=== PATIENT | female | born 1950 | race Caucasian/White ===

== ENCOUNTER 2016-10-11 05:31 | Inpatient (IN) | payer MEDICARE ==
[2016-10-11] VITALS (18 sets, daily range): BP systolic 89–160; BP diastolic 55–79; PULSE 98–124; RESP 17–34; TEMP 96.9–98.3; O2SAT 90–100
[~2016-10-11] VITALS: Ht 165.1 cm; Wt 84.5 kg
[2016-10-11] MEDS ORDERED: SODIUM CHLORIDE 0.9% FLUSH 10 ML FLUSH IVF PRN (05:45)
[2016-10-11] MEDS ORDERED: SYNT88TA PO (06:01)
[2016-10-11] MEDS ORDERED: MONT10TA4 PO (06:01)
[2016-10-11] MEDS ORDERED: ALBU0.08 NEB (06:01)
[2016-10-11] MEDS: RESP: ALBUTEROL 2.5 MG/IPRATROPIUM 0.5 MG NEB (SCH) INH (06:07)
[2016-10-11] MEDS ORDERED: SODIUM CHLORID 0.9% 500 ML INJ 500 ML IV ONE (06:15)
[2016-10-11] MEDS ORDERED: LORazepam 2 MG/ML VIAL IV PUSH ONE (06:15)
[2016-10-11 06:35] LABS: AUTOMATED NEUTROPHIL # 4.8 TH/MM3 (1.8-7.7); BASOPHIL # 0.1 TH/MM3 (0-0.2); BASOPHIL % 0.7 % (0.0-2.0); EOSINOPHIL # 0.7 TH/MM3 (0-0.4); EOSINOPHIL % 8.5 % (0.0-4.0); HEMATOCRIT 40.2 % (35.0-46.0); HEMO FLAGS DIFF FINAL; LYMPHOCYTE # 1.7 TH/MM3 (1.0-4.8); MEAN CELL VOLUME 92.3 FL (80.0-100.0); MEAN CORPUSCULAR HEMOGLOBIN 31.3 PG (27.0-34.0); MONO % 10.4 % (0.0-8.0); NEUT % 59.4 % (16.0-70.0); PLATELET COUNT 154 TH/MM3 (150-450); RED BLOOD COUNT 4.36 MIL/MM3 (4.00-5.30); RED CELL DISTRIBUTION WIDTH 13.2 % (11.6-17.2); WHITE BLOOD COUNT 8.1 TH/MM3 (4.0-11.0)
[2016-10-11 06:46] LABS: INTERNATIONAL NORMALIZED RATIO 0.9 RATIO; PROTHROMBIN TIME - PATIENT 10.4 SEC (9.8-11.6)
--- NOTE | 2016-10-11 06:48 | PD ---
HPI Chief Complaint: Respiratory Distress Time Seen by Provider: 05:40 Travel History International Travel<30 days: No Contact w/Intl Traveler<30days: No Traveled to known affect area: No History of Present Illness HPI The patient is a 65 year old female who presents to the [facility] emergency department with a history of increased shortness of breath after discontinuing her Symbicort due to cost approximately 2 weeks ago. A week ago her symptoms were worsened by developing an upper respiratory infection. She's had a cough that is been productive of green sputum. The patient's family also reports that she has chronic lower extremity edema that is been present for the last few months. Her primary care physician is Dr. Luis Fung. She has not been to see him recently. The patient's family reports that she has refused to go to the physician. She reports that she's had a subjective fever. She reports having chest tightness associated with her shortness of breath and wheezing. The patient awoke this evening with increased shortness of breath this prompting the visit to the emergency department. The patient arrives by ambulance services. The patient was provided 2 albuterol nebulizer treatments en route and Solu-Medrol 125 mg IV. The patient on arrival during a nebulizer treatment was noted to have 95% saturations, however on 2 L nasal cannula O2 her O2 saturation dropped down to 86-87%. The patient denies any neck pain, abdominal pain, vomiting, urinary symptoms, or neurologic symptoms. The patient does report having some diarrhea over the last few days. She took a leftover prescription of amoxicillin which she attributes the diarrhea 2. She denies having any blood in her stool or black or tarry stools. She denies having any mucus in her stool. [facility] Past Medical History Narrative Medical The patient's past medical history is significant for COPD, hypothyroid disorder , panic attacks. Anxiety: Yes COPD: Yes Diminished Hearing: No ?: Not Past Surgical History Narrative Surgical The patient's past surgical history is significant for cholecystectomy, partial thyroidectomy. Cholecystectomy: Yes Endocrine Surgery: Yes (thyroidectomy) Social History Alcohol Use: No Tobacco Use: No Substance Use: No Allergies-Medications (Allergen,Severity, Reaction): Coded Allergies: No Known Allergies (Unverified , 10/11/16) Reported Meds & Prescriptions Reported Meds & Active Scripts Active Reported Albuterol Neb (Albuterol Sulfate) 2.5 Mg/3 Ml Neb 2.5 Mg NEB Q4HR NEB While awake Montelukast (Montelukast Sodium) 10 Mg Tab 10 Mg PO HS Synthroid (Levothyroxine Sodium) 88 Mcg Tab 88 Mcg PO DAILY Review of Systems Except as stated in HPI: all other systems reviewed are Neg General / Constitutional: Positive: Fever Eyes: No: Visual changes HENT: Positive: Rhinorrhea, No: Headaches Cardiovascular: Positive: Chest Pain or Discomfort (chest tightness associated with shortness of breath), Dyspnea on exertion Respiratory: Positive: Cough, Shortness of Breath, Wheezing Gastrointestinal: Positive: Diarrhea, Changes in Bowel Habits, No: Nausea, Vomiting, Abdominal Pain, Hematochezia, Indigestion, Loss of Appetite Genitourinary: No: Dysuria Musculoskeletal: No: Pain Skin: No Rash Neurologic: No: Weakness Psychiatric: No: Depression Endocrine: No: Polydipsia Hematologic/Lymphatic: No: Easy Bruising Physical Exam Narrative General: The patient is a well-developed well-nourished female, short of breath on arrival with accessory muscle use and tripoding. Head and Neck exam: Head is normocephalic atraumatic. Eyes: EOMI, pupils are equal round and reactive to light. Nose: Midline septum with pink mucous membranes Mouth: Dentition unremarkable. Moist mucus membranes. Posterior oropharynx is not erythematous. No tonsillar hypertrophy. Uvula midline. Airway patent. Neck: No palpable lymphadenopathy. No nuchal rigidity. No thyromegaly. Cardiovascular: Sinus tachycardia in the 1 teens to 120 without murmurs, gallops, or rubs. No pulse deficit to the extremities on simultaneous auscultation and palpation of her radial artery. Lungs: Expiratory wheezes audible throughout bilateral lung faye, decreased breath sounds in bilateral bases. No rhonchi, no crackles audible. The patient has accessory muscle use noted. The patient has conversational dyspnea. Abdomen: Soft, without tenderness to palpation in all 4 quadrants of the abdomen. No guarding, rebound, or rigidity. Normal bowel sounds are audible. No tenderness on palpation of McBurney's point. Extremities: No clubbing or cyanosis. The patient has trace to 1+ pitting edema bilateral lower extremities. 2+ pulses in all 4 extremities. The patient has dry, flaky feet bilateral lower extremities. She reports that this is chronic. Back: No costovertebral angle tenderness to palpation. Neurologic Exam: Grossly nonfocal. Data Data Last Documented VS Vital Signs Date Time Temp Pulse Resp B/P Pulse Ox O2 Delivery O2 Flow Rate FiO2 10/11/16 07:14 17 97 BiPAP 40 10/11/16 05:49 2 10/11/16 05:42 124 160/79 Orders Complete Blood Count With Diff (10/11/16 05:41) Comprehensive Metabolic Panel (10/11/16 05:41) B-Type Natriuretic Peptide (10/11/16 05:41) Prothrombin Time / Inr (Pt) (10/11/16 05:41) Magnesium (Mg) (10/11/16 05:41) Ckmb (Isoenzyme) Profile (10/11/16 05:41) Troponin I (10/11/16 05:41) Arterial Blood Gas (Abg) (10/11/16 05:41) Urinalysis - C+S If Indicated (10/11/16 05:41) Blood Culture (10/11/16 05:41) Iv Access Insert/Monitor (10/11/16 05:41) Electrocardiogram (10/11/16 05:41) Ecg Monitoring (10/11/16 05:41) Oximetry (10/11/16 05:41) Oxygen Administration (10/11/16 05:41) Chest, Single Ap (10/11/16 05:41) Sodium Chloride 0.9% Flush (Ns Flush) (10/11/16 05:45) Albuterol-Ipratropium Neb (Duoneb Neb) (10/11/16 05:45) Resp Bipap / Cpap Non Invas Vt (10/11/16 05:41) Lactic Acid Sepsis Protocol (10/11/16 05:41) Lorazepam Inj (Ativan Inj) (10/11/16 06:15) Sodium Chlorid 0.9% 500 Ml Inj (Ns 500 M (10/11/16 06:15) Labs Laboratory Tests Test 10/11/16 10/11/16 10/11/16 06:00 06:25 06:45 White Blood Count 8.1 TH/MM3 Red Blood Count 4.36 MIL/MM3 Hemoglobin 13.7 GM/DL Hematocrit 40.2 % Mean Corpuscular Volume 92.3 FL Mean Corpuscular Hemoglobin 31.3 PG Mean Corpuscular Hemoglobin 34.0 % Concent Red Cell Distribution Width 13.2 % Platelet Count 154 TH/MM3 Mean Platelet Volume 9.7 FL Neutrophils (%) (Auto) 59.4 % Lymphocytes (%) (Auto) 21.0 % Monocytes (%) (Auto) 10.4 % Eosinophils (%) (Auto) 8.5 % Basophils (%) (Auto) 0.7 % Neutrophils # (Auto) 4.8 TH/MM3 Lymphocytes # (Auto) 1.7 TH/MM3 Monocytes # (Auto) 0.8 TH/MM3 Eosinophils # (Auto) 0.7 TH/MM3 Basophils # (Auto) 0.1 TH/MM3 CBC Comment DIFF FINAL Differential Comment Prothrombin Time 10.4 SEC Prothromb Time International 0.9 RATIO Ratio Sodium Level 141 MEQ/L Potassium Level 3.7 MEQ/L Chloride Level 96 MEQ/L Carbon Dioxide Level 42.0 MEQ/L Anion Gap 3 MEQ/L Blood Urea Nitrogen 10 MG/DL Creatinine 0.67 MG/DL Estimat Glomerular Filtration 88 ML/MIN Rate Random Glucose 125 MG/DL Calcium Level 8.7 MG/DL Magnesium Level 2.1 MG/DL Total Bilirubin 0.3 MG/DL Aspartate Amino Transf 19 U/L (AST/SGOT) Alanine Aminotransferase 21 U/L (ALT/SGPT) Alkaline Phosphatase 86 U/L Total Creatine Kinase 83 U/L Troponin I LESS THAN 0.02 NG/ML B-Type Natriuretic Peptide 19 PG/ML Total Protein 7.8 GM/DL Albumin 3.9 GM/DL Lactic Acid Level 1.0 mmol/L Blood Gas Puncture Site LT RADIAL Blood Gas Patient Temperature 98.6 Blood Gas HCO3 36 mmol/L Blood Gas Base Excess 9.2 mmol/L Blood Gas Oxygen Saturation 86 % Arterial Blood pH 7.29 Arterial Blood Partial 77 mmHg Pressure CO2 Arterial Blood Partial 56 mmHG Pressure O2 Arterial Blood Oxygen Content 16.1 Vol % Arterial Blood 1.3 % Carboxyhemoglobin Arterial Blood Methemoglobin 0.6 % Blood Gas Hemoglobin 13.3 G/DL Oxygen Delivery Device BIPAP Blood Gas Ventilator Setting IPAP=12 EPAP=6 Blood Gas Inspired Oxygen 30 % MDM Medical Decision Making Medical Screen Exam Complete: Yes Emergency Medical Condition: Yes Medical Record Reviewed: Yes Differential Diagnosis COPD exacerbation, versus pneumonia, versus new-onset congestive heart failure, versus acute coronary syndrome Narrative Course During the course of the patients emergency department visit, the patients history, examination, and differential diagnosis were reviewed with the patient. The patient had IV access obtained and blood work sent for analysis. The patient was placed on a pvc monitor with oximetry and blood pressure monitoring. An EKG was done on arrival. The patient's EKG reveals a sinus tachycardia with a heart rate of 121, QRS duration is 71 ms, QTC 348 ms without any acute ST segment elevation or depression. The patient was initially provided BiPAP due to increased work of breathing, DuoNeb nebs 3, normal saline a 500 mL bolus. The patients laboratory studies were pending at the conclusion of my shift. The patient's case was checked out to the oncoming ER physician. I anticipate that the patient will be admitted to the hospital for continued evaluation and treatment of his COPD exacerbation and hypoxemia on room air. Diagnosis Primary Impression: COPD exacerbation Additional Impression: Hypoxemia Admitting Information Admitting Physician Requests: Admit Raeann Stevenson MD October 11, 2016 06:48
[2016-10-11 06:54] LABS: BLOOD GAS BASE EXCESS 9.2 mmol/L (-2-2); BLOOD GAS CARBOXYHEMOGLOBIN 1.3 % (0-4); BLOOD GAS HCO3 36 mmol/L (22-26); BLOOD GAS METHEMOGLOBIN 0.6 % (0-2); BLOOD GAS O2 HGB SATURATION 86 % (90-100); BLOOD GAS OXYGEN CONTENT 16.1 Vol % (12.0-20.0); BLOOD GAS PCO2 77 mmHg (38-42); BLOOD GAS PO2 56 mmHG (61-120); BLOOD GAS TOTAL HGB 13.3 G/DL (12.0-16.0); TEMP CORR TO 98.6
[2016-10-11 06:55] LABS: CRITICAL VALUE YES; DRAW SITE LT RADIAL; FIO2 30 %; NUMBER OF ARTERIAL PUNCTURES 1; OXYGEN DEVICE BIPAP; STAT YES; ULNAR PULSE PRESENT; VENT SETTINGS IPAP=12 EPAP=6
[2016-10-11 06:59] LABS: ALT (GPT) 21 U/L (10-53); ANION GAP 3 MEQ/L (5-15); AST (GOT) 19 U/L (15-37); BLOOD UREA NITROGEN 10 MG/DL (7-18); CHLORIDE 96 MEQ/L (98-107); GLOMERULAR FILTRATION RATE 88 ML/MIN (>89); MAGNESIUM 2.1 MG/DL (1.5-2.5); POTASSIUM 3.7 MEQ/L (3.5-5.1); SODIUM (NA) 141 MEQ/L (136-145)
[2016-10-11 07:03] LABS: ALKALINE PHOSPHATASE 86 U/L (45-117); TOTAL BILIRUBIN ADULT 0.3 MG/DL (0.2-1.0)
[2016-10-11 07:16] LABS: CREATINE KINASE 83 U/L (26-192)
--- NOTE | 2016-10-11 07:17 | RADRPT ---
EXAM DATE/TIME: 10/11/2016 07:09 [place] COMPARISON: No previous studies available for comparison. INDICATIONS : Short of breath. MEDICAL HISTORY : None. SURGICAL HISTORY : None. ENCOUNTER: Initial ACUITY: 1 day PAIN SCORE: Non-responsive. LOCATION: Bilateral chest FINDINGS: Portable AP view of the chest demonstrates a normal-sized cardiac silhouette calcification of the aor ta. Lungs are hyperinflated with interstitial prominence bilaterally. No definite effusion, consolida tion, or pneumothorax is identified. Bones and soft tissues demonstrate no acute finding. CONCLUSION: Background lung changes suspicious for obstructive airways disease/emphysema. Otherwise, no acute fin ding is appreciated. Fredy Rodrigez MD on October 11, 2016 at 7:14 Board Certified Radiologist. This report was verified electronically.
--- NOTE | 2016-10-11 08:11 | EKG ---
Date Performed: 10/11/2016 Time Performed: 05:39:10 PTAGE: 65 years EKG: Marked baseline artifact Sinus tachycardia Would repeat EKG due to poor quality NO PREVIOUS TRACING DOCTOR: Shmuel Mcintyre Interpretating Date/Time 10/11/2016 08:10:55
[2016-10-11] MEDS ORDERED: BISACODYL 10 MG SUPP RECTAL PRN (08:15)
[2016-10-11] MEDS ORDERED: MAGNESIUM HYDROXIDE SUSP 30 ML CUP PO PRN (08:15)
[2016-10-11] MEDS ORDERED: SODIUM CHLORIDE 0.9% FLUSH 10 ML FLUSH IV FLUSH PRN (08:15)
[2016-10-11] MEDS ORDERED: NALOXONE HCL 0.4 MG/ML AMP IV PRN (08:15)
[2016-10-11] MEDS ORDERED: AZITHROMYCIN INJ 500 MG in SODIUM CHLOR 0.9% 250 ML INJ 250 ML IV ONE (08:15)
[2016-10-11] MEDS ORDERED: cefTRIAXone INJ 1,000 MG in SODIUM CHLORIDE 0.9% INJ 100 ML IV ONE (08:15)
[2016-10-11] MEDS ORDERED: SENNOSIDES 8.6 MG TAB PO PRN (08:15)
[2016-10-11] MEDS ORDERED: RESP: ALBUTEROL 2.5 MG/IPRATROPIUM 0.5 MG NEB (PRN) NEB ×2 (08:15→14:00)
[2016-10-11] MEDS ORDERED: LACTULOSE SYRUP 20 GM/30 ML CUP PO PRN (08:15)
[2016-10-11] MEDS ORDERED: ONDANSETRON HCL 4 MG/2 ML VIAL IVP PRN (08:15)
[2016-10-11 08:18] LABS: BLOOD GAS BASE EXCESS 8.5 mmol/L (-2-2); BLOOD GAS CARBOXYHEMOGLOBIN 1.2 % (0-4); BLOOD GAS HCO3 36 mmol/L (22-26); BLOOD GAS METHEMOGLOBIN 0.6 % (0-2); BLOOD GAS O2 HGB SATURATION 90 % (90-100); BLOOD GAS OXYGEN CONTENT 16.2 Vol % (12.0-20.0); BLOOD GAS PCO2 83 mmHg (38-42); BLOOD GAS PO2 67 mmHG (61-120); BLOOD GAS TOTAL HGB 12.7 G/DL (12.0-16.0); CRITICAL VALUE YES; OXYGEN DEVICE BIPAP; TEMP CORR TO 98.6
[2016-10-11 08:19] LABS: DRAW SITE RT RADIAL; FIO2 40 %; NUMBER OF ARTERIAL PUNCTURES 2; STAT YES; ULNAR PULSE Y; VENT SETTINGS 14 IPAP/ 7 EPAP
[2016-10-11] MEDS: SODIUM CHLORIDE 0.9% FLUSH 10 ML FLUSH IV FLUSH SCH ×2 (08:45→21:23)
[2016-10-11] MEDS: LEVOTHYROXINE SODIUM 88 MCG TAB PO SCH (08:59)
[2016-10-11] MEDS: DOCUSATE SODIUM 50 MG/SENNA 8.6 MG TAB PO SCH ×2 (08:59→21:23)
[2016-10-11 09:21] LABS: BLOOD GAS BASE EXCESS 8.6 mmol/L (-2-2); BLOOD GAS CARBOXYHEMOGLOBIN 1.2 % (0-4); BLOOD GAS HCO3 35 mmol/L (22-26); BLOOD GAS METHEMOGLOBIN 0.7 % (0-2); BLOOD GAS O2 HGB SATURATION 93 % (90-100); BLOOD GAS OXYGEN CONTENT 16.3 Vol % (12.0-20.0); BLOOD GAS PCO2 77 mmHg (38-42); BLOOD GAS PO2 73 mmHG (61-120); BLOOD GAS TOTAL HGB 12.5 G/DL (12.0-16.0); CRITICAL VALUE YES; OXYGEN DEVICE BIPAP; TEMP CORR TO 98.6; VENT SETTINGS 18 IPAP/7 EPAP
[2016-10-11 09:22] LABS: DRAW SITE LT RADIAL; FIO2 40 %; NUMBER OF ARTERIAL PUNCTURES 2; STAT YES; ULNAR PULSE Y
--- NOTE | 2016-10-11 09:45 | PD ---
Data Data Last Documented VS Vital Signs Date Time Temp Pulse Resp B/P Pulse Ox O2 Delivery O2 Flow Rate FiO2 10/11/16 07:55 98.3 110 25 112/55 97 BiPAP 40 10/11/16 05:49 2 Orders Complete Blood Count With Diff (10/11/16 05:41) Comprehensive Metabolic Panel (10/11/16 05:41) B-Type Natriuretic Peptide (10/11/16 05:41) Prothrombin Time / Inr (Pt) (10/11/16 05:41) Magnesium (Mg) (10/11/16 05:41) Ckmb (Isoenzyme) Profile (10/11/16 05:41) Troponin I (10/11/16 05:41) Arterial Blood Gas (Abg) (10/11/16 05:41) Urinalysis - C+S If Indicated (10/11/16 05:41) Blood Culture (10/11/16 05:41) Iv Access Insert/Monitor (10/11/16 05:41) Electrocardiogram (10/11/16 05:41) Ecg Monitoring (10/11/16 05:41) Oximetry (10/11/16 05:41) Oxygen Administration (10/11/16 05:41) Chest, Single Ap (10/11/16 05:41) Sodium Chloride 0.9% Flush (Ns Flush) (10/11/16 05:45) Albuterol-Ipratropium Neb (Duoneb Neb) (10/11/16 05:45) Resp Bipap / Cpap Non Invas Vt (10/11/16 05:41) Lactic Acid Sepsis Protocol (10/11/16 05:41) Lorazepam Inj (Ativan Inj) (10/11/16 06:15) Sodium Chlorid 0.9% 500 Ml Inj (Ns 500 M (10/11/16 06:15) Arterial Blood Gas (Abg) (10/11/16 ) Admit Order (Ed Use Only) (10/11/16 08:04) Ceftriaxone Inj (Rocephin Inj) (10/11/16 08:15) Azithromycin Inj (Zithromax Inj) (10/11/16 08:15) Labs Laboratory Tests Test 10/11/16 10/11/16 10/11/16 06:00 06:25 06:45 White Blood Count 8.1 TH/MM3 Red Blood Count 4.36 MIL/MM3 Hemoglobin 13.7 GM/DL Hematocrit 40.2 % Mean Corpuscular Volume 92.3 FL Mean Corpuscular Hemoglobin 31.3 PG Mean Corpuscular Hemoglobin 34.0 % Concent Red Cell Distribution Width 13.2 % Platelet Count 154 TH/MM3 Mean Platelet Volume 9.7 FL Neutrophils (%) (Auto) 59.4 % Lymphocytes (%) (Auto) 21.0 % Monocytes (%) (Auto) 10.4 % Eosinophils (%) (Auto) 8.5 % Basophils (%) (Auto) 0.7 % Neutrophils # (Auto) 4.8 TH/MM3 Lymphocytes # (Auto) 1.7 TH/MM3 Monocytes # (Auto) 0.8 TH/MM3 Eosinophils # (Auto) 0.7 TH/MM3 Basophils # (Auto) 0.1 TH/MM3 CBC Comment DIFF FINAL Differential Comment Prothrombin Time 10.4 SEC Prothromb Time International 0.9 RATIO Ratio Sodium Level 141 MEQ/L Potassium Level 3.7 MEQ/L Chloride Level 96 MEQ/L Carbon Dioxide Level 42.0 MEQ/L Anion Gap 3 MEQ/L Blood Urea Nitrogen 10 MG/DL Creatinine 0.67 MG/DL Estimat Glomerular Filtration 88 ML/MIN Rate Random Glucose 125 MG/DL Calcium Level 8.7 MG/DL Magnesium Level 2.1 MG/DL Total Bilirubin 0.3 MG/DL Aspartate Amino Transf 19 U/L (AST/SGOT) Alanine Aminotransferase 21 U/L (ALT/SGPT) Alkaline Phosphatase 86 U/L Total Creatine Kinase 83 U/L Troponin I LESS THAN 0.02 NG/ML B-Type Natriuretic Peptide 19 PG/ML Total Protein 7.8 GM/DL Albumin 3.9 GM/DL Lactic Acid Level 1.0 mmol/L Blood Gas Puncture Site LT RADIAL Blood Gas Patient Temperature 98.6 Blood Gas HCO3 36 mmol/L Blood Gas Base Excess 9.2 mmol/L Blood Gas Oxygen Saturation 86 % Arterial Blood pH 7.29 Arterial Blood Partial 77 mmHg Pressure CO2 Arterial Blood Partial 56 mmHG Pressure O2 Arterial Blood Oxygen Content 16.1 Vol % Arterial Blood 1.3 % Carboxyhemoglobin Arterial Blood Methemoglobin 0.6 % Blood Gas Hemoglobin 13.3 G/DL Oxygen Delivery Device BIPAP Blood Gas Ventilator Setting IPAP=12 EPAP=6 Blood Gas Inspired Oxygen 30 % MDM Supervised Visit with KELVIN: Yes Interpretation(s) No leukocytosis Bicarbonate is 42 Troponin is 0.02 BNP is 19 Lactic acid is 1 ABG: Acute on chronic respiratory acidosis Differential Diagnosis COPD exacerbation, pneumonia, pulmonary embolism, hypercarbic respiratory failure Narrative Course This is a 65-year-old female who has a history of COPD who presents to the emergency department with increasing wheezing and shortness of breath. She was hypoxic on arrival. She is placed on BiPAP by Dr. Stevenson. Repeat ABG after patient being on BiPAP for one hour demonstrated worsening hypercarbia. We increased her settings on her BiPAP, she was given additional bronchodilators and repeat gas after an hour looked somewhat improved. I don't think she requires intubation at this time. She is awake and talking and protecting her airway. I spoke to Dr. No and we agreed to increase her inspiratory pressure to 20 and continue bronchodilator therapy. We'll repeat ABG later in the day. Critical Care Narrative Aggregate critical care time was 35 minutes. Time to perform other separately billable procedures was not included in the critical care time. My time did not include minutes spent treating any other patients simultaneously or on activities that did not directly contribute to the patient's treatment. The services I provided to this patient were to treat and/or prevent clinically significant deterioration that could result in: Disability, I provided critical care services requiring my management, as noted below: Chart data review, documentation time, medication orders and management, vital sign assessments/reviewing monitor data, ordering and reviewing lab tests, ordering and interpreting/reviewing x-rays and diagnostic studies, care of the patient and discussion of the patient with the admitting physicians. Physician Communication Physician Communication Discussed with Dr. No Diagnosis Primary Impression: COPD exacerbation Additional Impression: Hypoxemia Admitting Information Admitting Physician Requests: Admit Nisreen Jacob MD October 11, 2016 09:45
[2016-10-11 09:57] LABS: BLOOD, URINE SMALL (NEG); GLUCOSE,URINE NEG (NEG); HYALINE CAST, URINE 1 /lpf (RARE); KETONE, URINE NEG (NEG); MUCUS URINE FEW /lpf (OCC); NITRITE,URINE NEG (NEG); SQUAMOUS EPITHELIAL CELL URINE <1 /hpf (0-5); TRANSITIONAL EPI CELLS, URINE <1 /hpf; URINE COLOR YELLOW (YELLW/STRAW)
[2016-10-11 09:58] LABS: COMMENT (UR) CULT NOT INDICATED; CULTURE IF INDICATED CULT NOT INDICATED
[2016-10-11] MEDS ORDERED: RESP: ALBUTEROL 2.5 MG/IPRATROPIUM 0.5 MG NEB (SCH) NEB (12:00)
[2016-10-11] MEDS: methylPREDNISolone SOD SUCC 125 MG/2 ML VIAL IV PUSH SCH ×2 (12:40→18:18)
[2016-10-11] MEDS ORDERED: DEXTROSE 50% IN WATER 50 ML VIAL(D50) IV PRN (14:00)
[2016-10-11] MEDS: INSULIN NovoLIN REGULAR SUPPLEMENTAL SCALE SQ SCH ×2 (14:00→21:22)
[2016-10-11] MEDS ORDERED: GLUCAGON 1 MG/ML VIAL OTHER PRN (14:00)
[2016-10-11 14:08] LABS: BLOOD GAS BASE EXCESS 8.4 mmol/L (-2-2); BLOOD GAS CARBOXYHEMOGLOBIN 1.6 % (0-4); BLOOD GAS HCO3 35 mmol/L (22-26); BLOOD GAS METHEMOGLOBIN 1.1 % (0-2); BLOOD GAS O2 HGB SATURATION 93 % (90-100); BLOOD GAS OXYGEN CONTENT 16.3 Vol % (12.0-20.0); BLOOD GAS PCO2 69 mmHg (38-42); BLOOD GAS PO2 82 mmHg (61-120); BLOOD GAS TOTAL HGB 12.4 G/DL (12.0-16.0); TEMP CORR TO 98.6
[2016-10-11 14:09] LABS: CRITICAL VALUE YES; DRAW SITE RT RADIAL; FIO2 40 %; NUMBER OF ARTERIAL PUNCTURES 1; OXYGEN DEVICE BIPAP; STAT YES; ULNAR PULSE PRESENT
[2016-10-11] MEDS: PANTOPRAZOLE SODIUM 40 MG VIAL IV PUSH SCH (14:39)
[2016-10-11] MEDS: RESP: ALBUTEROL 2.5 MG/IPRATROPIUM 0.5 MG NEB (SCH) NEB ×3 (14:50→23:49)
[2016-10-11] MEDS: RESP: BUDESONIDE 0.5 MG/2 ML NEB NEB SCH ×2 (14:50→20:57)
--- NOTE | 2016-10-11 17:08 | MB ---
cc: JOSELO DIEZ M.D. DATE OF CONSULTATION: 10/11/2016. HISTORY OF PRESENT ILLNESS: The patient is a 65-year-old female with past medical history of COPD on 5 liters home oxygen, hypothyroidism and anxiety disorder. She presented to the [facility] Emergency Department with progressive worsening shortness of breath after discontinuing her Symbicort medication due to cough approximately two weeks ago. A week ago, her symptoms worsened by developing an upper respiratory infection. She has had a productive cough with green phlegm. As per emergency department records, the patient refused to go to her primary care physician. She reports having chest tightness associated with shortness of breath and wheezing. She received albuterol nebulizer treatment via EMS and Solu-Medrol 125 milligrams IV push. She denies any orthopnea, PND or constitutional symptoms. In addition, no history of nausea, vomiting or abdominal pain. The patient was placed on BiPAP 12/6 with 30% FIO2 and her ABG showed acute hypercapnic respiratory acidosis with a pH of 7.29, CO2 77, pAO2 56, bicarb 36 and sats of 86%. Subsequently she had two additional blood gases, and her last ABG at 09:18 showed a pH of 7.28, CO2 77, pAO2 73, bicarb 35, sats 93% on 18/7 with 40% FIO2. Chest x-ray showed COPD changes; otherwise, no acute findings identified. In the emergency room, the patient received Rocephin and azithromycin. Due to her agitation, she received Ativan 0.5 milligrams at 06:54 this morning. On arrival to the intensive care unit, the patient remains on BiPAP awake. PAST MEDICAL HISTORY: The past medical history significant for: 1. COPD. 2. Hypothyroidism. 3. Anxiety disorder. PAST SURGICAL HISTORY: Significant for: 1. Cholecystectomy. 2. Previous partial thyroidectomy. ALLERGIES: NO KNOWN DRUG ALLERGIES reported MEDICATIONS: 1. Albuterol. 2. Singulair. 3. Synthroid. FAMILY HISTORY: Noncontributory. SOCIAL HISTORY: Nonsmoker, nondrinker. REVIEW OF SYSTEMS: As per the history of present illness and the rest of the review of systems is unremarkable. PHYSICAL EXAMINATION: GENERAL: A 65-year-old female lying in bed in mild respiratory distress on BiPAP. VITAL SIGNS: Afebrile, pulse 105, blood pressure 123/59 with a MAP of 83, saturation 92% to 97% on BiPAP. HEAD, EYES, EARS, NOSE, THROAT: Normocephalic and atraumatic. Pupils equal, round and reactive to light and accommodation. Extraocular muscles intact. Conjunctivae are pink. Nonicteric sclerae. Oral mucosa within normal limits. NECK: The neck is supple. No jugular venous distention, adenopathy or thyromegaly. Trachea in the midline. CARDIOVASCULAR: Tachycardic Normal S1 and S2. No murmurs, rubs or gallops noted. PULMONARY: Bilateral equal air entry, diminished. ABDOMEN: The abdomen is soft, nontender and no distention. Positive bowel sounds. EXTREMITIES: No cyanosis, clubbing. Nonpitting edema. NEUROLOGIC: No focal sensory deficit. LABORATORY DATA: Sodium 141, potassium 3.7, chloride 96, carbon dioxide 42, BUN 10, creatinine 0.67, glucose 125, lactic acid 1.0. Troponin less than 0.02. BNP 19. WBCs 8.1, hemoglobin 15.7, hematocrit 40, platelet count of 154,000. RADIOGRAPHIC STUDIES: Chest x-ray showed no acute cardiopulmonary abnormalities. COPD changes. IMPRESSION: 1. Acute hypercapnic respiratory failure. 2. COPD exacerbation. 3. Hypothyroidism. 4. Anxiety disorder. RECOMMENDATIONS: 1. Monitor neuro status closely and avoid any sedatives. 2. Continue with oxygen and maintain sats above 92%. 3. Bronchodilators in the form of DuoNeb q. 4+ q. 2 p.r.n. for shortness of breath. In addition, we will add Symbicort, Spiriva and Pulmicort. 4. Continue with noninvasive positive pressure ventilation. 5. Will repeat ABG now. If there is any worsening in respiratory acidosis or clinical condition, we will proceed with intubation and mechanical ventilation. 6. Will need pulmonary function tests as an outpatient to assess the severity of her obstructive lung disease. 7. Monitor heart rate and blood pressure closely. 8. Maintain MAP greater than 65 mmHg. 9. Lactic acid level measured at 1.0. 10. Monitor renal function intakes and outputs and electrolyte replacement per protocol. 11. Keep n.p.o. for now and place on Protonix 40 mg and daily. 12. Continue with her antibiotics. She is currently on Rocephin and azithromycin. 13. Monitor for signs infections, which include fever and WBC. 14. A chest x-ray in the emergency room showed COPD changes otherwise no acute findings appreciated. 15. Sliding scale insulin with Accu-Chek q. 6 h as the patient will be on IV steroids. 16. Continue with Synthroid per the primary team. 17. Check a baseline TSH level. 18. GI prophylaxis with Protonix 40 milligrams daily and DVT prophylaxis with SCDs and heparin subcutaneous. MD COCO Llamas/FLORES /1:46 PM /4:55 PM
--- NOTE | 2016-10-11 17:26 | MB ---
cc: DEL MELVIN DATE OF CONSULTATION: 10/11/2016. REASON FOR CONSULTATION: Respiratory failure. REQUESTING PHYSICIAN: HISTORY OF PRESENT ILLNESS: Ms. Lew is a 65-year-old female with longstanding history of COPD. She uses oxygen up to 5 liters nasal cannula at home. per her daughter, she has not been using nebulizer machine because the machine was broken. She has also stopped using her Symbicort because of the cost and she has not seen her physician, Dr. Hogan for a long period of time. She can barely walk from one end of the room to the other one and they live in a very small apartment and she cannot even walk inside the room. She came to the hospital with worsening of her shortness of breath going on for about seven days or so. She has wheezing, shortness of breath, has cough and congestion, no fever or chills. No night sweats. The patient was worked up in the hospital. She had a blood gas done, which shows pH of 7.29, pC02 of 77, p02 of 56 on 30% BiPAP. Repeat blood gas on 40% BiPAP showed pH 7.32, pC02 69, p02 82. The patient opens her eyes but does not follow any commands. Her daughter is at the beside who provides most of the information. PAST MEDICAL HISTORY: 1. History of COPD. 2. Hypertension. 3. History of thyroid surgery. 4. History of hypothyroidism MEDICATIONS: She is currently taking : 1. Zithromax 500 milligrams a day. 2. Rocephin 1 gram a day. 3. Singulair 10 milligrams a day. 4. Heparin 5000 q. 12 hours. 5. Albuterol and Atrovent nebulizer treatment. 6. Symbicort 160/4.5 two puffs twice a day. 7. Spiriva once a day. 8. Budesonide nebulizer treatment. 9. Protonix 40 milligrams a day. 10. Solu-Medrol 60 milligrams q. 6 hours. 11. Levothyroxine 88 micrograms a day. ALLERGIES: NO KNOWN DRUG ALLERGIES. SOCIAL HISTORY: She is a . She used to work for [employer]. She retired eight years ago. She has history of smoking which she quit two years ago. No alcohol abuse. FAMILY HISTORY: She has two daughter s. The patient lives with her daughter. REVIEW OF SYSTEMS: She barely walks inside the house. Her weight is stable. No malignancy. No DVT or pulmonary embolism. No seizure, stroke or epilepsy. PHYSICAL EXAMINATION: GENERAL: An elderly lethargic on BiPAP. VITAL SIGNS: Blood pressure 112/55, heart rate 110, respirations 20, temperature 98.3. HEAD, EYES, EARS, NOSE, THROAT: Pupils are equal and reactive to light. She is using BiPAP. NECK: The neck is supple. JVP not raised. CHEST: She has faint expiratory rhonchi. CARDIOVASCULAR: S1 and S2 normal. ABDOMEN: Abdomen benign. EXTREMITIES: No edema. IMPRESSION: 1. Hypercapnic respiratory failure. 2. COPD exacerbation. 3. Chronic respiratory insufficiency. She is on home oxygen. 4. Noncompliance. 5. Hypertension. PLAN: I discussed with the patient's daughter at the bedside that the patient will need admission the intensive care unit. She will be maintained on BiPAP. If she gets worse or is not improving, then she will need intubation, which the daughter understands and wants to proceed with it. Will give her IV Solu-Medrol. Continue antibiotics and aerosol treatments, supplement her oxygen. She is on Heparin for DVT prophylaxis. Further treatment will depend on the course in the hospital. Thank you for this consult. MD RADHA Beltran/FLORES /2:25 PM /5:14 PM
[2016-10-11] MEDS: DEXT 5%-NACL 0.9% 1000 ML INJ 1,000 ML IV SCH (18:17)
[2016-10-11 19:32] LABS: BLOOD GAS BASE EXCESS 9.2 mmol/L (-2-2); BLOOD GAS CARBOXYHEMOGLOBIN 1.7 % (0-4); BLOOD GAS HCO3 35 mmol/L (22-26); BLOOD GAS METHEMOGLOBIN 1.2 % (0-2); BLOOD GAS O2 HGB SATURATION 86 % (90-100); BLOOD GAS OXYGEN CONTENT 13.8 Vol % (12.0-20.0); BLOOD GAS PCO2 62 mmHg (38-42); BLOOD GAS PO2 55 mmHg (61-120); BLOOD GAS TOTAL HGB 11.4 G/DL (12.0-16.0); TEMP CORR TO 98.6
[2016-10-11 19:33] LABS: CRITICAL VALUE YES; DRAW SITE RT RADIAL; FIO2 35 %; NUMBER OF ARTERIAL PUNCTURES 1; OXYGEN DEVICE BiPAP; STAT NO; ULNAR PULSE PRESENT; VENT SETTINGS IPAP20/EPAP10
[2016-10-11] MEDS: BUDESONIDE-FORMOTEROL 160/4.5 MCG INHALER INH SCH (21:00)
[2016-10-11] MEDS: MONTELUKAST SODIUM 10 MG TAB PO SCH (21:23)
[2016-10-11] MEDS: HEPARIN SODIUM - SQ 10,000 UNITS/ML VIAL SQ SCH (21:24)
[2016-10-12] VITALS (24 sets, daily range): BP systolic 126–154; BP diastolic 58–77; PULSE 89–116; RESP 13–29; TEMP 97.4–98.4; O2SAT 90–100
[2016-10-12] MEDS ORDERED: CHLORHEXIDINE GLUCONATE 2 % 1 PACK (2 CLOTHS)(extra cloths) TOPICAL PRN (00:30)
[2016-10-12] MEDS: methylPREDNISolone SOD SUCC 125 MG/2 ML VIAL IV PUSH SCH ×5 (00:41→23:23)
[2016-10-12] MEDS: INSULIN NovoLIN REGULAR SUPPLEMENTAL SCALE SQ SCH ×4 (02:00→21:45)
[2016-10-12] MEDS: CHLORHEXIDINE GLUCONATE 2 % 1 PACK (2 CLOTHS)(taper/protocol) TOPICAL SCH (02:29)
[2016-10-12] MEDS: DEXT 5%-NACL 0.9% 1000 ML INJ 1,000 ML IV SCH ×2 (02:29→21:31)
[2016-10-12] MEDS: RESP: ALBUTEROL 2.5 MG/IPRATROPIUM 0.5 MG NEB (SCH) NEB ×5 (03:12→21:02)
[2016-10-12] MEDS: LEVOTHYROXINE SODIUM 88 MCG TAB PO SCH (05:40)
--- NOTE | 2016-10-12 07:42 | HHI.CCPN ---
Subjective Remarks/Hospital Course The patient is a 65-year-old female with past medical history of COPD on 5 liters home oxygen, hypothyroidism and anxiety disorder. She presented to the [facility] Emergency Department with progressive worsening shortness of breath after discontinuing her Symbicort medication due to cough approximately two weeks ago. A week ago, her symptoms worsened by developing an upper respiratory infection. She has had a productive cough with green phlegm. As per emergency department records, the patient refused to go to her primary care physician. She reports having chest tightness associated with shortness of breath and wheezing. She received albuterol nebulizer treatment via EMS and Solu-Medrol 125 milligrams IV push. She denies any orthopnea, PND or constitutional symptoms. In addition, no history of nausea, vomiting or abdominal pain. The patient was placed on BiPAP 04/20 with 30% FIO2 and her ABG showed acute hypercapnic respiratory acidosis with a pH of 7.29, CO2 77, pAO2 56 , bicarb 36 and sats of 86%. Subsequently she had two additional blood gases, and her last ABG at 09:18 showed a pH of 7.28, CO2 77, pAO2 73, bicarb 35, sats 93% on 187 with 40% FIO2. Chest x-ray showed COPD changes; otherwise, no acute findings identified. In the emergency room, the patient received Rocephin and azithromycin. Due to her agitation, she received Ativan 0.5 milligrams at 06:54 this morning. On arrival to the intensive care unit, the patient remains on BiPAP awake. 10/12 No events overnight. Remains on BIPAP with FIO2 45%. Afebrile. Objective Vital Signs Date Time Temp Pulse Resp B/P Pulse Ox O2 Delivery O2 Flow Rate FiO2 10/12/16 06:00 89 10/12/16 04:00 97.4 22 134/66 97 10/12/16 03:15 45 10/11/16 07:55 BiPAP 10/11/16 05:49 2 Intake and Output 10/11/16 10/11/16 10/12/16 08:00 16:00 00:00 Intake Total 0 ml 717 ml Output Total 230 ml Balance -230 ml 717 ml Result Diagram: 10/11/16 0600 10/11/16 0600 Other Results Laboratory Tests Test 510/11/16 10/11/16 10/11/16 08:15 09:18 09:35 14:00 Blood Gas Puncture Site RT RADIAL LT RADIAL RT RADIAL Blood Gas Patient Temperature 98.6 98.6 98.6 Blood Gas HCO3 36 mmol/L 35 mmol/L 35 mmol/L Blood Gas Base Excess 8.5 mmol/L 8.6 mmol/L 8.4 mmol/L Blood Gas Oxygen Saturation 90 % 93 % 93 % Arterial Blood pH 7.25 7.28 7.32 Arterial Blood Partial 83 mmHg 77 mmHg 69 mmHg Pressure CO2 Arterial Blood Partial 67 mmHG 73 mmHG 82 mmHg Pressure O2 Arterial Blood Oxygen Content 16.2 Vol % 16.3 Vol % 16.3 Vol % Arterial Blood 1.2 % 1.2 % 1.6 % Carboxyhemoglobin Arterial Blood Methemoglobin 0.6 % 0.7 % 1.1 % Blood Gas Hemoglobin 12.7 G/DL 12.5 G/DL 12.4 G/DL Oxygen Delivery Device BIPAP BIPAP BIPAP Blood Gas Ventilator Setting 14 IPAP/ 7 18 IPAP/7 EPAP EPAP Blood Gas Inspired Oxygen 40 % 40 % 40 % Urine Color YELLOW Urine Turbidity CLEAR Urine pH 5.0 Urine Specific [place] 1.016 Urine Protein NEG mg/dL Urine Glucose (UA) NEG mg/dL Urine Ketones NEG mg/dL Urine Occult Blood SMALL Urine Nitrite NEG Urine Bilirubin NEG Urine Urobilinogen LESS THAN 2.0 MG/DL Urine Leukocyte Esterase NEG Urine RBC 4 /hpf Urine WBC 1 /hpf Urine Squamous Epithelial <1 /hpf Cells Urine Transitional Epithelial <1 /hpf Cells Urine Hyaline Casts 1 /lpf Urine Mucus FEW /lpf Microscopic Urinalysis Comment CULT NOT INDICATED Test 10/11/16 19:18 Blood Gas Puncture Site RT RADIAL Blood Gas Patient Temperature 98.6 Blood Gas HCO3 35 mmol/L Blood Gas Base Excess 9.2 mmol/L Blood Gas Oxygen Saturation 86 % Arterial Blood pH 7.37 Arterial Blood Partial 62 mmHg Pressure CO2 Arterial Blood Partial 55 mmHg Pressure O2 Arterial Blood Oxygen Content 13.8 Vol % Arterial Blood 1.7 % Carboxyhemoglobin Arterial Blood Methemoglobin 1.2 % Blood Gas Hemoglobin 11.4 G/DL Oxygen Delivery Device BiPAP Blood Gas Ventilator Setting IPAP20/EPAP10 Blood Gas Inspired Oxygen 35 % Imaging Last Impressions Chest X-Ray 10/11/16 0541 Signed Impressions: Service Date/Time: Tuesday, October 11, 2016 07:09 - CONCLUSION: Background lung changes suspicious for obstructive airways disease/emphysema. Otherwise, no acute finding is appreciated. Fredy Rodrigez MD Objective Remarks GENERAL: Patient is lying in bed in NAD SKIN: Warm and dry. HEAD: Normocephalic. EYES: No scleral icterus. No injection or drainage. NECK: Supple, trachea midline. No JVD or lymphadenopathy. CARDIOVASCULAR: Tachycardic without murmurs, gallops, or rubs. RESPIRATORY: Breath sounds equal bilaterally. No accessory muscle use. GASTROINTESTINAL: Abdomen soft, non-tender, nondistended. Neuro: Awake and alert A/P Assessment and Plan 1. Acute hypercapnic respiratory failure. 2. COPD exacerbation. 3. Hypothyroidism. 4. Anxiety disorder. Plan Neuro: Monitor neuro status closely and avoid any sedatives. Pulm: Continue with oxygen and maintain sats above 92%. Bronchodilators(DuoNeb, Symbicort, Spiriva)Singular 10mg qhs NIPPV PRN for resp distress. Check ABG. Pulm is following- Dr. Lopez CV: Monitor HR and BP and maintain MAP > 65 mmHg. Lactic acid level measured at 1.0. : Monitor renal function intakes and outputs and electrolyte replacement per protocol. On D5NS@75ml/hr GI: on Protonix 40 mg and daily. ID: Continue with abx( Rocephin and azithromycin). Monitor for signs infections( fever and WBC). CXR showed COPD changes otherwise no acute findings appreciated. Endo: SSI with Accu-Chek q. 6 h for glycemic control Continue with Synthroid TSH:0.97 GI prophylaxis with Protonix 40 milligrams daily and DVT prophylaxis with SCDs and heparin subcutaneous. Check labs today Level 3 Harpal No MD October 12, 2016 07:42
[2016-10-12 08:23] LABS: BLOOD GAS BASE EXCESS 9.1 mmol/L (-2-2); BLOOD GAS CARBOXYHEMOGLOBIN 1.4 % (0-4); BLOOD GAS HCO3 35 mmol/L (22-26); BLOOD GAS METHEMOGLOBIN 0.8 % (0-2); BLOOD GAS O2 HGB SATURATION 97 % (90-100); BLOOD GAS OXYGEN CONTENT 15.7 Vol % (12.0-20.0); BLOOD GAS PCO2 61 mmHg (38-42); BLOOD GAS PO2 135 mmHg (61-120); BLOOD GAS TOTAL HGB 11.3 G/DL (12.0-16.0); CRITICAL VALUE YES; TEMP CORR TO 98.6
[2016-10-12 08:24] LABS: DRAW SITE RT RADIAL; FIO2 45 %; NUMBER OF ARTERIAL PUNCTURES 1; OXYGEN DEVICE BiPAP; ULNAR PULSE PRESENT; VENT SETTINGS IPAP20/EPAP10
[2016-10-12 08:25] LABS: STAT NO
[2016-10-12 08:54] LABS: AUTOMATED NEUTROPHIL # 4.3 TH/MM3 (1.8-7.7); BASOPHIL % 0.2 % (0.0-2.0); HEMATOCRIT 35.6 % (35.0-46.0); HEMO FLAGS DIFF FINAL; LYMPHOCYTE # 0.3 TH/MM3 (1.0-4.8); MEAN CELL VOLUME 92.6 FL (80.0-100.0); MEAN CORPUSCULAR HEMOGLOBIN 30.9 PG (27.0-34.0); MEAN CORPUSCULAR HGB CONC 33.4 % (32.0-36.0); NEUT % 88.8 % (16.0-70.0); PLATELET COUNT 141 TH/MM3 (150-450); RED BLOOD COUNT 3.85 MIL/MM3 (4.00-5.30); RED CELL DISTRIBUTION WIDTH 13.4 % (11.6-17.2); WHITE BLOOD COUNT 4.8 TH/MM3 (4.0-11.0)
[2016-10-12] MEDS: SODIUM CHLORIDE 0.9% FLUSH 10 ML FLUSH IV FLUSH SCH ×2 (09:00→21:33)
[2016-10-12] MEDS: DOCUSATE SODIUM 50 MG/SENNA 8.6 MG TAB PO SCH ×4 (09:00→21:00)
[2016-10-12] MEDS: TIOTROPIUM BROMIDE 18 MCG INH INH SCH (09:10)
[2016-10-12] MEDS: BUDESONIDE-FORMOTEROL 160/4.5 MCG INHALER INH SCH ×2 (09:10→21:32)
[2016-10-12] MEDS: HEPARIN SODIUM - SQ 10,000 UNITS/ML VIAL SQ SCH ×2 (09:11→21:33)
[2016-10-12] MEDS: cefTRIAXone INJ 1,000 MG in SODIUM CHLORIDE 0.9% INJ 100 ML IV SCH (09:12)
[2016-10-12 09:17] LABS: BICARBONATE 36.8 MEQ/L (21.0-32.0); POTASSIUM 4.2 MEQ/L (3.5-5.1)
[2016-10-12] MEDS: AZITHROMYCIN INJ 500 MG in SODIUM CHLOR 0.9% 250 ML INJ 250 ML IV SCH (10:33)
[2016-10-12] MEDS: PANTOPRAZOLE SODIUM 40 MG VIAL IV PUSH SCH (14:39)
[2016-10-12] MEDS: ACETAMINOPHEN 325 MG TAB PO PRN (18:07)
[2016-10-12] MEDS ORDERED: ACETAMINOPHEN 325 MG TAB PO PRN (19:00)
--- NOTE | 2016-10-12 19:00 | HHI.PR ---
Subjective Remarks 65 YOWF with Hypercapnoic RF,COPD,non compliance On BIPAP Awake, follows commands Anxious Daughter at BS Objective Vital Signs Vital Signs Date Time Temp Pulse Resp B/P Pulse Ox O2 Delivery O2 Flow Rate FiO2 10/12/16 18:00 112 10/12/16 17:00 106 19 154/70 94 10/12/16 16:00 97.8 102 15 153/72 97 10/12/16 16:00 102 10/12/16 15:55 96 35 10/12/16 15:00 110 25 148/77 91 10/12/16 14:00 98.4 110 26 134/59 93 10/12/16 14:00 110 10/12/16 13:00 116 10/12/16 13:00 116 29 136/60 92 10/12/16 12:08 100 16 134/65 98 10/12/16 12:01 100 35 10/12/16 12:00 100 10/12/16 11:00 104 10/12/16 11:00 104 15 126/58 98 10/12/16 10:00 107 13 132/64 96 10/12/16 10:00 107 10/12/16 09:00 109 10/12/16 09:00 109 23 145/64 98 10/12/16 08:53 90 Nasal Cannula 3.00 10/12/16 08:00 98.4 90 18 144/75 100 10/12/16 08:00 90 10/12/16 07:00 91 18 151/76 100 10/12/16 07:00 91 10/12/16 06:00 89 10/12/16 04:00 97.4 101 22 134/66 97 10/12/16 04:00 101 10/12/16 03:15 99 45 10/12/16 02:00 95 10/12/16 00:00 96 10/12/16 00:00 97.6 96 22 147/66 98 10/11/16 23:52 95 45 10/11/16 22:00 104 10/11/16 21:02 93 40 10/11/16 20:00 98 10/11/16 20:00 97.1 98 20 129/61 97 10/11/16 19:35 92 45 I/O 10/11/16 10/11/16 10/11/16 10/12/16 10/12/16 5/30/17 07:00 15:00 23:00 07:00 15:00 23:00 Intake Total 0 ml 717 ml 728 ml 1466 ml Output Total 230 ml Balance -230 ml 717 ml 728 ml 1466 ml Intake Oral 0 ml 300 ml 300 ml IV Total 417 ml 428 ml 1166 ml Other 300 ml Output Urine Total 230 ml # Voids 1 1 3 # Bowel Movements 1 Result Diagram: 10/12/1683610/12/16836 Objective Remarks GENERAL: MBMN WF, on BIPAP SKIN: Warm and dry. HEAD: Normocephalic. EYES: No scleral icterus. No injection or drainage. NECK: Supple, trachea midline. No JVD or lymphadenopathy. CARDIOVASCULAR: Regular rate and rhythm without murmurs, gallops, or rubs. RESPIRATORY: Breath sounds equal bilaterally. No accessory muscle use. GASTROINTESTINAL: Abdomen soft, non-tender, nondistended. MUSCULOSKELETAL: No cyanosis, or edema. BACK: Nontender without obvious deformity. No CVA tenderness. A/P Assessment and Plan Hypercapnoic RF COPD Exac Bronchitis Non Compliant PLAN: Cont BIPAP IV Solumedrol Cont Abx Rocephin and Zithro Aerosol nebs Symbicort bid DW pt and daughter at BS. Randell Lopez MD October 12, 2016 19:00
[2016-10-12] MEDS: MONTELUKAST SODIUM 10 MG TAB PO SCH (21:33)
[2016-10-12] MEDS: ALPRAZolam 0.5 MG TAB PO PRN (23:23)
[2016-10-13] VITALS (17 sets, daily range): BP systolic 129–172; BP diastolic 63–96; PULSE 89–124; RESP 20–27; TEMP 97.3–98.4; O2SAT 92–99
[2016-10-13] MEDS: RESP: ALBUTEROL 2.5 MG/IPRATROPIUM 0.5 MG NEB (SCH) NEB ×7 (00:39→23:34)
[2016-10-13] MEDS: INSULIN NovoLIN REGULAR SUPPLEMENTAL SCALE SQ SCH ×4 (02:00→20:00)
[2016-10-13] MEDS: CHLORHEXIDINE GLUCONATE 2 % 1 PACK (2 CLOTHS)(taper/protocol) TOPICAL SCH (04:00)
[2016-10-13] MEDS: methylPREDNISolone SOD SUCC 125 MG/2 ML VIAL IV PUSH SCH ×3 (05:27→17:56)
[2016-10-13] MEDS: LEVOTHYROXINE SODIUM 88 MCG TAB PO SCH (05:27)
[2016-10-13 06:52] LABS: AUTOMATED NEUTROPHIL # 6.6 TH/MM3 (1.8-7.7); BASOPHIL % 0.1 % (0.0-2.0); HEMATOCRIT 36.4 % (35.0-46.0); HEMO FLAGS DIFF FINAL; LYMPH % 4.8 % (9.0-44.0); LYMPHOCYTE # 0.3 TH/MM3 (1.0-4.8); MEAN CELL VOLUME 93.5 FL (80.0-100.0); MEAN CORPUSCULAR HEMOGLOBIN 29.9 PG (27.0-34.0); MONO % 4.2 % (0.0-8.0); NEUT % 90.9 % (16.0-70.0); PLATELET COUNT 122 TH/MM3 (150-450); RED CELL DISTRIBUTION WIDTH 13.7 % (11.6-17.2); WHITE BLOOD COUNT 7.3 TH/MM3 (4.0-11.0)
[2016-10-13 07:05] LABS: BICARBONATE 34.6 MEQ/L (21.0-32.0); POTASSIUM 3.8 MEQ/L (3.5-5.1)
[2016-10-13] MEDS: TIOTROPIUM BROMIDE 18 MCG INH INH SCH (08:13)
[2016-10-13] MEDS: BUDESONIDE-FORMOTEROL 160/4.5 MCG INHALER INH SCH ×2 (08:13→20:55)
[2016-10-13] MEDS: DOCUSATE SODIUM 50 MG/SENNA 8.6 MG TAB PO SCH ×2 (08:14→20:55)
[2016-10-13] MEDS: SODIUM CHLORIDE 0.9% FLUSH 10 ML FLUSH IV FLUSH SCH ×2 (08:14→20:55)
[2016-10-13] MEDS: cefTRIAXone INJ 1,000 MG in SODIUM CHLORIDE 0.9% INJ 100 ML IV SCH (08:14)
[2016-10-13] MEDS: HEPARIN SODIUM - SQ 10,000 UNITS/ML VIAL SQ SCH ×2 (08:18→20:55)
[2016-10-13] MEDS: DEXT 5%-NACL 0.9% 1000 ML INJ 1,000 ML IV SCH (08:25)
[2016-10-13] MEDS: ALPRAZolam 0.5 MG TAB PO PRN ×2 (08:44→21:59)
[2016-10-13] MEDS: AZITHROMYCIN INJ 500 MG in SODIUM CHLOR 0.9% 250 ML INJ 250 ML IV SCH (08:45)
--- NOTE | 2016-10-13 11:31 | HHI.CCPN ---
Subjective Remarks/Hospital Course The patient is a 65-year-old female with past medical history of COPD on 5 liters home oxygen, hypothyroidism and anxiety disorder. She presented to the [facility] Emergency Department with progressive worsening shortness of breath after discontinuing her Symbicort medication due to cough approximately two weeks ago. A week ago, her symptoms worsened by developing an upper respiratory infection. She has had a productive cough with green phlegm. As per emergency department records, the patient refused to go to her primary care physician. She reports having chest tightness associated with shortness of breath and wheezing. She received albuterol nebulizer treatment via EMS and Solu-Medrol 125 milligrams IV push. She denies any orthopnea, PND or constitutional symptoms. In addition, no history of nausea, vomiting or abdominal pain. The patient was placed on BiPAP 04/20 with 30% FIO2 and her ABG showed acute hypercapnic respiratory acidosis with a pH of 7.29, CO2 77, pAO2 56 , bicarb 36 and sats of 86%. Subsequently she had two additional blood gases, and her last ABG at 09:18 showed a pH of 7.28, CO2 77, pAO2 73, bicarb 35, sats 93% on 187 with 40% FIO2. Chest x-ray showed COPD changes; otherwise, no acute findings identified. In the emergency room, the patient received Rocephin and azithromycin. Due to her agitation, she received Ativan 0.5 milligrams at 06: 54 this morning. On arrival to the intensive care unit, the patient remains on BiPAP awake. 10/12 No events overnight. Remains on BIPAP with FIO2 45%. Afebrile. Subjective 10/13: Off BiPAP for 20 minutes only today. Saturations are much improved and a 90% with minimal FiO2. With any movement she gets short of breath. Complaining of hunger the present time. Objective Vital Signs Date Time Temp Pulse Resp B/P Pulse Ox O2 Delivery O2 Flow Rate FiO2 10/13/16 10:00 94 10/13/16 08:07 96 BiPAP 35 10/13/16 08:00 97.3 20 143/96 10/12/16 08:53 3.00 Intake and Output 10/12/16 10/12/16 10/13/16 08:00 16:00 00:00 Intake Total 728 ml 2051 ml Balance 728 ml 2051 ml Result Diagram: 10/13/16 0515 10/13/16 0515 Other Results Microbiology Date/Time Procedure Status Source Growth 10/11/16 06:25 Aerobic Blood Culture - Preliminary Resulted Blood Peripheral NO GROWTH IN 2 DAYS 10/11/16 06:25 Anaerobic Blood Culture - Preliminary Resulted Blood Peripheral NO GROWTH IN 2 DAYS Imaging Last Impressions Chest X-Ray 10/11/16 0541 Signed Impressions: Service Date/Time: Tuesday, October 11, 2016 07:09 - CONCLUSION: Background lung changes suspicious for obstructive airways disease/emphysema. Otherwise, no acute finding is appreciated. Fredy Rodrigez MD Objective Remarks GENERAL: 65-year-old female, resting in bed in no acute distress SKIN: Warm and dry. HEAD: Normocephalic. EYES: No scleral icterus. No injection or drainage. NECK: Supple, trachea midline. No JVD or lymphadenopathy. CARDIOVASCULAR: RRR. S1, S2. No S4. Without murmur RESPIRATORY: Diminished breath sounds throughout. No end expiratory wheeze. GASTROINTESTINAL: Abdomen soft, non-tender, nondistended. Neuro: Awake and alert A/P Assessment and Plan 1. Acute hypercapnic respiratory failure. 2. COPD exacerbation. 3. Hypothyroidism. 4. Anxiety disorder. Plan Neuro: Monitor neuro status closely and avoid any sedatives. Pulm: Continue with oxygen and maintain sats above 92%. Bronchodilators(DuoNeb every 4 hours, Symbicort twice a day, Spiriva) Singular 10mg qhs NIPPV PRN for resp distress. Check ABG. Solu-Medrol 60 mg IV every 6 hours Pulm is following- Dr. Lopez CV: Monitor HR and BP and maintain MAP > 65 mmHg. Lactic acid level measured at 1.0. : Monitor renal function intakes and outputs and electrolyte replacement per protocol. On D5NS@75ml/hr GI: on Protonix 40 mg and daily. ID: Continue with abx(Rocephin and azithromycin). Monitor for signs infections( fever and WBC). CXR 10/11 showed COPD changes otherwise no acute findings appreciated.. Repeat today Endo: SSI with Accu-Chek q. 6 h for glycemic control Continue with Synthroid 88 g daily TSH:0.97 GI prophylaxis with Protonix 40 milligrams daily and DVT prophylaxis with SCDs and heparin subcutaneous. Check labs today Level 2 Maximino Clark MD October 13, 2016 11:31
--- NOTE | 2016-10-13 12:27 | RADRPT ---
EXAM DATE/TIME: 10/13/2016 11:33 [facility] COMPARISON: CHEST SINGLE AP, October 11, 2016, 7:09. INDICATIONS : Short of breath, chest pressure. MEDICAL HISTORY : Chronic obstructive pulmonary disease. SURGICAL HISTORY : None. ENCOUNTER: Initial ACUITY: 2 days PAIN SCORE: 5/10 LOCATION: Bilateral chest FINDINGS: Single AP view of the chest. No significant interval change. Findings again suggest chronic lung dise ase with likely upper lobe emphysema. Possible superimposed mild pulmonary edema. Cardiomediastinal s ilhouette unchanged. No evidence of pleural effusion or pneumothorax. CONCLUSION: Chronic lung disease with likely upper lung predominant emphysema and possible superi mposed mild pulmonary edema. Dago Grissom MD on October 13, 2016 at 12:19 Board Certified Radiologist. This report was verified electronically.
[2016-10-13] MEDS: PANTOPRAZOLE SODIUM 40 MG VIAL IV PUSH SCH (14:28)
--- NOTE | 2016-10-13 20:16 | HHI.PR ---
Subjective Remarks 65 YOWF with Hypercapnoic RF,COPD,non compliance Awake, follows commands Anxious Weaned to NC Objective Vital Signs Vital Signs Date Time Temp Pulse Resp B/P Pulse Ox O2 Delivery O2 Flow Rate FiO2 10/13/16 18:00 101 10/13/16 16:00 100 10/13/16 16:00 98.4 99 20 93 10/13/16 15:01 168/80 10/13/16 14:00 99 10/13/16 12:00 98.1 99 27 129/66 93 10/13/16 12:00 99 10/13/16 10:00 94 10/13/16 08:07 96 BiPAP 35 10/13/16 08:07 96 35 10/13/16 08:00 97.3 93 20 143/96 94 10/13/16 08:00 93 10/13/16 06:00 99 10/13/16 04:45 99 35 10/13/16 04:00 97.9 89 22 155/77 94 10/13/16 04:00 89 10/13/16 02:00 91 10/13/16 00:40 95 35 10/13/16 00:00 97.4 96 21 138/63 92 10/13/16 00:00 96 10/12/16 22:00 104 10/12/16 21:03 95 BiPAP 35 10/12/16 21:03 95 35 I/O 10/12/16 10/12/16 10/12/16 10/13/16 10/13/16 10/13/16 07:00 15:00 23:00 07:00 15:00 23:00 Intake Total 728 ml 2051 ml 727 ml 1071 ml 120 ml Balance 728 ml 2051 ml 727 ml 1071 ml 120 ml Intake Oral 540 ml 100 ml 360 ml 120 ml IV Total 428 ml 1511 ml 627 ml 711 ml Other 300 ml # Voids 4 2 1 3 # Bowel Movements 1 1 Result Diagram: 10/13/1651410/13/16514 Objective Remarks GENERAL: MBMN WF, on BIPAP SKIN: Warm and dry. HEAD: Normocephalic. EYES: No scleral icterus. No injection or drainage. NECK: Supple, trachea midline. No JVD or lymphadenopathy. CARDIOVASCULAR: Regular rate and rhythm without murmurs, gallops, or rubs. RESPIRATORY: Breath sounds equal bilaterally. No accessory muscle use. GASTROINTESTINAL: Abdomen soft, non-tender, nondistended. MUSCULOSKELETAL: No cyanosis, or edema. BACK: Nontender without obvious deformity. No CVA tenderness. A/P Assessment and Plan Hypercapnoic RF COPD Exac Bronchitis Non Compliant PLAN: Supplement 02 with NC CPAP at night and prn IV Solumedrol Cont Abx Rocephin and Zithro Aerosol nebs Symbicort bid Randell Lopez MD October 13, 2016 20:15
[2016-10-13] MEDS: RESP: BUDESONIDE 0.5 MG/2 ML NEB NEB SCH (20:36)
[2016-10-13] MEDS: MONTELUKAST SODIUM 10 MG TAB PO SCH (20:54)
[2016-10-14] VITALS (19 sets, daily range): BP systolic 131–181; BP diastolic 60–84; PULSE 90–116; RESP 17–25; TEMP 97.6–98.4; O2SAT 92–99
[2016-10-14] MEDS: methylPREDNISolone SOD SUCC 125 MG/2 ML VIAL IV PUSH SCH ×5 (00:19→21:59)
[2016-10-14] MEDS: DEXT 5%-NACL 0.9% 1000 ML INJ 1,000 ML IV SCH ×2 (00:20→11:20)
[2016-10-14] MEDS: INSULIN NovoLIN REGULAR SUPPLEMENTAL SCALE SQ SCH ×4 (02:02→20:18)
[2016-10-14] MEDS: RESP: ALBUTEROL 2.5 MG/IPRATROPIUM 0.5 MG NEB (SCH) NEB ×6 (03:22→23:15)
[2016-10-14] MEDS: CHLORHEXIDINE GLUCONATE 2 % 1 PACK (2 CLOTHS)(taper/protocol) TOPICAL SCH (04:00)
[2016-10-14 04:57] LABS: HEMATOCRIT 35.6 % (35.0-46.0); MEAN CELL VOLUME 92.1 FL (80.0-100.0); MEAN CORPUSCULAR HGB CONC 33.6 % (32.0-36.0); PLATELET COUNT 127 TH/MM3 (150-450); RED BLOOD COUNT 3.86 MIL/MM3 (4.00-5.30); RED CELL DISTRIBUTION WIDTH 13.4 % (11.6-17.2); REVIEW FLAG FINAL; WHITE BLOOD COUNT 7.2 TH/MM3 (4.0-11.0)
[2016-10-14 05:29] LABS: BICARBONATE 37.6 MEQ/L (21.0-32.0); MAGNESIUM 2.2 MG/DL (1.5-2.5); POTASSIUM 3.5 MEQ/L (3.5-5.1)
[2016-10-14] MEDS: LEVOTHYROXINE SODIUM 88 MCG TAB PO SCH (05:58)
[2016-10-14] MEDS: RESP: BUDESONIDE 0.5 MG/2 ML NEB NEB SCH (08:11)
[2016-10-14] MEDS: cefTRIAXone INJ 1,000 MG in SODIUM CHLORIDE 0.9% INJ 100 ML IV SCH (08:58)
[2016-10-14] MEDS: SODIUM CHLORIDE 0.9% FLUSH 10 ML FLUSH IV FLUSH SCH ×2 (08:58→20:17)
[2016-10-14] MEDS: DOCUSATE SODIUM 50 MG/SENNA 8.6 MG TAB PO SCH ×2 (08:58→20:17)
[2016-10-14] MEDS: BUDESONIDE-FORMOTEROL 160/4.5 MCG INHALER INH SCH ×2 (08:59→20:17)
[2016-10-14] MEDS: HEPARIN SODIUM - SQ 10,000 UNITS/ML VIAL SQ SCH ×2 (08:59→20:17)
[2016-10-14] MEDS: TIOTROPIUM BROMIDE 18 MCG INH INH SCH (08:59)
[2016-10-14] MEDS: AZITHROMYCIN INJ 500 MG in SODIUM CHLOR 0.9% 250 ML INJ 250 ML IV SCH (09:03)
[2016-10-14] MEDS ORDERED: POTASSIUM CHLORIDE 10 MEQ CONTROLLED RELEASE TAB PO ONE (10:30)
--- NOTE | 2016-10-14 11:58 | HHI.CCPN ---
Subjective Remarks/Hospital Course The patient is a 65-year-old female with past medical history of COPD on 5 liters home oxygen, hypothyroidism and anxiety disorder. She presented to the [facility] Emergency Department with progressive worsening shortness of breath after discontinuing her Symbicort medication due to cough approximately two weeks ago. A week ago, her symptoms worsened by developing an upper respiratory infection. She has had a productive cough with green phlegm. As per emergency department records, the patient refused to go to her primary care physician. She reports having chest tightness associated with shortness of breath and wheezing. She received albuterol nebulizer treatment via EMS and Solu-Medrol 125 milligrams IV push. She denies any orthopnea, PND or constitutional symptoms. In addition, no history of nausea, vomiting or abdominal pain. The patient was placed on BiPAP 04/20 with 30% FIO2 and her ABG showed acute hypercapnic respiratory acidosis with a pH of 7.29, CO2 77, pAO2 56 , bicarb 36 and sats of 86%. Subsequently she had two additional blood gases, and her last ABG at 09:18 showed a pH of 7.28, CO2 77, pAO2 73, bicarb 35, sats 93% on 30/11 with 40% FIO2. Chest x-ray showed COPD changes; otherwise, no acute findings identified. In the emergency room, the patient received Rocephin and azithromycin. Due to her agitation, she received Ativan 0.5 milligrams at 06: 54 this morning. On arrival to the intensive care unit, the patient remains on BiPAP awake. 10/12 No events overnight. Remains on BIPAP with FIO2 45%. Afebrile. 10/13: Off BiPAP for 20 minutes only today. Saturations are much improved and a 90% with minimal FiO2. With any movement she gets short of breath. Complaining of hunger the present time. Subjective 10/14: On BiPAP overnight 04/19 at 30%. Currently on 5 L nasal cannula/her baseline. We'll get out of bed to chair today. Feels subjectively improved. Less short of breath. No chest pain. Objective Vital Signs Date Time Temp Pulse Resp B/P Pulse Ox O2 Delivery O2 Flow Rate FiO2 10/14/16 10:00 106 10/14/16 08:11 94 Nasal Cannula 5.00 10/14/16 08:00 98.1 20 139/77 10/14/16 04:00 35 Intake and Output 10/13/16 10/13/16 10/13/16 07:59 15:59 23:59 Intake Total 727 ml 1071 ml 1123 ml Balance 727 ml 1071 ml 1123 ml Result Diagram: 10/14/16 0347 10/14/16 0347 Other Results Microbiology Date/Time Procedure Status Source Growth 10/13/16 20:30 Cancelled Sputum Expectorated Sputum 10/13/16 12:15 Influenza Types A,B Antigen ([facility]) - Final Complete Nasal Aspirate NEGATIVE FOR FLU A AND B ANTIGEN.... 10/11/16 06:25 Aerobic Blood Culture - Preliminary Resulted Blood Peripheral NO GROWTH IN 3 DAYS 10/11/16 06:25 Anaerobic Blood Culture - Preliminary Resulted Blood Peripheral NO GROWTH IN 3 DAYS Imaging Last Impressions Chest X-Ray 10/13/16 0000 Signed Impressions: Service Date/Time: Thursday, October 13, 2016 11:33 - CONCLUSION: Chronic lung disease with likely upper lung predominant emphysema and possible superimposed mild pulmonary edema. Dago Grissom MD Objective Remarks GENERAL: 65-year-old female, resting in bed in no acute distress SKIN: Warm and dry. HEAD: Normocephalic. EYES: No scleral icterus. No injection or drainage. NECK: Supple, trachea midline. No JVD or lymphadenopathy. CARDIOVASCULAR: RRR. S1, S2. No S4. Without murmur RESPIRATORY: Diminished breath sounds throughout. No end expiratory wheeze. GASTROINTESTINAL: Abdomen soft, non-tender, nondistended. Neuro: Awake and alert A/P Assessment and Plan 1. Acute hypercapnic respiratory failure. 2. COPD exacerbation. 3. Hypothyroidism. 4. Anxiety disorder. Plan Neuro: Monitor neuro status closely and avoid any sedatives. Pulm: Continue with oxygen and maintain sats above 92%.. Her baseline oxygen requirement is 4 L daily Bronchodilators(DuoNeb every 4 hours, Symbicort 160/4.5 2 puffs twice a day, Spiriva)Singular 10mg qhs NIPPV PRN for resp distress. Check ABG when necessary. Solu-Medrol 60 mg IV every 8 hours Pulm is following- Dr. Lopez CV: Monitor HR and BP and maintain MAP > 65 mmHg. Lactic acid level measured at 1.0. : Monitor renal function intakes and outputs and electrolyte replacement per protocol. We will discontinue IV fluids GI: on Protonix 40 mg by mouth daily. ID: Continue with abx(Rocephin and azithromycin). Monitor for signs infections( fever and WBC). CXR 10/12 showed COPD changes otherwise no acute findings appreciated.. Repeat 10/15 Endo: SSI with Accu-Chek q. 6 h for glycemic control Continue with Synthroid 88 g daily TSH:0.97 GI prophylaxis with Protonix 40 milligrams daily and DVT prophylaxis with SCDs and heparin subcutaneous. Level 2 Maximino Clark MD Oct 14, 2016 11:58
[2016-10-14] MEDS: ALPRAZolam 0.5 MG TAB PO PRN ×2 (18:40→22:06)
--- NOTE | 2016-10-14 19:40 | HHI.PR ---
Subjective Remarks 65 YOWF with Hypercapnoic RF,COPD,non compliance Awake, follows commands Anxious Weaned to NC Desaturates with any activity Objective Vital Signs Vital Signs Date Time Temp Pulse Resp B/P Pulse Ox O2 Delivery O2 Flow Rate FiO2 10/14/16 18:00 98 10/14/16 16:00 105 10/14/16 16:00 98.3 105 17 163/82 94 10/14/16 14:00 110 10/14/16 12:00 104 10/14/16 12:00 98.4 104 22 150/72 92 10/14/16 10:00 106 10/14/16 08:11 94 Nasal Cannula 5.00 10/14/16 08:00 98.1 90 20 139/77 93 10/14/16 08:00 90 10/14/16 06:00 97 10/14/16 04:00 94 10/14/16 04:00 92 35 10/14/16 04:00 97.9 94 22 143/60 93 10/14/16 02:00 104 10/14/16 00:09 93 35 10/14/16 00:00 97.6 116 18 131/63 94 10/14/16 00:00 116 10/13/16 22:00 124 10/13/16 20:37 93 Nasal Cannula 5.00 10/13/16 20:00 107 10/13/16 20:00 98.1 107 20 172/75 94 I/O 10/13/16 10/13/16 10/13/16 10/14/16 10/14/16 10/14/16 07:00 15:00 23:00 07:00 15:00 23:00 Intake Total 727 ml 1071 ml 1123 ml 832 ml 1299 ml Balance 727 ml 1071 ml 1123 ml 832 ml 1299 ml Intake Oral 100 ml 360 ml 520 ml 240 ml 600 ml IV Total 627 ml 711 ml 603 ml 592 ml 699 ml # Voids 2 1 5 2 3 # Bowel Movements 1 0 Result Diagram: 10/14/1634610/14/16346 Objective Remarks GENERAL: MBMN WF, on BIPAP SKIN: Warm and dry. HEAD: Normocephalic. EYES: No scleral icterus. No injection or drainage. NECK: Supple, trachea midline. No JVD or lymphadenopathy. CARDIOVASCULAR: Regular rate and rhythm without murmurs, gallops, or rubs. RESPIRATORY: Breath sounds equal bilaterally. No accessory muscle use. GASTROINTESTINAL: Abdomen soft, non-tender, nondistended. MUSCULOSKELETAL: No cyanosis, or edema. BACK: Nontender without obvious deformity. No CVA tenderness. A/P Assessment and Plan Hypercapnoic RF COPD Exac Bronchitis Non Compliant PLAN: Supplement 02 with NC CPAP at night and prn IV Solumedrol Cont Abx Rocephin and Zithro Aerosol nebs Symbicort bid Encourage PO intake Randell Lopez MD Oct 14, 2016 19:40
[2016-10-14] MEDS: MONTELUKAST SODIUM 10 MG TAB PO SCH (20:17)
[2016-10-15] VITALS (32 sets, daily range): BP systolic 89–161; BP diastolic 51–79; PULSE 77–106; RESP 15–33; TEMP 97.5–98.7; O2SAT 83–100
[2016-10-15] MEDS: ALPRAZolam 0.5 MG TAB PO PRN ×3 (03:20→20:59)
[2016-10-15] MEDS: CHLORHEXIDINE GLUCONATE 2 % 1 PACK (2 CLOTHS)(taper/protocol) TOPICAL SCH (03:22)
[2016-10-15] MEDS: RESP: ALBUTEROL 2.5 MG/IPRATROPIUM 0.5 MG NEB (SCH) NEB ×4 (03:45→14:59)
[2016-10-15] MEDS: LEVOTHYROXINE SODIUM 88 MCG TAB PO SCH (05:43)
[2016-10-15] MEDS: methylPREDNISolone SOD SUCC 125 MG/2 ML VIAL IV PUSH SCH ×3 (05:44→21:54)
[2016-10-15 06:06] LABS: AUTOMATED NEUTROPHIL # 5.4 TH/MM3 (1.8-7.7); BASOPHIL % 0.1 % (0.0-2.0); HEMATOCRIT 37.5 % (35.0-46.0); HEMO FLAGS DIFF FINAL; LYMPH % 5.8 % (9.0-44.0); LYMPHOCYTE # 0.4 TH/MM3 (1.0-4.8); MEAN CELL VOLUME 94.2 FL (80.0-100.0); MEAN CORPUSCULAR HGB CONC 31.9 % (32.0-36.0); MONO % 7.3 % (0.0-8.0); NEUT % 86.8 % (16.0-70.0); PLATELET COUNT 120 TH/MM3 (150-450); RED BLOOD COUNT 3.99 MIL/MM3 (4.00-5.30); RED CELL DISTRIBUTION WIDTH 13.5 % (11.6-17.2); WHITE BLOOD COUNT 6.2 TH/MM3 (4.0-11.0)
[2016-10-15] MEDS: INSULIN NovoLIN REGULAR SUPPLEMENTAL SCALE SQ SCH ×4 (06:32→21:00)
[2016-10-15 06:37] LABS: BICARBONATE 37.6 MEQ/L (21.0-32.0); MAGNESIUM 2.4 MG/DL (1.5-2.5); POTASSIUM 4.2 MEQ/L (3.5-5.1)
--- NOTE | 2016-10-15 06:37 | RADRPT ---
EXAM DATE/TIME: 10/15/2016 05:04 [facility] COMPARISON: CHEST SINGLE AP, October 13, 2016, 11:33. INDICATIONS : Shortness of breath. MEDICAL HISTORY : Chronic obstructive pulmonary disease. SURGICAL HISTORY : None. ENCOUNTER: Subsequent ACUITY: 4 - 6 days PAIN SCORE: Non-responsive. LOCATION: Bilateral chest FINDINGS: The cardiac silhouette is normal in transverse diameter. The lungs are free of acute parenchymal opac ity. No effusions are identified. There is prominence of the aortic knob is with calcification charac teristic of atherosclerotic vascular disease. CONCLUSION: 1. No acute cardiopulmonary disease. Pete Gruber MD on October 15, 2016 at 6:35 Board Certified Radiologist. This report was verified electronically.
[2016-10-15] MEDS: cefTRIAXone INJ 1,000 MG in SODIUM CHLORIDE 0.9% INJ 100 ML IV SCH (09:00)
[2016-10-15] MEDS: BUDESONIDE-FORMOTEROL 160/4.5 MCG INHALER INH SCH ×2 (09:00→20:59)
[2016-10-15] MEDS: SODIUM CHLORIDE 0.9% FLUSH 10 ML FLUSH IV FLUSH SCH ×2 (09:00→21:00)
[2016-10-15] MEDS: TIOTROPIUM BROMIDE 18 MCG INH INH SCH (09:00)
[2016-10-15] MEDS: AZITHROMYCIN 250 MG TAB PO SCH (10:09)
[2016-10-15] MEDS: PANTOPRAZOLE SOD 40 MG DELAYED RELEASE TAB PO SCH (10:09)
[2016-10-15] MEDS: DOCUSATE SODIUM 50 MG/SENNA 8.6 MG TAB PO SCH ×2 (10:09→20:59)
[2016-10-15] MEDS: HEPARIN SODIUM - SQ 10,000 UNITS/ML VIAL SQ SCH ×2 (10:10→20:59)
--- NOTE | 2016-10-15 12:27 | HHI.PR ---
Subjective Remarks Pt states she feels tired. She feels her SOB is a bit improved. Denies any CP/N/ V. appetite seems to be improving. Objective Vitals Vital Signs Date Time Temp Pulse Resp B/P Pulse Ox O2 Delivery O2 Flow Rate FiO2 10/15/16 08:22 98 Nasal Cannula 5.00 10/15/16 06:00 77 10/15/16 06:00 77 20 105/59 96 10/15/16 05:01 77 22 89/52 94 10/15/16 05:00 77 23 94 10/15/16 04:00 97.5 84 20 136/61 100 10/15/16 04:00 84 10/15/16 03:57 94 35 10/15/16 03:26 93 33 143/68 96 10/15/16 03:00 100 29 96 10/15/16 02:00 84 10/15/16 02:00 84 22 117/59 92 10/15/16 01:10 93 35 10/15/16 01:01 98 23 161/74 94 10/15/16 01:00 100 28 93 10/15/16 00:00 97.5 94 24 156/71 93 10/15/16 00:00 94 26 156/71 93 10/15/16 00:00 94 10/14/16 23:18 97 35 10/14/16 23:15 Bi-Pap 35 10/14/16 23:01 100 25 161/79 99 10/14/16 23:00 96 24 99 10/14/16 22:00 106 21 181/84 93 10/14/16 22:00 106 10/14/16 21:00 99 23 166/78 94 10/14/16 20:26 95 Venturi Mask 6.00 50 10/14/16 20:00 97 10/14/16 20:00 95 Venturi Mask 50 10/14/16 20:00 97.9 97 22 152/76 95 10/14/16 18:00 98 10/14/16 16:00 105 10/14/16 16:00 98.3 105 17 163/82 94 10/14/16 14:00 110 I/O 10/14/16 10/14/16 10/14/16 10/15/16 10/15/16 10/15/16 07:00 15:00 23:00 07:00 15:00 23:00 Intake Total 832 ml 1299 ml 692 ml 120 ml Output Total 700 ml 450 ml Balance 832 ml 1299 ml -8 ml -330 ml Intake Oral 240 ml 600 ml 240 ml 120 ml IV Total 592 ml 699 ml 452 ml 0 ml Output Urine Total 700 ml 450 ml # Voids 2 3 # Bowel Movements 0 0 0 Result Diagram: 10/15/16 0536 10/15/16 0536 Imaging Last Impressions Chest X-Ray 10/15/16 0600 Signed Impressions: Service Date/Time: Saturday, October 15, 2016 05:04 - CONCLUSION: 1. No acute cardiopulmonary disease. Pete Gruber MD Objective Remarks GENERAL: 65-year-old female, resting in bed getting breathing treatment NECK: Supple, trachea midline. No JVD or lymphadenopathy. CARDIOVASCULAR: RRR. Without murmur RESPIRATORY: Diminished breath sounds throughout. mild expiratory wheeze. coughing on exam GASTROINTESTINAL: Abdomen soft, non-tender, nondistended. Neuro: Awake and alert A/P Assessment and Plan 1. Acute hypercapnic respiratory failure. 2. COPD exacerbation. 3. Hypothyroidism. 4. Anxiety disorder. Plan Neuro: Monitor neuro status closely and avoid any sedatives. Pulm: Continue with oxygen and maintain sats above 92%.. Her baseline oxygen requirement is 4 L daily Bronchodilators(DuoNeb every 4 hours, Symbicort 160/4.5 2 puffs twice a day, Spiriva) Singular 10mg qhs NIPPV PRN for resp distress. Check ABG when necessary. Solu-Medrol 60 mg IV every 8 hours Pulm is following- Dr. Lopez CV: Monitor HR and BP and maintain MAP > 65 mmHg. Lactic acid level measured at 1.0. : Monitor renal function intakes and outputs and electrolyte replacement per protocol. off IVFs GI: on Protonix 40 mg by mouth daily. ID: Continue with abx(Rocephin and azithromycin). Monitor for signs infections( fever and WBC). CXR 10/12 showed COPD changes otherwise no acute findings appreciated. repeat x-ray 10/15 reviewed by me shows no acute findings Endo: SSI with Accu-Chek q. 6 h for glycemic control, monitor BS, pt on steroids Continue with Synthroid 88 g daily TSH:0.97 GI prophylaxis with Protonix 40 milligrams daily and DVT prophylaxis with SCDs and heparin subcutaneous. Discharge Planning monitor in ICU and consider transferring to floor in AM Carlie Chamberlain MD Oct 15, 2016 12:27
--- NOTE | 2016-10-15 18:05 | HHI.PR ---
Subjective Remarks 65 YOWF with Hypercapnoic RF,COPD,non compliance Awake, follows commands Anxious On VM Tolerates PO Objective Vital Signs Vital Signs Date Time Temp Pulse Resp B/P Pulse Ox O2 Delivery O2 Flow Rate FiO2 10/15/16 17:01 90 101/51 97 10/15/16 17:00 89 97 10/15/16 16:30 98.7 93 98 10/15/16 16:00 99 132/61 96 10/15/16 16:00 85 10/15/16 15:30 105 15 95 10/15/16 15:00 98 20 139/61 83 10/15/16 14:30 93 23 99 10/15/16 14:00 96 18 161/70 93 10/15/16 13:30 102 25 94 10/15/16 13:00 97 23 150/68 96 10/15/16 12:00 98.3 92 21 141/71 97 10/15/16 12:00 88 10/15/16 10:00 97 10/15/16 08:22 98 Nasal Cannula 5.00 10/15/16 06:00 77 10/15/16 06:00 77 20 105/59 96 10/15/16 05:01 77 22 89/52 94 10/15/16 05:00 77 23 94 10/15/16 04:00 97.5 84 20 136/61 100 10/15/16 04:00 84 10/15/16 03:57 94 35 10/15/16 03:26 93 33 143/68 96 10/15/16 03:00 100 29 96 10/15/16 02:00 84 10/15/16 02:00 84 22 117/59 92 10/15/16 01:10 93 35 10/15/16 01:01 98 23 161/74 94 10/15/16 01:00 100 28 93 10/15/16 00:00 97.5 94 24 156/71 93 10/15/16 00:00 94 26 156/71 93 10/15/16 00:00 94 10/14/16 23:18 97 35 10/14/16 23:15 Bi-Pap 35 10/14/16 23:01 100 25 161/79 99 10/14/16 23:00 96 24 99 10/14/16 22:00 106 21 181/84 93 10/14/16 22:00 106 10/14/16 21:00 99 23 166/78 94 10/14/16 20:26 95 Venturi Mask 6.00 50 10/14/16 20:00 97 10/14/16 20:00 95 Venturi Mask 50 10/14/16 20:00 97.9 97 22 152/76 95 I/O 10/14/16 10/14/16 10/14/16 10/15/16 10/15/16 10/15/16 07:00 15:00 23:00 07:00 15:00 23:00 Intake Total 832 ml 1299 ml 692 ml 120 ml 350 ml Output Total 700 ml 450 ml 550 ml Balance 832 ml 1299 ml -8 ml -330 ml -200 ml Intake Oral 240 ml 600 ml 240 ml 120 ml 350 ml IV Total 592 ml 699 ml 452 ml 0 ml 0 ml Output Urine Total 700 ml 450 ml 550 ml # Voids 2 3 # Bowel Movements 0 0 0 0 Result Diagram: 10/15/16 0536 10/15/16 0536 Objective Remarks GENERAL: MBMN WF, on BIPAP SKIN: Warm and dry. HEAD: Normocephalic. EYES: No scleral icterus. No injection or drainage. NECK: Supple, trachea midline. No JVD or lymphadenopathy. CARDIOVASCULAR: Regular rate and rhythm without murmurs, gallops, or rubs. RESPIRATORY: Breath sounds equal bilaterally. No accessory muscle use. GASTROINTESTINAL: Abdomen soft, non-tender, nondistended. MUSCULOSKELETAL: No cyanosis, or edema. BACK: Nontender without obvious deformity. No CVA tenderness. A/P Assessment and Plan Hypercapnoic RF COPD Exac Bronchitis Non Compliant PLAN: Supplement 02 with NC CPAP at night and prn IV Solumedrol Cont Abx Rocephin and Zithro Aerosol nebs Symbicort bid Encourage PO intake OOB in chair Randell Lopez MD Oct 15, 2016 18:05
[2016-10-15] MEDS: MONTELUKAST SODIUM 10 MG TAB PO SCH (20:59)
[2016-10-16] VITALS (35 sets, daily range): BP systolic 102–185; BP diastolic 51–124; PULSE 82–122; RESP 18–39; TEMP 97.7–98.5; O2SAT 88–98
[2016-10-16] MEDS: CHLORHEXIDINE GLUCONATE 2 % 1 PACK (2 CLOTHS)(taper/protocol) TOPICAL SCH (04:00)
[2016-10-16 04:34] LABS: AUTOMATED NEUTROPHIL # 6.7 TH/MM3 (1.8-7.7); BASOPHIL % 0.1 % (0.0-2.0); HEMATOCRIT 36.7 % (35.0-46.0); HEMO FLAGS DIFF FINAL; LYMPH % 3.4 % (9.0-44.0); LYMPHOCYTE # 0.2 TH/MM3 (1.0-4.8); MEAN CELL VOLUME 93.3 FL (80.0-100.0); MEAN CORPUSCULAR HEMOGLOBIN 30.5 PG (27.0-34.0); MEAN CORPUSCULAR HGB CONC 32.7 % (32.0-36.0); MONO % 4.5 % (0.0-8.0); PLATELET COUNT 118 TH/MM3 (150-450); RED BLOOD COUNT 3.94 MIL/MM3 (4.00-5.30); RED CELL DISTRIBUTION WIDTH 13.4 % (11.6-17.2); WHITE BLOOD COUNT 7.3 TH/MM3 (4.0-11.0)
[2016-10-16 04:38] LABS: BICARBONATE 37.5 MEQ/L (21.0-32.0); POTASSIUM 4.3 MEQ/L (3.5-5.1)
[2016-10-16] MEDS: LEVOTHYROXINE SODIUM 88 MCG TAB PO SCH (06:19)
[2016-10-16] MEDS: methylPREDNISolone SOD SUCC 125 MG/2 ML VIAL IV PUSH SCH ×3 (06:19→20:26)
[2016-10-16] MEDS: INSULIN NovoLIN REGULAR SUPPLEMENTAL SCALE SQ SCH ×4 (06:19→20:34)
--- NOTE | 2016-10-16 07:43 | HHI.PR ---
Subjective Remarks Still with sob, using cpap overnight. nc at 5 L during the day. With cough , says feels congested but can't bring anything up. No fever or chills. No n/v/d/ c. Objective Vitals Vital Signs Date Time Temp Pulse Resp B/P Pulse Ox O2 Delivery O2 Flow Rate FiO2 10/16/16 06:00 91 24 147/67 98 10/16/16 06:00 Venturi Mask 50 10/16/16 06:00 91 10/16/16 05:00 Nasal Cannula 5.00 10/16/16 05:00 107 27 153/70 89 10/16/16 04:52 93 35 10/16/16 04:00 97.8 92 20 131/61 93 10/16/16 04:00 92 10/16/16 03:01 86 22 110/53 94 10/16/16 02:01 101 29 138/62 95 10/16/16 02:00 101 10/16/16 01:04 96 27 123/58 91 10/16/16 01:00 97 39 93 10/16/16 00:03 98 26 158/71 93 10/16/16 00:00 90 10/16/16 00:00 90 21 92 10/16/16 00:00 97.7 90 21 158/71 92 10/15/16 23:15 Bi-Pap 35 10/15/16 23:14 95 35 10/15/16 23:00 102 18 147/68 97 10/15/16 22:00 106 10/15/16 22:00 106 19 148/75 93 10/15/16 21:00 99 25 150/79 97 10/15/16 20:57 95 Venturi Mask 6.00 50 10/15/16 20:15 Venturi Mask 50 10/15/16 20:00 105 10/15/16 20:00 93 Nasal Cannula 5.00 10/15/16 20:00 98.7 105 28 128/60 93 10/15/16 18:00 82 10/15/16 17:01 90 101/51 97 10/15/16 17:00 89 97 10/15/16 16:30 98.7 93 98 10/15/16 16:00 99 132/61 96 10/15/16 16:00 85 10/15/16 15:30 105 15 95 10/15/16 15:00 98 20 139/61 83 10/15/16 14:30 93 23 99 10/15/16 14:00 96 18 161/70 93 10/15/16 13:30 102 25 94 10/15/16 13:00 97 23 150/68 96 10/15/16 12:00 98.3 92 21 141/71 97 10/15/16 12:00 88 10/15/16 10:00 96 Nasal Cannula 5.00 10/15/16 10:00 97 10/15/16 08:22 98 Nasal Cannula 5.00 I/O 10/15/16 10/15/16 10/15/16 10/16/16 10/16/16 10/16/16 07:00 15:00 23:00 07:00 15:00 23:00 Intake Total 120 ml 350 ml 880 ml 320 ml Output Total 450 ml 550 ml 900 ml 600 ml Balance -330 ml -200 ml -20 ml -280 ml Intake Oral 120 ml 350 ml 780 ml 320 ml IV Total 0 ml 0 ml 100 ml 0 ml Output Urine Total 450 ml 550 ml 900 ml 600 ml # Bowel Movements 0 0 1 0 Result Diagram: 10/16/16 0334 10/16/16 0334 Imaging Last Impressions Chest X-Ray 10/15/16 0600 Signed Impressions: Service Date/Time: Saturday, October 15, 2016 05:04 - CONCLUSION: 1. No acute cardiopulmonary disease. Pete Gruber MD Objective Remarks GENERAL: 65-year-old female, resting in bed NECK: Supple, trachea midline. No JVD or lymphadenopathy. CARDIOVASCULAR: RRR. Without murmur RESPIRATORY: Diminished breath sounds throughout. Scattered expiratory wheeze. +Coughing GASTROINTESTINAL: Abdomen soft, non-tender, nondistended. Neuro: Awake and alert A/P Assessment and Plan Acute on chronic hypercapnic respiratory failure COPD exacerbation Hypothyroidism Anxiety disorder Neuro: Monitor neuro status closely and avoid any sedatives. Pulm: Continue with oxygen and maintain sats above 92%.. Her baseline oxygen requirement is 4 L daily Bronchodilators(DuoNeb every 4 hours, Symbicort 160/4.5 2 puffs twice a day, Spiriva) Singular 10mg qhs NIPPV at night and PRN for resp distress. Check ABG when necessary. Solu-Medrol 60 mg IV every 8 hours, taper as tolerated. Patient with congestion, sob, wheezing. Add EZPAP, Incentive spirometry. Add mucomyst to nebs. Pulm is following- Dr. Lopez CV: Monitor HR and BP and maintain MAP > 65 mmHg. Lactic acid level at 1.0. : Monitor renal function intakes and outputs and electrolyte replacement per protocol. off IVFs GI: on Protonix 40 mg by mouth daily. ID: Continue with abx(Rocephin and azithromycin). Monitor for signs infections( fever and WBC). CXR 10/12 showed COPD changes otherwise no acute findings appreciated. repeat x-ray 10/15 reviewed by me shows no acute findings Endo: SSI with Accu-Chek q. 6 h for glycemic control, monitor BS, pt on steroids Continue with Synthroid 88 g daily TSH:0.97 GI prophylaxis with Protonix 40 milligrams daily and DVT prophylaxis with SCDs and heparin subcutaneous. Discharge Planning transfer to floor if improving Franchesca Sol MD Oct 16, 2016 07:43
[2016-10-16] MEDS: HEPARIN SODIUM - SQ 10,000 UNITS/ML VIAL SQ SCH ×2 (08:38→20:26)
[2016-10-16] MEDS: SODIUM CHLORIDE 0.9% FLUSH 10 ML FLUSH IV FLUSH SCH ×2 (08:39→20:23)
[2016-10-16] MEDS: BUDESONIDE-FORMOTEROL 160/4.5 MCG INHALER INH SCH ×2 (08:39→20:23)
[2016-10-16] MEDS: TIOTROPIUM BROMIDE 18 MCG INH INH SCH (08:39)
[2016-10-16] MEDS: cefTRIAXone INJ 1,000 MG in SODIUM CHLORIDE 0.9% INJ 100 ML IV SCH (08:39)
[2016-10-16] MEDS: PANTOPRAZOLE SOD 40 MG DELAYED RELEASE TAB PO SCH (08:40)
[2016-10-16] MEDS: AZITHROMYCIN 250 MG TAB PO SCH (08:40)
[2016-10-16] MEDS: ALPRAZolam 0.5 MG TAB PO PRN ×2 (08:40→20:31)
[2016-10-16] MEDS: DOCUSATE SODIUM 50 MG/SENNA 8.6 MG TAB PO SCH ×2 (08:40→20:23)
--- NOTE | 2016-10-16 13:29 | HHI.PR ---
Subjective Remarks 65 YOWF with Hypercapnoic RF,COPD,non compliance Awake, follows commands Anxious Weaned to NC Used CPAP at night Tolerates PO Cough, congestion Objective Vital Signs Vital Signs Date Time Temp Pulse Resp B/P Pulse Ox O2 Delivery O2 Flow Rate FiO2 10/16/16 09:45 96 Venturi Mask 50 10/16/16 06:00 91 24 147/67 98 10/16/16 06:00 Venturi Mask 50 10/16/16 06:00 91 10/16/16 05:00 Nasal Cannula 5.00 10/16/16 05:00 107 27 153/70 89 10/16/16 04:52 93 35 10/16/16 04:00 97.8 92 20 131/61 93 10/16/16 04:00 92 10/16/16 03:01 86 22 110/53 94 10/16/16 02:01 101 29 138/62 95 10/16/16 02:00 101 10/16/16 01:04 96 27 123/58 91 10/16/16 01:00 97 39 93 10/16/16 00:03 98 26 158/71 93 10/16/16 00:00 90 10/16/16 00:00 90 21 92 10/16/16 00:00 97.7 90 21 158/71 92 10/15/16 23:15 Bi-Pap 35 10/15/16 23:14 95 35 10/15/16 23:00 102 18 147/68 97 10/15/16 22:00 106 10/15/16 22:00 106 19 148/75 93 10/15/16 21:00 99 25 150/79 97 10/15/16 20:57 95 Venturi Mask 6.00 50 10/15/16 20:15 Venturi Mask 50 10/15/16 20:00 105 10/15/16 20:00 93 Nasal Cannula 5.00 10/15/16 20:00 98.7 105 28 128/60 93 10/15/16 18:00 82 10/15/16 17:01 90 101/51 97 10/15/16 17:00 89 97 10/15/16 16:30 98.7 93 98 10/15/16 16:00 99 132/61 96 10/15/16 16:00 85 10/15/16 15:30 105 15 95 10/15/16 15:00 98 20 139/61 83 10/15/16 14:30 93 23 99 10/15/16 14:00 96 18 161/70 93 10/15/16 13:30 102 25 94 I/O 10/15/16 10/15/16 10/15/16 10/16/16 10/16/16 10/16/16 07:00 15:00 23:00 07:00 15:00 23:00 Intake Total 120 ml 350 ml 880 ml 320 ml Output Total 450 ml 550 ml 900 ml 600 ml Balance -330 ml -200 ml -20 ml -280 ml Intake Oral 120 ml 350 ml 780 ml 320 ml IV Total 0 ml 0 ml 100 ml 0 ml Output Urine Total 450 ml 550 ml 900 ml 600 ml # Bowel Movements 0 0 1 0 Result Diagram: 10/16/1633310/16/16333 Objective Remarks GENERAL: MBMN WF, on BIPAP SKIN: Warm and dry. HEAD: Normocephalic. EYES: No scleral icterus. No injection or drainage. NECK: Supple, trachea midline. No JVD or lymphadenopathy. CARDIOVASCULAR: Regular rate and rhythm without murmurs, gallops, or rubs. RESPIRATORY: Breath sounds equal bilaterally. No accessory muscle use. GASTROINTESTINAL: Abdomen soft, non-tender, nondistended. MUSCULOSKELETAL: No cyanosis, or edema. BACK: Nontender without obvious deformity. No CVA tenderness. A/P Assessment and Plan Hypercapnoic RF COPD Exac Bronchitis Non Compliant PLAN: Supplement 02 with NC CPAP at night and prn IV Solumedrol Cont Abx Rocephin and Zithro Aerosol nebs Symbicort bid Encourage PO intake Mucomyst nebs Acapella q 1 hr while awake. Randell Lopez MD Oct 16, 2016 13:29
[2016-10-16] MEDS: RESP: ACETYLCYSTEINE 20% 30 ML NEB NEB SCH ×2 (13:44→19:23)
[2016-10-16] MEDS: RESP: ALBUTEROL 2.5 MG/IPRATROPIUM 0.5 MG NEB (SCH) NEB ×2 (13:44→19:22)
[2016-10-16] MEDS: MONTELUKAST SODIUM 10 MG TAB PO SCH (20:26)
[2016-10-17] VITALS (31 sets, daily range): BP systolic 100–150; BP diastolic 54–116; PULSE 78–108; RESP 17–42; TEMP 97.9–98.5; O2SAT 89–98
[2016-10-17] MEDS: ALPRAZolam 0.5 MG TAB PO PRN ×3 (01:07→20:18)
[2016-10-17] MEDS: LEVOTHYROXINE SODIUM 88 MCG TAB PO SCH (05:02)
[2016-10-17] MEDS: methylPREDNISolone SOD SUCC 125 MG/2 ML VIAL IV PUSH SCH ×3 (05:02→20:23)
[2016-10-17] MEDS: INSULIN NovoLIN REGULAR SUPPLEMENTAL SCALE SQ SCH ×4 (07:00→20:31)
[2016-10-17] MEDS: RESP: ALBUTEROL 2.5 MG/IPRATROPIUM 0.5 MG NEB (SCH) NEB ×3 (07:31→22:05)
[2016-10-17] MEDS: RESP: ACETYLCYSTEINE 20% 30 ML NEB NEB SCH ×3 (07:31→22:04)
[2016-10-17] MEDS: AZITHROMYCIN 250 MG TAB PO SCH (08:30)
[2016-10-17] MEDS: DOCUSATE SODIUM 50 MG/SENNA 8.6 MG TAB PO SCH ×2 (08:30→20:23)
[2016-10-17] MEDS: PANTOPRAZOLE SOD 40 MG DELAYED RELEASE TAB PO SCH (08:30)
[2016-10-17] MEDS: cefTRIAXone INJ 1,000 MG in SODIUM CHLORIDE 0.9% INJ 100 ML IV SCH (08:31)
[2016-10-17] MEDS: BUDESONIDE-FORMOTEROL 160/4.5 MCG INHALER INH SCH ×2 (08:31→20:23)
[2016-10-17] MEDS: HEPARIN SODIUM - SQ 10,000 UNITS/ML VIAL SQ SCH ×2 (08:31→20:24)
[2016-10-17] MEDS: TIOTROPIUM BROMIDE 18 MCG INH INH SCH (08:33)
[2016-10-17] MEDS: SODIUM CHLORIDE 0.9% FLUSH 10 ML FLUSH IV FLUSH SCH ×2 (08:33→20:24)
--- NOTE | 2016-10-17 09:04 | HHI.PR ---
Subjective Remarks Patient in bed, still with sob and persistent cough and sputum production. On Biapap overnight, now on 5L by nasal canula. Has some chest pain and pain in her upper belly when she is coughing. No n/v/d/c. Objective Vitals Vital Signs Date Time Temp Pulse Resp B/P Pulse Ox O2 Delivery O2 Flow Rate FiO2 10/17/16 07:33 93 Nasal Cannula 4.00 10/17/16 06:00 88 10/17/16 04:42 93 45 10/17/16 04:00 78 10/17/16 04:00 98.0 78 23 100/54 93 10/17/16 03:00 80 22 115/63 94 10/17/16 02:00 81 10/17/16 02:00 81 21 127/61 98 10/17/16 01:20 95 45 10/17/16 01:10 95 31 141/60 92 10/17/16 01:00 106 42 93 10/17/16 01:00 106 10/17/16 00:00 89 10/17/16 00:00 97.9 89 21 103/57 94 10/16/16 23:00 82 25 102/51 90 10/16/16 22:10 Bi-Pap 35 10/16/16 22:03 98 35 10/16/16 22:00 97 10/16/16 22:00 97 30 143/61 94 10/16/16 21:25 28 10/16/16 21:00 99 29 131/71 92 10/16/16 20:00 104 10/16/16 20:00 97.8 104 29 152/67 91 10/16/16 19:23 94 Venturi Mask 6.00 50 10/16/16 19:00 Venturi Mask 50 10/16/16 19:00 101 34 152/62 94 10/16/16 18:08 113 34 142/65 88 10/16/16 18:00 122 35 89 10/16/16 17:28 106 33 113/59 90 10/16/16 17:00 105 28 92 10/16/16 16:00 97.9 108 32 89 10/16/16 15:00 95 38 133/61 92 10/16/16 14:01 101 39 124/59 95 10/16/16 14:00 102 36 96 10/16/16 13:00 100 36 137/72 90 10/16/16 12:00 98.4 88 24 145/68 95 10/16/16 11:00 93 22 140/63 93 10/16/16 10:00 89 21 132/63 95 10/16/16 09:45 96 Venturi Mask 50 I/O 10/16/16 10/16/16 10/16/16 10/17/16 10/17/16 10/17/16 07:00 15:00 23:00 07:00 15:00 23:00 Intake Total 320 ml 500 ml 250 ml Output Total 600 ml 400 ml 800 ml 600 ml Balance -280 ml 100 ml -550 ml -600 ml Intake Oral 320 ml 400 ml 250 ml IV Total 0 ml 100 ml Output Urine Total 600 ml 400 ml 800 ml 600 ml # Bowel Movements 0 1 Result Diagram: 10/16/16 0334 10/16/16 0334 Imaging Last Impressions Chest X-Ray 10/15/16 0600 Signed Impressions: Service Date/Time: Saturday, October 15, 2016 05:04 - CONCLUSION: 1. No acute cardiopulmonary disease. Pete Gruber MD Objective Remarks GENERAL: 65-year-old female, resting in bed NECK: Supple, trachea midline. No JVD or lymphadenopathy. CARDIOVASCULAR: RRR. Without murmur RESPIRATORY: Diminished breath sounds throughout. Scattered expiratory wheeze. +Coughing GASTROINTESTINAL: Abdomen soft, non-tender, nondistended. Neuro: Awake and alert A/P Assessment and Plan Acute on chronic hypercapnic respiratory failure COPD exacerbation Hypothyroidism Anxiety disorder Neuro: Monitor neuro status closely and avoid any sedatives. Pulm: Continue with oxygen and maintain sats above 92%.. Her baseline oxygen requirement is 4 L daily Bronchodilators(DuoNeb every 4 hours, Symbicort 160/4.5 2 puffs twice a day, Spiriva) Singular 10mg qhs NIPPV at night and PRN for resp distress. Check ABG when necessary. Solu-Medrol 60 mg IV every 8 hours, taper as tolerated. Patient with congestion, sob, wheezing. Add EZPAP, Incentive spirometry. Add mucomyst to nebs. Pulm is following- Dr. Lopez CV: Monitor HR and BP and maintain MAP > 65 mmHg. Lactic acid level at 1.0. : Monitor renal function intakes and outputs and electrolyte replacement per protocol. off IVFs GI: on Protonix 40 mg by mouth daily. ID: Continue with abx(Rocephin and azithromycin). Monitor for signs infections( fever and WBC). CXR 10/12 showed COPD changes otherwise no acute findings appreciated. repeat x-ray 10/15 reviewed by me shows no acute findings Endo: SSI with Accu-Chek q. 6 h for glycemic control, monitor BS, pt on steroids Continue with Synthroid 88 g daily TSH:0.97 GI prophylaxis with Protonix 40 milligrams daily and DVT prophylaxis with SCDs and heparin subcutaneous. Discharge Planning transfer to floor if improving Franchesca Sol MD Oct 17, 2016 09:04
[2016-10-17] MEDS: ACETAMINOPHEN/HYDROcodone 325 MG/5 MG TAB PO PRN ×2 (11:48→20:23)
--- NOTE | 2016-10-17 14:22 | HHI.PR ---
Subjective Remarks 65 YOWF with Hypercapnoic RF,COPD,non compliance Awake, follows commands Anxious Used CPAP at night Tolerates PO Cough, congestion On VM, little more sob Objective Vital Signs Vital Signs Date Time Temp Pulse Resp B/P Pulse Ox O2 Delivery O2 Flow Rate FiO2 10/17/16 10:01 96 24 121/57 94 10/17/16 10:00 96 20 94 10/17/16 09:01 107 34 138/67 89 10/17/16 09:00 106 34 89 10/17/16 08:00 98.5 99 38 133/61 97 10/17/16 07:33 93 Nasal Cannula 4.00 10/17/16 07:00 Nasal Cannula 5.00 10/17/16 06:00 88 10/17/16 04:42 93 45 10/17/16 04:00 78 10/17/16 04:00 98.0 78 23 100/54 93 10/17/16 03:00 80 22 115/63 94 10/17/16 02:00 81 10/17/16 02:00 81 21 127/61 98 10/17/16 01:20 95 45 10/17/16 01:10 95 31 141/60 92 10/17/16 01:00 106 42 93 10/17/16 01:00 106 10/17/16 00:00 89 10/17/16 00:00 97.9 89 21 103/57 94 10/16/16 23:00 82 25 102/51 90 10/16/16 22:10 Bi-Pap 35 10/16/16 22:03 98 35 10/16/16 22:00 97 10/16/16 22:00 97 30 143/61 94 10/16/16 21:25 28 10/16/16 21:00 99 29 131/71 92 10/16/16 20:00 104 10/16/16 20:00 97.8 104 29 152/67 91 10/16/16 19:23 94 Venturi Mask 6.00 50 10/16/16 19:00 Venturi Mask 50 10/16/16 19:00 101 34 152/62 94 10/16/16 18:08 113 34 142/65 88 10/16/16 18:00 122 35 89 10/16/16 17:28 106 33 113/59 90 10/16/16 17:00 105 28 92 10/16/16 16:00 97.9 108 32 89 10/16/16 15:00 95 38 133/61 92 I/O 10/16/16 10/16/16 10/16/16 10/17/16 10/17/16 10/17/16 07:00 15:00 23:00 07:00 15:00 23:00 Intake Total 320 ml 500 ml 250 ml Output Total 600 ml 400 ml 800 ml 600 ml Balance -280 ml 100 ml -550 ml -600 ml Intake Oral 320 ml 400 ml 250 ml IV Total 0 ml 100 ml Output Urine Total 600 ml 400 ml 800 ml 600 ml # Bowel Movements 0 1 Result Diagram: 10/16/16 0334 10/16/16 0334 Objective Remarks GENERAL: MBMN WF, on BIPAP SKIN: Warm and dry. HEAD: Normocephalic. EYES: No scleral icterus. No injection or drainage. NECK: Supple, trachea midline. No JVD or lymphadenopathy. CARDIOVASCULAR: Regular rate and rhythm without murmurs, gallops, or rubs. RESPIRATORY: Breath sounds equal bilaterally. No accessory muscle use. GASTROINTESTINAL: Abdomen soft, non-tender, nondistended. MUSCULOSKELETAL: No cyanosis, or edema. BACK: Nontender without obvious deformity. No CVA tenderness. A/P Assessment and Plan Hypercapnoic RF COPD Exac Bronchitis Non Compliant PLAN: Supplement 02 with NC CPAP at night and prn IV Solumedrol Cont Abx Rocephin and Zithro Aerosol nebs Symbicort bid Mucomyst nebs Acapella q 1 hr while awake. Randell Lopez MD Oct 17, 2016 14:22
[2016-10-17] MEDS: MONTELUKAST SODIUM 10 MG TAB PO SCH (20:23)
[2016-10-18] VITALS (19 sets, daily range): BP systolic 108–156; BP diastolic 55–69; PULSE 82–119; RESP 18–26; TEMP 97.1–98.8; O2SAT 90–99
[2016-10-18] MEDS: INSULIN NovoLIN REGULAR SUPPLEMENTAL SCALE SQ SCH ×4 (06:14→20:42)
[2016-10-18] MEDS: methylPREDNISolone SOD SUCC 125 MG/2 ML VIAL IV PUSH SCH ×2 (06:15→14:13)
[2016-10-18] MEDS: LEVOTHYROXINE SODIUM 88 MCG TAB PO SCH (06:15)
[2016-10-18] MEDS: RESP: ALBUTEROL 2.5 MG/IPRATROPIUM 0.5 MG NEB (SCH) NEB ×3 (07:31→22:20)
[2016-10-18] MEDS: RESP: ACETYLCYSTEINE 20% 30 ML NEB NEB SCH ×3 (07:31→22:20)
--- NOTE | 2016-10-18 07:56 | HHI.PR ---
Subjective Remarks Patient on bipap overnight, and 5L NC alternating with mask during the day. Says she feels improving but not much. Has productive cough yellow sputum, chest congestion. Has upper abdominal muscle pain with coughing. No n/v/d/c. Objective Vitals Vital Signs Date Time Temp Pulse Resp B/P Pulse Ox O2 Delivery O2 Flow Rate FiO2 10/18/16 07:31 95 Nasal Cannula 3.00 10/18/16 06:20 93 Nasal Cannula 5.00 10/18/16 06:00 88 10/18/16 04:26 98 45 10/18/16 04:00 97.9 85 21 125/60 96 10/18/16 04:00 85 10/18/16 03:00 82 19 108/55 93 10/18/16 02:00 82 19 120/58 92 10/18/16 02:00 82 10/18/16 01:25 96 45 10/18/16 01:00 86 19 114/56 97 10/18/16 00:13 97.1 93 26 118/56 94 10/18/16 00:13 93 26 118/56 94 10/18/16 00:00 94 10/18/16 00:00 94 21 94 10/18/16 00:00 94 21 94 10/17/16 23:20 98 35 138/116 92 10/17/16 23:00 84 23 97 10/17/16 22:08 94 45 10/17/16 22:05 92 Nasal Cannula 6.00 10/17/16 22:00 92 32 138/95 89 10/17/16 22:00 92 10/17/16 22:00 92 Bi-Pap 35 10/17/16 21:23 24 10/17/16 21:00 98 37 150/68 91 10/17/16 20:36 98.5 102 35 131/79 89 10/17/16 20:00 99 10/17/16 20:00 99 35 93 10/17/16 19:00 90 Nasal Cannula 5.00 10/17/16 19:00 100 26 109/59 90 10/17/16 18:00 108 27 89 10/17/16 17:00 91 25 92 10/17/16 16:00 98.2 91 29 91 10/17/16 15:00 91 28 93 10/17/16 14:00 101 33 94 10/17/16 13:00 106 29 91 10/17/16 12:00 98.3 89 17 125/60 91 10/17/16 10:01 96 24 121/57 94 10/17/16 10:00 96 20 94 10/17/16 09:01 107 34 138/67 89 10/17/16 09:00 106 34 89 10/17/16 08:00 98.5 99 38 133/61 97 I/O 10/17/16 10/17/16 10/17/16 10/18/16 10/18/16 10/18/16 07:00 15:00 23:00 07:00 15:00 23:00 Intake Total 710 ml 250 ml 250 ml Output Total 600 ml 650 ml 300 ml 1000 ml Balance -600 ml 60 ml -50 ml -750 ml Intake Oral 600 ml 250 ml 250 ml IV Total 110 ml Output Urine Total 600 ml 650 ml 300 ml 1000 ml # Bowel Movements 1 1 Result Diagram: 10/16/16 0334 10/16/16 0334 Imaging Last Impressions Chest X-Ray 10/15/16 0600 Signed Impressions: Service Date/Time: Saturday, October 15, 2016 05:04 - CONCLUSION: 1. No acute cardiopulmonary disease. Pete Gruber MD Objective Remarks GENERAL: 65-year-old female, resting in bed NECK: Supple, trachea midline. No JVD or lymphadenopathy. CARDIOVASCULAR: RRR. Without murmur RESPIRATORY: Diminished breath sounds throughout. Scattered expiratory wheeze. +Coughing GASTROINTESTINAL: Abdomen soft, non-tender, nondistended. Neuro: Awake and alert A/P Assessment and Plan Acute on chronic hypercapnic respiratory failure COPD exacerbation Hypothyroidism Anxiety disorder Neuro: Monitor neuro status closely and avoid any sedatives. Pulm: Continue with oxygen and maintain sats above 92%.. Her baseline oxygen requirement is 4 L daily Bronchodilators(DuoNeb every 4 hours, Symbicort 160/4.5 2 puffs twice a day, Spiriva) Singular 10mg qhs NIPPV at night and PRN for resp distress. Check ABG when necessary. Solu-Medrol 60 mg IV every 8 hours, taper as tolerated. Patient with congestion, sob, wheezing. Add EZPAP, Incentive spirometry. Add mucomyst to nebs. Add tylenol /codein as patient with chest poain /abd muscle pain with coughing Pulm is following- Dr. Lopez CV: Monitor HR and BP and maintain MAP > 65 mmHg. Lactic acid level at 1.0. : Monitor renal function intakes and outputs and electrolyte replacement per protocol. off IVFs GI: on Protonix 40 mg by mouth daily. ID: Continue with abx(Rocephin and azithromycin). Monitor for signs infections( fever and WBC). CXR 10/12 showed COPD changes otherwise no acute findings appreciated. repeat x-ray 10/15 reviewed by me shows no acute findings Endo: SSI with Accu-Chek q. 6 h for glycemic control, monitor BS, pt on steroids Continue with Synthroid 88 g daily TSH:0.97 GI prophylaxis with Protonix 40 milligrams daily and DVT prophylaxis with SCDs and heparin subcutaneous. Discharge Planning transfer to floor if improving Franchesca Sol MD Oct 18, 2016 07:56
[2016-10-18] MEDS: HEPARIN SODIUM - SQ 10,000 UNITS/ML VIAL SQ SCH ×2 (08:37→20:39)
[2016-10-18] MEDS: AZITHROMYCIN 250 MG TAB PO SCH (08:37)
[2016-10-18] MEDS: PANTOPRAZOLE SOD 40 MG DELAYED RELEASE TAB PO SCH (08:37)
[2016-10-18] MEDS: BUDESONIDE-FORMOTEROL 160/4.5 MCG INHALER INH SCH ×2 (08:37→20:43)
[2016-10-18] MEDS: TIOTROPIUM BROMIDE 18 MCG INH INH SCH (08:37)
[2016-10-18] MEDS: DOCUSATE SODIUM 50 MG/SENNA 8.6 MG TAB PO SCH ×2 (08:38→20:40)
[2016-10-18] MEDS: cefTRIAXone INJ 1,000 MG in SODIUM CHLORIDE 0.9% INJ 100 ML IV SCH (08:38)
[2016-10-18] MEDS: SODIUM CHLORIDE 0.9% FLUSH 10 ML FLUSH IV FLUSH SCH ×2 (08:38→20:41)
[2016-10-18] MEDS: ACETAMINOPHEN/CODEINE ELIX 120 MG/12 MG/5 ML CUP PO PRN (11:12)
[2016-10-18] MEDS: ALPRAZolam 0.5 MG TAB PO PRN ×2 (14:13→20:48)
[2016-10-18] MEDS: CALCIUM CARBONATE 500 MG CHEWABLE TAB CHEW PRN ×2 (15:11→20:38)
--- NOTE | 2016-10-18 18:23 | HHI.PR ---
Subjective Remarks 65 YOWF with Hypercapnoic RF,COPD,non compliance Awake, follows commands Anxious Tolerates PO Cough, congestion Weaned to NC Objective Vital Signs Vital Signs Date Time Temp Pulse Resp B/P Pulse Ox O2 Delivery O2 Flow Rate FiO2 10/18/16 16:00 85 10/18/16 16:00 97 Nasal Cannula 5.00 10/18/16 16:00 98.7 85 23 113/58 97 10/18/16 14:00 102 10/18/16 12:00 98.8 98 18 127/59 93 10/18/16 12:00 98 10/18/16 12:00 93 Nasal Cannula 5.00 10/18/16 10:00 119 10/18/16 08:00 90 Nasal Cannula 5.00 10/18/16 08:00 89 10/18/16 08:00 98.1 89 24 156/69 90 10/18/16 07:31 95 Nasal Cannula 3.00 10/18/16 06:20 93 Nasal Cannula 5.00 10/18/16 06:00 88 10/18/16 04:26 98 45 10/18/16 04:00 97.9 85 21 125/60 96 10/18/16 04:00 85 10/18/16 03:00 82 19 108/55 93 10/18/16 02:00 82 19 120/58 92 10/18/16 02:00 82 10/18/16 01:25 96 45 10/18/16 01:00 86 19 114/56 97 10/18/16 00:13 97.1 93 26 118/56 94 10/18/16 00:13 93 26 118/56 94 10/18/16 00:00 94 10/18/16 00:00 94 21 94 10/18/16 00:00 94 21 94 10/17/16 23:20 98 35 138/116 92 10/17/16 23:00 84 23 97 10/17/16 22:08 94 45 10/17/16 22:05 92 Nasal Cannula 6.00 10/17/16 22:00 92 32 138/95 89 10/17/16 22:00 92 10/17/16 22:00 92 Bi-Pap 35 10/17/16 21:23 24 10/17/16 21:00 98 37 150/68 91 10/17/16 20:36 98.5 102 35 131/79 89 10/17/16 20:00 99 10/17/16 20:00 99 35 93 10/17/16 19:00 90 Nasal Cannula 5.00 10/17/16 19:00 100 26 109/59 90 I/O 10/17/16 10/17/16 10/17/16 10/18/16 10/18/16 10/18/16 07:00 15:00 23:00 07:00 15:00 23:00 Intake Total 710 ml 250 ml 250 ml 705 ml Output Total 600 ml 650 ml 300 ml 1000 ml Balance -600 ml 60 ml -50 ml -750 ml 705 ml Intake Oral 600 ml 250 ml 250 ml 600 ml IV Total 110 ml 105 ml Output Urine Total 600 ml 650 ml 300 ml 1000 ml # Voids 3 # Bowel Movements 1 1 Result Diagram: 10/16/1633310/16/16333 Objective Remarks GENERAL: MBMN WF, on BIPAP SKIN: Warm and dry. HEAD: Normocephalic. EYES: No scleral icterus. No injection or drainage. NECK: Supple, trachea midline. No JVD or lymphadenopathy. CARDIOVASCULAR: Regular rate and rhythm without murmurs, gallops, or rubs. RESPIRATORY: Breath sounds equal bilaterally. No accessory muscle use. GASTROINTESTINAL: Abdomen soft, non-tender, nondistended. MUSCULOSKELETAL: No cyanosis, or edema. BACK: Nontender without obvious deformity. No CVA tenderness. A/P Assessment and Plan Hypercapnoic RF COPD Exac Bronchitis Non Compliant PLAN: Supplement 02 with NC Cont Abx Rocephin and Zithro Aerosol nebs Symbicort bid Mucomyst nebs Acapella q 1 hr while awake. RUSSELL Solumedrol PO Steroids Randell Lopez MD Oct 18, 2016 18:23
[2016-10-18] MEDS: MONTELUKAST SODIUM 10 MG TAB PO SCH (20:40)
[2016-10-18] MEDS: predniSONE 20 MG TAB PO SCH (20:40)
[2016-10-19] VITALS (26 sets, daily range): BP systolic 113–167; BP diastolic 59–77; PULSE 73–200; RESP 18–20; TEMP 97.7–98.6; O2SAT 94–99
[2016-10-19] MEDS: LEVOTHYROXINE SODIUM 88 MCG TAB PO SCH (06:35)
[2016-10-19] MEDS: INSULIN NovoLIN REGULAR SUPPLEMENTAL SCALE SQ SCH ×4 (06:41→20:38)
[2016-10-19] MEDS: RESP: ALBUTEROL 2.5 MG/IPRATROPIUM 0.5 MG NEB (SCH) NEB ×3 (07:33→20:38)
[2016-10-19] MEDS: RESP: ACETYLCYSTEINE 20% 30 ML NEB NEB SCH ×3 (07:33→20:00)
--- NOTE | 2016-10-19 07:41 | HHI.PR ---
Subjective Remarks On Bipap overnight , and weaned off to 3L NC during the day. Patient in the chair. Says she feels improving. Less SOB. Less cough. Had some epigastric pain , releaved by PPIs. No fever or chills overnight. No n/v/d/c. Objective Vitals Vital Signs Date Time Temp Pulse Resp B/P Pulse Ox O2 Delivery O2 Flow Rate FiO2 10/19/16 07:36 94 Nasal Cannula 3.00 10/19/16 06:00 99 10/19/16 04:41 98 Nasal Cannula 3.00 10/19/16 04:05 98 45 10/19/16 04:00 99 Bi-Pap 45 10/19/16 04:00 98.6 73 18 129/61 99 10/19/16 04:00 73 10/19/16 02:00 87 10/19/16 01:40 98 45 10/19/16 00:00 98.6 90 20 132/59 95 10/19/16 00:00 87 10/19/16 00:00 96 Bi-Pap 45 10/18/16 23:45 99 45 10/18/16 22:21 Nasal Cannula 5.00 94 10/18/16 22:00 90 10/18/16 20:00 88 10/18/16 20:00 98.2 88 20 137/65 10/18/16 20:00 95 Nasal Cannula 5.00 10/18/16 18:00 103 10/18/16 16:00 85 10/18/16 16:00 97 Nasal Cannula 5.00 10/18/16 16:00 98.7 85 23 113/58 97 10/18/16 14:00 102 10/18/16 12:00 98.8 98 18 127/59 93 10/18/16 12:00 98 10/18/16 12:00 93 Nasal Cannula 5.00 10/18/16 10:00 119 10/18/16 08:00 90 Nasal Cannula 5.00 10/18/16 08:00 89 10/18/16 08:00 98.1 89 24 156/69 90 I/O 10/18/16 10/18/16 10/18/16 10/19/16 10/19/16 10/19/16 07:00 15:00 23:00 07:00 15:00 23:00 Intake Total 250 ml 705 ml 500 ml 300 ml Output Total 1000 ml Balance -750 ml 705 ml 500 ml 300 ml Intake Oral 250 ml 600 ml 500 ml 300 ml IV Total 105 ml Output Urine Total 1000 ml # Voids 3 1 1 # Bowel Movements 1 Result Diagram: 10/16/16 0334 10/16/16 0334 Imaging Last Impressions Chest X-Ray 10/15/16 0600 Signed Impressions: Service Date/Time: Saturday, October 15, 2016 05:04 - CONCLUSION: 1. No acute cardiopulmonary disease. Pete Gruber MD Objective Remarks GENERAL: 65-year-old female, resting in bed NECK: Supple, trachea midline. No JVD or lymphadenopathy. CARDIOVASCULAR: RRR. Without murmur RESPIRATORY: Diminished breath sounds throughout. Scattered expiratory wheeze. +Coughing GASTROINTESTINAL: Abdomen soft, non-tender, nondistended. Neuro: Awake and alert A/P Assessment and Plan Acute on chronic hypercapnic respiratory failure COPD exacerbation Hypothyroidism Anxiety disorder Neuro: Monitor neuro status closely and avoid any sedatives. Pulm: Continue with oxygen and maintain sats above 92%.. Her baseline oxygen requirement is 4 L daily Bronchodilators(DuoNeb every 4 hours, Symbicort 160/4.5 2 puffs twice a day, Spiriva) Singular 10mg qhs NIPPV at night and PRN for resp distress. Check ABG when necessary. Solu-Medrol 60 mg IV every 8 hours, taper as tolerated. Patient with congestion, sob, wheezing. Add EZPAP, Incentive spirometry. Add mucomyst to nebs. Add tylenol /codein as patient with chest poain /abd muscle pain with coughing Pulm is following- Dr. Lopez CV: Monitor HR and BP and maintain MAP > 65 mmHg. Lactic acid level at 1.0. : Monitor renal function intakes and outputs and electrolyte replacement per protocol. off IVFs GI: on Protonix 40 mg by mouth daily. ID: Continue with abx(Rocephin and azithromycin). Monitor for signs infections( fever and WBC). CXR 10/12 showed COPD changes otherwise no acute findings appreciated. repeat x-ray 10/15 reviewed by me shows no acute findings Endo: SSI with Accu-Chek q. 6 h for glycemic control, monitor BS, pt on steroids Continue with Synthroid 88 g daily TSH:0.97 GI prophylaxis with Protonix 40 milligrams daily and DVT prophylaxis with SCDs and heparin subcutaneous. Discharge Planning Improving, transfer to [facility]. Wean O2 if possible., poss DC in 1-2 days if continues to improve. Franchesca Sol MD Oct 19, 2016 07:41
[2016-10-19] MEDS: cefTRIAXone INJ 1,000 MG in SODIUM CHLORIDE 0.9% INJ 100 ML IV SCH (08:50)
[2016-10-19] MEDS: PANTOPRAZOLE SOD 40 MG DELAYED RELEASE TAB PO SCH (08:52)
[2016-10-19] MEDS: AZITHROMYCIN 250 MG TAB PO SCH (08:52)
[2016-10-19] MEDS: predniSONE 20 MG TAB PO SCH ×2 (08:52→20:56)
[2016-10-19] MEDS: HEPARIN SODIUM - SQ 10,000 UNITS/ML VIAL SQ SCH ×2 (08:52→20:56)
[2016-10-19] MEDS: TIOTROPIUM BROMIDE 18 MCG INH INH SCH (08:54)
[2016-10-19] MEDS: BUDESONIDE-FORMOTEROL 160/4.5 MCG INHALER INH SCH ×2 (08:55→20:57)
[2016-10-19] MEDS: SODIUM CHLORIDE 0.9% FLUSH 10 ML FLUSH IV FLUSH SCH ×2 (08:56→20:56)
[2016-10-19] MEDS: DOCUSATE SODIUM 50 MG/SENNA 8.6 MG TAB PO SCH ×2 (08:56→20:56)
--- NOTE | 2016-10-19 19:08 | HHI.PR ---
Subjective Remarks 65 YOWF with Hypercapnoic RF,COPD,non compliance Awake, follows commands Anxious Tolerates PO Cough, congestion Weaned to NC transferred to floor Objective Vital Signs Vital Signs Date Time Temp Pulse Resp B/P Pulse Ox O2 Delivery O2 Flow Rate FiO2 10/19/16 18:17 100 10/19/16 17:03 93 10/19/16 16:32 103 10/19/16 15:04 98.2 94 18 113/60 94 10/19/16 15:04 95 10/19/16 15:04 94 Nasal Cannula 4.00 10/19/16 14:31 95 10/19/16 13:07 113 10/19/16 12:01 97 10/19/16 11:19 98 10/19/16 11:19 94 Nasal Cannula 4.00 10/19/16 11:19 98.0 98 20 128/65 94 10/19/16 10:22 101 10/19/16 09:13 105 10/19/16 08:00 97.7 89 18 167/77 95 10/19/16 08:00 95 Nasal Cannula 4.00 10/19/16 08:00 109 10/19/16 07:36 94 Nasal Cannula 3.00 10/19/16 06:00 99 10/19/16 04:41 98 Nasal Cannula 3.00 10/19/16 04:05 98 45 10/19/16 04:00 99 Bi-Pap 45 10/19/16 04:00 98.6 73 18 129/61 99 10/19/16 04:00 73 10/19/16 02:00 87 10/19/16 01:40 98 45 10/19/16 00:00 98.6 90 20 132/59 95 10/19/16 00:00 87 10/19/16 00:00 96 Bi-Pap 45 10/18/16 23:45 99 45 10/18/16 22:21 Nasal Cannula 5.00 94 10/18/16 22:00 90 10/18/16 20:00 88 10/18/16 20:00 98.2 88 20 137/65 10/18/16 20:00 95 Nasal Cannula 5.00 I/O 10/18/16 10/18/16 10/18/16 10/19/16 10/19/16 10/19/16 07:00 15:00 23:00 07:00 15:00 23:00 Intake Total 250 ml 705 ml 500 ml 300 ml 1230 ml Output Total 1000 ml 600 ml Balance -750 ml 705 ml 500 ml 300 ml 630 ml Intake Oral 250 ml 600 ml 500 ml 300 ml 1080 ml IV Total 105 ml 150 ml Output Urine Total 1000 ml 600 ml # Voids 3 1 1 # Bowel Movements 1 0 Result Diagram: 10/16/1633310/16/16333 Objective Remarks GENERAL: MBMN WF, on BIPAP SKIN: Warm and dry. HEAD: Normocephalic. EYES: No scleral icterus. No injection or drainage. NECK: Supple, trachea midline. No JVD or lymphadenopathy. CARDIOVASCULAR: Regular rate and rhythm without murmurs, gallops, or rubs. RESPIRATORY: Breath sounds equal bilaterally. No accessory muscle use. GASTROINTESTINAL: Abdomen soft, non-tender, nondistended. MUSCULOSKELETAL: No cyanosis, or edema. BACK: Nontender without obvious deformity. No CVA tenderness. A/P Assessment and Plan Hypercapnoic RF COPD Exac Bronchitis Non Compliant PLAN: Supplement 02 with NC Cont Abx Rocephin and Zithro Aerosol nebs Symbicort bid Mucomyst nebs Acapella q 1 hr while awake. DC Solumedrol PO Steroids DC Plans underway Randell Lopez MD Oct 19, 2016 19:08
[2016-10-19] MEDS: MONTELUKAST SODIUM 10 MG TAB PO SCH (20:56)
[2016-10-19] MEDS: ACETAMINOPHEN/HYDROcodone 325 MG/5 MG TAB PO PRN (20:56)
[2016-10-20] VITALS (29 sets, daily range): BP systolic 119–153; BP diastolic 59–87; PULSE 67–99; RESP 18; TEMP 97.4–98.8; O2SAT 92–98
[2016-10-20] MEDS: ALPRAZolam 0.5 MG TAB PO PRN (04:31)
[2016-10-20] MEDS: LEVOTHYROXINE SODIUM 88 MCG TAB PO SCH (05:58)
[2016-10-20] MEDS: INSULIN NovoLIN REGULAR SUPPLEMENTAL SCALE SQ SCH ×4 (06:06→20:49)
[2016-10-20] MEDS: RESP: ACETYLCYSTEINE 20% 30 ML NEB NEB SCH ×2 (07:54→13:37)
[2016-10-20] MEDS: RESP: ALBUTEROL 2.5 MG/IPRATROPIUM 0.5 MG NEB (SCH) NEB ×2 (07:54→13:36)
[2016-10-20] MEDS: cefTRIAXone INJ 1,000 MG in SODIUM CHLORIDE 0.9% INJ 100 ML IV SCH (09:21)
[2016-10-20] MEDS: AZITHROMYCIN 250 MG TAB PO SCH (09:21)
[2016-10-20] MEDS: SODIUM CHLORIDE 0.9% FLUSH 10 ML FLUSH IV FLUSH SCH ×2 (09:22→20:45)
[2016-10-20] MEDS: DOCUSATE SODIUM 50 MG/SENNA 8.6 MG TAB PO SCH ×2 (09:22→20:45)
[2016-10-20] MEDS: HEPARIN SODIUM - SQ 10,000 UNITS/ML VIAL SQ SCH ×2 (09:22→20:45)
[2016-10-20] MEDS: predniSONE 20 MG TAB PO SCH ×2 (09:22→20:45)
[2016-10-20] MEDS: PANTOPRAZOLE SOD 40 MG DELAYED RELEASE TAB PO SCH (09:22)
[2016-10-20] MEDS: BUDESONIDE-FORMOTEROL 160/4.5 MCG INHALER INH SCH ×2 (09:22→20:46)
[2016-10-20] MEDS: TIOTROPIUM BROMIDE 18 MCG INH INH SCH (09:23)
[2016-10-20] MEDS: ACETAMINOPHEN/HYDROcodone 325 MG/5 MG TAB PO PRN ×2 (09:30→17:30)
[2016-10-20] MEDS: ACETAMINOPHEN/CODEINE ELIX 120 MG/12 MG/5 ML CUP PO PRN ×2 (09:30→15:37)
--- NOTE | 2016-10-20 09:49 | HHI.PR ---
Subjective Remarks Patient in the chair. Says she feels improving some. Still using Bipap overnight. Says sob is worse at night. Says cough is more productive of sputum now. No fevr or chills overnight. No n/v/d/c. Objective Vitals Vital Signs Date Time Temp Pulse Resp B/P Pulse Ox O2 Delivery O2 Flow Rate FiO2 10/20/16 08:06 86 10/20/16 07:57 96 Nasal Cannula 4.00 10/20/16 07:00 95 Nasal Cannula 4.00 10/20/16 07:00 97.9 82 18 124/87 94 10/20/16 07:00 75 10/20/16 06:00 76 10/20/16 05:00 78 10/20/16 04:10 95 Bi-Pap 10/20/16 04:05 98 45 10/20/16 04:00 75 10/20/16 04:00 98.2 95 18 153/78 94 10/20/16 03:00 94 10/20/16 02:00 90 10/20/16 01:00 92 10/20/16 00:06 95 Bi-Pap 10/20/16 00:00 90 10/20/16 00:00 98.0 76 18 146/81 95 10/19/16 23:25 96 45 10/19/16 23:00 92 10/19/16 22:00 92 10/19/16 21:00 98 10/19/16 20:40 96 Nasal Cannula 4.00 10/19/16 20:00 98.2 108 18 142/75 95 10/19/16 20:00 108 10/19/16 19:50 95 Nasal Cannula 4.00 10/19/16 19:00 106 10/19/16 18:17 100 10/19/16 17:03 93 10/19/16 16:32 103 10/19/16 15:04 98.2 94 18 113/60 94 10/19/16 15:04 95 10/19/16 15:04 94 Nasal Cannula 4.00 10/19/16 14:31 95 10/19/16 13:07 113 10/19/16 12:01 97 10/19/16 11:19 98 10/19/16 11:19 94 Nasal Cannula 4.00 10/19/16 11:19 98.0 98 20 128/65 94 10/19/16 10:22 101 I/O 10/19/16 10/19/16 10/19/16 10/20/16 10/20/16 10/20/16 07:00 15:00 23:00 07:00 15:00 23:00 Intake Total 300 ml 1230 ml 360 ml Output Total 600 ml 1500 ml Balance 300 ml 630 ml -1140 ml Intake Oral 300 ml 1080 ml 360 ml IV Total 150 ml Output Urine Total 600 ml 1500 ml # Voids 1 # Bowel Movements 0 0 Result Diagram: 10/16/16 0334 10/16/16 0334 Imaging Last Impressions Chest X-Ray 10/15/16 0600 Signed Impressions: Service Date/Time: Saturday, October 15, 2016 05:04 - CONCLUSION: 1. No acute cardiopulmonary disease. Pete Gruber MD Objective Remarks GENERAL: 65-year-old female, resting in bed NECK: Supple, trachea midline. No JVD or lymphadenopathy. CARDIOVASCULAR: RRR. Without murmur RESPIRATORY: Diminished breath sounds throughout. Scattered expiratory wheeze. +Coughing GASTROINTESTINAL: Abdomen soft, non-tender, nondistended. Neuro: Awake and alert A/P Assessment and Plan Acute on chronic hypercapnic respiratory failure COPD exacerbation Hypothyroidism Anxiety disorder Neuro: Monitor neuro status closely and avoid any sedatives. Pulm: Continue with oxygen and maintain sats above 92%.. Her baseline oxygen requirement is 4 L daily Bronchodilators(DuoNeb every 4 hours, Symbicort 160/4.5 2 puffs twice a day, Spiriva) Singular 10mg qhs NIPPV at night and PRN for resp distress. Check ABG when necessary. Solu-Medrol 60 mg IV every 8 hours, taper as tolerated. Patient with congestion, sob, wheezing. Add EZPAP, Incentive spirometry. Add mucomyst to nebs. Add tylenol /codein as patient with chest poain /abd muscle pain with coughing Pulm is following- Dr. Lopez CV: Monitor HR and BP and maintain MAP > 65 mmHg. Lactic acid level at 1.0. : Monitor renal function intakes and outputs and electrolyte replacement per protocol. off IVFs GI: on Protonix 40 mg by mouth daily. ID: Continue with abx(Rocephin and azithromycin). Monitor for signs infections( fever and WBC). CXR 10/12 showed COPD changes otherwise no acute findings appreciated. repeat x-ray 10/15 reviewed by me shows no acute findings Endo: SSI with Accu-Chek q. 6 h for glycemic control, monitor BS, pt on steroids Continue with Synthroid 88 g daily TSH:0.97 GI prophylaxis with Protonix 40 milligrams daily DVT prophylaxis with SCDs and heparin subcutaneous. Discharge Planning Wean O2 if possible., poss DC in 1-2 days if continues to improve. On bipap overnight. DC when improve and cleared by pulFranchesca De La Cruz MD Oct 20, 2016 09:49
--- NOTE | 2016-10-20 18:18 | HHI.PR ---
Subjective Remarks 65 YOWF with Hypercapnoic RF,COPD,non compliance Awake, follows commands Anxious Tolerates PO Cough, congestion Weaned to NC Appetite improving Ambulates Objective Vital Signs Vital Signs Date Time Temp Pulse Resp B/P Pulse Ox O2 Delivery O2 Flow Rate FiO2 10/20/16 17:14 96 10/20/16 16:18 96 10/20/16 15:26 95 10/20/16 15:09 97.4 89 18 139/66 93 10/20/16 15:08 93 Nasal Cannula 4.00 10/20/16 14:13 99 10/20/16 13:00 96 10/20/16 12:08 82 10/20/16 11:21 97.6 72 18 119/59 92 10/20/16 11:00 96 10/20/16 11:00 92 Nasal Cannula 4.00 10/20/16 10:09 95 10/20/16 09:42 99 10/20/16 08:06 86 10/20/16 07:57 96 Nasal Cannula 4.00 10/20/16 07:00 95 Nasal Cannula 4.00 10/20/16 07:00 97.9 82 18 124/87 94 10/20/16 07:00 75 10/20/16 06:00 76 10/20/16 05:00 78 10/20/16 04:10 95 Bi-Pap 10/20/16 04:05 98 45 10/20/16 04:00 75 10/20/16 04:00 98.2 95 18 153/78 94 10/20/16 03:00 94 10/20/16 02:00 90 10/20/16 01:00 92 10/20/16 00:06 95 Bi-Pap 10/20/16 00:00 90 10/20/16 00:00 98.0 76 18 146/81 95 10/19/16 23:25 96 45 10/19/16 23:00 92 10/19/16 22:00 92 10/19/16 21:00 98 10/19/16 20:40 96 Nasal Cannula 4.00 10/19/16 20:00 98.2 108 18 142/75 95 10/19/16 20:00 108 10/19/16 19:50 95 Nasal Cannula 4.00 10/19/16 19:00 106 I/O 6/610/19/16 10/19/16 10/20/16 10/20/16 10/20/16 07:00 15:00 23:00 07:00 15:00 23:00 Intake Total 300 ml 1230 ml 360 ml 870 ml Output Total 600 ml 1500 ml 800 ml Balance 300 ml 630 ml -1140 ml 70 ml Intake Oral 300 ml 1080 ml 360 ml 780 ml IV Total 150 ml 90 ml Output Urine Total 600 ml 1500 ml 800 ml # Voids 1 4 # Bowel Movements 0 0 1 Result Diagram: 10/16/1633310/16/16 033 Objective Remarks GENERAL: MBMN WF, on BIPAP SKIN: Warm and dry. HEAD: Normocephalic. EYES: No scleral icterus. No injection or drainage. NECK: Supple, trachea midline. No JVD or lymphadenopathy. CARDIOVASCULAR: Regular rate and rhythm without murmurs, gallops, or rubs. RESPIRATORY: Breath sounds equal bilaterally. No accessory muscle use. GASTROINTESTINAL: Abdomen soft, non-tender, nondistended. MUSCULOSKELETAL: No cyanosis, or edema. BACK: Nontender without obvious deformity. No CVA tenderness. A/P Assessment and Plan Hypercapnoic RF COPD Exac Bronchitis Non Compliant PLAN: Supplement 02 with NC Cont Abx Rocephin and Zithro Aerosol nebs Symbicort bid Mucomyst nebs Acapella q 1 hr while awake. Pred 20 mg po BID PFT Randell Lopez MD Oct 20, 2016 18:18
[2016-10-20] MEDS: MONTELUKAST SODIUM 10 MG TAB PO SCH (20:45)
[2016-10-21] VITALS (28 sets, daily range): BP systolic 125–150; BP diastolic 66–72; PULSE 76–106; RESP 16–20; TEMP 97.3–98.9; O2SAT 90–100
[2016-10-21] MEDS: ALPRAZolam 0.5 MG TAB PO PRN ×2 (00:16→22:43)
[2016-10-21] MEDS: LEVOTHYROXINE SODIUM 88 MCG TAB PO SCH (05:17)
[2016-10-21] MEDS: INSULIN NovoLIN REGULAR SUPPLEMENTAL SCALE SQ SCH ×4 (06:12→20:00)
[2016-10-21] MEDS ORDERED: SENN1TAB PO (08:56)
[2016-10-21] MEDS ORDERED: CODE30TA2 PO (08:56)
[2016-10-21] MEDS: TIOTROPIUM BROMIDE 18 MCG INH INH SCH (08:56)
[2016-10-21] MEDS ORDERED: ALPR.5 PO (08:56)
[2016-10-21] MEDS ORDERED: SYMB160A INH (08:56)
[2016-10-21] MEDS ORDERED: SPIRCAP INH (08:56)
[2016-10-21] MEDS: BUDESONIDE-FORMOTEROL 160/4.5 MCG INHALER INH SCH ×2 (08:56→20:00)
[2016-10-21] MEDS ORDERED: HYDR-3516 PO (08:56)
--- NOTE | 2016-10-21 08:56 | HHI.DS ---
Discharge Summary Admission Date October 11, 2016 at 08:06 Discharge Date: Oct 22, 2016 Admitting Diagnosis COPD exacerbation, on Bipap (1) Hypoxemia ICD Code: R09.02 Diagnosis: Principal (2) COPD exacerbation ICD Code: J44.1 Diagnosis: Principal (3) Acute respiratory failure ICD Code: J96.00 Diagnosis: Principal Procedures none Brief History - From Admission The patient is a 65-year-old female with past medical history of COPD on 5 liters home oxygen, hypothyroidism and anxiety disorder. She presented to the [facility] Emergency Department with progressive worsening shortness of breath after discontinuing her Symbicort medication due to cough approximately two weeks ago. A week ago, her symptoms worsened by developing an upper respiratory infection. She has had a productive cough with green phlegm. As per emergency department records, the patient refused to go to her primary care physician. She reports having chest tightness associated with shortness of breath and wheezing. She received albuterol nebulizer treatment via EMS and Solu-Medrol 125 milligrams IV push. She denies any orthopnea, PND or constitutional symptoms. In addition, no history of nausea, vomiting or abdominal pain. The patient was placed on BiPAP 12/6 with 30% FIO2 and her ABG showed acute hypercapnic respiratory acidosis with a pH of 7.29, CO2 77, pAO2 56, bicarb 36 and sats of 86%. Subsequently she had two additional blood gases, and her last ABG at 09:18 showed a pH of 7.28, CO2 77, pAO2 73, bicarb 35, sats 93% on 187 with 40% FIO2. Chest x-ray showed COPD changes; otherwise, no acute findings identified. In the emergency room, the patient received Rocephin and azithromycin. Due to her agitation, she received Ativan 0.5 milligrams at 06:54 this morning. On arrival to the intensive care unit, the patient remains on BiPAP awake. Imaging Last Impressions Chest X-Ray 10/15/16 0600 Signed Impressions: Service Date/Time: Saturday, October 15, 2016 05:04 - CONCLUSION: 1. No acute cardiopulmonary disease. Pete Gruber MD PE at Discharge GENERAL: 65-year-old female, resting in bed NECK: Supple, trachea midline. No JVD or lymphadenopathy. CARDIOVASCULAR: RRR. Without murmur RESPIRATORY: Diminished breath sounds throughout. Scattered expiratory wheeze. +Coughing GASTROINTESTINAL: Abdomen soft, non-tender, nondistended. Neuro: Awake and alert Pt update on day of discharge Did well without bipap overnight. She is less sob and feeling much better. No n/ v/d/c. Denies chest pain. Has some back pain controlled by meds. Hospital Course Neuro: Monitor neuro status closely and avoid any sedatives. Pulmonology: Continue with oxygen and maintain sats above 92%. Her baseline oxygen requirement is 4 L daily, Still requiring Bipap overnight. Bronchodilators(DuoNeb every 4 hours, Symbicort 160/4.5 2 puffs twice a day, Spiriva) Singular 10mg qhs NIPPV at night and PRN for resp distress. Check ABG when necessary. Solu-Medrol 60 mg IV every 8 hours, tapered , changed to PO and tapered. . Patient with congestion, sob, wheezing. Added EZPAP, Incentive spirometry. Improved. Add mucomyst to nebs. Tylenol /codeine as patient with chest pain /abd muscle pain with coughing Pulm is following- Dr. Lopez\. Bipap weaned off. Patient was not using bipap. Cleared by pulm for DC. To follow up as OP with pulm. CV: Monitor HR and BP and maintain MAP > 65 mmHg. Lactic acid level at 1.0. : Monitor renal function intakes and outputs and electrolyte replacement per protocol. off IVFs GI: on Protonix 40 mg by mouth daily. ID: Continue with abx(Rocephin and azithromycin). Monitor for signs infections( fever and WBC). CXR 10/12 showed COPD changes otherwise no acute findings appreciated. repeat x-ray 10/15 reviewed by me shows no acute findings Endo: SSI with Accu-Chek q. 6 h for glycemic control, monitor BS, pt on steroids Continue with Synthroid 88 g daily TSH:0.97 GI prophylaxis with Protonix 40 milligrams daily DVT prophylaxis with SCDs and heparin subcutaneous. Patient is weaned off Bipap . She did not use bipap overnight. Seen by pulm, and cleared the patient for DC. Discussed with the nurse. Patient DC to rehab in stable condition. To follow up as OP with PCP and consultants. Pt Condition on Discharge: Stable Discharge Disposition: Discharge to SNF Discharge Time: > 30 minutes Discharge Instructions DIET: Follow Instructions for: Heart Healthy Diet Activities you can perform: Regular-No Restrictions Follow up Referrals: PCP Follow-up - 2-3 Days Pulmonology - 1 Week New Medications: Acetaminophen-Codeine Liq (Tylenol-Codeine Elixir) 120-12 Mg/5 Ml Soln 5 ML PO Q6H PRN PAIN #120 Ref 0 ML Prednisone (Prednisone) 20 Mg Tab 20 MG PO DAILY Shortness of Breath #3 Ref 0 TAB Alprazolam (Xanax) 0.5 Mg Tab 0.5 MG PO Q8HR PRN ANXIETY #14 TAB Budesonide-Formoterol Inh (Symbicort Inh) 160-4.5 Mcg/Act Aero 2 PUFF INH Q12HR Shortness of Breath #60 INHALER Hydrocodone-Acetaminophen (Hydrocodone-Acetaminophen) 5-325 mg Tab 1 TAB PO Q8H Pain Management #14 TAB Sennosides-Docusate Sodium (Senna Plus 8.6-50 mg) 1 Tab Tab 1 TAB PO BID Constipation #60 TAB Tiotropium Inh (Spiriva Handihaler) 18 Mcg Cap 18 MCG INH DAILY Shortness of Breath #30 CAP Continued Medications: Albuterol Neb (Albuterol Neb) 2.5 Mg/3 Ml Neb 2.5 MG NEB Q4HR NEB While awake Breathing Treatment #60 Ref 0 NEBULE Levothyroxine (Synthroid) 88 Mcg Tab 88 MCG PO DAILY Thyroid #30 Ref 0 TAB Montelukast (Montelukast) 10 Mg Tab 10 MG PO HS #30 Ref 0 TAB Franchesca Sol MD Oct 21, 2016 08:56
[2016-10-21] MEDS: predniSONE 20 MG TAB PO SCH ×2 (08:57→19:59)
[2016-10-21] MEDS: HEPARIN SODIUM - SQ 10,000 UNITS/ML VIAL SQ SCH ×2 (08:57→19:59)
[2016-10-21] MEDS: PANTOPRAZOLE SOD 40 MG DELAYED RELEASE TAB PO SCH (08:57)
[2016-10-21] MEDS: DOCUSATE SODIUM 50 MG/SENNA 8.6 MG TAB PO SCH ×2 (08:57→20:00)
[2016-10-21] MEDS: AZITHROMYCIN 250 MG TAB PO SCH (08:57)
[2016-10-21] MEDS: cefTRIAXone INJ 1,000 MG in SODIUM CHLORIDE 0.9% INJ 100 ML IV SCH (08:58)
[2016-10-21] MEDS: ACETAMINOPHEN/HYDROcodone 325 MG/5 MG TAB PO PRN ×2 (08:58→17:02)
[2016-10-21] MEDS: ACETAMINOPHEN/CODEINE ELIX 120 MG/12 MG/5 ML CUP PO PRN (08:58)
[2016-10-21] MEDS: SODIUM CHLORIDE 0.9% FLUSH 10 ML FLUSH IV FLUSH SCH ×2 (08:59→19:59)
--- NOTE | 2016-10-21 09:00 | HHI.PR ---
Subjective Remarks Follow up COPD exacerbation. Patient seen and examined today. Sitting up in chair, states she feels much better than yesterday. Denies further shortness of breath. Has been compliant with CPAP at night. Patient does state she has a continued productive cough with yellow phlegm. Admits to continued back pain and pain when coughing. Denies any recent fever, chills, nausea, vomiting or diarrhea. Objective Vitals Vital Signs Date Time Temp Pulse Resp B/P Pulse Ox O2 Delivery O2 Flow Rate FiO2 10/21/16 08:00 92 10/21/16 07:00 83 10/21/16 07:00 100 Bi-Pap 10/21/16 07:00 98.2 92 16 128/71 100 10/21/16 06:30 83 10/21/16 05:51 80 10/21/16 04:26 85 10/21/16 04:19 97.6 80 127/70 98 10/21/16 03:48 86 10/21/16 03:41 Nasal Cannula 4.00 45 10/21/16 03:15 97 45 10/21/16 02:00 82 10/21/16 01:00 76 10/21/16 00:00 86 10/20/16 23:22 96 45 10/20/16 23:00 88 10/20/16 23:00 Nasal Cannula 4.00 45 10/20/16 23:00 97.6 67 130/66 95 10/20/16 22:00 82 10/20/16 21:00 86 10/20/16 20:00 92 10/20/16 20:00 93 Nasal Cannula 4.00 10/20/16 19:00 98.8 82 140/75 95 10/20/16 19:00 98 10/20/16 19:00 Nasal Cannula 4.00 45 10/20/16 18:17 96 10/20/16 17:14 96 10/20/16 16:18 96 10/20/16 15:26 95 10/20/16 15:09 97.4 89 18 139/66 93 10/20/16 15:08 93 Nasal Cannula 4.00 10/20/16 14:13 99 10/20/16 13:00 96 10/20/16 12:08 82 10/20/16 11:21 97.6 72 18 119/59 92 10/20/16 11:00 96 10/20/16 11:00 92 Nasal Cannula 4.00 10/20/16 10:09 95 10/20/16 09:42 99 I/O 10/20/16 10/20/16 10/20/16 10/21/16 10/21/16 10/21/16 07:00 15:00 23:00 07:00 15:00 23:00 Intake Total 360 ml 870 ml 480 ml Output Total 1500 ml 800 ml 650 ml Balance -1140 ml 70 ml -170 ml Intake Oral 360 ml 780 ml 480 ml IV Total 90 ml Output Urine Total 1500 ml 800 ml 650 ml # Voids 4 # Bowel Movements 0 1 Imaging Last Impressions Chest X-Ray 10/15/16 0600 Signed Impressions: Service Date/Time: Saturday, October 15, 2016 05:04 - CONCLUSION: 1. No acute cardiopulmonary disease. Pete Gruber MD Objective Remarks GENERAL: 65-year-old female, sitting comfortably in chair. NECK: Supple, trachea midline. No JVD or lymphadenopathy. CARDIOVASCULAR: RRR. Without murmur RESPIRATORY: No accessory muscle use. Diminished breath sounds throughout. No wheezing noted. +Coughing GASTROINTESTINAL: Abdomen soft, non-tender, nondistended. Neuro: Awake and alert A/P Assessment and Plan Acute on chronic hypercapnic respiratory failure COPD exacerbation Hypothyroidism Anxiety disorder Neuro: Monitor neuro status closely and avoid any sedatives. Pulmonology: Continue with oxygen and maintain sats above 92%. Her baseline oxygen requirement is 4 L daily Bronchodilators(DuoNeb every 4 hours, Symbicort 160/4.5 2 puffs twice a day, Spiriva) Singular 10mg qhs NIPPV at night and PRN for resp distress. Check ABG when necessary. Solu-Medrol 60 mg IV every 8 hours, taper as tolerated. Patient with congestion, sob, wheezing. Add EZPAP, Incentive spirometry. Add mucomyst to nebs. Tylenol /codeine as patient with chest pain /abd muscle pain with coughing Pulm is following- Dr. Lopez CV: Monitor HR and BP and maintain MAP > 65 mmHg. Lactic acid level at 1.0. : Monitor renal function intakes and outputs and electrolyte replacement per protocol. off IVFs GI: on Protonix 40 mg by mouth daily. ID: Continue with abx(Rocephin and azithromycin). Monitor for signs infections( fever and WBC). CXR 10/12 showed COPD changes otherwise no acute findings appreciated. repeat x-ray 10/15 reviewed by me shows no acute findings Endo: SSI with Accu-Chek q. 6 h for glycemic control, monitor BS, pt on steroids Continue with Synthroid 88 g daily TSH:0.97 GI prophylaxis with Protonix 40 milligrams daily DVT prophylaxis with SCDs and heparin subcutaneous. Written by Kasandra Stokes, acting as scribe for Dr. Sol on 10/21/16 at 09:00. This note was transcribed by scribe Kasandra HARPER. I, Dr. Franchesca Sol personally performed the history, physical exam, and medical decision making; and confirmed the accuracy of the information in the transcribed note. Authenticated by Dr. Franchesca Sol on 10/21/16 at 09:00. Discharge Planning On bipap overnight. DC when improve and cleared by Kasandra Alberto Oct 21, 2016 09:00 Franchesca Sol MD Oct 21, 2016 12:28
[2016-10-21] MEDS ORDERED: ACET120S PO (11:22)
[2016-10-21] MEDS ORDERED: PRED20 PO (11:23)
--- NOTE | 2016-10-21 18:34 | HHI.PR ---
Subjective Remarks 65 YOWF with Hypercapnoic RF,COPD,non compliance Awake, follows commands Anxious Weaned to NC Appetite improving Ambulates Objective Vital Signs Vital Signs Date Time Temp Pulse Resp B/P Pulse Ox O2 Delivery O2 Flow Rate FiO2 10/21/16 17:00 80 10/21/16 16:00 87 10/21/16 15:00 95 Nasal Cannula 4.00 10/21/16 15:00 92 10/21/16 15:00 98.9 95 18 127/67 90 10/21/16 14:00 101 10/21/16 13:00 89 10/21/16 12:00 98 10/21/16 11:00 97.8 93 20 125/66 90 10/21/16 11:00 95 10/21/16 11:00 100 Nasal Cannula 4.00 10/21/16 10:50 92 Nasal Cannula 4.00 10/21/16 10:00 95 10/21/16 09:00 86 10/21/16 08:00 92 10/21/16 07:00 83 10/21/16 07:00 100 Bi-Pap 10/21/16 07:00 98.2 92 16 128/71 100 10/21/16 06:30 83 10/21/16 05:51 80 10/21/16 04:26 85 10/21/16 04:19 97.6 80 127/70 98 10/21/16 03:48 86 10/21/16 03:41 Nasal Cannula 4.00 45 10/21/16 03:15 97 45 10/21/16 02:00 82 10/21/16 01:00 76 10/21/16 00:00 86 10/20/16 23:22 96 45 10/20/16 23:00 88 10/20/16 23:00 Nasal Cannula 4.00 45 10/20/16 23:00 97.6 67 130/66 95 10/20/16 22:00 82 10/20/16 21:00 86 10/20/16 20:00 92 10/20/16 20:00 93 Nasal Cannula 4.00 10/20/16 19:00 98.8 82 140/75 95 10/20/16 19:00 98 10/20/16 19:00 Nasal Cannula 4.00 45 I/O 10/20/16 10/20/16 10/20/16 10/21/16 6/8/17 6/8/17 07:00 15:00 23:00 07:00 15:00 23:00 Intake Total 360 ml 870 ml 480 ml 1200 ml Output Total 1500 ml 800 ml 650 ml Balance -1140 ml 70 ml -170 ml 1200 ml Intake Oral 360 ml 780 ml 480 ml 1200 ml IV Total 90 ml Output Urine Total 1500 ml 800 ml 650 ml # Voids 4 5 # Bowel Movements 0 1 Objective Remarks GENERAL: MBMN WF, on BIPAP SKIN: Warm and dry. HEAD: Normocephalic. EYES: No scleral icterus. No injection or drainage. NECK: Supple, trachea midline. No JVD or lymphadenopathy. CARDIOVASCULAR: Regular rate and rhythm without murmurs, gallops, or rubs. RESPIRATORY: Breath sounds equal bilaterally. No accessory muscle use. GASTROINTESTINAL: Abdomen soft, non-tender, nondistended. MUSCULOSKELETAL: No cyanosis, or edema. BACK: Nontender without obvious deformity. No CVA tenderness. A/P Assessment and Plan Hypercapnoic RF COPD Exac Bronchitis Non Compliant PLAN: Supplement 02 with NC Cont Abx Rocephin and Zithro Aerosol nebs Symbicort bid Mucomyst nebs Acapella q 1 hr while awake. Pred 20 mg po BID DC Spiriva Duonebs q 6 hrs Randell Lopez MD Oct 21, 2016 18:34
[2016-10-21] MEDS: MONTELUKAST SODIUM 10 MG TAB PO SCH (19:59)
[2016-10-21] MEDS: RESP: ALBUTEROL 2.5 MG/IPRATROPIUM 0.5 MG NEB (SCH) NEB (23:01)
[2016-10-22] VITALS (13 sets, daily range): BP systolic 131–154; BP diastolic 69–77; PULSE 68–114; RESP 18; TEMP 97.8–98.9; O2SAT 92–99
[2016-10-22] MEDS: RESP: ALBUTEROL 2.5 MG/IPRATROPIUM 0.5 MG NEB (SCH) NEB ×3 (04:40→16:00)
[2016-10-22] MEDS: LEVOTHYROXINE SODIUM 88 MCG TAB PO SCH (05:22)
[2016-10-22] MEDS: INSULIN NovoLIN REGULAR SUPPLEMENTAL SCALE SQ SCH ×2 (06:04→11:00)
--- NOTE | 2016-10-22 08:21 | HHI.PR ---
Subjective Remarks Patient in nad. No chest pain, n/v/d/c. Patient says she is still sob but impropving. less congested feels. Still using bipap overnight. Says he has back pain at baseline. No fever or chills. Objective Vitals Vital Signs Date Time Temp Pulse Resp B/P Pulse Ox O2 Delivery O2 Flow Rate FiO2 10/22/16 07:45 99 Nasal Cannula 4.00 10/22/16 06:08 69 10/22/16 05:06 86 10/22/16 04:00 86 10/22/16 03:28 Nasal Cannula 4.00 45 10/22/16 03:00 97.8 94 131/69 98 10/22/16 03:00 75 10/22/16 02:00 78 10/22/16 01:00 100 10/22/16 00:00 86 10/21/16 23:01 94 Nasal Cannula 5.00 10/21/16 23:00 97.5 91 150/72 95 10/21/16 23:00 Nasal Cannula 4.00 45 10/21/16 23:00 84 10/21/16 22:00 106 10/21/16 21:00 92 10/21/16 20:00 80 10/21/16 19:00 97.3 85 134/69 93 10/21/16 19:00 96 10/21/16 19:00 Nasal Cannula 4.00 45 10/21/16 18:00 95 10/21/16 17:00 80 10/21/16 16:00 87 10/21/16 15:00 95 Nasal Cannula 4.00 10/21/16 15:00 92 10/21/16 15:00 98.9 95 18 127/67 90 10/21/16 14:00 101 10/21/16 13:00 89 10/21/16 12:00 98 10/21/16 11:00 97.8 93 20 125/66 90 10/21/16 11:00 95 10/21/16 11:00 100 Nasal Cannula 4.00 10/21/16 10:50 92 Nasal Cannula 4.00 10/21/16 10:00 95 10/21/16 09:00 86 I/O 10/21/16 10/21/16 10/21/16 10/22/16 10/22/16 10/22/16 07:00 15:00 23:00 07:00 15:00 23:00 Intake Total 480 ml 1200 ml 480 ml Output Total 650 ml 500 ml Balance -170 ml 1200 ml -20 ml Intake Oral 480 ml 1200 ml 480 ml Output Urine Total 650 ml 500 ml # Voids 5 Imaging Last Impressions Chest X-Ray 10/15/16 0600 Signed Impressions: Service Date/Time: Saturday, October 15, 2016 05:04 - CONCLUSION: 1. No acute cardiopulmonary disease. Pete Gruber MD Objective Remarks GENERAL: 65-year-old female, resting in bed NECK: Supple, trachea midline. No JVD or lymphadenopathy. CARDIOVASCULAR: RRR. Without murmur RESPIRATORY: Diminished breath sounds throughout. Scattered expiratory wheeze. +Coughing GASTROINTESTINAL: Abdomen soft, non-tender, nondistended. Neuro: Awake and alert A/P Assessment and Plan Acute on chronic hypercapnic respiratory failure COPD exacerbation Hypothyroidism Anxiety disorder Neuro: Monitor neuro status closely and avoid any sedatives. Pulmonology: Continue with oxygen and maintain sats above 92%. Her baseline oxygen requirement is 4 L daily, Still requiring Bipap overnight. Bronchodilators(DuoNeb every 4 hours, Symbicort 160/4.5 2 puffs twice a day, Spiriva) Singular 10mg qhs NIPPV at night and PRN for resp distress. Check ABG when necessary. Solu-Medrol 60 mg IV every 8 hours, taper as tolerated. Patient with congestion, sob, wheezing. Add EZPAP, Incentive spirometry. Add mucomyst to nebs. Tylenol /codeine as patient with chest pain /abd muscle pain with coughing Pulm is following- Dr. Lopez CV: Monitor HR and BP and maintain MAP > 65 mmHg. Lactic acid level at 1.0. : Monitor renal function intakes and outputs and electrolyte replacement per protocol. off IVFs GI: on Protonix 40 mg by mouth daily. ID: Continue with abx(Rocephin and azithromycin). Monitor for signs infections( fever and WBC). CXR 10/12 showed COPD changes otherwise no acute findings appreciated. repeat x-ray 10/15 reviewed by me shows no acute findings Endo: SSI with Accu-Chek q. 6 h for glycemic control, monitor BS, pt on steroids Continue with Synthroid 88 g daily TSH:0.97 GI prophylaxis with Protonix 40 milligrams daily DVT prophylaxis with SCDs and heparin subcutaneous. DC plan: improving. Plan to DC to snf patient however needs biapap at night and O2 by NC during the day. Patient to follow up as OP with PCP and pulm. Franchesca Sol MD Oct 22, 2016 08:21
--- NOTE | 2016-10-22 08:36 | RSPPFT ---
DATE OF PROCEDURE: 10/21/16 COMMENTS: Spirometry with FVC of 1.0 at 31% of predicted, FEV1 of 0.3 at 15%, FEV1/FVC ratio is decreased. Flow is decreased at FEF 25-75. There is a good response after bronchodilator treatment. Flow volume loop indicates an obstructive pattern. IMPRESSION: 1. Very severe obstructive lung disease. 2. Good response to bronchodilator treatment.
[2016-10-22] MEDS: HEPARIN SODIUM - SQ 10,000 UNITS/ML VIAL SQ SCH (08:54)
[2016-10-22] MEDS: PANTOPRAZOLE SOD 40 MG DELAYED RELEASE TAB PO SCH (08:54)
[2016-10-22] MEDS: DOCUSATE SODIUM 50 MG/SENNA 8.6 MG TAB PO SCH (08:54)
[2016-10-22] MEDS: predniSONE 20 MG TAB PO SCH (08:54)
[2016-10-22] MEDS: BUDESONIDE-FORMOTEROL 160/4.5 MCG INHALER INH SCH (08:55)
[2016-10-22] MEDS: SODIUM CHLORIDE 0.9% FLUSH 10 ML FLUSH IV FLUSH SCH (08:55)
[2016-10-22] MEDS: ACETAMINOPHEN/HYDROcodone 325 MG/5 MG TAB PO PRN ×2 (08:55→16:14)
--- NOTE | 2016-10-22 11:48 | HHI.PR ---
Subjective Remarks 65 YOWF with Hypercapnoic RF,COPD,non compliance Awake, follows commands Anxious On NC Appetite improving Ambulates Objective Vital Signs Vital Signs Date Time Temp Pulse Resp B/P Pulse Ox O2 Delivery O2 Flow Rate FiO2 10/22/16 10:25 18 10/22/16 09:00 114 10/22/16 08:00 94 10/22/16 08:00 98.9 92 18 147/74 96 10/22/16 07:45 99 Nasal Cannula 4.00 10/22/16 07:00 68 10/22/16 06:08 69 10/22/16 05:06 86 10/22/16 04:00 86 10/22/16 03:28 Nasal Cannula 4.00 45 10/22/16 03:00 97.8 94 131/69 98 10/22/16 03:00 75 10/22/16 02:00 78 10/22/16 01:00 100 10/22/16 00:00 86 10/21/16 23:01 94 Nasal Cannula 5.00 10/21/16 23:00 97.5 91 150/72 95 10/21/16 23:00 Nasal Cannula 4.00 45 10/21/16 23:00 84 10/21/16 22:00 106 10/21/16 21:00 92 10/21/16 20:00 80 10/21/16 19:00 97.3 85 134/69 93 10/21/16 19:00 96 10/21/16 19:00 Nasal Cannula 4.00 45 10/21/16 18:00 95 10/21/16 17:00 80 10/21/16 16:00 87 10/21/16 15:00 95 Nasal Cannula 4.00 10/21/16 15:00 92 10/21/16 15:00 98.9 95 18 127/67 90 10/21/16 14:00 101 10/21/16 13:00 89 10/21/16 12:00 98 I/O 10/21/16 10/21/16 10/21/16 10/22/16 10/22/16 10/22/16 07:00 15:00 23:00 07:00 15:00 23:00 Intake Total 480 ml 1200 ml 480 ml Output Total 650 ml 500 ml Balance -170 ml 1200 ml -20 ml Intake Oral 480 ml 1200 ml 480 ml Output Urine Total 650 ml 500 ml # Voids 5 Objective Remarks GENERAL: MBMN WF, on BIPAP SKIN: Warm and dry. HEAD: Normocephalic. EYES: No scleral icterus. No injection or drainage. NECK: Supple, trachea midline. No JVD or lymphadenopathy. CARDIOVASCULAR: Regular rate and rhythm without murmurs, gallops, or rubs. RESPIRATORY: Breath sounds equal bilaterally. No accessory muscle use. GASTROINTESTINAL: Abdomen soft, non-tender, nondistended. MUSCULOSKELETAL: No cyanosis, or edema. BACK: Nontender without obvious deformity. No CVA tenderness. A/P Assessment and Plan Hypercapnoic RF COPD Exac Bronchitis Non Compliant PLAN: Supplement 02 with NC Aerosol nebs Symbicort bid Acapella q 1 hr while awake. Pred 20 mg po BID Duonebs q 6 hrs DC plans underway Randell Lopez MD Oct 22, 2016 11:48
[2016-10-22] MEDS: ALPRAZolam 0.5 MG TAB PO PRN (13:50)
[2016-10-22] MEDS: ACETAMINOPHEN 325 MG TAB PO PRN (13:50)
== END 2016-10-22 16:36 | DRG 189 ==
LOC: NEPE 05:31 → NEDA 08:06 → HIME 13:25 → HCIS 10-19 08:00
PROVIDERS: ADMIT Hospitalist; ATTEND Hospitalist
PROC: 5A09457 Assistance with Respiratory Ventilation, 24-96 Consecutive Hours, Continuous Positive Airway Pressure (ICD-10-PCS; principal; 2016-10-11)
DX: J96.22 Acute and chronic respiratory failure with hypercapnia (principal); E87.2 Acidosis; J44.1 Chronic obstructive pulmonary disease with (acute) exacerbation; Z99.81 Dependence on supplemental oxygen; E03.9 Hypothyroidism, unspecified; R00.0 Tachycardia, unspecified; Z91.19 Patient's noncompliance with other medical treatment and regimen; I10 Essential (primary) hypertension; Z87.891 Personal history of nicotine dependence
CPT/HCPCS: 36600; 71010; 80048; 80053; 81001; 82550; 82805; 82948; 83605; 83735; 83880; 84100; 84443; 84484; 85025; 85027; 85610; 87040; 87070; 87205; 87804; 93005; 94002; 94003; 94150; 94640; 94664; 94667; 94668; 96361; 96374; C9113; J0456; J0696; J1120; J1644; J2060; J2930; J7040; J7042; J7050; J7512; J7608; J7626

== ENCOUNTER 2017-04-06 15:22 | Inpatient (IN) | payer MEDICARE ==
[2017-04-06] VITALS (7 sets, daily range): BP systolic 104–153; BP diastolic 57–74; PULSE 102–121; RESP 24–32; TEMP 97.4–97.7; O2SAT 80–100
[~2017-04-06] VITALS: Ht 162.6 cm; Wt 75.8 kg
[2017-04-06] MEDS: RESP: ALBUTEROL 2.5 MG/IPRATROPIUM 0.5 MG NEB (SCH) INH ×2 (00:47→20:15)
[~2017-04-06 15:22] MED LIST: ALBU0.08 NEB; ALPR.25 PO; CEFU1TAB20 PO; MONT10TA4 PO; PRED5TAB PO; SYMB160A INH; SYNT88TA PO; ZITH250T PO
[2017-04-06] MEDS ORDERED: IOHEXOL 350 MG/ML 10 ML VIAL (for RAD DIAG) IVCONTRAST ONE (15:23)
[2017-04-06] MEDS ORDERED: methylPREDNISolone SOD SUCC 125 MG/2 ML VIAL IV PUSH ONE (15:30)
[2017-04-06] MEDS ORDERED: RESP: ALBUTEROL 2.5 MG/IPRATROPIUM 0.5 MG NEB (SCH) NEB ONE (15:30)
[2017-04-06 15:43] LABS: BLOOD GAS VENOUS BASE EXCESS 3.5 mmol/L (-2-2); BLOOD GAS VENOUS HCO3 29 mmol/L (22-26); BLOOD GAS VENOUS O2 CONTENT 5.4 Vol % (9.0-17.0); BLOOD GAS VENOUS O2 HGB SAT 36 % (70-76); BLOOD GAS VENOUS PCO2 57 mmHg (44-48); BLOOD GAS VENOUS PO2 24 mmHg (35-40); BLOOD GAS VENOUS pH 7.33 (7.360-7.400); TEMP CORR TO 98.6
[2017-04-06 15:44] LABS: CRITICAL VALUE YES; FIO2 100 %; LITER FLOW 15 L/M; OXYGEN DEVICE NRB; STAT YES
--- NOTE | 2017-04-06 15:56 | RADRPT ---
EXAM DATE/TIME: 04/06/2017 15:31 [facility] COMPARISON: CT PULMONARY ANGIOGRAM, March 21, 2017, 13:49. CHEST SINGLE AP, October 15, 2016, 5:04. INDICATIONS : Shortness of breath. MEDICAL HISTORY : Chronic obstructive pulmonary disease. SURGICAL HISTORY : Cholecystectomy. ENCOUNTER: Initial ACUITY: 1 week PAIN SCORE: 7/10 LOCATION: Bilateral lower chest FINDINGS: Lungs are hyperexpanded with mild interstitial prominence. Minimal bibasilar airspace disease similar to prior CT exam. The cardiomediastinal contours are within normal limits. Bony thorax is intact. CONCLUSION: 1. Changes of obstructive pulmonary disease. 2. Stale minimal bibasilar airspace opacities. 3. No significant interval change. Burke Duncan MD on April 06, 2017 at 15:53 Board Certified Radiologist. This report was verified electronically.
[2017-04-06 16:03] LABS: AUTOMATED NEUTROPHIL # 3.5 TH/MM3 (1.8-7.7); BASOPHIL # 0.1 TH/MM3 (0-0.2); BASOPHIL % 1.2 % (0.0-2.0); EOSINOPHIL # 0.2 TH/MM3 (0-0.4); EOSINOPHIL % 2.6 % (0.0-4.0); HEMATOCRIT 39.7 % (35.0-46.0); HEMO FLAGS DIFF FINAL; LYMPH % 31.1 % (9.0-44.0); MEAN CELL VOLUME 93.1 FL (80.0-100.0); MEAN CORPUSCULAR HEMOGLOBIN 31.8 PG (27.0-34.0); MEAN CORPUSCULAR HGB CONC 34.1 % (32.0-36.0); MONO % 11.3 % (0.0-8.0); NEUT % 53.8 % (16.0-70.0); PLATELET COUNT 236 TH/MM3 (150-450); RED BLOOD COUNT 4.27 MIL/MM3 (4.00-5.30); WHITE BLOOD COUNT 6.5 TH/MM3 (4.0-11.0)
[2017-04-06 16:15] LABS: APTT (PATIENT) 28.2 SEC (24.3-30.1); PROTHROMBIN TIME - PATIENT 10.9 SEC (9.8-11.6)
[2017-04-06 16:27] LABS: ANION GAP 4 MEQ/L (5-15); AST (GOT) 12 U/L (15-37); BICARBONATE 38.5 MEQ/L (21.0-32.0); BLOOD UREA NITROGEN 6 MG/DL (7-18); CHLORIDE 94 MEQ/L (98-107); GLOMERULAR FILTRATION RATE 98 ML/MIN (>89); MAGNESIUM 2.1 MG/DL (1.5-2.5); POTASSIUM 4.2 MEQ/L (3.5-5.1); SODIUM (NA) 136 MEQ/L (136-145)
[2017-04-06 16:30] LABS: ALKALINE PHOSPHATASE 91 U/L (45-117); ALT (GPT) 15 U/L (10-53); TOTAL BILIRUBIN ADULT 0.8 MG/DL (0.2-1.0)
[2017-04-06 16:34] LABS: CREATINE KINASE 34 U/L (26-192)
--- NOTE | 2017-04-06 16:43 | PD ---
HPI Chief Complaint: SOB Time Seen by Provider: 15:26 Travel History International Travel<30 days: No Contact w/Intl Traveler<30days: No History of Present Illness HPI 66 yo f presents to the ED with a cc of SOB and cough. She states that about two or three weeks ago she was admitted to [facility] with Pneumonia, once stabilized she was sent home with 5 days of Prednisone, Cipro and Azithromycin. She completed these medications and states that her breathing and cough only got worse. She has a long history of COPD for which she has home Oxygen therapy. Patient denies CP, N/V/D, Headache, Changes in vision. PFSH Past Medical History Arthritis: Yes Asthma: No Autoimmune Disease: No Anxiety: Yes Depression: No Heart Rhythm Problems: No Cancer: No High Cholesterol: No Chemotherapy: No Chest Pain: No Congestive Heart Failure: No COPD: Yes Cerebrovascular Accident: No Coronary Artery Disease: No Diabetes: No Diminished Hearing: No Endocrine: Yes GERD: No Genitourinary: Yes Hiatal Hernia: No Immune Disorder: No Kidney Stones: Yes (1988) Neurologic: Yes Psychiatric: Yes Reproductive: No Respiratory: Yes (COPD; O2 DEPENDENT) Migraines: No Radiation Therapy: No Renal Failure: No Sickle Cell Disease: No Thyroid Disease: Yes (removed in ) Ulcer: No : 3 Para: 2 Miscarriage: 1 Past Surgical History Abdominal Surgery: No Cardiac Surgery: No Cholecystectomy: Yes Ear Surgery: No Endocrine Surgery: Yes (thyroidectomy) Eye Surgery: No Genitourinary Surgery: No Gynecologic Surgery: No Oral Surgery: No Thoracic Surgery: No Tonsillectomy: Yes Social History Alcohol Use: No Tobacco Use: No Substance Use: No Allergies-Medications (Allergen,Severity, Reaction): Coded Allergies: No Known Allergies (Unverified Adverse Reaction, Unknown, 03/21/17) Reported Meds & Prescriptions Reported Meds & Active Scripts Active Xanax (Alprazolam) 0.25 Mg Tab 0.25 Mg PO Q12HR PRN Symbicort Inh (Budesonide/Formoterol Fumarate) 160-4.5 Mcg/Act Aero 2 Puff INH Q12HR Reported Albuterol Neb (Albuterol Sulfate) 2.5 Mg/3 Ml Neb 2.5 Mg NEB Q4HR NEB While awake Montelukast (Montelukast Sodium) 10 Mg Tab 10 Mg PO HS Synthroid (Levothyroxine Sodium) 88 Mcg Tab 88 Mcg PO DAILY Review of Systems Except as stated in HPI: all other systems reviewed are Neg Physical Exam Narrative GENERAL: Patient is sitting upright in bed breathing with nasal cannula using accessory muscles to breathe. SKIN: Warm and dry. HEAD: Atraumatic. Normocephalic. EYES: Pupils equal and round. No scleral icterus. No injection or drainage. ENT: No nasal bleeding or discharge. Mucous membranes pink and moist. NECK: Trachea midline. No JVD. CARDIOVASCULAR: Tachycardia, no murmur, gallop or rub. RESPIRATORY: Accessory muscle use. Diminished breath sounds bilaterally. Minimal expiratory wheezing. Patient was only able to speak in three to four word phrases. GASTROINTESTINAL: Abdomen soft, non-tender, nondistended. Hepatic and splenic margins not palpable. MUSCULOSKELETAL: Extremities without clubbing, cyanosis, or edema. No obvious deformities. NEUROLOGICAL: Awake and alert. No obvious cranial nerve deficits. Motor grossly within normal limits. Five out of 5 muscle strength in the arms and legs. Normal speech. PSYCHIATRIC: Appropriate mood and affect; insight and judgment normal. Data Data Last Documented VS Vital Signs Date Time Temp Pulse Resp B/P (MAP) Pulse Ox O2 Delivery O2 Flow Rate FiO2 04/06/17 15:53 100 Non-Rebreather 15.00 04/06/17 15:30 32 04/06/17 15:25 97.7 121 153/74 (100) Orders Orders Sepsis Workup Initiated (04/06/17 ) Complete Blood Count With Diff (04/06/17 15:26) Comprehensive Metabolic Panel (04/06/17 15:26) Prothrombin Time / Inr (Pt) (04/06/17 15:26) Act Partial Throm Time (Ptt) (04/06/17 15:26) Lactic Acid Sepsis Protocol (04/06/17 15:26) Magnesium (Mg) (04/06/17 15:26) Phosphorus (Po4) (04/06/17 15:26) Lipase (04/06/17 15:26) Ckmb (Isoenzyme) Profile (04/06/17 15:26) Troponin I (04/06/17 15:26) Urinalysis - C+S If Indicated (04/06/17 15:26) Blood Culture (04/06/17 15:26) Chest, Single Ap (04/06/17 15:26) Ecg Monitoring (04/06/17 15:26) Iv Access Insert/Monitor (04/06/17 15:26) Oximetry (04/06/17 15:26) Oxygen Administration (04/06/17 15:26) Resp Bipap / Cpap Non Invas Vt (04/06/17 ) Albuterol-Ipratropium Neb (Duoneb Neb) (04/06/17 15:30) Methylprednisolone So Succ Inj (Solumedr (04/06/17 15:30) Blood Gas Venous (Vbg) (04/06/17 15:28) Electrocardiogram (04/06/17 ) Ct Pulmonary Angiogram (04/06/17 ) Iohexol 350 Inj (Omnipaque 350 Inj) (04/06/17 15:23) Piperacil-Tazo 4.5 Gm Premix (Zosyn 4.5 (04/06/17 18:15) Vancomycin Inj (Vancomycin Inj) (04/06/17 18:15) Admit Order (Ed Use Only) (04/06/17 ) Labs Laboratory Tests Test 04/06/17 15:28 04/06/17 15:30 04/06/17 17:00 Blood Gas Patient Temperature 98.6 Venous Blood pH 7.33 Venous Blood Partial Pressure CO2 57 mmHg Venous Blood Partial Pressure O2 24 mmHg Venous Blood HCO3 29 mmol/L Venous Blood Oxygen Saturation 36 % Venous Blood Oxygen Content 5.4 Vol % Venous Blood Base Excess 3.5 mmol/L Oxygen Delivery Device NRB Blood Gas Liter Flow 15 L/M Blood Gas Inspired Oxygen 100 % White Blood Count 6.5 TH/MM3 Red Blood Count 4.27 MIL/MM3 Hemoglobin 13.6 GM/DL Hematocrit 39.7 % Mean Corpuscular Volume 93.1 FL Mean Corpuscular Hemoglobin 31.8 PG Mean Corpuscular Hemoglobin Concent 34.1 % Red Cell Distribution Width 14.0 % Platelet Count 236 TH/MM3 Mean Platelet Volume 9.2 FL Neutrophils (%) (Auto) 53.8 % Lymphocytes (%) (Auto) 31.1 % Monocytes (%) (Auto) 11.3 % Eosinophils (%) (Auto) 2.6 % Basophils (%) (Auto) 1.2 % Neutrophils # (Auto) 3.5 TH/MM3 Lymphocytes # (Auto) 2.0 TH/MM3 Monocytes # (Auto) 0.7 TH/MM3 Eosinophils # (Auto) 0.2 TH/MM3 Basophils # (Auto) 0.1 TH/MM3 CBC Comment DIFF FINAL Differential Comment Prothrombin Time 10.9 SEC Prothromb Time International Ratio 1.0 RATIO Activated Partial Thromboplast Time 28.2 SEC Blood Urea Nitrogen 6 MG/DL Creatinine 0.61 MG/DL Random Glucose 110 MG/DL Total Protein 7.8 GM/DL Albumin 3.8 GM/DL Calcium Level 9.1 MG/DL Phosphorus Level 3.7 MG/DL Magnesium Level 2.1 MG/DL Alkaline Phosphatase 91 U/L Aspartate Amino Transf (AST/SGOT) 12 U/L Alanine Aminotransferase (ALT/SGPT) 15 U/L Total Bilirubin 0.8 MG/DL Sodium Level 136 MEQ/L Potassium Level 4.2 MEQ/L Chloride Level 94 MEQ/L Carbon Dioxide Level 38.5 MEQ/L Anion Gap 4 MEQ/L Estimat Glomerular Filtration Rate 98 ML/MIN Lactic Acid Level 1.2 mmol/L Total Creatine Kinase 34 U/L Troponin I LESS THAN 0.02 NG/ML Lipase 127 U/L Urine Color YELLOW Urine Turbidity CLEAR Urine pH 5.0 Urine Specific [place] 1.012 Urine Protein NEG mg/dL Urine Glucose (UA) NEG mg/dL Urine Ketones NEG mg/dL Urine Occult Blood SMALL Urine Nitrite NEG Urine Bilirubin NEG Urine Urobilinogen LESS THAN 2.0 MG/DL Urine Leukocyte Esterase NEG Urine RBC 4 /hpf Urine WBC 1 /hpf Urine Squamous Epithelial Cells 1 /hpf Urine Mucus FEW /lpf Microscopic Urinalysis Comment CATH-CULT NOT IND MDM Medical Decision Making Medical Screen Exam Complete: Yes Emergency Medical Condition: Yes Differential Diagnosis COPD exacerbation, Pneumonia, Bronchitis, Acute on Chronic Acid Base Disturbance Narrative Course High Flow O2, DuoNebs, EKG, CBC, BMP, Blood Cultures, VBG, CXR Patient roomed emergency department, tachycardic and tachypneic requiring supplemental mass to oxygenate, VBG shows no CO2 retention, initial BiPAP patient did not actually remember this well in the emergency department, worsening pneumonia on CT pulmonary embolism was negative for PE. Started on broad-spectrum antibiotics astechnically hospital-acquired pneumonia. She will be admitted discussed with Dr. Elliott. Diagnosis Primary Impression: COPD exacerbation Additional Impressions: Pneumonia Acute respiratory failure Admitting Information Admitting Physician Requests: Admit Condition: Av Santizo MD Apr 06, 2017 16:43
[2017-04-06 17:24] LABS: BLOOD, URINE SMALL (NEG); GLUCOSE,URINE NEG (NEG); KETONE, URINE NEG (NEG); MUCUS URINE FEW /lpf (OCC); NITRITE,URINE NEG (NEG); SQUAMOUS EPITHELIAL CELL URINE 1 /hpf (0-5); URINE COLOR YELLOW (YELLW/STRAW)
[2017-04-06 17:25] LABS: COMMENT (UR) CATH-CULT NOT IND; CULTURE IF INDICATED CATH CULTURE NOT IND
--- NOTE | 2017-04-06 17:39 | RADRPT ---
EXAM DATE/TIME: 04/06/2017 17:16 [facility] COMPARISON: CT PULMONARY ANGIOGRAM, March 21, 2017, 13:49. INDICATIONS : Patient complains of short of breath, evaluate for pulmonary emboli. IV CONTRAST: 100 cc Omnipaque 350 (iohexol) IV RADIATION DOSE: 23.38 CTDIvol (mGy) MEDICAL HISTORY : Chronic obstructive pulmonary disease. Emphysema. Renal calculi. SURGICAL HISTORY : Thyroidectomy. Cholecystectomy. ENCOUNTER: Initial ACUITY: 1 week PAIN SCALE: 4/10 LOCATION: Bilateral chest TECHNIQUE: Volumetric scanning of the chest was performed using a pulmonary embolism protocol MIP images were re constructed. Using automated exposure control and adjustment of the mA and/or kV according to patien t size, radiation dose was kept as low as reasonably achievable to obtain optimal diagnostic quality images. DICOM format image data is available electronically for review and comparison. Follow-up recommendations for detected pulmonary nodules are based at a minimum on nodule size and pa tient risk factors according to Fleischner Society Guidelines. FINDINGS: PULMONARY ARTERIES: No filling defects are seen in the pulmonary arteries through the segmental level. LUNGS: There is significant underlying interstitial lung disease . There are solitary areas of consolidatio n within the lower lobes almost new since March 21 study. In the right lower lobe there is a 2.8 x 3.2 cm area of consolidation. In the left lower lobe is an area consolidation measuring 3.2 x 2.4 cm . There is no pneumothorax . No concerning pulmonary nodule is visualized. PLEURAE: There is no pleural thickening or pleural effusion. MEDIASTINUM: There is good visualization of the great vessels of the middle mediastinum. No evidence of mediastin al or hilar adenopathy/mass. MUSCULOSKELETAL: Within normal limits for patient age. MISCELLANEOUS: The visualized upper abdominal organs demonstrate no acute abnormality. CONCLUSION: No evidence of pulmonary embolism. Some areas of consolidation in both lung bases increased since the sixth. Possibly developing pneumonia. Kwadwo Mckeon MD on April 06, 2017 at 17:34 Board Certified Radiologist. This report was verified electronically.
[2017-04-06] MEDS ORDERED: VANCOMYCIN INJ 1,000 MG in SODIUM CHLOR 0.9% 250 ML INJ 250 ML IV ONE (18:15)
[2017-04-06] MEDS ORDERED: PIPERACIL-TAZO 4.5 GM PREMIX 100 ML IV ONE (18:15)
[2017-04-06] MEDS ORDERED: SODIUM CHLORIDE 0.9% FLUSH 10 ML FLUSH IV FLUSH PRN (19:15)
[2017-04-06] MEDS: HEPARIN SODIUM - SQ 10,000 UNITS/ML VIAL SQ SCH (22:00)
[2017-04-06] MEDS ORDERED: Vancomycin Consult Pharmacy 1 EA OTHER SCH (22:00)
[2017-04-06] MEDS: methylPREDNISolone SOD SUCC 125 MG/2 ML VIAL IV PUSH SCH (22:00)
[2017-04-06] MEDS: SODIUM CHLORIDE 0.9% FLUSH 10 ML FLUSH IV FLUSH SCH (22:00)
--- NOTE | 2017-04-06 22:04 | HHI.HP ---
[facility] Matteo Hogan MD Admission Diagnosis Pneumonia, COPD exacerbation. Diagnoses: Travel History International Travel<30 Days: No Contact w/Intl Traveler <30 Da: No Traveled to Known Affected Are: No History of Present Illness 66-year-old female with a past medical history of COPD, recently hospitalized for community-acquired pneumonia, hypothyroidism and hyperlipidemia presents to the emergency department with a chief complaint of shortness of breath and cough. She states she has been having difficulty breathing for several days now with subjective fever and chills. She has a productive cough that has worsened over the past 3 days. Patient was found to be hypoxic on arrival to the emergency department with a pulse ox of 80. ABG 7.42/53/96/34 on nonrebreather. She was tachycardic to 121. Chest x-ray remains unchanged from 03/21. CT angiography showed areas of consolidation in both lung bases that has increased since 03/21. No leukocytosis. Lactic acid 1.2. Review of Systems Subjective fever/chills Denies blurry vision, otorrhea, rhinorrhea Denies sore throat and cough No chest pain, palpitations, significant shortness of breath No abdominal pain Denies constipation/diarrhea/nausea/vomiting Denies muscle pain/weakness No rashes Past Family Social History Past Medical History COPD on home oxygen 4 L History of kidney stone in 1988 History of Graves' disease, status post thyroidectomy Panic attacks Past Surgical History Cholecystectomy Thyroidectomy Tracheotomy Reported Medications Reported Meds & Active Scripts Active Xanax (Alprazolam) 0.25 Mg Tab 0.25 Mg PO Q12HR PRN Symbicort Inh (Budesonide/Formoterol Fumarate) 160-4.5 Mcg/Act Aero 2 Puff INH Q12HR Reported Albuterol Neb (Albuterol Sulfate) 2.5 Mg/3 Ml Neb 2.5 Mg NEB Q4HR NEB While awake Montelukast (Montelukast Sodium) 10 Mg Tab 10 Mg PO HS Synthroid (Levothyroxine Sodium) 88 Mcg Tab 88 Mcg PO DAILY Allergies: Coded Allergies: No Known Allergies (Unverified Adverse Reaction, Unknown, 03/21/17) Family History Mother with rheumatic fever, CVA and heart disease Father with brain aneurysm and hypertension. Diabetes mellitus in both parents Social History 30 pack year history of smoking, quit in 2014. Denies alcohol, illicit drugs. Physical Exam Vital Signs Vital Signs Date Time Temp Pulse Resp B/P (MAP) Pulse Ox O2 Delivery O2 Flow Rate FiO2 04/06/17 20:50 97.4 104 24 104/57 (73) 93 04/06/17 20:15 97 Nasal Cannula 4.00 04/06/17 18:58 102 26 119/63 (81) 99 Partial Rebreather 7.00 04/06/17 15:53 100 Non-Rebreather 15.00 04/06/17 15:30 32 99 Non-Rebreather 15.00 04/06/17 15:30 99 Non-Rebreather 15.00 04/06/17 15:30 99 Non-Rebreather 15.00 04/06/17 15:25 97.7 121 32 153/74 (100) 80 Physical Exam GENERAL: Anxious, female sitting up in bed SKIN: No rashes, ecchymoses or lesions. Cool and dry. HEAD: Atraumatic. Normocephalic. No temporal or scalp tenderness. EYES: Pupils equal round and reactive. Extraocular motions intact. No scleral icterus. No injection or drainage. ENT: Nose without bleeding, purulent drainage or septal hematoma. Throat without erythema, tonsillar hypertrophy or exudate. Uvula midline. Airway patent. NECK: Trachea midline. No JVD or lymphadenopathy. Supple, nontender, no meningeal signs. CARDIOVASCULAR: Regular rate and rhythm without murmurs, gallops, or rubs. RESPIRATORY: Decreased air entry bilaterally. No wheezes, rales, or rhonchi. GASTROINTESTINAL: Abdomen soft, non-tender, nondistended. No hepato-splenomegaly , or palpable masses. No guarding. MUSCULOSKELETAL: Extremities without clubbing, cyanosis, or edema. No joint tenderness, effusion, or edema noted. No calf tenderness. Negative Homans sign bilaterally. NEUROLOGICAL: Awake and alert. Cranial nerves II through XII intact. Motor and sensory grossly within normal limits. Normal speech. Laboratory Laboratory Tests Test 04/06/17 15:28 04/06/17 15:30 04/06/17 17:00 Blood Gas Patient Temperature 98.6 Venous Blood pH 7.33 Venous Blood Partial Pressure CO2 57 Venous Blood Partial Pressure O2 24 Venous Blood HCO3 29 Venous Blood Oxygen Saturation 36 Venous Blood Oxygen Content 5.4 Venous Blood Base Excess 3.5 Oxygen Delivery Device NRB Blood Gas Liter Flow 15 Blood Gas Inspired Oxygen 100 White Blood Count 6.5 Red Blood Count 4.27 Hemoglobin 13.6 Hematocrit 39.7 Mean Corpuscular Volume 93.1 Mean Corpuscular Hemoglobin 31.8 Mean Corpuscular Hemoglobin Concent 34.1 Red Cell Distribution Width 14.0 Platelet Count 236 Mean Platelet Volume 9.2 Neutrophils (%) (Auto) 53.8 Lymphocytes (%) (Auto) 31.1 Monocytes (%) (Auto) 11.3 Eosinophils (%) (Auto) 2.6 Basophils (%) (Auto) 1.2 Neutrophils # (Auto) 3.5 Lymphocytes # (Auto) 2.0 Monocytes # (Auto) 0.7 Eosinophils # (Auto) 0.2 Basophils # (Auto) 0.1 CBC Comment DIFF FINAL Differential Comment Prothrombin Time 10.9 Prothromb Time International Ratio 1.0 Activated Partial Thromboplast Time 28.2 Blood Urea Nitrogen 6 Creatinine 0.61 Random Glucose 110 Total Protein 7.8 Albumin 3.8 Calcium Level 9.1 Phosphorus Level 3.7 Magnesium Level 2.1 Alkaline Phosphatase 91 Aspartate Amino Transf (AST/SGOT) 12 Alanine Aminotransferase (ALT/SGPT) 15 Total Bilirubin 0.8 Sodium Level 136 Potassium Level 4.2 Chloride Level 94 Carbon Dioxide Level 38.5 Anion Gap 4 Estimat Glomerular Filtration Rate 98 Lactic Acid Level 1.2 Total Creatine Kinase 34 Troponin I LESS THAN 0.02 Lipase 127 Urine Color YELLOW Urine Turbidity CLEAR Urine pH 5.0 Urine Specific [place] 1.012 Urine Protein NEG Urine Glucose (UA) NEG Urine Ketones NEG Urine Occult Blood SMALL Urine Nitrite NEG Urine Bilirubin NEG Urine Urobilinogen LESS THAN 2.0 Urine Leukocyte Esterase NEG Urine RBC 4 Urine WBC 1 Urine Squamous Epithelial Cells 1 Urine Mucus FEW Microscopic Urinalysis Comment CATH-CULT NOT IND Date/Time Source Procedure Growth Status 04/06/17 15:40 Blood Peripheral Aerobic Blood Culture Pending Received 04/06/17 15:40 Blood Peripheral Anaerobic Blood Culture Pending Received Result Diagram: 04/06/17 1530 04/06/17 1530 Caprini VTE Risk Assessment Caprini VTE Risk Assessment: Mod/High Risk (score >= 2) Caprini Risk Assessment Model Point Value = 1 Point Value = 2 Point Value = 3 Point Value = 5 Age 41-60 Minor surgery BMI > 25 kg/m2 Swollen legs Varicose veins or History of unexplained or recurrent spontaneous Oral contraceptives or hormone replacement Sepsis (< 1 month) Serious lung disease, including pneumonia (< 1 month) Abnormal pulmonary function Acute myocardial infarction Congestive heart failure (< 1 month) History of inflammatory bowel disease Medical patient at bed rest Age 61-74 Arthroscopic surgery Major open surgery (> 45 min) Laparoscopic surgery (> 45 min) Malignancy Confined to bed (> 72 hours) Immobilizing plaster cast Central venous access Age >= 75 History of VTE Family history of VTE Factor V Leiden Prothrombin [id number] Lupus anticoagulant Anticardiolipin antibodies Elevated serum homocysteine Heparin-induced thrombocytopenia Other congenital or acquired thrombophilia Stroke (< 1 month) Elective arthroplasty Hip, pelvis, or leg fracture Acute spinal cord injury (< 1 month) Prophylaxis Regimen Total Risk Factor Score Risk Level Prophylaxis Regimen 0-1 Low Early ambulation 2 Moderate Order ONE of the following: *Sequential Compression Device (SCD) *Heparin 5000 units SQ BID 3-4 Higher Order ONE of the following medications: *Heparin 5000 units SQ TID *Enoxaparin/Lovenox 40 mg SQ daily (WT < 150 kg, CrCl > 30 mL/min) *Enoxaparin/Lovenox 30 mg SQ daily (WT < 150 kg, CrCl > 10-29 mL/min) *Enoxaparin/Lovenox 30 mg SQ BID (WT < 150 kg, CrCl > 30 mL/min) AND/OR *Sequential Compression Device (SCD) 5 or more Highest Order ONE of the following medications: *Heparin 5000 units SQ TID (Preferred with Epidurals) *Enoxaparin/Lovenox 40 mg SQ daily (WT < 150 kg, CrCl > 30 mL/min) *Enoxaparin/Lovenox 30 mg SQ daily (WT < 150 kg, CrCl > 10-29 mL/min) *Enoxaparin/Lovenox 30 mg SQ BID (WT < 150 kg, CrCl > 30 mL/min) AND *Sequential Compression Device (SCD) Assessment and Plan Assessment and Plan 66-year-old female with a past medical history for COPD, recently hospitalized for treatment of community-acquired pneumonia, hypothyroidism and hyperlipidemia presents with increasing shortness of breath and increasing pulmonary infiltrates on CTA. She was severely hypoxic on arrival to the emergency department requiring nonrebreather mask. 1. Pneumonia/COPD exacerbation/recent hospitalization CTA showed bilateral consolidation in both lung bases that has increased since 03/21 ABG 7.42/53/96/34 on nonrebreather mask Vancomycin/Zosyn Duo nebs Supplemental oxygen IV steroids Pulmonary consulted, appreciate recommendations 2. Hypothyroidism status post thyroidectomy for Graves' disease Continue home Synthroid FEN Heart healthy diet Electrolytes: Replete prn Heparin Physician Certification 2 Midnight Certification Type: Admission for Inpatient Services Order for Inpatient Services The services are ordered in accordance with Medicare regulations or non- Medicare payer requirements, as applicable. In the case of services not specified as inpatient-only, they are appropriately provided as inpatient services in accordance with the 2-midnight benchmark. Estimated LOS (days): 2 2 days is the estimated time the patient will need to remain in the hospital, assuming treatment plan goals are met and no additional complications. Post-Hospital Plan: Not yet determined Mimi Tirado MD Apr 06, 2017 22:04
[2017-04-06] MEDS ORDERED: VANCOMYCIN INJ 750 MG in SODIUM CHLOR 0.9% 250 ML INJ 250 ML IV ONE (23:00)
[2017-04-06] MEDS: BUDESONIDE-FORMOTEROL 160/4.5 MCG INHALER INH SCH (23:22)
[2017-04-06] MEDS ORDERED: LORazepam 0.5 MG TAB PO ONE (23:30)
[2017-04-06] MEDS: PIPERACIL-TAZO 4.5 GM PREMIX 100 ML IV SCH (23:43)
[2017-04-07] VITALS (11 sets, daily range): BP systolic 104–131; BP diastolic 52–70; PULSE 93–117; RESP 18–22; TEMP 97.3–98.6; O2SAT 90–98
[2017-04-07] MEDS: RESP: ALBUTEROL 2.5 MG/IPRATROPIUM 0.5 MG NEB (SCH) INH ×5 (03:37→19:13)
[2017-04-07] MEDS: methylPREDNISolone SOD SUCC 125 MG/2 ML VIAL IV PUSH SCH ×4 (03:45→20:53)
[2017-04-07] MEDS: LEVOTHYROXINE SODIUM 88 MCG TAB PO SCH (05:21)
[2017-04-07] MEDS: PIPERACIL-TAZO 4.5 GM PREMIX 100 ML IV SCH ×4 (05:22→23:02)
[2017-04-07 07:20] LABS: AUTOMATED NEUTROPHIL # 2.4 TH/MM3 (1.8-7.7); BASOPHIL % 0.2 % (0.0-2.0); HEMATOCRIT 35.5 % (35.0-46.0); HEMO FLAGS DIFF FINAL; LYMPH % 7.9 % (9.0-44.0); LYMPHOCYTE # 0.2 TH/MM3 (1.0-4.8); MEAN CELL VOLUME 92.4 FL (80.0-100.0); MEAN CORPUSCULAR HEMOGLOBIN 30.9 PG (27.0-34.0); MEAN CORPUSCULAR HGB CONC 33.5 % (32.0-36.0); MONO % 1.3 % (0.0-8.0); NEUT % 90.6 % (16.0-70.0); PLATELET COUNT 189 TH/MM3 (150-450); RED BLOOD COUNT 3.85 MIL/MM3 (4.00-5.30); RED CELL DISTRIBUTION WIDTH 13.6 % (11.6-17.2); WHITE BLOOD COUNT 2.6 TH/MM3 (4.0-11.0)
[2017-04-07 07:48] LABS: POTASSIUM 3.9 MEQ/L (3.5-5.1)
[2017-04-07] MEDS: HEPARIN SODIUM - SQ 10,000 UNITS/ML VIAL SQ SCH ×2 (08:49→20:52)
[2017-04-07] MEDS: BUDESONIDE-FORMOTEROL 160/4.5 MCG INHALER INH SCH ×2 (08:50→20:49)
--- NOTE | 2017-04-07 09:27 | HHI.PR ---
Subjective Remarks Follow-up visit pneumonia CAP vs HCAP, sepsis, COPD exacerbation. Patient seen and examined today. Daughter at bedside. Reports she continues to have shortness of breath has been slightly improved since admission. Patient states that every time she takes a deep breath mid epigastric region has been hurting her. It goes up and tightens her lungs. She also states that she gets anxious at night especially laying down that she would be drowning or be really short of breath and unable to breathe. States she takes Xanax at home and has been helping her with her sleep. She is also requesting to be placed back on Singulair at night as it helps her. Reports she has been O2 dependent with her COPD. Denies any expectoration, minimal cough. Denies fevers, chills, nausea, vomiting, diarrhea. Denies any palpitations, dizziness, chest pain, headaches. Denies any dysuria. Objective Vitals Vital Signs Date Time Temp Pulse Resp B/P (MAP) Pulse Ox O2 Delivery O2 Flow Rate FiO2 04/07/17 08:00 98.1 108 20 115/70 (85) 90 04/07/17 07:50 Nasal Cannula 4.00 Humidified 04/07/17 07:39 92 Nasal Cannula 5.00 04/07/17 04:00 97.4 93 20 116/61 (79) 94 04/07/17 03:38 98 Nasal Cannula 3.00 04/07/17 01:34 97 Nasal Cannula 3.00 04/07/17 00:00 Nasal Cannula 4.00 04/07/17 00:00 97.3 108 22 104/52 (69) 93 04/06/17 22:50 110 04/06/17 22:50 Nasal Cannula 4.00 04/06/17 20:50 97.4 104 24 104/57 (73) 93 04/06/17 20:15 97 Nasal Cannula 4.00 04/06/17 18:58 102 26 119/63 (81) 99 Partial Rebreather 7.00 04/06/17 15:53 100 Non-Rebreather 15.00 04/06/17 15:30 32 99 Non-Rebreather 15.00 04/06/17 15:30 99 Non-Rebreather 15.00 04/06/17 15:30 99 Non-Rebreather 15.00 11/22/17 15:25 97.7 121 32 153/74 (100) 80 I/O 04/06/17 04/06/17 04/06/17 04/07/17 04/07/17 04/07/17 07:00 15:00 23:00 07:00 15:00 23:00 Intake Total 350 ml 817.5 ml Output Total 850 ml 900 ml Balance 350 ml -32.5 ml -900 ml Intake Oral 460 ml IV Total 350 ml 357.5 ml Output Urine Total 850 ml 900 ml # Bowel Movements 0 Result Diagram: 04/07/17 0607 04/07/17 0607 Imaging Last Impressions Chest X-Ray 04/06/17 1526 Signed Impressions: Service Date/Time: Thursday, April 06, 2017 15:31 - CONCLUSION: 1. Changes of obstructive pulmonary disease. 2. Stale minimal bibasilar airspace opacities. 3. No significant interval change. Burke Duncan MD CT Angiography 04/06/17 0000 Signed Impressions: Service Date/Time: Thursday, April 06, 2017 17:16 - CONCLUSION: No evidence of pulmonary embolism. Some areas of consolidation in both lung bases increased since the sixth. Possibly developing pneumonia. Kwadwo Mckeon MD Objective Remarks GENERAL: This is a well-nourished, well-developed patient, short of breath with conversation. SKIN: Warm and dry. BLE eczematous rash. HEENT: Normocephalic. Pupils equal round and reactive. Nose without bleeding. Airway patent. NECK: Trachea midline. No JVD. Supple. CARDIOVASCULAR: Regular rate and rhythm without murmurs, gallops, or rubs. RESPIRATORY: No rales, or rhonchi. Minimal wheeze. Poor to [place] Air entry. GASTROINTESTINAL: Abdomen soft, non-tender, nondistended. Bowel Sounds normoactive x4. MUSCULOSKELETAL: Extremities without clubbing, cyanosis. BLE trace L>R edema. NEUROLOGICAL: Awake and alert. Oriented to time, place, person. No focal neuro deficit. Moves all extremities. Normal speech. A/P Problem List: (1) COPD exacerbation ICD Code: J44.1 - Chronic obstructive pulmonary disease with (acute) exacerbation Status: Acute (2) Hypoxemia ICD Code: R09.02 - Hypoxemia Status: Acute (3) Pneumonia ICD Code: J18.9 - Pneumonia, unspecified organism Status: Acute Assessment and Plan Patient is a 66 year old female with primary medical history of COPD, recently hospitalized for community acquired pneumonia who came into the ED with chief complaint of shortness of breath and cough. CAP vs HCAP due to recent hospitalization Sepsis secondary to Pneumonia COPD exacerbation, acute - Patient meeting SIRS, sepsis criteria, came with tachycardia, tachypnea - Chest x-ray showed 1. Changes of obstructive pulmonary disease. 2. Still minimal bibasilar airspace opacities. 3. No significant interval change. - CT angio showed no evidence of pulmonary embolism. Some areas of consolidation in both lung bases increased since the 6. Possibly developing pneumonia. - Patient was given vancomycin and Zosyn in the ED. Continue IV vancomycin and Zosyn use. - Lactic acid 1.2. Blood cultures drawn follow-up results and sensitivities. - DuoNeb scheduled and when necessary. O2 nasal cannula use maintain O2 sat greater than 90%. - Symbicort use. We will add on Singulair. - Continue IV steroids 60 mg every 6 hours, will taper off to 40 mg every 6 hours tomorrow and possibly switch over to by mouth the following day if clinically improved. - Deli Cook was consulted for the patient. We'll await for further recommendations. - We'll provide Ativan at bedtime. Discuss with patient short-acting benzos versus long-acting benzos. Hypothyroidism, chronic Status post thyroidectomy for Graves' disease - Continue home dose Synthroid Case management to follow patient may need home health care and discharge DVT prop heparin Discussed with patient, daughter, Dr. Beltrán Discharge Planning Possibly may discharge in 2 days, if clinically improved. We'll continue to taper dose of steroids and switch over IV antibiotics to by mouth. Cuong Kirk [facility] Apr 07, 2017 09:27
[2017-04-07] MEDS: PANTOPRAZOLE SOD 20 MG DELAYED RELEASE TAB PO SCH (10:11)
[2017-04-07] MEDS: SODIUM CHLORIDE 0.9% FLUSH 10 ML FLUSH IV FLUSH SCH ×2 (10:13→20:50)
--- NOTE | 2017-04-07 10:39 | EKG ---
Date Performed: 04/06/2017 Time Performed: 16:46:46 PTAGE: 66 years EKG: ATRIAL FIBRILLATION ABNORMAL RHYTHM ECG PREVIOUS TRACING : 03/21/2017 12.20 DOCTOR: Walter Matamoros Interpretating Date/Time 04/07/2017 10:38:17
[2017-04-07] MEDS ORDERED: SODIUM CHLOR 0.9% 1000 ML INJ 1,000 ML IV ONE (11:00)
[2017-04-07 11:41] LABS: LACTIC ACID GHOST NOT REPORTABLE
[2017-04-07] MEDS: VANCOMYCIN INJ 1,000 MG in SODIUM CHLOR 0.9% 250 ML INJ 250 ML IV SCH ×2 (11:41→21:14)
[2017-04-07] MEDS: SODIUM CHLOR 0.9% 1000 ML INJ 1,000 ML IV SCH ×3 (12:54→23:06)
--- NOTE | 2017-04-07 14:22 | PD.CONS ---
History of Present Illness Service 66-year-old female with a past medical history of COPD, recently hospitalized for community-acquired pneumonia, hypothyroidism and hyperlipidemia presents to the emergency department with a chief complaint of shortness of breath and cough. for several days now with subjective fever and chills. She has a productive cough. Patient was found to be hypoxic on arrival to the emergency department with a pulse ox of 80. She is better today. She is havi Consult Requested By Primary Care Physician Matteo Hogan MD Diagnoses: Review of Systems Respiratory: COMPLAINS OF: Cough, Wheezing, Sputum production, Shortness of breath Gastrointestinal: COMPLAINS OF: Abdominal pain Past Family Social History Allergies: Coded Allergies: No Known Allergies (Unverified Adverse Reaction, Unknown, 03/21/17) Physical Exam Vital Signs Vital Signs Date Time Temp Pulse Resp B/P (MAP) Pulse Ox O2 Delivery O2 Flow Rate FiO2 04/07/17 12:18 102 04/07/17 12:00 97.5 117 20 131/56 (81) 93 04/07/17 08:00 98.1 108 20 115/70 (85) 90 04/07/17 07:50 Nasal Cannula 4.00 Humidified 04/07/17 07:39 92 Nasal Cannula 5.00 04/07/17 04:00 97.4 93 20 116/61 (79) 94 04/07/17 03:38 98 Nasal Cannula 3.00 04/07/17 01:34 97 Nasal Cannula 3.00 04/07/17 00:00 Nasal Cannula 4.00 04/07/17 00:00 97.3 108 22 104/52 (69) 93 04/06/17 22:50 110 04/06/17 22:50 Nasal Cannula 4.00 04/06/17 20:50 97.4 104 24 104/57 (73) 93 04/06/17 20:15 97 Nasal Cannula 4.00 04/06/17 18:58 102 26 119/63 (81) 99 Partial Rebreather 7.00 04/06/17 15:53 100 Non-Rebreather 15.00 04/06/17 15:30 32 99 Non-Rebreather 15.00 04/06/17 15:30 99 Non-Rebreather 15.00 04/06/17 15:30 99 Non-Rebreather 15.00 04/06/17 15:25 97.7 121 32 153/74 (100) 80 Physical Exam GENERAL: This is a well-nourished, well-developed patient, in no apparent distress. SKIN: No rashes, ecchymoses or lesions. Cool and dry. HEAD: Atraumatic. Normocephalic. No temporal or scalp tenderness. EYES: Pupils equal round and reactive. Extraocular motions intact. No scleral icterus. No injection or drainage. ENT: Nose without bleeding, purulent drainage or septal hematoma. Throat without erythema, tonsillar hypertrophy or exudate. Uvula midline. Airway patent. NECK: Trachea midline. No JVD or lymphadenopathy. Supple, nontender, no meningeal signs. CARDIOVASCULAR: Regular rate and rhythm without murmurs, gallops, or rubs. RESPIRATORY: Clear to auscultation. Breath sounds equal bilaterally. No wheezes , rales, or rhonchi. GASTROINTESTINAL: Abdomen soft, non-tender, nondistended. No hepato-splenomegaly , or palpable masses. No guarding. MUSCULOSKELETAL: Extremities without clubbing, cyanosis, or edema. No joint tenderness, effusion, or edema noted. No calf tenderness. Negative Homans sign bilaterally. NEUROLOGICAL: Awake and alert. Cranial nerves II through XII intact. Motor and sensory grossly within normal limits. Five out of 5 muscle strength in all muscle groups. Normal speech. Laboratory Laboratory Tests Test 04/06/17 15:28 04/06/17 15:30 04/06/17 17:00 04/07/17 06:07 Blood Gas Patient Temperature 98.6 Venous Blood pH 7.33 Venous Blood Partial Pressure CO2 57 Venous Blood Partial Pressure O2 24 Venous Blood HCO3 29 Venous Blood Oxygen Saturation 36 Venous Blood Oxygen Content 5.4 Venous Blood Base Excess 3.5 Oxygen Delivery Device NRB Blood Gas Liter Flow 15 Blood Gas Inspired Oxygen 100 White Blood Count 6.5 2.6 Red Blood Count 4.27 3.85 Hemoglobin 13.6 11.9 Hematocrit 39.7 35.5 Mean Corpuscular Volume 93.1 92.4 Mean Corpuscular Hemoglobin 31.8 30.9 Mean Corpuscular Hemoglobin Concent 34.1 33.5 Red Cell Distribution Width 14.0 13.6 Platelet Count 236 189 Mean Platelet Volume 9.2 9.1 Neutrophils (%) (Auto) 53.8 90.6 Lymphocytes (%) (Auto) 31.1 7.9 Monocytes (%) (Auto) 11.3 1.3 Eosinophils (%) (Auto) 2.6 0.0 Basophils (%) (Auto) 1.2 0.2 Neutrophils # (Auto) 3.5 2.4 Lymphocytes # (Auto) 2.0 0.2 Monocytes # (Auto) 0.7 0.0 Eosinophils # (Auto) 0.2 0.0 Basophils # (Auto) 0.1 0.0 CBC Comment DIFF FINAL DIFF FINAL Differential Comment Prothrombin Time 10.9 Prothromb Time International Ratio 1.0 Activated Partial Thromboplast Time 28.2 Blood Urea Nitrogen 6 10 Creatinine 0.61 0.82 Random Glucose 110 187 Total Protein 7.8 Albumin 3.8 Calcium Level 9.1 8.6 Phosphorus Level 3.7 Magnesium Level 2.1 Alkaline Phosphatase 91 Aspartate Amino Transf (AST/SGOT) 12 Alanine Aminotransferase (ALT/SGPT) 15 Total Bilirubin 0.8 Sodium Level 136 138 Potassium Level 4.2 3.9 Chloride Level 94 97 Carbon Dioxide Level 38.5 34.0 Anion Gap 4 7 Estimat Glomerular Filtration Rate 98 69 Lactic Acid Level 1.2 Total Creatine Kinase 34 Troponin I LESS THAN 0.02 Lipase 127 Urine Color YELLOW Urine Turbidity CLEAR Urine pH 5.0 Urine Specific [place] 1.012 Urine Protein NEG Urine Glucose (UA) NEG Urine Ketones NEG Urine Occult Blood SMALL Urine Nitrite NEG Urine Bilirubin NEG Urine Urobilinogen LESS THAN 2.0 Urine Leukocyte Esterase NEG Urine RBC 4 Urine WBC 1 Urine Squamous Epithelial Cells 1 Urine Mucus FEW Microscopic Urinalysis Comment CATH-CULT NOT IND Test 04/07/17 09:24 04/07/17 14:08 Lactic Acid Level 4.4 Date/Time Source Procedure Growth Status 04/06/17 15:40 Blood Peripheral Aerobic Blood Culture - Preliminary NO GROWTH IN 1 DAY Resulted 04/06/17 15:40 Blood Peripheral Anaerobic Blood Culture - Preliminary NO GROWTH IN 1 DAY Resulted Result Diagram: 04/07/17 0607 04/07/17 0607 Assessment and Plan Assessment and Plan COPD Exacerbation PNA Cont current tx plan agree with broad spectrum abx in am possible change to oral prednisone cont current inhalors will follow up on cultures will cont to follow Clifton Hernández MD Apr 07, 2017 14:22
[2017-04-07] MEDS: ACETAMINOPHEN 325 MG TAB PO PRN (15:24)
[2017-04-07] MEDS: MONTELUKAST SODIUM 10 MG TAB PO SCH (20:51)
[2017-04-07] MEDS: LORazepam 0.5 MG TAB PO PRN (21:13)
[2017-04-08] VITALS (9 sets, daily range): BP systolic 107–152; BP diastolic 56–70; PULSE 100–119; RESP 16–20; TEMP 97.4–98.2; O2SAT 92–98
[2017-04-08] MEDS: RESP: ALBUTEROL 2.5 MG/IPRATROPIUM 0.5 MG NEB (SCH) INH ×6 (00:04→20:02)
[2017-04-08] MEDS: methylPREDNISolone SOD SUCC 125 MG/2 ML VIAL IV PUSH SCH ×2 (04:23→09:35)
[2017-04-08] MEDS: PIPERACIL-TAZO 4.5 GM PREMIX 100 ML IV SCH ×4 (04:24→23:31)
[2017-04-08] MEDS: LORazepam 0.5 MG TAB PO PRN ×2 (04:24→21:56)
[2017-04-08] MEDS: LEVOTHYROXINE SODIUM 88 MCG TAB PO SCH (04:24)
[2017-04-08] MEDS: SODIUM CHLOR 0.9% 1000 ML INJ 1,000 ML IV SCH (08:10)
[2017-04-08] MEDS: SODIUM CHLORIDE 0.9% FLUSH 10 ML FLUSH IV FLUSH SCH ×2 (08:10→21:40)
[2017-04-08] MEDS: HEPARIN SODIUM - SQ 10,000 UNITS/ML VIAL SQ SCH ×2 (08:12→21:43)
[2017-04-08] MEDS: PANTOPRAZOLE SOD 20 MG DELAYED RELEASE TAB PO SCH (08:12)
[2017-04-08] MEDS: BUDESONIDE-FORMOTEROL 160/4.5 MCG INHALER INH SCH ×2 (08:15→21:40)
[2017-04-08] MEDS ORDERED: PHARMACY ORDERED LAB ONE (10:45)
--- NOTE | 2017-04-08 10:55 | HHI.PR ---
Subjective Remarks The patient said that she was coughing a lot. She does have mucus production. She said she had pain around her ribs from time to time. She still has shortness of breath. She does say her symptoms are getting better. Discussed with nursing. Objective Vitals Vital Signs Date Time Temp Pulse Resp B/P (MAP) Pulse Ox O2 Delivery O2 Flow Rate FiO2 04/08/17 08:40 97 Nasal Cannula 4.00 04/08/17 08:22 Nasal Cannula 5.00 Humidified 04/08/17 08:00 98.2 110 16 130/61 (84) 98 04/08/17 04:00 97.4 111 20 126/60 (82) 95 04/08/17 00:00 97.9 113 20 107/56 (73) 96 04/07/17 20:00 Nasal Cannula 5.00 Humidified 04/07/17 20:00 97.6 114 18 108/52 (70) 94 04/07/17 20:00 112 04/07/17 16:00 98.6 116 20 117/57 (77) 94 04/07/17 15:30 Nasal Cannula 5.00 04/07/17 15:28 91 Nasal Cannula 5.00 04/07/17 12:18 102 04/07/17 12:00 97.5 117 20 131/56 (81) 93 I/O 04/07/17 04/07/17 04/07/17 04/08/17 04/08/17 04/08/17 07:00 15:00 23:00 07:00 15:00 23:00 Intake Total 817.5 ml 1830 ml 568 ml 1684 ml Output Total 850 ml 900 ml 925 ml 1000 ml Balance -32.5 ml 930 ml -357 ml 684 ml Intake Oral 460 ml 480 ml 480 ml IV Total 357.5 ml 1350 ml 568 ml 1204 ml Output Urine Total 850 ml 900 ml 925 ml 1000 ml # Voids 3 # Bowel Movements 0 0 Result Diagram: 04/07/1760604/07/17606 Imaging Last Impressions Chest X-Ray 04/06/17 1526 Signed Impressions: Service Date/Time: Thursday, April 06, 2017 15:31 - CONCLUSION: 1. Changes of obstructive pulmonary disease. 2. Stale minimal bibasilar airspace opacities. 3. No significant interval change. Burke Duncan MD CT Angiography 04/06/17 0000 Signed Impressions: Service Date/Time: Thursday, April 06, 2017 17:16 - CONCLUSION: No evidence of pulmonary embolism. Some areas of consolidation in both lung bases increased since the sixth. Possibly developing pneumonia. Kwadwo Mckeon MD Objective Remarks GENERAL: This is a well-nourished, well-developed patient, NAD. SKIN: Warm and dry. HEENT: Normocephalic. Pupils equal round and reactive. Nose without bleeding. Airway patent. NECK: Trachea midline. No JVD. Supple. CARDIOVASCULAR: Tachycardic without murmurs, gallops, or rubs. RESPIRATORY: No rales, or rhonchi. Fair air entry. GASTROINTESTINAL: Abdomen soft, non-tender, nondistended. Bowel Sounds normoactive x4. MUSCULOSKELETAL: Extremities without clubbing, cyanosis. NEUROLOGICAL: Awake and alert. Oriented to time, place, person. No focal neuro deficit. Moves all extremities. Normal speech. PSYCH: Mood and affect appropriate. Medications and IVs Current Medications Medications (Trade) Dose Ordered Sig/Nilda Route Start Time Stop Time Status Last Admin (NS Flush) 2 ml BID IV FLUSH 04/06/17 21:00 04/07/17 10:13 (NS Flush) 2 ml UNSCH PRN IV FLUSH 04/06/17 19:15 (Duoneb Neb) 1 ampule Q4HR NEB INH 04/06/17 20:00 04/08/17 08:35 (Albuterol Neb) 2.5 mg Q2HR NEB PRN INH 04/06/17 19:15 (SoluMEDROL INJ) 60 mg Q6H IV PUSH 04/06/17 22:00 04/08/17 09:35 (Heparin Inj) 5,000 units Q12H SQ 04/06/17 21:00 04/08/17 08:12 (Symbicort 160-4.5 Inh) 2 puff Q12HR INH 04/06/17 21:00 04/08/17 08:15 (Synthroid) 88 mcg DAILY@0600 PO 04/07/17 06:00 04/08/17 04:24 Pharmacy Profile Note 0 ml @ 0 mls/hr UNSCH OTHER 04/06/17 22:00 Vancomycin HCl 1000 mg/Sodium Chloride 250 ml @ 250 mls/hr Q12H IV 04/07/17 11:00 04/07/17 21:14 Piperacillin Sod/ Tazobactam Sod 100 ml @ 200 mls/hr Q6H IV 04/07/17 00:00 04/08/17 04:24 (Singulair) 10 mg HS PO 04/07/17 21:00 04/07/17 20:51 (Protonix) 20 mg DAILY PO 04/07/17 09:30 04/12/17 09:29 04/08/17 08:12 (Ativan) 0.5 mg HS PRN PO 04/07/17 09:30 04/08/17 04:24 Sodium Chloride 1,000 ml @ 125 mls/hr Q8H IV 04/07/17 11:00 04/08/17 08:10 (Tylenol) 650 mg Q4H PRN PO 04/07/17 15:15 04/07/17 15:24 (Roxicodone) 5 mg Q6H PRN PO 04/07/17 17:45 04/07/17 18:01 A/P Problem List: (1) COPD exacerbation ICD Code: J44.1 - Chronic obstructive pulmonary disease with (acute) exacerbation Status: Acute (2) Hypoxemia ICD Code: R09.02 - Hypoxemia Status: Acute (3) Pneumonia ICD Code: J18.9 - Pneumonia, unspecified organism Status: Acute Assessment and Plan Patient is a 66 year old female with primary medical history of COPD, recently hospitalized for community acquired pneumonia who came into the ED with chief complaint of shortness of breath and cough. HCAP/ Sepsis/ COPD exacerbation Patient meeting SIRS, sepsis criteria, came with tachycardia, tachypnea. Chest x -ray showed 1. Changes of obstructive pulmonary disease. 2. Still minimal bibasilar airspace opacities. 3. No significant interval change. CT angio showed no evidence of pulmonary embolism; Some areas of consolidation in both lung bases; Possibly developing pneumonia. - Patient was given vancomycin and Zosyn in the ED. Continue IV vancomycin and Zosyn use. - follow culture data. - DuoNeb scheduled and when necessary. O2 nasal cannula use maintain O2 sat greater than 90%. - Symbicort. We will add on Singulair. - Wean IV steroids. - Research Subject consult appreciated. - PT. - Jason Skelton for cough. Costochondritis Secondary to constant coughing. - Standing ibuprofen for now. - Oxycodone as needed. Hypothyroidism Status post thyroidectomy for Graves' disease. - Continue home dose Synthroid. DVT prop heparin Discharge Planning Awaiting improvement in respiratory status Aries Beltrán DO Apr 08, 2017 10:55
[2017-04-08] MEDS: VANCOMYCIN INJ 1,000 MG in SODIUM CHLOR 0.9% 250 ML INJ 250 ML IV SCH (11:29)
[2017-04-08 11:31] LABS: AUTOMATED NEUTROPHIL # 12.1 TH/MM3 (1.8-7.7); BASOPHIL % 0.2 % (0.0-2.0); HEMATOCRIT 35.1 % (35.0-46.0); HEMO FLAGS DIFF FINAL; LYMPH % 1.9 % (9.0-44.0); LYMPHOCYTE # 0.2 TH/MM3 (1.0-4.8); MEAN CELL VOLUME 93.3 FL (80.0-100.0); MEAN CORPUSCULAR HEMOGLOBIN 31.8 PG (27.0-34.0); MEAN CORPUSCULAR HGB CONC 34.1 % (32.0-36.0); NEUT % 93.9 % (16.0-70.0); PLATELET COUNT 176 TH/MM3 (150-450); RED BLOOD COUNT 3.76 MIL/MM3 (4.00-5.30); RED CELL DISTRIBUTION WIDTH 14.3 % (11.6-17.2); WHITE BLOOD COUNT 12.9 TH/MM3 (4.0-11.0)
[2017-04-08] MEDS ORDERED: BENZONATATE 100 MG CAP PO ONE (12:30)
[2017-04-08] MEDS: IBUPROFEN 600 MG TAB PO SCH ×2 (12:44→21:42)
[2017-04-08] MEDS: DOCUSATE SODIUM 50 MG/SENNA 8.6 MG TAB PO SCH ×2 (12:44→21:44)
--- NOTE | 2017-04-08 13:29 | HHI.PR ---
Subjective Remarks stkll sob wheezing still coughing Objective Vital Signs Date Time Temp Pulse Resp B/P (MAP) Pulse Ox O2 Delivery O2 Flow Rate FiO2 04/08/17 12:00 97.9 100 17 152/70 (97) 94 04/08/17 08:40 97 Nasal Cannula 4.00 04/08/17 08:22 Nasal Cannula 5.00 Humidified 04/08/17 08:00 98.2 110 16 130/61 (84) 98 04/08/17 04:00 97.4 111 20 126/60 (82) 95 04/08/17 00:00 97.9 113 20 107/56 (73) 96 04/07/17 20:00 Nasal Cannula 5.00 Humidified 04/07/17 20:00 97.6 114 18 108/52 (70) 94 04/07/17 20:00 112 04/07/17 16:00 98.6 116 20 117/57 (77) 94 04/07/17 15:30 Nasal Cannula 5.00 04/07/17 15:28 91 Nasal Cannula 5.00 I/O 04/07/17 04/07/17 04/07/17 04/08/17 04/08/17 04/08/17 07:00 15:00 23:00 07:00 15:00 23:00 Intake Total 817.5 ml 1830 ml 568 ml 1684 ml 1100 ml Output Total 850 ml 900 ml 925 ml 1000 ml Balance -32.5 ml 930 ml -357 ml 684 ml 1100 ml Intake Oral 460 ml 480 ml 480 ml IV Total 357.5 ml 1350 ml 568 ml 1204 ml 1100 ml Output Urine Total 850 ml 900 ml 925 ml 1000 ml # Voids 3 # Bowel Movements 0 0 Result Diagram: 04/08/17 1122 04/07/17 0607 Imaging Vital Signs Date Time Temp Pulse Resp B/P (MAP) Pulse Ox O2 Delivery O2 Flow Rate FiO2 04/08/17 12:00 97.9 100 17 152/70 (97) 94 04/08/17 08:40 97 Nasal Cannula 4.00 04/08/17 08:22 Nasal Cannula 5.00 Humidified 04/08/17 08:00 98.2 110 16 130/61 (84) 98 04/08/17 04:00 97.4 111 20 126/60 (82) 95 04/08/17 00:00 97.9 113 20 107/56 (73) 96 04/07/17 20:00 Nasal Cannula 5.00 Humidified 04/07/17 20:00 97.6 114 18 108/52 (70) 94 04/07/17 20:00 112 04/07/17 16:00 98.6 116 20 117/57 (77) 94 04/07/17 15:30 Nasal Cannula 5.00 04/07/17 15:28 91 Nasal Cannula 5.00 Objective Remarks GA: nad heant: at . nc lungs: mild wheezing heart: s1, s2 abd: soft ext: no edema Neuro: no chnage no focal deficits Assessment and Plan Assessment and Plan COPD Exacerbation PNA Cont current tx plan abx cont iv steroids cont current inhalors will follow up on cultures will cont to follow in am if better may switch to oral ,edications and ? home in 2 days Clifton Hernández MD Apr 08, 2017 13:29
[2017-04-08] MEDS: methylPREDNISolone SOD SUCC 40 MG/1 ML VIAL IV PUSH SCH (21:42)
[2017-04-08] MEDS: MONTELUKAST SODIUM 10 MG TAB PO SCH (21:44)
[2017-04-08] MEDS: VANCOMYCIN INJ 1,250 MG in SODIUM CHLOR 0.9% 250 ML INJ 250 ML IV SCH (22:17)
[2017-04-09] VITALS (8 sets, daily range): BP systolic 116–145; BP diastolic 58–89; PULSE 90–110; RESP 18–24; TEMP 97.6–98.5; O2SAT 92–96
[2017-04-09] MEDS: RESP: ALBUTEROL 2.5 MG/IPRATROPIUM 0.5 MG NEB (SCH) INH ×6 (00:40→19:26)
[2017-04-09] MEDS: LORazepam 0.5 MG TAB PO PRN ×2 (02:07→21:22)
[2017-04-09] MEDS: IBUPROFEN 600 MG TAB PO SCH (05:04)
[2017-04-09] MEDS: LEVOTHYROXINE SODIUM 88 MCG TAB PO SCH (05:04)
[2017-04-09] MEDS: PIPERACIL-TAZO 4.5 GM PREMIX 100 ML IV SCH ×3 (05:05→17:26)
[2017-04-09] MEDS: methylPREDNISolone SOD SUCC 40 MG/1 ML VIAL IV PUSH SCH (08:32)
[2017-04-09] MEDS: ACETAMINOPHEN 325 MG TAB PO PRN (08:32)
[2017-04-09] MEDS: HEPARIN SODIUM - SQ 10,000 UNITS/ML VIAL SQ SCH ×2 (08:32→21:23)
[2017-04-09] MEDS: PANTOPRAZOLE SOD 20 MG DELAYED RELEASE TAB PO SCH (08:32)
[2017-04-09] MEDS: DOCUSATE SODIUM 50 MG/SENNA 8.6 MG TAB PO SCH ×2 (08:33→21:00)
[2017-04-09] MEDS: SODIUM CHLORIDE 0.9% FLUSH 10 ML FLUSH IV FLUSH SCH ×2 (08:33→21:23)
[2017-04-09] MEDS: BUDESONIDE-FORMOTEROL 160/4.5 MCG INHALER INH SCH ×2 (08:34→21:24)
[2017-04-09] MEDS: BENZONATATE 100 MG CAP PO PRN ×3 (09:47→21:22)
[2017-04-09] MEDS ORDERED: KETOROLAC TROMETHAMINE 30 MG/ML (IVP) VIAL IV PUSH ONE (12:15)
--- NOTE | 2017-04-09 12:15 | HHI.PR ---
Subjective Remarks The patient said that her breathing was the same. She said she is on 4 L of oxygen at home. She is still coughing. She still has chest pain and a headache from coughing. Family at the bedside. Discussed with nursing. Objective Vitals Vital Signs Date Time Temp Pulse Resp B/P (MAP) Pulse Ox O2 Delivery O2 Flow Rate FiO2 04/09/17 08:00 98.2 110 24 145/68 (93) 92 04/09/17 08:00 96 Nasal Cannula 4.00 04/09/17 04:00 98.1 106 20 116/58 (77) 94 04/09/17 00:40 94 Nasal Cannula 4.00 04/09/17 00:00 98.0 106 18 122/65 (84) 95 04/08/17 20:00 Nasal Cannula 5.00 Humidified 04/08/17 20:00 97.6 105 18 125/62 (83) 94 04/08/17 20:00 118 04/08/17 19:07 119 04/08/17 19:05 92 Nasal Cannula 4.00 04/08/17 16:32 92 Nasal Cannula 4.00 I/O 04/08/17 04/08/17 04/08/17 04/09/17 04/09/17 04/09/17 07:00 15:00 23:00 07:00 15:00 23:00 Intake Total 1684 ml 1100 ml 600 ml 580 ml Output Total 1000 ml Balance 684 ml 1100 ml 600 ml 580 ml Intake Oral 480 ml 600 ml 580 ml IV Total 1204 ml 1100 ml Output Urine Total 1000 ml # Voids 5 4 # Bowel Movements 0 0 0 Result Diagram: 04/08/17 1122 04/07/17 0607 Imaging Last Impressions Chest X-Ray 04/06/17 1526 Signed Impressions: Service Date/Time: Thursday, April 06, 2017 15:31 - CONCLUSION: 1. Changes of obstructive pulmonary disease. 2. Stale minimal bibasilar airspace opacities. 3. No significant interval change. Burke Duncan MD CT Angiography 04/06/17 0000 Signed Impressions: Service Date/Time: Thursday, April 06, 2017 17:16 - CONCLUSION: No evidence of pulmonary embolism. Some areas of consolidation in both lung bases increased since the sixth. Possibly developing pneumonia. Kwadwo Mckeon MD Objective Remarks GENERAL: This is a well-nourished, well-developed patient, NAD. SKIN: Warm and dry. HEENT: Normocephalic. Pupils equal round and reactive. Nose without bleeding. Airway patent. NECK: Trachea midline. No JVD. Supple. CARDIOVASCULAR: Tachycardic without murmurs, gallops, or rubs. RESPIRATORY: No rales, or rhonchi. Fair air entry. GASTROINTESTINAL: Abdomen soft, non-tender, nondistended. Bowel Sounds normoactive x4. MUSCULOSKELETAL: Extremities without clubbing, cyanosis. NEUROLOGICAL: Awake and alert. Oriented to time, place, person. No focal neuro deficit. Moves all extremities. Normal speech. PSYCH: Mood and affect appropriate. Medications and IVs Current Medications Medications (Trade) Dose Ordered Sig/Nilda Route Start Time Stop Time Status Last Admin (NS Flush) 2 ml BID IV FLUSH 04/06/17 21:00 04/08/17 21:40 (NS Flush) 2 ml UNSCH PRN IV FLUSH 04/06/17 19:15 (Duoneb Neb) 1 ampule Q4HR NEB INH 04/06/17 20:00 04/09/17 11:51 (Albuterol Neb) 2.5 mg Q2HR NEB PRN INH 04/06/17 19:15 (Heparin Inj) 5,000 units Q12H SQ 04/06/17 21:00 04/09/17 08:32 (Symbicort 160-4.5 Inh) 2 puff Q12HR INH 04/06/17 21:00 04/09/17 08:34 (Synthroid) 88 mcg DAILY@0600 PO 04/07/17 06:00 04/09/17 05:04 Pharmacy Profile Note 0 ml @ 0 mls/hr UNSCH OTHER 04/06/17 22:00 Piperacillin Sod/ Tazobactam Sod 100 ml @ 200 mls/hr Q6H IV 04/07/17 00:00 04/09/17 05:05 (Singulair) 10 mg HS PO 04/07/17 21:00 04/08/17 21:44 (Protonix) 20 mg DAILY PO 04/07/17 09:30 04/12/17 09:29 04/09/17 08:32 (Ativan) 0.5 mg HS PRN PO 04/07/17 09:30 04/09/17 02:07 (Tylenol) 650 mg Q4H PRN PO 04/07/17 15:15 04/09/17 08:32 (Roxicodone) 5 mg Q6H PRN PO 04/07/17 17:45 04/07/17 18:01 (Tayler-Colace) 1 tab BID PO 04/08/17 12:30 04/08/17 21:44 (Tessalon) 100 mg TID PRN PO 04/08/17 13:00 04/09/17 09:47 (SoluMEDROL INJ) 40 mg BID IV PUSH 04/08/17 21:00 04/09/17 08:32 (Motrin) 600 mg Q8HR PO 04/08/17 13:00 04/10/17 06:01 04/09/17 05:04 Vancomycin HCl 1250 mg/Sodium Chloride 262.5 ml @ 250 mls/hr Q12H IV 04/08/17 23:00 04/08/17 22:17 Miscellaneous Information SPECIFIC LAB TO BE [facility]ERY[facility]... ONCE ONCE .XX 04/10/17 10:45 04/10/17 10:46 A/P Problem List: (1) COPD exacerbation ICD Code: J44.1 - Chronic obstructive pulmonary disease with (acute) exacerbation Status: Acute (2) Hypoxemia ICD Code: R09.02 - Hypoxemia Status: Acute (3) Pneumonia ICD Code: J18.9 - Pneumonia, unspecified organism Status: Acute Assessment and Plan Patient is a 66 year old female with primary medical history of COPD, recently hospitalized for community acquired pneumonia who came into the ED with chief complaint of shortness of breath and cough. HCAP/ Sepsis/ COPD exacerbation Patient meeting SIRS, sepsis criteria, came with tachycardia, tachypnea. Chest x -ray showed 1. Changes of obstructive pulmonary disease. 2. Still minimal bibasilar airspace opacities. 3. No significant interval change. CT angio showed no evidence of pulmonary embolism; Some areas of consolidation in both lung bases; Possibly developing pneumonia. Music Engraver consult appreciated. - Patient was given vancomycin and Zosyn in the ED. Continue IV vancomycin and Zosyn. - follow culture data. - DuoNeb scheduled and when necessary. O2 nasal cannula use maintain O2 sat greater than 90%. - Symbicort. - Wean IV steroids to BID. Possible prednisone in the AM. - PT. [facility] recommended. - Tescristalon Costa for cough. Costochondritis Secondary to constant coughing. - d/c ibuprofen and give IV Toradol. - Oxycodone as needed. - cough medications as needed. Hypothyroidism Status post thyroidectomy for Graves' disease. - Continue home dose Synthroid. Headache S/t coughing. - cough medications as needed. - Toradol. Oxycodone and Tylenol as needed. DVT prop heparin Discharge Planning Awaiting improvement in respiratory status. Anticipate 1-2 days then d/c with [facility] Aries Beltrán DO Apr 09, 2017 12:15
[2017-04-09] MEDS: VANCOMYCIN INJ 1,250 MG in SODIUM CHLOR 0.9% 250 ML INJ 250 ML IV SCH ×2 (12:58→23:19)
[2017-04-09] MEDS: MONTELUKAST SODIUM 10 MG TAB PO SCH (21:22)
[2017-04-10] VITALS (8 sets, daily range): BP systolic 120–154; BP diastolic 59–75; PULSE 82–107; RESP 18–21; TEMP 97.6–98.3; O2SAT 92–96
[2017-04-10] MEDS: RESP: ALBUTEROL 2.5 MG/IPRATROPIUM 0.5 MG NEB (SCH) INH ×6 (00:10→19:15)
[2017-04-10] MEDS: PIPERACIL-TAZO 4.5 GM PREMIX 100 ML IV SCH ×5 (00:31→23:56)
[2017-04-10] MEDS: LEVOTHYROXINE SODIUM 88 MCG TAB PO SCH (05:59)
[2017-04-10 07:34] LABS: HEMATOCRIT 36.3 % (35.0-46.0); MEAN CELL VOLUME 93.4 FL (80.0-100.0); MEAN CORPUSCULAR HEMOGLOBIN 31.3 PG (27.0-34.0); MEAN CORPUSCULAR HGB CONC 33.5 % (32.0-36.0); PLATELET COUNT 134 TH/MM3 (150-450); RED BLOOD COUNT 3.88 MIL/MM3 (4.00-5.30); RED CELL DISTRIBUTION WIDTH 14.2 % (11.6-17.2); REVIEW FLAG FINAL; WHITE BLOOD COUNT 6.2 TH/MM3 (4.0-11.0)
[2017-04-10 08:11] LABS: POTASSIUM 3.3 MEQ/L (3.5-5.1)
[2017-04-10] MEDS: BUDESONIDE-FORMOTEROL 160/4.5 MCG INHALER INH SCH ×2 (08:34→21:12)
[2017-04-10] MEDS: PANTOPRAZOLE SOD 20 MG DELAYED RELEASE TAB PO SCH (08:34)
[2017-04-10] MEDS: predniSONE 20 MG TAB PO SCH (08:35)
[2017-04-10] MEDS: ACETAMINOPHEN 325 MG TAB PO PRN (08:35)
[2017-04-10] MEDS: BENZONATATE 100 MG CAP PO PRN (08:35)
[2017-04-10] MEDS: DOCUSATE SODIUM 50 MG/SENNA 8.6 MG TAB PO SCH ×2 (08:36→21:00)
[2017-04-10] MEDS: SODIUM CHLORIDE 0.9% FLUSH 10 ML FLUSH IV FLUSH SCH ×2 (08:36→21:13)
[2017-04-10] MEDS: HEPARIN SODIUM - SQ 10,000 UNITS/ML VIAL SQ SCH ×2 (08:36→21:13)
[2017-04-10] MEDS ORDERED: POTASSIUM CHLORIDE 25 MEQ EFFERVESCENT TAB PO ONE (09:45)
[2017-04-10] MEDS ORDERED: PHARMACY ORDERED LAB ONE (10:45)
[2017-04-10] MEDS: VANCOMYCIN INJ 1,250 MG in SODIUM CHLOR 0.9% 250 ML INJ 250 ML IV SCH ×2 (11:53→22:43)
[2017-04-10] MEDS ORDERED: KETOROLAC TROMETHAMINE 30 MG/ML (IVP) VIAL IV PUSH ONE (12:00)
--- NOTE | 2017-04-10 12:00 | HHI.PR ---
Subjective Remarks The patient was trying to ambulate around the room. She was still very short of breath. She says she feels very congested. She does not think the cough medication is helping. She has been having bowel movements. Discussed with nursing. Family at the bedside. Objective Vitals Vital Signs Date Time Temp Pulse Resp B/P (MAP) Pulse Ox O2 Delivery O2 Flow Rate FiO2 04/10/17 09:00 94 Nasal Cannula 4.00 04/10/17 08:00 95 Nasal Cannula 4.00 04/10/17 08:00 98.0 95 20 120/73 (89) 92 04/10/17 04:00 Nasal Cannula 4.00 Humidified 04/10/17 04:00 97.7 107 19 127/59 (81) 94 04/10/17 00:00 Nasal Cannula 4.00 Humidified 04/10/17 00:00 98.0 91 18 147/75 (99) 95 04/09/17 20:00 Nasal Cannula 4.00 Humidified 04/09/17 20:00 93 04/09/17 20:00 97.6 90 20 130/80 (97) 96 04/09/17 16:00 98.0 101 22 121/89 (100) 92 04/09/17 15:55 93 Nasal Cannula 4.00 04/09/17 12:00 98.5 110 24 124/66 (85) 93 I/O 04/09/17 04/09/17 04/09/17 04/10/17 04/10/17 04/10/17 07:00 15:00 23:00 07:00 15:00 23:00 Intake Total 580 ml 1460 ml 1022.5 ml Output Total 700 ml Balance 580 ml 1460 ml 322.5 ml Intake Oral 580 ml 1460 ml 560 ml IV Total 462.5 ml Output Urine Total 700 ml # Voids 4 5 # Bowel Movements 0 3 1 Result Diagram: 04/10/17 0704 04/10/17 0704 Imaging Last Impressions Chest X-Ray 04/06/17 1526 Signed Impressions: Service Date/Time: Thursday, April 06, 2017 15:31 - CONCLUSION: 1. Changes of obstructive pulmonary disease. 2. Stale minimal bibasilar airspace opacities. 3. No significant interval change. Burke Duncan MD CT Angiography 04/06/17 0000 Signed Impressions: Service Date/Time: Thursday, April 06, 2017 17:16 - CONCLUSION: No evidence of pulmonary embolism. Some areas of consolidation in both lung bases increased since the sixth. Possibly developing pneumonia. Kwadwo Mckeon MD Objective Remarks GENERAL: This is a well-nourished, well-developed patient, NAD. SKIN: Warm and dry. HEENT: Normocephalic. Pupils equal round and reactive. Nose without bleeding. Airway patent. NECK: Trachea midline. No JVD. Supple. CARDIOVASCULAR: Tachycardic without murmurs, gallops, or rubs. RESPIRATORY: No rales, or rhonchi. Poor air movement. GASTROINTESTINAL: Abdomen soft, non-tender, nondistended. Bowel Sounds normoactive x4. MUSCULOSKELETAL: Extremities without clubbing, cyanosis. TR edema noted. NEUROLOGICAL: Awake and alert. Oriented to time, place, person. No focal neuro deficit. Moves all extremities. Normal speech. PSYCH: Mood and affect appropriate. Medications and IVs Current Medications Medications (Trade) Dose Ordered Sig/Nilda Route Start Time Stop Time Status Last Admin (NS Flush) 2 ml BID IV FLUSH 04/06/17 21:00 04/10/17 08:36 (NS Flush) 2 ml UNSCH PRN IV FLUSH 04/06/17 19:15 (Duoneb Neb) 1 ampule Q4HR NEB INH 04/06/17 20:00 04/10/17 11:56 (Albuterol Neb) 2.5 mg Q2HR NEB PRN INH 04/06/17 19:15 (Heparin Inj) 5,000 units Q12H SQ 04/06/17 21:00 04/10/17 08:36 (Symbicort 160-4.5 Inh) 2 puff Q12HR INH 04/06/17 21:00 04/10/17 08:34 (Synthroid) 88 mcg DAILY@0600 PO 04/07/17 06:00 04/10/17 05:59 Pharmacy Profile Note 0 ml @ 0 mls/hr UNSCH OTHER 04/06/17 22:00 Piperacillin Sod/ Tazobactam Sod 100 ml @ 200 mls/hr Q6H IV 04/07/17 00:00 04/10/17 11:54 (Singulair) 10 mg HS PO 04/07/17 21:00 04/09/17 21:22 (Protonix) 20 mg DAILY PO 04/07/17 09:30 04/12/17 09:29 04/10/17 08:34 (Ativan) 0.5 mg HS PRN PO 04/07/17 09:30 04/09/17 21:22 (Tylenol) 650 mg Q4H PRN PO 04/07/17 15:15 04/10/17 08:35 (Roxicodone) 5 mg Q6H PRN PO 04/07/17 17:45 04/07/17 18:01 (Tayler-Colace) 1 tab BID PO 04/08/17 12:30 04/08/17 21:44 (Tessalon) 100 mg TID PRN PO 04/08/17 13:00 04/10/17 08:35 Vancomycin HCl 1250 mg/Sodium Chloride 262.5 ml @ 250 mls/hr Q12H IV 04/08/17 23:00 04/10/17 11:53 (Deltasone) 40 mg DAILY PO 04/10/17 09:00 04/10/17 08:35 A/P Problem List: (1) COPD exacerbation ICD Code: J44.1 - Chronic obstructive pulmonary disease with (acute) exacerbation Status: Acute (2) Hypoxemia ICD Code: R09.02 - Hypoxemia Status: Acute (3) Pneumonia ICD Code: J18.9 - Pneumonia, unspecified organism Status: Acute Assessment and Plan HCAP/ Sepsis/ COPD exacerbation Patient meeting SIRS, sepsis criteria, came with tachycardia, tachypnea. Chest x -ray showed 1. Changes of obstructive pulmonary disease. 2. Still minimal bibasilar airspace opacities. 3. No significant interval change. CT angio showed no evidence of pulmonary embolism; Some areas of consolidation in both lung bases; Possibly developing pneumonia. Assistant Secretary consult appreciated. - Patient was given vancomycin and Zosyn in the ED. Continue IV vancomycin and Zosyn. - follow culture data. - DuoNeb scheduled and when necessary. O2 nasal cannula use maintain O2 sat greater than 90%. - continue Symbicort. - Wean IV steroids to po prednisone. - PT. C recommended. - Robitussin AC for cough. - repeat CXR 04/10. Costochondritis Secondary to constant coughing. - d/c ibuprofen and give IV Toradol. - Oxycodone as needed. - cough medications as needed. Hypothyroidism Status post thyroidectomy for Graves' disease. - Continue home dose Synthroid. Headache S/t coughing. - cough medications as needed. - Toradol. Oxycodone and Tylenol as needed. Hypokalemia Secondary decreased by mouth intake. - Replete with potassium chloride and monitor. DVT prop heparin Discharge Planning Awaiting improvement in respiratory status. Anticipate 1-2 days then d/c with [facility] Aries Beltrán DO Apr 10, 2017 12:00
--- NOTE | 2017-04-10 12:46 | RADRPT ---
EXAM DATE/TIME: 04/10/2017 12:16 [place] COMPARISON: CT PULMONARY ANGIOGRAM, April 06, 2017, 17:16. CHEST SINGLE AP, April 06, 2017, 15:31. INDICATIONS : Chest pain and shortness of breath. MEDICAL HISTORY : Chronic obstructive pulmonary disease. Emphysema. Renal calculi. SURGICAL HISTORY : Thyroidectomy. Cholecystectomy. ENCOUNTER: Subsequent ACUITY: 2 days PAIN SCORE: 6/10 LOCATION: Bilateral chest FINDINGS: The lungs are hyperaerated. There persistent partially consolidative infiltrates at the lung bases b ilaterally and associated blunting of the costophrenic angles bilaterally, very similar appearance to prior examination 04/06/17. The heart is normal size. The osseous structures are intact. CONCLUSION: Persistent bibasilar infiltrates. Scar Novak MD on April 10, 2017 at 12:43 Board Certified Radiologist. This report was verified electronically.
[2017-04-10] MEDS: guaiFENesin/CODEINE SYRUP 200 MG/20 MG/10 ML CUP PO PRN ×2 (13:21→21:14)
--- NOTE | 2017-04-10 13:41 | HHI.PR ---
Subjective Remarks better according to her she is still having wheezing Objective Vital Signs Date Time Temp Pulse Resp B/P (MAP) Pulse Ox O2 Delivery O2 Flow Rate FiO2 04/10/17 09:00 94 Nasal Cannula 4.00 04/10/17 08:00 95 Nasal Cannula 4.00 04/10/17 08:00 98.0 95 20 120/73 (89) 92 04/10/17 04:00 Nasal Cannula 4.00 Humidified 04/10/17 04:00 97.7 107 19 127/59 (81) 94 04/10/17 00:00 Nasal Cannula 4.00 Humidified 04/10/17 00:00 98.0 91 18 147/75 (99) 95 04/09/17 20:00 Nasal Cannula 4.00 Humidified 04/09/17 20:00 93 04/09/17 20:00 97.6 90 20 130/80 (97) 96 04/09/17 16:00 98.0 101 22 121/89 (100) 92 04/09/17 15:55 93 Nasal Cannula 4.00 I/O 04/09/17 04/09/17 04/09/17 04/10/17 04/10/17 04/10/17 07:00 15:00 23:00 07:00 15:00 23:00 Intake Total 580 ml 1460 ml 1022.5 ml Output Total 700 ml Balance 580 ml 1460 ml 322.5 ml Intake Oral 580 ml 1460 ml 560 ml IV Total 462.5 ml Output Urine Total 700 ml # Voids 4 5 # Bowel Movements 0 3 1 Result Diagram: 04/10/17 0704 04/10/17 0704 Objective Remarks GA: nad heant: at . nc lungs: mild wheezing heart: s1, s2 abd: soft ext: no edema Neuro: no chnage no focal deficits Assessment and Plan Assessment and Plan COPD Exacerbation PNA Cont current tx plan abx I rec switch to oral medications cont current inhalors will cont to follow maybe home in 2 days Discussed with Clifton Patel MD Apr 10, 2017 13:41
[2017-04-10] MEDS: LORazepam 0.5 MG TAB PO PRN (21:12)
[2017-04-10] MEDS: MONTELUKAST SODIUM 10 MG TAB PO SCH (21:14)
[2017-04-11] VITALS (8 sets, daily range): BP systolic 113–148; BP diastolic 56–72; PULSE 85–96; RESP 20–23; TEMP 97.7–98.7; O2SAT 92–97
[2017-04-11] MEDS: PIPERACIL-TAZO 4.5 GM PREMIX 100 ML IV SCH ×4 (05:38→23:22)
[2017-04-11] MEDS: LEVOTHYROXINE SODIUM 88 MCG TAB PO SCH (05:41)
[2017-04-11 06:29] LABS: DRAW SITE NURSE
[2017-04-11 08:23] LABS: BICARBONATE 38.5 MEQ/L (21.0-32.0); POTASSIUM 3.5 MEQ/L (3.5-5.1)
[2017-04-11] MEDS: DOCUSATE SODIUM 50 MG/SENNA 8.6 MG TAB PO SCH ×2 (09:26→20:50)
[2017-04-11] MEDS: predniSONE 20 MG TAB PO SCH (09:28)
[2017-04-11] MEDS: SODIUM CHLORIDE 0.9% FLUSH 10 ML FLUSH IV FLUSH SCH ×2 (09:28→20:50)
[2017-04-11] MEDS: PANTOPRAZOLE SOD 20 MG DELAYED RELEASE TAB PO SCH (09:28)
[2017-04-11] MEDS: HEPARIN SODIUM - SQ 10,000 UNITS/ML VIAL SQ SCH ×2 (09:29→20:50)
[2017-04-11] MEDS: BUDESONIDE-FORMOTEROL 160/4.5 MCG INHALER INH SCH ×2 (09:30→20:49)
[2017-04-11] MEDS: guaiFENesin/CODEINE SYRUP 200 MG/20 MG/10 ML CUP PO PRN ×3 (09:35→20:50)
[2017-04-11] MEDS: RESP: ALBUTEROL 2.5 MG/3 ML NEB (PRN) INH (09:47)
--- NOTE | 2017-04-11 10:37 | HHI.PR ---
Subjective Remarks The patient stated that she still felt very short of breath. She has been ambulating. Coughing has been causing abdominal pain. She says she currently doesn't have a place to live and will have a house to move into on . No other acute complaints at this time. Objective Vitals Vital Signs Date Time Temp Pulse Resp B/P (MAP) Pulse Ox O2 Delivery O2 Flow Rate FiO2 04/11/17 07:03 Nasal Cannula 4.00 Humidified 04/11/17 04:00 Nasal Cannula 4.00 Humidified 04/11/17 04:00 98.1 96 23 148/62 (90) 95 04/11/17 00:00 97.7 87 20 131/63 (85) 95 04/11/17 00:00 Nasal Cannula 4.00 Humidified 04/10/17 20:14 86 04/10/17 20:00 97.6 82 21 133/62 (85) 93 04/10/17 20:00 Nasal Cannula 4.00 Humidified 04/10/17 19:17 96 Nasal Cannula 4.00 04/10/17 16:00 98.3 103 20 152/67 (95) 94 04/10/17 12:00 97.8 99 20 154/73 (100) 93 I/O 04/10/17 04/10/17 04/10/17 04/11/17 04/11/17 04/11/17 07:00 15:00 23:00 07:00 15:00 23:00 Intake Total 1022.5 ml 1200 ml 1082.5 ml Output Total 700 ml 650 ml Balance 322.5 ml 550 ml 1082.5 ml Intake Oral 560 ml 1200 ml 620 ml IV Total 462.5 ml 462.5 ml Output Urine Total 700 ml 650 ml # Voids 4 # Bowel Movements 1 3 1 Result Diagram: 04/10/17 0704 04/11/17 0650 Imaging Last Impressions Chest X-Ray 04/10/17 0000 Signed Impressions: Service Date/Time: Monday, April 10, 2017 12:16 - CONCLUSION: Persistent bibasilar infiltrates. Scar Novak MD CT Angiography 04/06/17 0000 Signed Impressions: Service Date/Time: Thursday, April 06, 2017 17:16 - CONCLUSION: No evidence of pulmonary embolism. Some areas of consolidation in both lung bases increased since the sixth. Possibly developing pneumonia. Kwadwo A. Sevigny, MD Objective Remarks GENERAL: This is a well-nourished, well-developed patient, NAD. SKIN: Warm and dry. HEENT: Normocephalic. Pupils equal round and reactive. Nose without bleeding. Airway patent. NECK: Trachea midline. No JVD. Supple. CARDIOVASCULAR: Tachycardic without murmurs, gallops, or rubs. RESPIRATORY: No rales, or rhonchi. Poor air movement. GASTROINTESTINAL: Abdomen soft, non-tender, nondistended. Bowel Sounds normoactive x4. MUSCULOSKELETAL: Extremities without clubbing, cyanosis. TR edema noted. NEUROLOGICAL: Awake and alert. Oriented to time, place, person. No focal neuro deficit. Moves all extremities. Normal speech. PSYCH: Mood and affect appropriate. Medications and IVs Current Medications Medications (Trade) Dose Ordered Sig/Nilda Route Start Time Stop Time Status Last Admin (NS Flush) 2 ml BID IV FLUSH 04/06/17 21:00 04/11/17 09:28 (NS Flush) 2 ml UNSCH PRN IV FLUSH 04/06/17 19:15 (Albuterol Neb) 2.5 mg Q2HR NEB PRN INH 04/06/17 19:15 04/11/17 09:47 (Heparin Inj) 5,000 units Q12H SQ 04/06/17 21:00 04/11/17 09:29 (Symbicort 160-4.5 Inh) 2 puff Q12HR INH 04/06/17 21:00 04/11/17 09:30 (Synthroid) 88 mcg DAILY@0600 PO 04/07/17 06:00 04/11/17 05:41 Pharmacy Profile Note 0 ml @ 0 mls/hr UNSCH OTHER 04/06/17 22:00 Piperacillin Sod/ Tazobactam Sod 100 ml @ 200 mls/hr Q6H IV 04/07/17 00:00 04/11/17 05:38 (Singulair) 10 mg HS PO 04/07/17 21:00 04/10/17 21:14 (Protonix) 20 mg DAILY PO 04/07/17 09:30 04/12/17 09:29 04/11/17 09:28 (Ativan) 0.5 mg HS PRN PO 04/07/17 09:30 04/10/17 21:12 (Tylenol) 650 mg Q4H PRN PO 04/07/17 15:15 04/10/17 08:35 (Roxicodone) 5 mg Q6H PRN PO 04/07/17 17:45 04/07/17 18:01 (Tayler-Colace) 1 tab BID PO 04/08/17 12:30 04/08/17 21:44 Vancomycin HCl 1250 mg/Sodium Chloride 262.5 ml @ 250 mls/hr Q12H IV 04/08/17 23:00 04/10/17 22:43 (Deltasone) 40 mg DAILY PO 04/10/17 09:00 04/11/17 09:28 (Robitussin Ac 200-20 Mg/10 ml Liq) 10 ml Q4H PRN PO 04/10/17 12:00 04/11/17 09:35 Miscellaneous Information SPECIFIC LAB TO BE DRAWN:VANCO TROUGH DATE... ONCE ONCE .XX 04/11/17 10:45 04/11/17 10:46 A/P Problem List: (1) COPD exacerbation ICD Code: J44.1 - Chronic obstructive pulmonary disease with (acute) exacerbation Status: Acute (2) Hypoxemia ICD Code: R09.02 - Hypoxemia Status: Acute (3) Pneumonia ICD Code: J18.9 - Pneumonia, unspecified organism Status: Acute Assessment and Plan HCAP/ Sepsis/ COPD exacerbation Patient meeting SIRS, sepsis criteria, came with tachycardia, tachypnea. Chest x -ray showed 1. Changes of obstructive pulmonary disease. 2. Still minimal bibasilar airspace opacities. 3. No significant interval change. CT angio showed no evidence of pulmonary embolism; Some areas of consolidation in both lung bases; Possibly developing pneumonia. Design Verification Engineer consult appreciated. Sputum culture with normal ridge. Repeat chest x-ray with persistent bibasilar infiltrates. - Patient was given vancomycin and Zosyn in the ED. Continue IV vancomycin and Zosyn. - follow blood cultures. - DuoNeb scheduled and when necessary. O2 nasal cannula use maintain O2 sat greater than 90%. - continue Symbicort. - Continue po prednisone. - PT. C recommended. - Robitussin AC for cough. Costochondritis Secondary to constant coughing. - d/c ibuprofen and give IV Toradol. - Oxycodone as needed. - cough medications as needed. Hypothyroidism Status post thyroidectomy for Graves' disease. - Continue home dose Synthroid. Headache S/t coughing. - cough medications as needed. - Toradol. Oxycodone and Tylenol as needed. Seems resolved. Hypokalemia Secondary decreased by mouth intake. - Replete with potassium chloride and monitor. DVT prop heparin Discharge Planning Awaiting improvement in respiratory status. Anticipate d/c home with [facility] in . Aries Beltrán DO Apr 11, 2017 10:37
[2017-04-11] MEDS ORDERED: PHARMACY ORDERED LAB ONE (10:45)
[2017-04-11] MEDS ORDERED: POTASSIUM CHLORIDE 25 MEQ EFFERVESCENT TAB PO ONE (10:45)
[2017-04-11] MEDS: VANCOMYCIN INJ 1,250 MG in SODIUM CHLOR 0.9% 250 ML INJ 250 ML IV SCH (11:24)
[2017-04-11] MEDS: RESP: ALBUTEROL 2.5 MG/IPRATROPIUM 0.5 MG NEB (PRN) NEB (15:40)
--- NOTE | 2017-04-11 18:11 | HHI.PR ---
Subjective Remarks better Objective Vital Signs Date Time Temp Pulse Resp B/P (MAP) Pulse Ox O2 Delivery O2 Flow Rate FiO2 04/11/17 12:00 98.1 89 20 113/72 (86) 97 04/11/17 08:00 97.7 92 20 138/62 (87) 95 04/11/17 08:00 92 04/11/17 07:03 Nasal Cannula 4.00 Humidified 04/11/17 04:00 Nasal Cannula 4.00 Humidified 04/11/17 04:00 98.1 96 23 148/62 (90) 95 04/11/17 00:00 97.7 87 20 131/63 (85) 95 04/11/17 00:00 Nasal Cannula 4.00 Humidified 04/10/17 20:14 86 04/10/17 20:00 97.6 82 21 133/62 (85) 93 04/10/17 20:00 Nasal Cannula 4.00 Humidified 04/10/17 19:17 96 Nasal Cannula 4.00 I/O 04/10/17 04/10/17 04/10/17 04/11/17 04/11/17 04/11/17 07:00 15:00 23:00 07:00 15:00 23:00 Intake Total 1022.5 ml 1200 ml 1082.5 ml 362 ml Output Total 700 ml 650 ml Balance 322.5 ml 550 ml 1082.5 ml 362 ml Intake Oral 560 ml 1200 ml 620 ml IV Total 462.5 ml 462.5 ml 362 ml Output Urine Total 700 ml 650 ml # Voids 4 # Bowel Movements 1 3 1 Result Diagram: 04/10/17 0704 04/11/17 0650 Objective Remarks GA: nad heant: at . nc lungs: mild wheezing heart: s1, s2 abd: soft ext: no edema Neuro: no chnage no focal deficits Assessment and Plan Assessment and Plan COPD Exacerbation PNA Cont current tx plan abx oral medications cont current inhalors maybe home 1- 2 days Clifton Hernández MD Apr 11, 2017 18:11
[2017-04-11] MEDS: MONTELUKAST SODIUM 10 MG TAB PO SCH (20:49)
[2017-04-11] MEDS: LORazepam 0.5 MG TAB PO PRN (20:49)
[2017-04-12] VITALS (9 sets, daily range): BP systolic 125–146; BP diastolic 59–71; PULSE 78–97; RESP 18–22; TEMP 97.8–98.2; O2SAT 91–100
[2017-04-12] MEDS: guaiFENesin/CODEINE SYRUP 200 MG/20 MG/10 ML CUP PO PRN ×5 (01:49→21:10)
[2017-04-12] MEDS: LEVOTHYROXINE SODIUM 88 MCG TAB PO SCH (05:42)
[2017-04-12] MEDS: PIPERACIL-TAZO 4.5 GM PREMIX 100 ML IV SCH ×4 (05:42→23:08)
[2017-04-12] MEDS: RESP: ALBUTEROL 2.5 MG/3 ML NEB (PRN) INH ×3 (06:28→19:49)
[2017-04-12] MEDS: SODIUM CHLORIDE 0.9% FLUSH 10 ML FLUSH IV FLUSH SCH ×2 (07:22→21:12)
[2017-04-12] MEDS: predniSONE 20 MG TAB PO SCH (08:37)
[2017-04-12] MEDS: BUDESONIDE-FORMOTEROL 160/4.5 MCG INHALER INH SCH ×2 (08:37→21:12)
[2017-04-12] MEDS: PANTOPRAZOLE SOD 20 MG DELAYED RELEASE TAB PO SCH (08:37)
[2017-04-12] MEDS: DOCUSATE SODIUM 50 MG/SENNA 8.6 MG TAB PO SCH ×2 (08:37→21:00)
[2017-04-12] MEDS: HEPARIN SODIUM - SQ 10,000 UNITS/ML VIAL SQ SCH ×2 (08:37→21:11)
[2017-04-12] MEDS: VANCOMYCIN INJ 1,250 MG in SODIUM CHLOR 0.9% 250 ML INJ 250 ML IV SCH (13:26)
[2017-04-12] MEDS ORDERED: ALUMINUM/MAGNESIUM/SIMETH 30 ML CUP PO ONE (15:45)
[2017-04-12] MEDS ORDERED: PANTOPRAZOLE SOD 40 MG DELAYED RELEASE TAB PO ONE (15:45)
[2017-04-12] MEDS: LORazepam 0.5 MG TAB PO PRN (21:09)
[2017-04-12] MEDS: MONTELUKAST SODIUM 10 MG TAB PO SCH (21:10)
[2017-04-13] VITALS (9 sets, daily range): BP systolic 135–158; BP diastolic 61–75; PULSE 81–104; RESP 16–18; TEMP 97.3–98.3; O2SAT 94–99
[2017-04-13] MEDS: RESP: ALBUTEROL 2.5 MG/IPRATROPIUM 0.5 MG NEB (PRN) NEB ×2 (00:27→07:43)
[2017-04-13] MEDS: PIPERACIL-TAZO 4.5 GM PREMIX 100 ML IV SCH ×2 (06:00→11:18)
[2017-04-13] MEDS: LEVOTHYROXINE SODIUM 88 MCG TAB PO SCH (06:00)
[2017-04-13] MEDS: guaiFENesin/CODEINE SYRUP 200 MG/20 MG/10 ML CUP PO PRN ×2 (06:14→11:39)
[2017-04-13] MEDS: VANCOMYCIN INJ 1,250 MG in SODIUM CHLOR 0.9% 250 ML INJ 250 ML IV SCH (07:00)
[2017-04-13] MEDS: SODIUM CHLORIDE 0.9% FLUSH 10 ML FLUSH IV FLUSH SCH (07:32)
[2017-04-13] MEDS: predniSONE 20 MG TAB PO SCH (08:14)
[2017-04-13] MEDS: DOCUSATE SODIUM 50 MG/SENNA 8.6 MG TAB PO SCH (08:14)
[2017-04-13] MEDS: BUDESONIDE-FORMOTEROL 160/4.5 MCG INHALER INH SCH (08:15)
[2017-04-13] MEDS: HEPARIN SODIUM - SQ 10,000 UNITS/ML VIAL SQ SCH (08:15)
[2017-04-13] MEDS ORDERED: PANTOPRAZOLE SOD 40 MG DELAYED RELEASE TAB PO SCH (09:00)
--- NOTE | 2017-04-13 14:04 | HHI.PR ---
Subjective Remarks deferred entry - patient seen on 04/12 Patient c/o epigastric abdominal pain. Denies cp/sob at baseline Patient with good oxygen saturation on 4 liters nasal canula. Objective Vitals Vital Signs Date Time Temp Pulse Resp B/P (MAP) Pulse Ox O2 Delivery O2 Flow Rate FiO2 04/13/17 13:04 Nasal Cannula 4.00 04/13/17 12:05 98.0 104 16 141/67 (91) 98 04/13/17 08:05 98.3 81 16 135/61 (85) 99 04/13/17 07:44 95 Nasal Cannula 4.00 04/13/17 04:16 97.9 89 18 144/75 (98) 95 04/13/17 04:05 84 04/13/17 00:42 81 04/13/17 00:29 94 Nasal Cannula 4.00 04/13/17 00:00 97.3 85 18 158/69 (98) 95 04/12/17 20:22 98.0 82 19 125/59 (81) 94 04/12/17 20:00 Nasal Cannula 4.00 Humidified 04/12/17 19:37 78 04/12/17 16:56 96 Nasal Cannula 4.00 04/12/17 16:05 98.0 79 20 146/69 (94) 100 I/O 04/12/17 04/12/17 04/12/17 04/13/17 04/13/17 04/13/17 07:00 15:00 23:00 07:00 15:00 23:00 Intake Total 920 ml 820 ml 1260 ml Output Total 650 ml Balance 270 ml 820 ml 1260 ml Intake Oral 720 ml 360 ml 960 ml IV Total 200 ml 460 ml 300 ml Output Urine Total 650 ml # Voids 3 4 6 # Bowel Movements 1 1 1 Result Diagram: 04/10/17 0704 04/12/17 0637 Imaging Last Impressions Chest X-Ray 04/10/17 0000 Signed Impressions: Service Date/Time: Monday, April 10, 2017 12:16 - CONCLUSION: Persistent bibasilar infiltrates. Scar Novak MD CT Angiography 04/06/17 0000 Signed Impressions: Service Date/Time: Thursday, April 06, 2017 17:16 - CONCLUSION: No evidence of pulmonary embolism. Some areas of consolidation in both lung bases increased since the sixth. Possibly developing pneumonia. Kwadwo Mckeon MD Objective Remarks GENERAL: This is a well-nourished, well-developed patient, NAD. SKIN: Warm and dry. HEENT: Normocephalic. Pupils equal round and reactive. Nose without bleeding. Airway patent. NECK: Trachea midline. No JVD. Supple. CARDIOVASCULAR: Tachycardic without murmurs, gallops, or rubs. RESPIRATORY: No rales, or rhonchi. Poor air movement. GASTROINTESTINAL: Abdomen soft, Tender to palpation of epigastric region, nondistended. Bowel Sounds normoactive x4. MUSCULOSKELETAL: Extremities without clubbing, cyanosis. TR edema noted. NEUROLOGICAL: Awake and alert. Oriented to time, place, person. No focal neuro deficit. Moves all extremities. Normal speech. PSYCH: Mood and affect appropriate. Medications and IVs Current Medications Medications (Trade) Dose Ordered Sig/Nilda Route Start Time Stop Time Status Last Admin (NS Flush) 2 ml BID IV FLUSH 04/06/17 21:00 04/13/17 07:32 (NS Flush) 2 ml UNSCH PRN IV FLUSH 04/06/17 19:15 (Albuterol Neb) 2.5 mg Q2HR NEB PRN INH 04/06/17 19:15 04/12/17 19:49 (Heparin Inj) 5,000 units Q12H SQ 04/06/17 21:00 04/13/17 08:15 (Symbicort 160-4.5 Inh) 2 puff Q12HR INH 04/06/17 21:00 04/13/17 08:15 (Synthroid) 88 mcg DAILY@0600 PO 04/07/17 06:00 04/13/17 06:00 Pharmacy Profile Note 0 ml @ 0 mls/hr UNSCH OTHER 04/06/17 22:00 Piperacillin Sod/ Tazobactam Sod 100 ml @ 200 mls/hr Q6H IV 04/07/17 00:00 04/13/17 11:18 (Singulair) 10 mg HS PO 04/07/17 21:00 04/12/17 21:10 (Ativan) 0.5 mg HS PRN PO 04/07/17 09:30 04/12/17 21:09 (Tylenol) 650 mg Q4H PRN PO 04/07/17 15:15 04/10/17 08:35 (Roxicodone) 5 mg Q6H PRN PO 04/07/17 17:45 04/13/17 01:19 (Tayler-Colace) 1 tab BID PO 04/08/17 12:30 04/13/17 08:14 (Deltasone) 40 mg DAILY PO 04/10/17 09:00 04/13/17 08:14 (Robitussin Ac 200-20 Mg/10 ml Liq) 10 ml Q4H PRN PO 04/10/17 12:00 04/13/17 11:39 (Duoneb Neb) 1 ampule Q2HR NEB PRN NEB 04/11/17 10:30 04/13/17 07:43 Vancomycin HCl 1250 mg/Sodium Chloride 262.5 ml @ 250 mls/hr Q18H IV 04/12/17 13:00 04/13/17 07:00 Miscellaneous Information SPECIFIC LAB TO BE DRAWN:VANCOMYCIN TROUGH DATE TO... ONCE ONCE .XX 04/14/17 18:45 04/14/17 18:46 (Protonix) 40 mg DAILY PO 04/13/17 09:00 04/13/17 08:15 A/P Problem List: (1) COPD exacerbation ICD Code: J44.1 - Chronic obstructive pulmonary disease with (acute) exacerbation Status: Resolved (2) Hypoxemia ICD Code: R09.02 - Hypoxemia Status: Chronic (3) HCAP (healthcare-associated pneumonia) ICD Code: J18.9 - Pneumonia, unspecified organism Status: Acute (4) Sepsis ICD Code: A41.9 - Sepsis, unspecified organism Status: Resolved (5) Acute respiratory failure ICD Code: J96.00 - Acute respiratory failure, unspecified whether with hypoxia or hypercapnia Status: Resolved (6) Chronic respiratory failure ICD Code: J96.10 - Chronic respiratory failure, unspecified whether with hypoxia or hypercapnia Status: Chronic Assessment and Plan HCAP/ Sepsis/ COPD exacerbation Patient meeting SIRS, sepsis criteria, came with tachycardia, tachypnea. Chest x -ray showed 1. Changes of obstructive pulmonary disease. 2. Still minimal bibasilar airspace opacities. 3. No significant interval change. CT angio showed no evidence of pulmonary embolism; Some areas of consolidation in both lung bases; Possibly developing pneumonia. Locksmith consult appreciated. Sputum culture with normal ridge. Repeat chest x-ray with persistent bibasilar infiltrates. - Patient was given vancomycin and Zosyn in the ED. Continue IV vancomycin and Zosyn. - follow blood cultures negative to date - DuoNeb scheduled and when necessary. O2 nasal cannula use maintain O2 sat greater than 90%. - continue Symbicort. - Continue po prednisone. - PT. HHC recommended. - Robitussin AC for cough. Costochondritis Secondary to constant coughing. - d/c ibuprofen and give IV Toradol. - Oxycodone as needed. - cough medications as needed. Hypothyroidism Status post thyroidectomy for Graves' disease. - Continue home dose Synthroid. Headache S/t coughing. - cough medications as needed. - Toradol. Oxycodone and Tylenol as needed. Seems resolved. Hypokalemia Secondary decreased by mouth intake. - Replete with potassium chloride and monitor. - Resolved Epigastric pain Suspect gastritis/GERD. Will start patient on protonix orally and give Maalox as needed. Discharge Planning Possible DC in am if improvement on abdominal pain. Mk Johnson MD Apr 13, 2017 14:04
[2017-04-13] MEDS ORDERED: MONT10TA4 PO (14:10)
[2017-04-13] MEDS ORDERED: SYMB160A INH (14:10)
[2017-04-13] MEDS ORDERED: PANT40TA3 PO (14:10)
[2017-04-13] MEDS ORDERED: SYNT88TA PO (14:10)
[2017-04-13] MEDS ORDERED: PRED20 PO (14:10)
[2017-04-13] MEDS ORDERED: ALBU0.08 NEB (14:10)
--- NOTE | 2017-04-13 14:10 | HHI.DCPOC ---
Discharge Care Plan Diagnosis: (1) Pneumonia (2) Acute respiratory failure (3) Chronic respiratory failure (4) Hypoxemia (5) Sepsis (6) COPD exacerbation (7) HCAP (healthcare-associated pneumonia) Goals to Promote Your Health * To prevent worsening of your condition and complications * To maintain your health at the optimal level Directions to Meet Your Goals Take your medications as prescribed Follow your dietary instruction Follow activity as directed Keep your appointments as scheduled Take your immunizations and boosters as scheduled If your symptoms worsen call your PCP, if no PCP go to Urgent Care Center or Emergency Room Smoking is Dangerous to Your Health. Avoid second hand smoke Call the 24-hour hour crisis hotline for domestic abuse at Mk Johnson MD Apr 13, 2017 14:10
--- NOTE | 2017-04-13 14:15 | HHI.DS ---
Discharge Summary Admission Date Apr 06, 2017 at 18:45 Discharge Date: Apr 13, 2017 Admitting Diagnosis Pneumonia, COPD exacerbation. (1) COPD exacerbation ICD Code: J44.1 - Chronic obstructive pulmonary disease with (acute) exacerbation Status: Resolved (2) Hypoxemia ICD Code: R09.02 - Hypoxemia Status: Chronic (3) HCAP (healthcare-associated pneumonia) ICD Code: J18.9 - Pneumonia, unspecified organism Status: Acute (4) Sepsis ICD Code: A41.9 - Sepsis, unspecified organism Status: Resolved (5) Acute respiratory failure ICD Code: J96.00 - Acute respiratory failure, unspecified whether with hypoxia or hypercapnia Status: Resolved (6) Chronic respiratory failure ICD Code: J96.10 - Chronic respiratory failure, unspecified whether with hypoxia or hypercapnia Status: Chronic Brief History - From Admission 66-year-old female with a past medical history of COPD, recently hospitalized for community-acquired pneumonia, hypothyroidism and hyperlipidemia presents to the emergency department with a chief complaint of shortness of breath and cough. She states she has been having difficulty breathing for several days now with subjective fever and chills. She has a productive cough that has worsened over the past 3 days. Patient was found to be hypoxic on arrival to the emergency department with a pulse ox of 80. ABG 7.42/53/96/34 on nonrebreather. She was tachycardic to 121. Chest x-ray remains unchanged from 03/21. CT angiography showed areas of consolidation in both lung bases that has increased since 03/21. No leukocytosis. Lactic acid 1.2. CBC/BMP: 04/10/17 0704 04/12/17 0637 Significant Findings Laboratory Tests Test 04/11/17 06:50 04/11/17 11:05 04/12/17 06:37 Calcium Level 8.2 MG/DL (8.5-10.1) Carbon Dioxide Level 38.5 MEQ/L (21.0-32.0) Estimat Glomerular Filtration Rate 65 ML/MIN (>89) 68 ML/MIN (>89) Vancomycin Level Trough 26.0 MCG/ML (5.0-10.0) Imaging Last Impressions Chest X-Ray 04/10/17 0000 Signed Impressions: Service Date/Time: Monday, April 10, 2017 12:16 - CONCLUSION: Persistent bibasilar infiltrates. Scar Novak MD CT Angiography 04/06/17 0000 Signed Impressions: Service Date/Time: Thursday, April 06, 2017 17:16 - CONCLUSION: No evidence of pulmonary embolism. Some areas of consolidation in both lung bases increased since the sixth. Possibly developing pneumonia. Kwadwo Mckeon MD PE at Discharge GENERAL: This is a well-nourished, well-developed patient, NAD. SKIN: Warm and dry. HEENT: Normocephalic. Pupils equal round and reactive. Nose without bleeding. Airway patent. NECK: Trachea midline. No JVD. Supple. CARDIOVASCULAR: Tachycardic without murmurs, gallops, or rubs. RESPIRATORY: No rales, or rhonchi. Poor air movement. GASTROINTESTINAL: Abdomen soft, Tender to palpation of epigastric region, nondistended. Bowel Sounds normoactive x4. MUSCULOSKELETAL: Extremities without clubbing, cyanosis. TR edema noted. NEUROLOGICAL: Awake and alert. Oriented to time, place, person. No focal neuro deficit. Moves all extremities. Normal speech. PSYCH: Mood and affect appropriate. Pt Condition on Discharge: Stable Discharge Disposition: Disch w/ Home Health Serv Discharge Time: > 30 minutes Discharge Instructions DIET: Follow Instructions for: As Tolerated, No Restrictions Activities you can perform: Regular-No Restrictions Activities to Avoid: Prolonged Standing, Strenuous Activity Follow up Referrals: Gastroenterology - 2 Weeks with Gabby Zabala MD PCP Follow-up - 1 Week New Medications: Prednisone (Prednisone) 20 Mg Tab 10 MG PO DAILY for Shortness of Breath, #23 TAB 0 Refills Take 40mg daily for 3 days, 20mg daily for 3 days, 10mg daily for 3 days, 5 mg daily for 3 days, then stop. Pantoprazole (Pantoprazole) 40 Mg Tab 40 MG PO DAILY for GERD, #31 TAB Continued Medications: Albuterol Neb (Albuterol Neb) 2.5 Mg/3 Ml Neb 2.5 MG NEB Q4HR NEB for Breathing Treatment, #60 NEBULE 0 Refills (This prescription has been renewed) While awake Alprazolam (Xanax) 0.25 Mg Tab 0.25 MG PO Q12HR PRN for ANXIETY, #6 TAB 0 Refills Budesonide-Formoterol Inh (Symbicort Inh) 160-4.5 Mcg/Act Aero 2 PUFF INH Q12HR for Shortness of Breath, #60 INHALER (This prescription has been renewed) Levothyroxine (Synthroid) 88 Mcg Tab 88 MCG PO DAILY for Thyroid, #30 TAB 0 Refills (This prescription has been renewed) Montelukast (Montelukast) 10 Mg Tab 10 MG PO HS for Shortness of Breath, #30 TAB 0 Refills (This prescription has been renewed) Mk Johnson MD Apr 13, 2017 14:15
[2017-04-13] MEDS ORDERED: LEVA750T9 PO (16:30)
--- NOTE | 2017-04-13 16:31 | HHI.FF ---
Face to Face Verification Diagnosis: (1) HCAP (healthcare-associated pneumonia) (2) COPD exacerbation (3) Hypoxemia (4) Chronic respiratory failure Physical Therapy Order: Improve ambulation, Strength and gait training Home Health Nursing Order: Signs/symptoms of disease process Oxygen administration education Nursing assessment with vital signs I have seen patient [facility] on 04/13/17. My clinical findings support the need for the requested home health care services because: Patient has SOB Limited ability to care for self Infection w/ risk of complications I certify that my clinical findings support that this patient is homebound because: Hx COPD- exertion dyspnea/weakness Unsafe to leave home unassisted Need for psychosocial assistance Unable to use public transportation Mk Johnson MD Apr 13, 2017 16:31
[2017-04-14] MEDS ORDERED: PHARMACY ORDERED LAB ONE (18:45)
== END 2017-04-13 17:39 | disposition home health service (06) | DRG 871 ==
LOC: NEPE 15:22 → NEDA 18:45 → N04B 20:50
PROVIDERS: ADMIT Hospitalist; ATTEND Hospitalist
DX: A41.9 Sepsis, unspecified organism (principal); J18.9 Pneumonia, unspecified organism; J96.21 Acute and chronic respiratory failure with hypoxia; J44.0 Chronic obstructive pulmonary disease with (acute) lower respiratory infection; J44.1 Chronic obstructive pulmonary disease with (acute) exacerbation; Y95 Nosocomial condition; R00.0 Tachycardia, unspecified; E89.0 Postprocedural hypothyroidism; F41.0 Panic disorder [episodic paroxysmal anxiety]; E87.6 Hypokalemia; E78.5 Hyperlipidemia, unspecified; M94.0 Chondrocostal junction syndrome [Tietze]; M19.90 Unspecified osteoarthritis, unspecified site; K21.9 Gastro-esophageal reflux disease without esophagitis; R51 Headache; Z87.891 Personal history of nicotine dependence; Z99.81 Dependence on supplemental oxygen
CPT/HCPCS: 71010; 71275; 80048; 80053; 80202; 81001; 82550; 82565; 82805; 83605; 83690; 83735; 84100; 84484; 85025; 85027; 85610; 85730; 87040; 87070; 87205; 93005; 94150; 94640; 94664; 96374; J1644; J1885; J2543; J2920; J2930; J3370; J7030; J7050; J7512; J7613; Q9967

== ENCOUNTER 2017-04-25 16:23 | Emergency (ER) | payer MEDICARE ==
[~2017-04-25] VITALS: Ht 162.6 cm; Wt 77.3 kg
[~2017-04-25 16:23] MED LIST changes: -CEFU1TAB20 PO; +LEVA750T9 PO; +PANT40TA3 PO; +PRED20 PO; -PRED5TAB PO; -ZITH250T PO
[2017-04-25 17:04] VITALS: BP 153/83; PULSE 102; RESP 16; TEMP 98.9; O2SAT 95
[2017-04-25 17:09] VITALS: BP 149/75; PULSE 104; RESP 16; TEMP 98.9; O2SAT 96
[2017-04-25 17:32] VITALS: BP 153/83; PULSE 100; RESP 16; O2SAT 96
--- NOTE | 2017-04-25 17:39 | RADRPT ---
EXAM DATE/TIME: 04/25/2017 17:30 [facility] COMPARISON: CHEST SINGLE AP, April 10, 2017, 12:16. INDICATIONS : Short of breath. MEDICAL HISTORY : Chronic obstructive pulmonary disease. SURGICAL HISTORY : Thyroidectomy. ENCOUNTER: Initial ACUITY: 3 days PAIN SCORE: 0/10 LOCATION: Bilateral chest FINDINGS: Lungs are hyperinflated. Chronic appearing interstitial prominence remains evident in both bases. Emp hysematous changes are seen in the mid and upper lung faye. Heart and mediastinal structures are stable. There is no evidence of consolidating airspace disease or significant pleural fluid accumulation. CONCLUSION: Advanced COPD. No evidence of consolidating airspace disease, pulmonary edema or pleural effusions. Nestor Abdi MD on April 25, 2017 at 17:35 Board Certified Radiologist. This report was verified electronically.
--- NOTE | 2017-04-25 17:43 | PD ---
HPI Chief Complaint: Respiratory Symptoms Time Seen by Provider: 17:07 Travel History International Travel<30 days: No Contact w/Intl Traveler<30days: No Traveled to known affect area: No History of Present Illness HPI 66-year-old female presents to the emergency department for evaluation of shortness of breath 4 days. Patient is on supplement oxygen at home at 3-4 L. Patient is a history of COPD. Patient states she feels like she is having a panic attack. Patient states she was recently taken off of her Xanax. Patient states she does have a productive cough. Patient states she had chest pain earlier today when she was feeling anxious and short of breath. Patient was recently treated for pneumonia at our facility. Patient denies any fever, chills, malaise. Patient denies any abdominal pain, nausea, vomiting, diarrhea. PFSH Past Medical History Arthritis: Yes Asthma: No Autoimmune Disease: No Anxiety: Yes Depression: No Heart Rhythm Problems: No Cancer: No Cardiovascular Problems: No High Cholesterol: No Chemotherapy: No Chest Pain: No Congestive Heart Failure: No COPD: Yes Cerebrovascular Accident: No Coronary Artery Disease: No Diabetes: No Diminished Hearing: No Endocrine: Yes Gastrointestinal Disorders: Yes GERD: No Genitourinary: Yes Headaches: Yes Hiatal Hernia: No Immune Disorder: No Kidney Stones: Yes (1988) Musculoskeletal: Yes Neurologic: Yes Psychiatric: Yes Reproductive: No Respiratory: Yes (COPD) Migraines: No Radiation Therapy: No Renal Failure: No Sickle Cell Disease: No Sleep Apnea: No Thyroid Disease: Yes (removed in ) Ulcer: No Tetanus Vaccination: < 5 Years ?: Not : 3 Para: 2 Miscarriage: 1 Past Surgical History Abdominal Surgery: Yes (gallbladder ) Cardiac Surgery: No Cholecystectomy: Yes Ear Surgery: No Endocrine Surgery: Yes (thyroidectomy) Eye Surgery: No Genitourinary Surgery: No Gynecologic Surgery: No Oral Surgery: No Thoracic Surgery: No Tonsillectomy: Yes Other Surgery: Yes Social History Alcohol Use: No Tobacco Use: No Substance Use: No Allergies-Medications (Allergen,Severity, Reaction): Coded Allergies: No Known Allergies (Verified Adverse Reaction, Unknown, 04/25/17) Reported Meds & Prescriptions Reported Meds & Active Scripts Active Synthroid (Levothyroxine Sodium) 88 Mcg Tab 88 Mcg PO DAILY Ventolin Hfa 18 GM Inh (Albuterol Sulfate) 90 Mcg/Act Aer 2 Puff INH Q4-6H PRN Prednisone 20 Mg Tab 10 Mg PO DAILY Take 40mg daily for 3 days, 20mg daily for 3 days, 10mg daily for 3 days, 5 mg daily for 3 days, then stop. Pantoprazole (Pantoprazole Sodium) 40 Mg Tab 40 Mg PO DAILY Symbicort Inh (Budesonide/Formoterol Fumarate) 160-4.5 Mcg/Act Aero 2 Puff INH Q12HR Albuterol Neb (Albuterol Sulfate) 2.5 Mg/3 Ml Neb 2.5 Mg NEB Q4HR NEB While awake Montelukast (Montelukast Sodium) 10 Mg Tab 10 Mg PO HS Synthroid (Levothyroxine Sodium) 88 Mcg Tab 88 Mcg PO DAILY Review of Systems Except as stated in HPI: all other systems reviewed are Neg Physical Exam Narrative GENERAL: Well-nourished, well-developed 66-year-old female patient that is resting comfortably in bed with supplemental oxygen in place, no acute distress. SKIN: Focused skin assessment warm/dry. HEAD: Normocephalic. Atraumatic. EYES: No scleral icterus. No injection or drainage. NECK: Supple, trachea midline. No JVD or lymphadenopathy. CARDIOVASCULAR: Regular rate and rhythm without murmurs, gallops, or rubs. RESPIRATORY: Breath sounds equal bilaterally, decreased in bilateral bases. No accessory muscle use. GASTROINTESTINAL: Abdomen soft, non-tender, nondistended. MUSCULOSKELETAL: No obvious deformity, ecchymosis, erythema, cyanosis, or edema. BACK: Nontender without obvious deformity. No CVA tenderness. Data Data Last Documented VS Vital Signs Date Time Temp Pulse Resp B/P (MAP) Pulse Ox O2 Delivery O2 Flow Rate FiO2 04/25/17 20:40 100 22 140/76 (97) 98 Nasal Cannula 4.00 04/25/17 17:09 98.9 Orders Orders Complete Blood Count With Diff (04/25/17 17:18) Comprehensive Metabolic Panel (04/25/17 17:18) B-Type Natriuretic Peptide (04/25/17 17:18) Act Partial Throm Time (Ptt) (04/25/17 17:18) Prothrombin Time / Inr (Pt) (04/25/17 17:18) Ckmb (Isoenzyme) Profile (04/25/17 17:18) Troponin I (04/25/17 17:18) Urinalysis - C+S If Indicated (04/25/17 17:18) Influenzae A/B Antigen (04/25/17 17:18) Blood Culture (04/25/17 17:18) Iv Access Insert/Monitor (04/25/17 17:18) Electrocardiogram (04/25/17 17:18) Ecg Monitoring (04/25/17 17:18) Oximetry (04/25/17 17:18) Oxygen Administration (04/25/17 17:18) Chest, Single Ap (04/25/17 17:18) Lactic Acid (04/25/17 18:53) Ed Discharge Order (04/25/17 21:40) Labs Laboratory Tests Test 04/25/17 18:30 04/25/17 18:50 White Blood Count 7.1 TH/MM3 Red Blood Count 3.86 MIL/MM3 Hemoglobin 12.7 GM/DL Hematocrit 35.7 % Mean Corpuscular Volume 92.4 FL Mean Corpuscular Hemoglobin 32.9 PG Mean Corpuscular Hemoglobin Concent 35.6 % Red Cell Distribution Width 14.2 % Platelet Count 198 TH/MM3 Mean Platelet Volume 9.0 FL Neutrophils (%) (Auto) 92.8 % Lymphocytes (%) (Auto) 4.2 % Monocytes (%) (Auto) 1.7 % Eosinophils (%) (Auto) 0.6 % Basophils (%) (Auto) 0.7 % Neutrophils # (Auto) 6.6 TH/MM3 Lymphocytes # (Auto) 0.3 TH/MM3 Monocytes # (Auto) 0.1 TH/MM3 Eosinophils # (Auto) 0.0 TH/MM3 Basophils # (Auto) 0.1 TH/MM3 CBC Comment DIFF FINAL Differential Comment Prothrombin Time 10.4 SEC Prothromb Time International Ratio 1.0 RATIO Activated Partial Thromboplast Time 25.9 SEC Blood Urea Nitrogen 7 MG/DL Creatinine 0.50 MG/DL Random Glucose 120 MG/DL Total Protein 7.3 GM/DL Albumin 3.6 GM/DL Calcium Level 8.9 MG/DL Alkaline Phosphatase 90 U/L Aspartate Amino Transf (AST/SGOT) 13 U/L Alanine Aminotransferase (ALT/SGPT) 13 U/L Total Bilirubin 0.6 MG/DL Sodium Level 138 MEQ/L Potassium Level 3.5 MEQ/L Chloride Level 98 MEQ/L Carbon Dioxide Level 32.6 MEQ/L Anion Gap 7 MEQ/L Estimat Glomerular Filtration Rate 123 ML/MIN Total Creatine Kinase 36 U/L Troponin I LESS THAN 0.02 NG/ML B-Type Natriuretic Peptide 54 PG/ML Lactic Acid Level 1.3 mmol/L [facility] Medical Decision Making Medical Screen Exam Complete: Yes Emergency Medical Condition: Yes Differential Diagnosis Differential diagnoses include but not limited to pneumonia, URI, COPD exacerbation Narrative Course Patient placed on the monitor, IV obtained, blood work sent to the lab, CBC, CMP , BMP, PT/INR, troponin, influenza, blood cultures ordered and pending. EKG ordered and pending. Chest x-ray ordered and pending. Blood work shows no acute abnormalities. Influenza negative. Patient is on 3-4 L nasal cannula continuously. She has a major medical history of COPD. Patient has not had any coughing episodes and has not been noted to cough during her entire emergency department stay. Based on patient's symptoms, clinical presentation, lab results, radiological results, vital sign review and physical exam it is not necessary to admit the patient to the hospital or keep the patient in the emergency department for further evaluation. Patient will be discharged home. Patient is requesting Xanax or Ativan prescription. Patient is referred to primary care for those medications. Patient requests additional albuterol inhaler and her usual dose of Synthroid prescription. Patient given those prescriptions. Laboratory Tests Test 04/25/17 18:30 04/25/17 18:50 White Blood Count 7.1 TH/MM3 Red Blood Count 3.86 MIL/MM3 Hemoglobin 12.7 GM/DL Hematocrit 35.7 % Mean Corpuscular Volume 92.4 FL Mean Corpuscular Hemoglobin 32.9 PG Mean Corpuscular Hemoglobin Concent 35.6 % Red Cell Distribution Width 14.2 % Platelet Count 198 TH/MM3 Mean Platelet Volume 9.0 FL Neutrophils (%) (Auto) 92.8 % Lymphocytes (%) (Auto) 4.2 % Monocytes (%) (Auto) 1.7 % Eosinophils (%) (Auto) 0.6 % Basophils (%) (Auto) 0.7 % Neutrophils # (Auto) 6.6 TH/MM3 Lymphocytes # (Auto) 0.3 TH/MM3 Monocytes # (Auto) 0.1 TH/MM3 Eosinophils # (Auto) 0.0 TH/MM3 Basophils # (Auto) 0.1 TH/MM3 CBC Comment DIFF FINAL Differential Comment Prothrombin Time 10.4 SEC Prothromb Time International Ratio 1.0 RATIO Activated Partial Thromboplast Time 25.9 SEC Blood Urea Nitrogen 7 MG/DL Creatinine 0.50 MG/DL Random Glucose 120 MG/DL Total Protein 7.3 GM/DL Albumin 3.6 GM/DL Calcium Level 8.9 MG/DL Alkaline Phosphatase 90 U/L Aspartate Amino Transf (AST/SGOT) 13 U/L Alanine Aminotransferase (ALT/SGPT) 13 U/L Total Bilirubin 0.6 MG/DL Sodium Level 138 MEQ/L Potassium Level 3.5 MEQ/L Chloride Level 98 MEQ/L Carbon Dioxide Level 32.6 MEQ/L Anion Gap 7 MEQ/L Estimat Glomerular Filtration Rate 123 ML/MIN Total Creatine Kinase 36 U/L Troponin I LESS THAN 0.02 NG/ML B-Type Natriuretic Peptide 54 PG/ML Lactic Acid Level 1.3 mmol/L Last Impressions Chest X-Ray 04/25/17 9511 Signed Impressions: Service Date/Time: Tuesday, April 25, 2017 17:30 - CONCLUSION: Advanced COPD. No evidence of consolidating airspace disease, pulmonary edema or pleural effusions. Nestor Abdi MD Diagnosis Primary Impression: COPD exacerbation Referrals: Primary Care Physician Patient Instructions: COPD (Chronic Obstructive Pulmonary Disease) (ED), General Instructions Additional Instructions: Please return to emergency department if your symptoms return or worsen. Follow up with your primary care provider. Take medications as prescribed. Med/Other Pt SpecificInfo: Prescription(s) given Scripts Levothyroxine (Synthroid) 88 Mcg Tab 88 MCG PO DAILY for Thyroid, #14 TAB 0 Refills Prov: Ashlee,Kasandradiana JIMENES 04/25/17 Albuterol 18 GM Inh (Ventolin Hfa 18 GM Inh) 90 Mcg/Act Aer 2 PUFF INH Q4-6H Y for SHORTNESS OF BREATH, #1 INHALER 0 Refills Prov: Naz Rosadodiana JIMENES 04/25/17 Disposition: 01 DISCHARGE HOME Condition: Stable AshleeKasandra JIMENES Apr 25, 2017 17:43
[2017-04-25 19:12] LABS: AUTOMATED NEUTROPHIL # 6.6 TH/MM3 (1.8-7.7); BASOPHIL # 0.1 TH/MM3 (0-0.2); BASOPHIL % 0.7 % (0.0-2.0); EOSINOPHIL % 0.6 % (0.0-4.0); HEMATOCRIT 35.7 % (35.0-46.0); HEMO FLAGS DIFF FINAL; LYMPH % 4.2 % (9.0-44.0); LYMPHOCYTE # 0.3 TH/MM3 (1.0-4.8); MEAN CELL VOLUME 92.4 FL (80.0-100.0); MEAN CORPUSCULAR HEMOGLOBIN 32.9 PG (27.0-34.0); MEAN CORPUSCULAR HGB CONC 35.6 % (32.0-36.0); MONO % 1.7 % (0.0-8.0); NEUT % 92.8 % (16.0-70.0); PLATELET COUNT 198 TH/MM3 (150-450); RED BLOOD COUNT 3.86 MIL/MM3 (4.00-5.30); RED CELL DISTRIBUTION WIDTH 14.2 % (11.6-17.2); WHITE BLOOD COUNT 7.1 TH/MM3 (4.0-11.0)
[2017-04-25 19:25] LABS: ANION GAP 7 MEQ/L (5-15); AST (GOT) 13 U/L (15-37); BICARBONATE 32.6 MEQ/L (21.0-32.0); BLOOD UREA NITROGEN 7 MG/DL (7-18); CHLORIDE 98 MEQ/L (98-107); GLOMERULAR FILTRATION RATE 123 ML/MIN (>89); POTASSIUM 3.5 MEQ/L (3.5-5.1); SODIUM (NA) 138 MEQ/L (136-145)
[2017-04-25 19:26] LABS: ALT (GPT) 13 U/L (10-53)
[2017-04-25 19:30] LABS: ALKALINE PHOSPHATASE 90 U/L (45-117); TOTAL BILIRUBIN ADULT 0.6 MG/DL (0.2-1.0)
[2017-04-25 19:40] LABS: CREATINE KINASE 36 U/L (26-192)
[2017-04-25 19:44] LABS: APTT (PATIENT) 25.9 SEC (24.3-30.1); PROTHROMBIN TIME - PATIENT 10.4 SEC (9.8-11.6)
[2017-04-25 20:40] VITALS: BP 140/76; PULSE 100; RESP 22; O2SAT 98
[2017-04-25] MEDS ORDERED: VENTAER INH (21:35)
[2017-04-25] MEDS ORDERED: SYNT88TA PO (21:37)
--- NOTE | 2017-04-26 11:49 | EKG ---
Date Performed: 04/25/2017 Time Performed: 18:27:02 PTAGE: 66 years EKG: SINUS TACHYCARDIA WITH OCCASIONAL VENTRICULAR PREMATURE COMPLEXES ABNORMAL RHYTHM ECG Jordon red to prior tracing no significant change PREVIOUS TRACING : 04/06/2017 16.46 DOCTOR: Maximiliano Stevenson Interpretating Date/Time 04/26/2017 11:48:33
== END 2017-04-25 22:34 | disposition home or self-care (01) ==
LOC: NEPC 16:23
DX: J44.1 Chronic obstructive pulmonary disease with (acute) exacerbation (principal); Z99.81 Dependence on supplemental oxygen
CPT/HCPCS: 71010; 80053; 82550; 83605; 83880; 84484; 85025; 85610; 85730; 87040; 87804; 93005; 99285

== ENCOUNTER 2017-08-19 15:30 | Inpatient (IN) | payer MEDICARE ==
[2017-08-19] VITALS (7 sets, daily range): BP systolic 123–183; BP diastolic 65–87; PULSE 98–105; RESP 18–27; TEMP 97.9–98.1; O2SAT 63–100
[~2017-08-19] VITALS: Ht 162.6 cm; Wt 72.0 kg
[~2017-08-19 15:30] MED LIST changes: -ALPR.25 PO; -LEVA750T9 PO; +VENTAER INH
[2017-08-19] MEDS ORDERED: methylPREDNISolone SOD SUCC 125 MG/2 ML VIAL IV PUSH ONE (15:45)
[2017-08-19] MEDS ORDERED: SODIUM CHLORIDE 0.9% FLUSH 10 ML FLUSH IVF PRN (15:45)
--- NOTE | 2017-08-19 15:53 | PD ---
HPI Chief Complaint: Respiratory Distress Time Seen by Provider: 15:34 Travel History International Travel<30 days: No Contact w/Intl Traveler<30days: No Traveled to known affect area: No History of Present Illness HPI 66-year-old female with a history of emphysema on chronic oxygen use presents emergency department from home for evaluation of shortness of breath for approximately 3 weeks. According to triage, she was at SaO2 63% on room air in the waiting room and slumped over, minimally responsive. patient states that she has felt a "chest cold" and feels "tightness" in her chest in combination with nasal congestion. States she has been using her home oxygen which she says is on approximately 4 L/min but she continues to feel short of breath. Patient does say that she has been exposed to more tobacco smoke than normal which may be the cause of these symptoms. Patient says he has a history of hypothyroidism. Denies history of hypertension, hyperlipidemia. Denies any cardiac issues. Denies any other chronic medical issues. States that she is to follow Dr. clara victoria for her primary care however, she has been discharged from practice. States that she was discharged in November 2016 but does have medication for her thyroid and albuterol nebulizer medication. Says she has been previously prescribed Symbicort but says she has been unable to take it because of cost. She denies fever, chills, chest pain, abdominal pain, back pain, leg pain. PFSH Past Medical History Arthritis: Yes Asthma: No Autoimmune Disease: No Anxiety: Yes Depression: No Heart Rhythm Problems: No Cancer: No Cardiovascular Problems: No High Cholesterol: No Chemotherapy: No Chest Pain: No Congestive Heart Failure: No COPD: Yes Cerebrovascular Accident: No Coronary Artery Disease: No Diabetes: No Diminished Hearing: No Endocrine: Yes Gastrointestinal Disorders: Yes GERD: No Genitourinary: Yes Headaches: Yes Hiatal Hernia: No Immune Disorder: No Kidney Stones: Yes (1988) Musculoskeletal: Yes Neurologic: Yes Psychiatric: Yes Reproductive: No Respiratory: Yes (COPD EMPHYSEMA) Migraines: No Radiation Therapy: No Renal Failure: No Sickle Cell Disease: No Sleep Apnea: No Thyroid Disease: Yes (removed in ) Ulcer: No ?: Not : 3 Para: 2 Miscarriage: 1 Past Surgical History Abdominal Surgery: Yes (gallbladder ) Cardiac Surgery: No Cholecystectomy: Yes Ear Surgery: No Endocrine Surgery: Yes (thyroidectomy) Eye Surgery: No Genitourinary Surgery: No Gynecologic Surgery: No Oral Surgery: No Thoracic Surgery: No Tonsillectomy: Yes Other Surgery: Yes Social History Alcohol Use: No Tobacco Use: No Substance Use: No Allergies-Medications (Allergen,Severity, Reaction): Coded Allergies: No Known Allergies (Verified Adverse Reaction, Unknown, 04/25/17) Reported Meds & Prescriptions Reported Meds & Active Scripts Active Synthroid (Levothyroxine Sodium) 88 Mcg Tab 88 Mcg PO DAILY Ventolin Hfa 18 GM Inh (Albuterol Sulfate) 90 Mcg/Act Aer 2 Puff INH Q4-6H PRN Prednisone 20 Mg Tab 10 Mg PO DAILY Take 40mg daily for 3 days, 20mg daily for 3 days, 10mg daily for 3 days, 5 mg daily for 3 days, then stop. Pantoprazole (Pantoprazole Sodium) 40 Mg Tab 40 Mg PO DAILY Symbicort Inh (Budesonide/Formoterol Fumarate) 160-4.5 Mcg/Act Aero 2 Puff INH Q12HR Albuterol Neb (Albuterol Sulfate) 2.5 Mg/3 Ml Neb 2.5 Mg NEB Q4HR NEB While awake Montelukast (Montelukast Sodium) 10 Mg Tab 10 Mg PO HS Synthroid (Levothyroxine Sodium) 88 Mcg Tab 88 Mcg PO DAILY Review of Systems Except as stated in HPI: all other systems reviewed are Neg Physical Exam Narrative GENERAL: WD, WN in mild distress. SKIN: Focused skin assessment warm/dry. HEAD: Atraumatic. Normocephalic. EYES: Pupils equal and round. No scleral icterus. No injection or drainage. ENT: No nasal bleeding or discharge. Mucous membranes pink and moist. NECK: Trachea midline. No JVD. CARDIOVASCULAR: Regular rate and rhythm. No murmur appreciated. RESPIRATORY: Accessory muscle use identified. breath sounds diminished. No rales or rhonchi. GASTROINTESTINAL: Abdomen soft, non-tender, nondistended. Hepatic and splenic margins not palpable. No CVA tenderness MUSCULOSKELETAL: No obvious deformities. No clubbing. No cyanosis. No edema. Homans sign negative bilaterally NEUROLOGICAL: Awake and alert. No obvious cranial nerve deficits. Motor grossly within normal limits. Normal speech. PSYCHIATRIC: Appropriate mood and affect; insight and judgment normal. Data Data Last Documented VS Vital Signs Date Time Temp Pulse Resp B/P (MAP) Pulse Ox O2 Delivery O2 Flow Rate FiO2 08/19/17 16:04 100 Non-Rebreather 8.00 100 08/19/17 15:32 98.1 101 27 183/86 (118) Orders Orders Complete Blood Count With Diff (08/19/17 15:34) Comprehensive Metabolic Panel (08/19/17 15:34) B-Type Natriuretic Peptide (08/19/17 15:34) Act Partial Throm Time (Ptt) (08/19/17 15:34) Prothrombin Time / Inr (Pt) (08/19/17 15:34) Magnesium (Mg) (08/19/17 15:34) Ckmb (Isoenzyme) Profile (08/19/17 15:34) Troponin I (08/19/17 15:34) Arterial Blood Gas (Abg) (08/19/17 15:34) Urinalysis - C+S If Indicated (08/19/17 15:34) Blood Culture (08/19/17 15:34) Iv Access Insert/Monitor (08/19/17 15:34) Electrocardiogram (08/19/17 15:34) Ecg Monitoring (08/19/17 15:34) Oximetry (08/19/17 15:34) Oxygen Administration (08/19/17 15:34) Chest, Single Ap (08/19/17 15:34) Sodium Chloride 0.9% Flush (Ns Flush) (08/19/17 15:45) Methylprednisolone So Succ Inj (Solumedr (08/19/17 15:45) Albuterol Neb (Albuterol Neb) (08/19/17 15:45) Lactic Acid Sepsis Protocol (08/19/17 15:34) Potassium Chloride (Kcl) (08/19/17 16:45) Azithromycin Inj (Zithromax Inj) (08/19/17 17:15) Thyroid Stimulating Hormone (08/19/17 15:45) Admit Order (Ed Use Only) (08/19/17 17:47) Budeson-Formot 160-4.5 Mcg Inh (Symbicor (08/19/17 21:00) Levothyroxine (Synthroid) (08/20/17 06:00) Montelukast (Singulair) (08/19/17 21:00) Pantoprazole (Protonix) (08/20/17 09:00) Resp Incentive Spirometry (08/19/17 ) Guaifenesin Er (Mucinex Er) (08/19/17 21:00) Albuterol-Ipratropium Neb (Duoneb Neb) (08/19/17 20:00) Labs Laboratory Tests Test 08/19/17 15:45 08/19/17 16:12 White Blood Count 6.2 TH/MM3 Red Blood Count 4.37 MIL/MM3 Hemoglobin 13.6 GM/DL Hematocrit 40.7 % Mean Corpuscular Volume 93.0 FL Mean Corpuscular Hemoglobin 31.1 PG Mean Corpuscular Hemoglobin Concent 33.4 % Red Cell Distribution Width 13.5 % Platelet Count 180 TH/MM3 Mean Platelet Volume 9.6 FL Neutrophils (%) (Auto) 57.4 % Lymphocytes (%) (Auto) 23.7 % Monocytes (%) (Auto) 11.5 % Eosinophils (%) (Auto) 5.8 % Basophils (%) (Auto) 1.6 % Neutrophils # (Auto) 3.6 TH/MM3 Lymphocytes # (Auto) 1.5 TH/MM3 Monocytes # (Auto) 0.7 TH/MM3 Eosinophils # (Auto) 0.4 TH/MM3 Basophils # (Auto) 0.1 TH/MM3 CBC Comment DIFF FINAL Differential Comment Prothrombin Time 10.4 SEC Prothromb Time International Ratio 1.0 RATIO Activated Partial Thromboplast Time 27.5 SEC Blood Urea Nitrogen 6 MG/DL Creatinine 0.59 MG/DL Random Glucose 119 MG/DL Total Protein 7.4 GM/DL Albumin 3.6 GM/DL Calcium Level 8.7 MG/DL Magnesium Level 1.8 MG/DL Alkaline Phosphatase 89 U/L Aspartate Amino Transf (AST/SGOT) 15 U/L Alanine Aminotransferase (ALT/SGPT) 14 U/L Total Bilirubin 0.7 MG/DL Sodium Level 140 MEQ/L Potassium Level 3.3 MEQ/L Chloride Level 94 MEQ/L Carbon Dioxide Level 40.0 MEQ/L Anion Gap 6 MEQ/L Estimat Glomerular Filtration Rate 101 ML/MIN Lactic Acid Level 1.6 mmol/L Total Creatine Kinase 57 U/L Troponin I LESS THAN 0.02 NG/ML B-Type Natriuretic Peptide 88 PG/ML Thyroid Stimulating Hormone 3rd Gen 0.327 uIU/ML Blood Gas Puncture Site LT RADIAL Blood Gas Patient Temperature 98.6 Blood Gas HCO3 42 mmol/L Blood Gas Base Excess 15.2 mmol/L Blood Gas Oxygen Saturation 98 % Arterial Blood pH 7.34 Arterial Blood Partial Pressure CO2 79 mmHg Arterial Blood Partial Pressure O2 176 mmHG Arterial Blood Oxygen Content 17.2 Vol % Arterial Blood Carboxyhemoglobin 1.3 % Arterial Blood Methemoglobin 0.5 % Blood Gas Hemoglobin 12.3 G/DL Oxygen Delivery Device Non-Rebreathing Mask Blood Gas Liter Flow 8 L/M Blood Gas Inspired Oxygen 100 % [facility] Medical Decision Making Medical Screen Exam Complete: Yes Emergency Medical Condition: Yes Differential Diagnosis COPD exacerbation, respiratory failure, hypoxemia, chronic respiratory failure Narrative Course 66-year-old female presents emergency department for evaluation of shortness of breath that is been present for approximately 3 weeks. Patient states that she has felt some chest "tightness" and feels that she has been exposed to tobacco smoke which may have exacerbated her issue. Questionable compliance with her home oxygen. Initial SaO2 63% on RA. 100% on 15LPM. Weened down to 5LPM NRB. Labs and imaging studies ordered. Albuterol nabs 3 ordered. Patient actually feels significantly better after the oxygen and nebs. Solu-Medrol 125 mg ordered. Last Impressions Chest X-Ray 08/19/17 1534 Signed Impressions: Service Date/Time: Saturday, August 19, 2017 15:39 - CONCLUSION: 1. Possible new small infiltrate in the left costophrenic angle. 2. Possible tiny right pleural effusion. Scar Novak MD ABG performed. Appears that patient has respiratory acidosis with secondary metabolic alkalosis that is chronic however, her PCO2 is 79.4. March 2017, her PCO2 was 53. CBC & BMP Diagram 08/19/17 15:45 Total Protein 7.4, Albumin 3.6, Calcium Level 8.7, Magnesium Level 1.8, Alkaline Phosphatase 89, Aspartate Amino Transf (AST/SGOT) 15, Alanine Aminotransferase (ALT/SGPT) 14, Total Bilirubin 0.7 Azithromycin 500 mg IV administered for developing pneumonia. 20 mEq KCl for hypokalemia 4 L/min nasal cannula for chronic hypoxemia and end-stage COPD. Patient will be admitted for pneumonia, pleural effusion, hypokalemia, COPD exacerbation with hypoxemia. Diagnosis Primary Impression: Hypoxemia Additional Impressions: COPD exacerbation Hypokalemia Pneumonia Qualified Codes: J18.1 - Lobar pneumonia, unspecified organism Pleural effusion Admitting Information Admitting Physician Requests: Admit Condition: Stable Angela Pearce Aug 19, 2017 15:53
[2017-08-19] MEDS: RESP: ALBUTEROL 2.5 MG/3 ML NEB (SCH) INH (16:04)
--- NOTE | 2017-08-19 16:06 | RADRPT ---
EXAM DATE/TIME: 08/19/2017 15:39 [facility] COMPARISON: CHEST SINGLE AP, April 25, 2017, 17:30. INDICATIONS : Short of breath. MEDICAL HISTORY : Chronic obstructive pulmonary disease. SURGICAL HISTORY : thyroidectomy. ENCOUNTER: Initial ACUITY: 1 day PAIN SCORE: 0/10 LOCATION: Bilateral chest FINDINGS: Mild prominence of interstitial markings at both lung bases, similar to prior. There is a focal opac ity in the left costophrenic angle which is a new finding from prior. Minimal blunting of the right costophrenic angle. The heart is normal in size. No evidence of pneumothorax. CONCLUSION: 1. Possible new small infiltrate in the left costophrenic angle. 2. Possible tiny right pleural effusion. Scar Novak MD on August 19, 2017 at 16:01 Board Certified Radiologist. This report was verified electronically.
[2017-08-19 16:18] LABS: AUTOMATED NEUTROPHIL # 3.6 TH/MM3 (1.8-7.7); BASOPHIL # 0.1 TH/MM3 (0-0.2); BASOPHIL % 1.6 % (0.0-2.0); EOSINOPHIL # 0.4 TH/MM3 (0-0.4); EOSINOPHIL % 5.8 % (0.0-4.0); HEMATOCRIT 40.7 % (35.0-46.0); HEMOGLOBIN 13.6 GM/DL (11.6-15.3); LYMPH % 23.7 % (9.0-44.0); LYMPHOCYTE # 1.5 TH/MM3 (1.0-4.8); MEAN CORPUSCULAR HEMOGLOBIN 31.1 PG (27.0-34.0); MEAN CORPUSCULAR HGB CONC 33.4 % (32.0-36.0); MEAN PLATELET VOLUME 9.6 FL (7.0-11.0); MONO % 11.5 % (0.0-8.0); MONOCYTE # 0.7 TH/MM3 (0-0.9); NEUT % 57.4 % (16.0-70.0); PLATELET COUNT 180 TH/MM3 (150-450); RED BLOOD COUNT 4.37 MIL/MM3 (4.00-5.30); RED CELL DISTRIBUTION WIDTH 13.5 % (11.6-17.2); WHITE BLOOD COUNT 6.2 TH/MM3 (4.0-11.0)
[2017-08-19 16:28] LABS: ALBUMIN 3.6 GM/DL (3.4-5.0); AST (GOT) 15 U/L (15-37); BLOOD UREA NITROGEN 6 MG/DL (7-18); CALCIUM 8.7 MG/DL (8.5-10.1); CHLORIDE 94 MEQ/L (98-107); CREATININE 0.59 MG/DL (0.50-1.00); GLOMERULAR FILTRATION RATE 101 ML/MIN (>89); GLUCOSE,RANDOM 119 MG/DL (74-106); MAGNESIUM 1.8 MG/DL (1.5-2.5); SODIUM (NA) 140 MEQ/L (136-145)
[2017-08-19 16:29] LABS: ALT (GPT) 14 U/L (10-53)
[2017-08-19 16:32] LABS: PROTHROMBIN TIME - PATIENT 10.4 SEC (9.8-11.6)
[2017-08-19 16:33] LABS: ALKALINE PHOSPHATASE 89 U/L (45-117); TOTAL BILIRUBIN ADULT 0.7 MG/DL (0.2-1.0); TOTAL PROTEIN 7.4 GM/DL (6.4-8.2); TROPONIN I LESS THAN 0.02 NG/ML (0.02-0.05)
[2017-08-19] MEDS ORDERED: POTASSIUM CHLORIDE 20 MEQ CONTROLLED RELEASE TAB PO ONE ×2 (16:45→18:30)
[2017-08-19] MEDS ORDERED: AZITHROMYCIN INJ 500 MG in SODIUM CHLOR 0.9% 250 ML INJ 250 ML IV ONE (17:15)
--- NOTE | 2017-08-19 17:48 | HHI.HP ---
HPI Service [facility] Primary Care Physician Matteo Hogan MD Admission Diagnosis Diagnoses: Chief Complaint: Shortness of breath Travel History International Travel<30 Days: No Contact w/Intl Traveler <30 Da: No Traveled to Known Affected Are: No History of Present Illness This is a pleasant 66 y/o with COPD Emphysema who came to Emergency department from Home with Shortness of breath, approximately for the last three weeks, According to triage, she was at SaO2 63% on room air in the waiting room and slumped over, minimally responsive. patient states that she has felt a "chest cold" and feels "tightness" in her chest in combination with nasal congestion. States she has been using her home oxygen which she says is on approximately 4 L/min but she continues to feel short of breath. Patient does say that she has been exposed to more tobacco smoke than normal which may be the cause of these symptoms. Patient says he has a history of hypothyroidism. Denies history of hypertension, hyperlipidemia. Denies any cardiac issues. Denies any other chronic medical issues. States that she is to follow Dr. Robyn victoria for her primary care however, she has been discharged from practice. States that she was discharged in November 2016 but does have medication for her thyroid and albuterol nebulizer medication. Says she has been previously prescribed Symbicort but says she has been unable to take it because of cost. She denies fever, chills, chest pain, abdominal pain, back pain, leg pain. Seen in her bedroom in Emergency room, improved oxygen saturation. no expiratory wheezing at this time, severe decreased breath sounds. Review of Systems Constitutional: DENIES: Fever, Chills, Change in appetite Endocrine: DENIES: Heat/cold intolerance Eyes: DENIES: Blurred vision, Eye pain Respiratory: COMPLAINS OF: Shortness of breath Except as stated in HPI: all other systems reviewed are Neg Past Family Social History Past Medical History OA Anxiety disorder COPD/Emphysema Home Oxygen Urolithiasis Hypothyroidism Past Surgical History thyroidectomy 1970 cholecystectomy Tonsillectomy Reported Medications Reported Meds & Active Scripts Active Synthroid (Levothyroxine Sodium) 88 Mcg Tab 88 Mcg PO DAILY Ventolin Hfa 18 GM Inh (Albuterol Sulfate) 90 Mcg/Act Aer 2 Puff INH Q4-6H PRN Prednisone 20 Mg Tab 10 Mg PO DAILY Take 40mg daily for 3 days, 20mg daily for 3 days, 10mg daily for 3 days, 5 mg daily for 3 days, then stop. Pantoprazole (Pantoprazole Sodium) 40 Mg Tab 40 Mg PO DAILY Symbicort Inh (Budesonide/Formoterol Fumarate) 160-4.5 Mcg/Act Aero 2 Puff INH Q12HR Albuterol Neb (Albuterol Sulfate) 2.5 Mg/3 Ml Neb 2.5 Mg NEB Q4HR NEB While awake Montelukast (Montelukast Sodium) 10 Mg Tab 10 Mg PO HS Synthroid (Levothyroxine Sodium) 88 Mcg Tab 88 Mcg PO DAILY Allergies: Coded Allergies: No Known Allergies (Verified Adverse Reaction, Unknown, 04/25/17) Active Ordered Medications Current Medications Medications (Trade) Dose Ordered Sig/Nilda Route Start Time Stop Time Status Last Admin (NS Flush) 2 ml UNSCH PRN IVF 08/19/17 15:45 Azithromycin 500 mg/Sodium Chloride 250 ml @ 250 mls/hr ONCE ONCE IV 08/19/17 17:15 08/19/17 18:14 08/19/17 17:29 (Symbicort 160-4.5 Mcg Inh) 2 puff Q12HR INH 08/19/17 21:00 UNV (Synthroid) 88 mcg DAILY PO 08/20/17 09:00 UNV (Singulair) 10 mg HS PO 08/19/17 21:00 UNV (Protonix) 40 mg DAILY PO 08/20/17 09:00 UNV (Mucinex Er) 600 mg BID PO 08/19/17 21:00 UNV (Duoneb Neb) 1 ampule Q4HR NEB NEB 08/19/17 20:00 UNV Sodium Chloride 1,000 ml @ 83 mls/hr Q12H3M IV 08/19/17 17:50 UNV (NS Flush) 2 ml UNSCH PRN IV FLUSH 08/19/17 18:00 UNV (NS Flush) 2 ml BID IV FLUSH 08/19/17 21:00 UNV (Tylenol) 650 mg Q4H PRN PO 08/19/17 18:00 UNV (Zofran Inj) 4 mg Q6H PRN IVP 08/19/17 18:00 UNV (Narcan Inj) 0.4 mg UNSCH PRN IV PUSH 08/19/17 18:00 UNV (Senokot) 17.2 mg Q12H PRN PO 08/19/17 18:00 UNV (Dulcolax Supp) 10 mg DAILY PRN RECTAL 08/19/17 18:00 UNV (Lactulose Liq) 30 ml DAILY PRN PO 08/19/17 18:00 UNV (KCl) 20 meq ONCE ONCE PO 08/19/17 18:00 08/19/17 18:01 UNV Ceftriaxone Sodium 1000 mg/ Sodium Chloride 100 ml @ 200 mls/hr Q24H IV 08/19/17 18:00 UNV Azithromycin 500 mg/Sodium Chloride 250 ml @ 250 mls/hr Q24H IV 08/20/17 17:00 UNV Family History Mother and Father with DM II Social History Lives with Daughter and Grandson smoked heavy until 3 years ago, is been exposed to Tobacco this days Denies any toxic habits. Physical Exam Vital Signs Vital Signs Date Time Temp Pulse Resp B/P (MAP) Pulse Ox O2 Delivery O2 Flow Rate FiO2 08/19/17 16:04 100 Non-Rebreather 8.00 100 08/19/17 15:42 100 Non-Rebreather 15.00 08/19/17 15:36 100 Non-Rebreather 15.00 08/19/17 15:32 98.1 101 27 183/86 (118) 63 Physical Exam GENERAL: Well developed in no acute distress. SKIN: Focused skin assessment warm/dry. HEAD: Atraumatic. Normocephalic. EYES: Pupils equal and round. No scleral icterus. No injection or drainage. ENT: No nasal bleeding or discharge. Mucous membranes pink and moist. NECK: Trachea midline. No JVD. CARDIOVASCULAR: Regular rate and rhythm. No murmur appreciated. RESPIRATORY: Severe decreased breath sounds on both lungs, no wheezing or crackles. GASTROINTESTINAL: Abdomen soft, non-tender, nondistended. MUSCULOSKELETAL: No obvious deformities. No clubbing. Edema 2+ NEUROLOGICAL: Awake and alert. No obvious cranial nerve deficits. Motor grossly within normal limits. Normal speech. PSYCHIATRIC: Appropriate mood and affect; insight and judgment normal. Laboratory Laboratory Tests Test 08/19/17 15:45 08/19/17 16:12 White Blood Count 6.2 Red Blood Count 4.37 Hemoglobin 13.6 Hematocrit 40.7 Mean Corpuscular Volume 93.0 Mean Corpuscular Hemoglobin 31.1 Mean Corpuscular Hemoglobin Concent 33.4 Red Cell Distribution Width 13.5 Platelet Count 180 Mean Platelet Volume 9.6 Neutrophils (%) (Auto) 57.4 Lymphocytes (%) (Auto) 23.7 Monocytes (%) (Auto) 11.5 Eosinophils (%) (Auto) 5.8 Basophils (%) (Auto) 1.6 Neutrophils # (Auto) 3.6 Lymphocytes # (Auto) 1.5 Monocytes # (Auto) 0.7 Eosinophils # (Auto) 0.4 Basophils # (Auto) 0.1 CBC Comment DIFF FINAL Differential Comment Prothrombin Time 10.4 Prothromb Time International Ratio 1.0 Activated Partial Thromboplast Time 27.5 Blood Urea Nitrogen 6 Creatinine 0.59 Random Glucose 119 Total Protein 7.4 Albumin 3.6 Calcium Level 8.7 Magnesium Level 1.8 Alkaline Phosphatase 89 Aspartate Amino Transf (AST/SGOT) 15 Alanine Aminotransferase (ALT/SGPT) 14 Total Bilirubin 0.7 Sodium Level 140 Potassium Level 3.3 Chloride Level 94 Carbon Dioxide Level 40.0 Anion Gap 6 Estimat Glomerular Filtration Rate 101 Lactic Acid Level 1.6 Total Creatine Kinase 57 Troponin I LESS THAN 0.02 B-Type Natriuretic Peptide 88 Thyroid Stimulating Hormone 3rd Gen 0.327 Blood Gas Puncture Site LT RADIAL Blood Gas Patient Temperature 98.6 Blood Gas HCO3 42 Blood Gas Base Excess 15.2 Blood Gas Oxygen Saturation 98 Arterial Blood pH 7.34 Arterial Blood Partial Pressure CO2 79 Arterial Blood Partial Pressure O2 176 Arterial Blood Oxygen Content 17.2 Arterial Blood Carboxyhemoglobin 1.3 Arterial Blood Methemoglobin 0.5 Blood Gas Hemoglobin 12.3 Oxygen Delivery Device Non-Rebreathing Mask Blood Gas Liter Flow 8 Blood Gas Inspired Oxygen 100 Date/Time Source Procedure Growth Status 08/19/17 15:43 Blood Peripheral Aerobic Blood Culture Pending Received 08/19/17 15:43 Blood Peripheral Anaerobic Blood Culture Pending Received Result Diagram: 08/19/17 1545 08/19/17 1545 Imaging Last Impressions Chest X-Ray 08/19/17 1534 Signed Impressions: Service Date/Time: Saturday, August 19, 2017 15:39 - CONCLUSION: 1. Possible new small infiltrate in the left costophrenic angle. 2. Possible tiny right pleural effusion. MD Lucretia Feldman VTE Risk Assessment Lucretia VTE Risk Assessment: Mod/High Risk (score >= 2) Caprini Risk Assessment Model Point Value = 1 Point Value = 2 Point Value = 3 Point Value = 5 Age 41-60 Minor surgery BMI > 25 kg/m2 Swollen legs Varicose veins or History of unexplained or recurrent spontaneous Oral contraceptives or hormone replacement Sepsis (< 1 month) Serious lung disease, including pneumonia (< 1 month) Abnormal pulmonary function Acute myocardial infarction Congestive heart failure (< 1 month) History of inflammatory bowel disease Medical patient at bed rest Age 61-74 Arthroscopic surgery Major open surgery (> 45 min) Laparoscopic surgery (> 45 min) Malignancy Confined to bed (> 72 hours) Immobilizing plaster cast Central venous access Age >= 75 History of VTE Family history of VTE Factor V Leiden Prothrombin [id number] Lupus anticoagulant Anticardiolipin antibodies Elevated serum homocysteine Heparin-induced thrombocytopenia Other congenital or acquired thrombophilia Stroke (< 1 month) Elective arthroplasty Hip, pelvis, or leg fracture Acute spinal cord injury (< 1 month) Prophylaxis Regimen Total Risk Factor Score Risk Level Prophylaxis Regimen 0-1 Low Early ambulation 2 Moderate Order ONE of the following: *Sequential Compression Device (SCD) *Heparin 5000 units SQ BID 3-4 Higher Order ONE of the following medications: *Heparin 5000 units SQ TID *Enoxaparin/Lovenox 40 mg SQ daily (WT < 150 kg, CrCl > 30 mL/min) *Enoxaparin/Lovenox 30 mg SQ daily (WT < 150 kg, CrCl > 10-29 mL/min) *Enoxaparin/Lovenox 30 mg SQ BID (WT < 150 kg, CrCl > 30 mL/min) AND/OR *Sequential Compression Device (SCD) 5 or more Highest Order ONE of the following medications: *Heparin 5000 units SQ TID (Preferred with Epidurals) *Enoxaparin/Lovenox 40 mg SQ daily (WT < 150 kg, CrCl > 30 mL/min) *Enoxaparin/Lovenox 30 mg SQ daily (WT < 150 kg, CrCl > 10-29 mL/min) *Enoxaparin/Lovenox 30 mg SQ BID (WT < 150 kg, CrCl > 30 mL/min) AND *Sequential Compression Device (SCD) Assessment and Plan Assessment and Plan 1. Respiratory Failure/Hypoxemia/Hypercapnia secondary to COPD exacerbation and Pneumonia her Oxygen Saturation on admission 63%, receiving Bronchodilators. and Solu-Medrol patient improving condition 2. COPD exacerbation initial oxygen saturation 63%, continue Bronchodilators, Mucolytic and incentive spirometry. Oxygen to keep oxygen over 92% 3. History of Heavy Tobacco dependence, stopped 3 years ago, but is been second hand smoker this days 4. Hypothyroidism to continue Hormonal replacement 5. Pneumonia continue Ceftriaxone and Azithromycin, follow blood cultures, sputum culture, legionella antigen and Pneumococcal antigen 6. Hypokalemia and Hypomagnesemia replaced and following. DVT prophylaxis with Lovenox. Code Status Full code Discussed Condition With Angela Pearce Physician Certification 2 Midnight Certification Type: Admission for Inpatient Services Order for Inpatient Services The services are ordered in accordance with Medicare regulations or non- Medicare payer requirements, as applicable. In the case of services not specified as inpatient-only, they are appropriately provided as inpatient services in accordance with the 2-midnight benchmark. Estimated LOS (days): 3 days is the estimated time the patient will need to remain in the hospital, assuming treatment plan goals are met and no additional complications. Post-Hospital Plan: Not yet determined Trung Emanuel MD Aug 19, 2017 17:48
--- NOTE | 2017-08-19 17:52 | PD ---
Physical Exam Date Seen by Provider: Aug 19, 2017 Time Seen by Provider: 17:00 Narrative I, Dr. Alexander, have reviewed the advance practice practitioner's documentation and am in agreement, met with the patient face to face, made the diagnosis, and the medical decision making was done by me. *My assessment and Findings: Patient seen and evaluated with PA, please see PA note for further details. Here with worsening shortness of breath, COPD exacerbation, hypoxia, CO2 retention was initiated on steroids, nebulizers, and is feeling improved. However, chest x-ray showing left lower lobe pneumonia. IV antibiotics were initiated the ER and plan would be to admit her for further treatment. Case is discussed with Dr. Waite for admission. Laboratory Tests Test 08/19/17 15:45 08/19/17 16:12 Monocytes (%) (Auto) 11.5 % (0.0-8.0) Eosinophils (%) (Auto) 5.8 % (0.0-4.0) Blood Urea Nitrogen 6 MG/DL (7-18) Random Glucose 119 MG/DL (74-106) Potassium Level 3.3 MEQ/L (3.5-5.1) Chloride Level 94 MEQ/L (98-107) Carbon Dioxide Level 40.0 MEQ/L (21.0-32.0) Troponin I LESS THAN 0.02 NG/ML Thyroid Stimulating Hormone 3rd Gen 0.327 uIU/ML (0.358-3.740) Blood Gas HCO3 42 mmol/L (22-26) Blood Gas Base Excess 15.2 mmol/L (-2-2) Arterial Blood pH 7.34 (7.380-7.420) Arterial Blood Partial Pressure CO2 79 mmHg (38-42) Arterial Blood Partial Pressure O2 176 mmHG (61-120) Last 24 hours Impressions Chest X-Ray 08/19/17 1534 Signed Impressions: Service Date/Time: Saturday, August 19, 2017 15:39 - CONCLUSION: 1. Possible new small infiltrate in the left costophrenic angle. 2. Possible tiny right pleural effusion. Scar Novak MD Data Data Last Documented VS Vital Signs Date Time Temp Pulse Resp B/P (MAP) Pulse Ox O2 Delivery O2 Flow Rate FiO2 08/19/17 16:04 100 Non-Rebreather 8.00 100 08/19/17 15:32 98.1 101 27 183/86 (118) Orders Orders Complete Blood Count With Diff (08/19/17 15:34) Comprehensive Metabolic Panel (08/19/17 15:34) B-Type Natriuretic Peptide (08/19/17 15:34) Act Partial Throm Time (Ptt) (08/19/17 15:34) Prothrombin Time / Inr (Pt) (08/19/17 15:34) Magnesium (Mg) (08/19/17 15:34) Ckmb (Isoenzyme) Profile (08/19/17 15:34) Troponin I (08/19/17 15:34) Arterial Blood Gas (Abg) (08/19/17 15:34) Urinalysis - C+S If Indicated (08/19/17 15:34) Blood Culture (08/19/17 15:34) Iv Access Insert/Monitor (08/19/17 15:34) Electrocardiogram (08/19/17 15:34) Ecg Monitoring (08/19/17 15:34) Oximetry (08/19/17 15:34) Oxygen Administration (08/19/17 15:34) Chest, Single Ap (08/19/17 15:34) Sodium Chloride 0.9% Flush (Ns Flush) (08/19/17 15:45) Methylprednisolone So Succ Inj (Solumedr (08/19/17 15:45) Albuterol Neb (Albuterol Neb) (08/19/17 15:45) Lactic Acid Sepsis Protocol (08/19/17 15:34) Potassium Chloride (Kcl) (08/19/17 16:45) Azithromycin Inj (Zithromax Inj) (08/19/17 17:15) Thyroid Stimulating Hormone (08/19/17 15:45) Admit Order (Ed Use Only) (08/19/17 17:47) Budeson-Formot 160-4.5 Mcg Inh (Symbicor (08/19/17 21:00) Levothyroxine (Synthroid) (08/20/17 09:00) Montelukast (Singulair) (08/19/17 21:00) Pantoprazole (Protonix) (08/20/17 09:00) Resp Incentive Spirometry (08/19/17 ) Guaifenesin Er (Mucinex Er) (08/19/17 21:00) Albuterol-Ipratropium Neb (Duoneb Neb) (08/19/17 20:00) Labs Laboratory Tests Test 08/19/17 15:45 08/19/17 16:12 White Blood Count 6.2 TH/MM3 Red Blood Count 4.37 MIL/MM3 Hemoglobin 13.6 GM/DL Hematocrit 40.7 % Mean Corpuscular Volume 93.0 FL Mean Corpuscular Hemoglobin 31.1 PG Mean Corpuscular Hemoglobin Concent 33.4 % Red Cell Distribution Width 13.5 % Platelet Count 180 TH/MM3 Mean Platelet Volume 9.6 FL Neutrophils (%) (Auto) 57.4 % Lymphocytes (%) (Auto) 23.7 % Monocytes (%) (Auto) 11.5 % Eosinophils (%) (Auto) 5.8 % Basophils (%) (Auto) 1.6 % Neutrophils # (Auto) 3.6 TH/MM3 Lymphocytes # (Auto) 1.5 TH/MM3 Monocytes # (Auto) 0.7 TH/MM3 Eosinophils # (Auto) 0.4 TH/MM3 Basophils # (Auto) 0.1 TH/MM3 CBC Comment DIFF FINAL Differential Comment Prothrombin Time 10.4 SEC Prothromb Time International Ratio 1.0 RATIO Activated Partial Thromboplast Time 27.5 SEC Blood Urea Nitrogen 6 MG/DL Creatinine 0.59 MG/DL Random Glucose 119 MG/DL Total Protein 7.4 GM/DL Albumin 3.6 GM/DL Calcium Level 8.7 MG/DL Magnesium Level 1.8 MG/DL Alkaline Phosphatase 89 U/L Aspartate Amino Transf (AST/SGOT) 15 U/L Alanine Aminotransferase (ALT/SGPT) 14 U/L Total Bilirubin 0.7 MG/DL Sodium Level 140 MEQ/L Potassium Level 3.3 MEQ/L Chloride Level 94 MEQ/L Carbon Dioxide Level 40.0 MEQ/L Anion Gap 6 MEQ/L Estimat Glomerular Filtration Rate 101 ML/MIN Lactic Acid Level 1.6 mmol/L Total Creatine Kinase 57 U/L Troponin I LESS THAN 0.02 NG/ML B-Type Natriuretic Peptide 88 PG/ML Thyroid Stimulating Hormone 3rd Gen 0.327 uIU/ML Blood Gas Puncture Site LT RADIAL Blood Gas Patient Temperature 98.6 Blood Gas HCO3 42 mmol/L Blood Gas Base Excess 15.2 mmol/L Blood Gas Oxygen Saturation 98 % Arterial Blood pH 7.34 Arterial Blood Partial Pressure CO2 79 mmHg Arterial Blood Partial Pressure O2 176 mmHG Arterial Blood Oxygen Content 17.2 Vol % Arterial Blood Carboxyhemoglobin 1.3 % Arterial Blood Methemoglobin 0.5 % Blood Gas Hemoglobin 12.3 G/DL Oxygen Delivery Device Non-Rebreathing Mask Blood Gas Liter Flow 8 L/M Blood Gas Inspired Oxygen 100 % MDM Medical Record Reviewed: Yes Supervised Visit with KELVIN: Yes Diagnosis Primary Impression: Hypoxemia Additional Impressions: Pleural effusion COPD exacerbation Pneumonia Qualified Codes: J18.1 - Lobar pneumonia, unspecified organism Hypokalemia Admitting Information Admitting Physician Requests: Admit Condition: Stable Annita Alexander MD Aug 19, 2017 17:52
[2017-08-19] MEDS ORDERED: cefTRIAXone INJ 1,000 MG in SODIUM CHLORIDE 0.9% INJ 100 ML IV SCH (18:00)
[2017-08-19] MEDS ORDERED: LACTULOSE SYRUP 20 GM/30 ML CUP PO PRN (18:00)
[2017-08-19] MEDS ORDERED: NALOXONE HCL 0.4 MG/ML AMP IV PUSH PRN (18:00)
[2017-08-19] MEDS ORDERED: BISACODYL 10 MG SUPP RECTAL PRN (18:00)
[2017-08-19] MEDS ORDERED: ONDANSETRON HCL 4 MG/2 ML VIAL IVP PRN (18:00)
[2017-08-19] MEDS ORDERED: SENNOSIDES 8.6 MG TAB PO PRN (18:00)
[2017-08-19] MEDS ORDERED: SODIUM CHLORIDE 0.9% FLUSH 10 ML FLUSH IV FLUSH PRN (18:00)
[2017-08-19] MEDS: RESP: ALBUTEROL 2.5 MG/IPRATROPIUM 0.5 MG NEB (SCH) NEB (19:19)
[2017-08-19] MEDS: SODIUM CHLOR 0.9% 1000 ML INJ 1,000 ML IV SCH (20:39)
[2017-08-19] MEDS: MAGNESIUM SULFATE 1 GM PREMIX 100 ML IV SCH ×2 (20:46→21:48)
[2017-08-19] MEDS: MONTELUKAST SODIUM 10 MG TAB PO SCH (20:47)
[2017-08-19] MEDS: ENOXAPARIN SODIUM 40 MG/0.4 ML SYRINGE SQ SCH (20:47)
[2017-08-19] MEDS: guaiFENesin E.R. 600 MG TAB PO SCH (20:47)
[2017-08-19] MEDS: SODIUM CHLORIDE 0.9% FLUSH 10 ML FLUSH IV FLUSH SCH (20:48)
[2017-08-19] MEDS: cefTRIAXone INJ 1,000 MG in SODIUM CHLORIDE 0.9% INJ 100 ML IV SCH (23:39)
[2017-08-19] MEDS: BUDESONIDE-FORMOTEROL 160/4.5 MCG INHALER INH SCH (23:39)
[2017-08-19] MEDS: methylPREDNISolone SOD SUCC 40 MG/1 ML VIAL IV PUSH SCH (23:39)
[2017-08-20] VITALS (9 sets, daily range): BP systolic 123–156; BP diastolic 63–79; PULSE 94–105; RESP 18–20; TEMP 97.4–99; O2SAT 90–95
[2017-08-20] MEDS: RESP: ALBUTEROL 2.5 MG/IPRATROPIUM 0.5 MG NEB (SCH) NEB ×6 (02:47→19:39)
[2017-08-20] MEDS: LEVOTHYROXINE SODIUM 88 MCG TAB PO SCH (06:00)
[2017-08-20] MEDS: SODIUM CHLOR 0.9% 1000 ML INJ 1,000 ML IV SCH ×2 (06:03→17:35)
[2017-08-20] MEDS: methylPREDNISolone SOD SUCC 40 MG/1 ML VIAL IV PUSH SCH ×4 (07:32→22:59)
[2017-08-20] MEDS: guaiFENesin E.R. 600 MG TAB PO SCH ×2 (08:55→21:01)
[2017-08-20] MEDS: BUDESONIDE-FORMOTEROL 160/4.5 MCG INHALER INH SCH ×2 (08:55→21:04)
[2017-08-20] MEDS: PANTOPRAZOLE SOD 40 MG DELAYED RELEASE TAB PO SCH (08:55)
[2017-08-20] MEDS: SODIUM CHLORIDE 0.9% FLUSH 10 ML FLUSH IV FLUSH SCH ×2 (08:55→23:03)
--- NOTE | 2017-08-20 08:55 | HHI.PR ---
Subjective Remarks Follow-up respiratory failure, COPD exacerbation. The patient states that she feels better than she did yesterday. She is still having significant shortness of breath with activity. Denies chest pain, nausea, vomiting. Objective Vitals Vital Signs Date Time Temp Pulse Resp B/P (MAP) Pulse Ox O2 Delivery O2 Flow Rate FiO2 08/20/17 08:00 97.9 97 18 145/65 (91) 92 08/20/17 07:44 91 Nasal Cannula 4.00 08/20/17 05:50 97.4 94 18 123/63 (83) 95 08/20/17 00:00 97.8 105 18 143/68 (93) 90 08/19/17 21:51 90 Nasal Cannula 4.00 08/19/17 21:00 97.9 105 18 123/71 (88) 92 08/19/17 19:38 102 20 149/65 (93) 99 4.00 08/19/17 19:31 103 20 180/87 (118) 99 Nasal Cannula 4.00 08/19/17 19:20 98 Nasal Cannula 4.00 08/19/17 17:54 98 24 162/72 (102) 93 Nasal Cannula 4.00 08/19/17 16:04 100 Non-Rebreather 8.00 100 08/19/17 15:42 100 Non-Rebreather 15.00 08/19/17 15:36 100 Non-Rebreather 15.00 08/19/17 15:32 98.1 101 27 183/86 (118) 63 I/O 08/19/17 08/19/17 08/19/17 08/20/17 08/20/17 08/20/17 07:00 15:00 23:00 07:00 15:00 23:00 Output Total 300 ml Balance -300 ml Output Urine Total 300 ml # Voids 1 2 Result Diagram: 08/19/17 1545 08/19/17 1545 Imaging Last Impressions Chest X-Ray 08/19/17 1534 Signed Impressions: Service Date/Time: Saturday, August 19, 2017 15:39 - CONCLUSION: 1. Possible new small infiltrate in the left costophrenic angle. 2. Possible tiny right pleural effusion. Scar Novak MD Objective Remarks General: No acute distress. Heart: Regular rate and rhythm. No murmur. Lungs: Poor air entry. No wheezes, rales, or rhonchi. Breathing is nonlabored. Abdomen: Soft, nontender, nondistended. Extremities: 1+ bilateral lower extremity edema. Psych: Alert and oriented. Procedures None Urinary Catheter: No Vascular Central Line Catheter: No A/P Assessment and Plan 1. Acute on chronic respiratory failure with hypoxemia and hypercapnia: Secondary to COPD exacerbation. Patient presented with an oxygen saturation of 63% on admission. Improving. Now on 4 L per nasal cannula. 2. COPD exacerbation: Continue Solu-Medrol, bronchodilators, supplemental oxygen. Consult pulmonology. 3. Hypothyroidism: Continue Synthroid. 4. Pneumonia: Continue Rocephin and azithromycin. Blood cultures are pending. Sputum culture ordered. Pneumococcal and Legionella urinary antigen pending. 5. Hypokalemia: Labs are pending today. 6. Insomnia: Patient requesting a sleep aid. Add Benadryl as needed. 7. DVT prophylaxis: Lovenox. Alex De La Rosa MD Aug 20, 2017 08:55
[2017-08-20 08:58] LABS: AUTOMATED NEUTROPHIL # 2.8 TH/MM3 (1.8-7.7); BASOPHIL % 0.4 % (0.0-2.0); HEMATOCRIT 38.8 % (35.0-46.0); HEMOGLOBIN 12.7 GM/DL (11.6-15.3); LYMPH % 15.9 % (9.0-44.0); LYMPHOCYTE # 0.6 TH/MM3 (1.0-4.8); MEAN CELL VOLUME 93.3 FL (80.0-100.0); MEAN CORPUSCULAR HEMOGLOBIN 30.6 PG (27.0-34.0); MEAN CORPUSCULAR HGB CONC 32.8 % (32.0-36.0); MEAN PLATELET VOLUME 9.5 FL (7.0-11.0); MONO % 3.6 % (0.0-8.0); MONOCYTE # 0.1 TH/MM3 (0-0.9); NEUT % 80.1 % (16.0-70.0); PLATELET COUNT 159 TH/MM3 (150-450); RED BLOOD COUNT 4.16 MIL/MM3 (4.00-5.30); RED CELL DISTRIBUTION WIDTH 13.4 % (11.6-17.2); WHITE BLOOD COUNT 3.5 TH/MM3 (4.0-11.0)
[2017-08-20 09:12] LABS: BICARBONATE 38.5 MEQ/L (21.0-32.0); CALCIUM 8.9 MG/DL (8.5-10.1); CREATININE 0.72 MG/DL (0.50-1.00)
[2017-08-20] MEDS: ENOXAPARIN SODIUM 40 MG/0.4 ML SYRINGE SQ SCH (17:31)
[2017-08-20] MEDS: AZITHROMYCIN INJ 500 MG in SODIUM CHLOR 0.9% 250 ML INJ 250 ML IV SCH (17:31)
--- NOTE | 2017-08-20 18:42 | MB ---
cc: Randell Lopez MD, Arjun D MD DATE: 08/20/2017 REQUESTING PHYSICIAN: Alex De La Rosa MD REASON FOR CONSULTATION: COPD exacerbation. HISTORY OF PRESENT ILLNESS: Ms. Lew is a 66-year-old female with history of COPD. She is oxygen dependent and she takes 4 liters of oxygen. The patient said that she moved out of the area because her daughter was going to get a job and she was staying with her friend and they were smoking, and her breathing has been getting worse, more so over the last 2 weeks. She could not afford the medication and has been taking only albuterol inhaler, has stopped taking her Singulair and Symbicort. She came to the hospital with worsening of her shortness of breath, tightness in the chest and wheezing. She was found to have hypoxia and hypercarbia. She had a workup done in the hospital. Her CBC shows WBC count 3.5, hemoglobin 12.7, hematocrit 38.8, MCV 96, platelet count of 159. Sodium 140, potassium 3.8, chloride 97, CO2 of 38, BUN 7, creatinine 0.7. Blood gas - pH 7.34. PCO2 79, pO2 of 176 on 100% nonrebreather mask. Now, she is on 4 liter nasal cannula. Her chest x-ray shows a possible new small infiltrate and small pleural effusion. PAST MEDICAL HISTORY: Significant for history of COPD, hypothyroidism. MEDICATIONS: She is currently takin. Zithromax 500 mg a day. 2. Protonix 40 mg a day. 3. Benadryl 25 mg p.r.n. 4. Levothyroxine 88 mcg. 5. Solu-Medrol 40 mg q. 6 hours. 6. Rocephin 1 g a day. 7. Symbicort 160/4.5 two puffs twice a day. 8. Singulair 10 mg a day. 9. Mucinex 600 mg twice a day. 10. Albuterol and Atrovent nebulizer treatment. 11. Lovenox 40 mg a day. ALLERGIES: NO DRUG ALLERGIES. SOCIAL HISTORY: She is a . She has a history of smoking most of her life. She quit 3 years ago. No alcohol. She used to work for the [employer]. FAMILY HISTORY: She has 2 children. She lives with her daughter. REVIEW OF SYSTEMS: She walks only a short distance, no hypertension, diabetes mellitus, no coronary artery disease. No seizure, stroke or epilepsy. PHYSICAL EXAMINATION: GENERAL: Well built, well nourished female, mildly short of breath. VITAL SIGNS: Blood pressure 146/65, heart rate 95, respirations 18, oxygen saturation 98.8. HEENT: Pupils are equal and reactive to light. Oral mucosa and nasal mucosa normal. NECK: Supple. JVP not raised. CHEST: Equal bilaterally. She has decreased chest excursion and has expiratory rhonchi. CARDIOVASCULAR: S1, S2 normal. ABDOMEN: Soft, nontender, nondistended. Bowel sounds are present. EXTREMITIES: No edema. CENTRAL NERVOUS SYSTEM: She is alert, oriented x3. No focal deficit. IMPRESSION: 1. Chronic obstructive pulmonary disease with exacerbation. 2. Pneumonia. 3. Small pleural effusion. 4. Hypercarbia and partially compensated respiratory acidosis. PLAN: I discussed with the patient and advised her that she must have proper followup and she will need to maintain this therapy. She is finding it difficult because of the money issues. We will give her Solu-Medrol. Continue Zithromax, Rocephin IV. Aerosol treatment with albuterol and Atrovent. Supplement her oxygen to keep the saturation between 88% and 92%. Once she gets better, we will check a pulmonary function study. She is on subcutaneous Lovenox for deep venous thrombosis prophylaxis. Further treatment will depend on the course in the hospital. Thank you. Dr. Alex De La Rosa, for this consultation. MD RADHA Beltran/SA/padmini , 04:02 PM , 06:26 PM MANUELA
[2017-08-20] MEDS: MONTELUKAST SODIUM 10 MG TAB PO SCH (21:01)
[2017-08-20] MEDS: cefTRIAXone INJ 1,000 MG in SODIUM CHLORIDE 0.9% INJ 100 ML IV SCH (22:59)
[2017-08-20] MEDS: diphenhydrAMINE HCL 25 MG CAP PO PRN (23:09)
[2017-08-21] VITALS (9 sets, daily range): BP systolic 134–188; BP diastolic 65–94; PULSE 90–122; RESP 18–20; TEMP 97.5–99.7; O2SAT 91–98
[2017-08-21] MEDS: RESP: ALBUTEROL 2.5 MG/IPRATROPIUM 0.5 MG NEB (SCH) NEB ×6 (00:02→20:40)
[2017-08-21] MEDS: methylPREDNISolone SOD SUCC 40 MG/1 ML VIAL IV PUSH SCH ×3 (05:56→17:28)
[2017-08-21] MEDS: LEVOTHYROXINE SODIUM 88 MCG TAB PO SCH (05:56)
[2017-08-21] MEDS: SODIUM CHLOR 0.9% 1000 ML INJ 1,000 ML IV SCH ×2 (06:09→17:27)
--- NOTE | 2017-08-21 08:14 | EKG ---
Date Performed: 08/19/2017 Time Performed: 15:58:31 PTAGE: 66 years EKG: Sinus rhythm NORMAL ECG PREVIOUS TRACING : 04/25/2017 18.27 Since previous tracing, the aberrantly conducted PAC vs. PV C is no longer present. DOCTOR: Kavon Vincent Interpretating Date/Time 08/21/2017 08:14:14
[2017-08-21] MEDS: guaiFENesin E.R. 600 MG TAB PO SCH ×2 (08:26→22:55)
[2017-08-21] MEDS: SODIUM CHLORIDE 0.9% FLUSH 10 ML FLUSH IV FLUSH SCH ×2 (08:26→21:00)
[2017-08-21] MEDS: PANTOPRAZOLE SOD 40 MG DELAYED RELEASE TAB PO SCH (08:26)
[2017-08-21] MEDS: BUDESONIDE-FORMOTEROL 160/4.5 MCG INHALER INH SCH ×2 (08:27→22:55)
--- NOTE | 2017-08-21 08:59 | HHI.PR ---
Subjective Remarks Follow up COPD exacerbation. The patient continues to report significant shortness of breath with any activity. She is feeling better at rest. No chest pain. States that overall she feels slightly better today. Objective Vitals Vital Signs Date Time Temp Pulse Resp B/P (MAP) Pulse Ox O2 Delivery O2 Flow Rate FiO2 08/21/17 07:36 97.5 112 18 160/75 (103) 91 08/21/17 06:38 108 08/21/17 04:00 99.7 114 20 145/65 (91) 95 08/21/17 04:00 99.7 114 20 145/65 (91) 95 08/21/17 00:00 97.8 100 18 134/74 (94) 98 08/20/17 23:55 103 08/20/17 21:00 Nasal Cannula 4.00 08/20/17 20:00 97.7 102 20 134/63 (86) 93 08/20/17 19:42 92 Nasal Cannula 4.00 08/20/17 16:00 99.0 99 18 156/79 (104) 91 08/20/17 12:00 98.8 95 18 146/65 (92) 91 08/20/17 10:47 92 Nasal Cannula 4.00 100 I/O 08/20/17 08/20/17 08/20/17 08/21/17 08/21/17 08/21/17 07:00 15:00 23:00 07:00 15:00 23:00 Output Total 300 ml Balance -300 ml Output Urine Total 300 ml # Voids 2 Result Diagram: 08/20/17 0820 08/20/17 0820 Imaging Last Impressions Chest X-Ray 08/19/17 1534 Signed Impressions: Service Date/Time: Saturday, August 19, 2017 15:39 - CONCLUSION: 1. Possible new small infiltrate in the left costophrenic angle. 2. Possible tiny right pleural effusion. Scar Novak MD Objective Remarks General: No acute distress. Heart: Regular rate and rhythm. No murmur. Lungs: Poor air entry. No wheezes, rales, or rhonchi. Breathing is nonlabored. Abdomen: Soft, nontender, nondistended. Extremities: Trace bilateral lower extremity edema. Psych: Alert and oriented. Procedures None Urinary Catheter: No Vascular Central Line Catheter: No A/P Assessment and Plan 1. Acute on chronic respiratory failure with hypoxemia and hypercapnia: Secondary to COPD exacerbation. Patient presented with an oxygen saturation of 63% on admission. Now on 4 L per nasal cannula, which is her baseline at home. Still with poor tolerance of any activity, becoming significantly dyspneic. 2. COPD exacerbation: Continue Solu-Medrol, bronchodilators, supplemental oxygen. Appreciate pulmonology recommendations. 3. Hypothyroidism: Continue Synthroid. 4. Pneumonia: Continue Rocephin and azithromycin. Blood cultures are negative so far. Sputum culture ordered. Pneumococcal and Legionella urinary antigen pending. 5. Hypokalemia: Improved. 6. Insomnia: Benadryl as needed. 7. DVT prophylaxis: Lovenox. Discharge Planning Possible discharge home next 1-2 days, pending further clinical improvement. Alex De La Rosa MD Aug 21, 2017 08:59
[2017-08-21] MEDS: ACETAMINOPHEN 325 MG TAB PO PRN (16:07)
[2017-08-21] MEDS: AZITHROMYCIN INJ 500 MG in SODIUM CHLOR 0.9% 250 ML INJ 250 ML IV SCH (17:27)
[2017-08-21] MEDS: ENOXAPARIN SODIUM 40 MG/0.4 ML SYRINGE SQ SCH (17:31)
--- NOTE | 2017-08-21 19:20 | HHI.PR ---
Subjective Remarks 66 YO WF with COPD exac, Pn,Pl eff Still has wheezing has cough with sp No fever Objective Vital Signs Vital Signs Date Time Temp Pulse Resp B/P (MAP) Pulse Ox O2 Delivery O2 Flow Rate FiO2 08/21/17 16:00 97.8 118 18 166/79 (108) 91 08/21/17 12:25 Nasal Cannula 4.00 100 08/21/17 11:35 98.5 90 18 135/68 (90) 95 08/21/17 08:58 97 Nasal Cannula 4.00 08/21/17 07:36 97.5 112 18 160/75 (103) 91 08/21/17 06:38 108 08/21/17 04:00 99.7 114 20 145/65 (91) 95 08/21/17 04:00 99.7 114 20 145/65 (91) 95 08/21/17 00:00 97.8 100 18 134/74 (94) 98 08/20/17 23:55 103 08/20/17 21:00 Nasal Cannula 4.00 08/20/17 20:00 97.7 102 20 134/63 (86) 93 08/20/17 19:42 92 Nasal Cannula 4.00 I/O 08/20/17 08/20/17 08/20/17 08/21/17 08/21/17 08/21/17 07:00 15:00 23:00 07:00 15:00 23:00 Output Total 300 ml Balance -300 ml Output Urine Total 300 ml # Voids 2 3 # Bowel Movements 1 Result Diagram: 08/20/1720 08/20/17 0820 Objective Remarks GENERAL: MBMN WF mild sob SKIN: Warm and dry. HEAD: Normocephalic. EYES: No scleral icterus. No injection or drainage. NECK: Supple, trachea midline. No JVD or lymphadenopathy. CARDIOVASCULAR: Regular rate and rhythm without murmurs, gallops, or rubs. RESPIRATORY: Breath sounds equal bilaterally. No accessory muscle use. GASTROINTESTINAL: Abdomen soft, non-tender, nondistended. MUSCULOSKELETAL: No cyanosis, or edema. BACK: Nontender without obvious deformity. No CVA tenderness. A/P Assessment and Plan IMPRESSION: 1. Chronic obstructive pulmonary disease with exacerbation. 2. Pneumonia. 3. Small pleural effusion. 4. Hypercarbia and partially compensated respiratory acidosis. PLAN: aerosol nebs Cont Solumedrol cont Abx Supplement 02 to keep sat >90% Randell Lopez MD Aug 21, 2017 19:20
[2017-08-21] MEDS: cefTRIAXone INJ 1,000 MG in SODIUM CHLORIDE 0.9% INJ 100 ML IV SCH (22:56)
[2017-08-21] MEDS: MONTELUKAST SODIUM 10 MG TAB PO SCH (23:54)
[2017-08-21] MEDS: diphenhydrAMINE HCL 25 MG CAP PO PRN (23:55)
[2017-08-22] VITALS (11 sets, daily range): BP systolic 110–164; BP diastolic 63–79; PULSE 94–121; RESP 16–20; TEMP 97.7–97.9; O2SAT 93–97
[2017-08-22] MEDS: methylPREDNISolone SOD SUCC 40 MG/1 ML VIAL IV PUSH SCH ×5 (00:28→23:53)
[2017-08-22] MEDS: RESP: ALBUTEROL 2.5 MG/IPRATROPIUM 0.5 MG NEB (SCH) NEB ×7 (00:50→23:46)
[2017-08-22] MEDS: LEVOTHYROXINE SODIUM 88 MCG TAB PO SCH (05:54)
--- NOTE | 2017-08-22 07:53 | RADRPT ---
EXAM DATE/TIME: 08/22/2017 07:27 [facility] COMPARISON: CHEST SINGLE AP, August 19, 2017, 15:39. INDICATIONS : Shortness of breath. MEDICAL HISTORY : Chronic obstructive pulmonary disease. SURGICAL HISTORY : thyroidectomy. ENCOUNTER: Subsequent ACUITY: 3 days PAIN SCORE: 0/10 LOCATION: Bilateral chest FINDINGS: Stable blunting of the right lateral costophrenic angle, hyperinflation and borderline cardiomegaly. Aortic calcification is noted. They're stable patchy parenchymal density at the left lung base. CONCLUSION: No significant change has occurred. Bill Foote MD on August 22, 2017 at 7:51 Board Certified Radiologist. This report was verified electronically.
[2017-08-22] MEDS: guaiFENesin E.R. 600 MG TAB PO SCH ×2 (08:16→20:42)
[2017-08-22] MEDS: PANTOPRAZOLE SOD 40 MG DELAYED RELEASE TAB PO SCH (08:16)
[2017-08-22] MEDS: SODIUM CHLOR 0.9% 1000 ML INJ 1,000 ML IV SCH ×3 (08:16→23:49)
[2017-08-22] MEDS: SODIUM CHLORIDE 0.9% FLUSH 10 ML FLUSH IV FLUSH SCH ×2 (08:16→20:43)
[2017-08-22] MEDS: BUDESONIDE-FORMOTEROL 160/4.5 MCG INHALER INH SCH ×2 (08:17→20:43)
--- NOTE | 2017-08-22 08:40 | HHI.PR ---
Subjective Remarks Follow up COPD. The patient states that she feels slightly better today. She was able to get up in the chair yesterday evening. Still with significant shortness of breath with any activity. She reports abdominal pain not associated with eating. It sometimes occurs at rest, but often occurs with movement. Objective Vitals Vital Signs Date Time Temp Pulse Resp B/P (MAP) Pulse Ox O2 Delivery O2 Flow Rate FiO2 08/22/17 08:10 97.7 94 16 137/63 (87) 97 08/22/17 07:58 95 Nasal Cannula 4.00 08/22/17 04:33 121 08/22/17 04:00 97.7 104 20 110/79 (89) 96 08/21/17 21:00 95 Nasal Cannula 4.00 Humidified 08/21/17 20:45 94 Nasal Cannula 4.00 08/21/17 20:00 113 08/21/17 20:00 98.6 122 20 188/94 (125) 91 08/21/17 16:00 97.8 118 18 166/79 (108) 91 08/21/17 12:25 Nasal Cannula 4.00 100 08/21/17 11:35 98.5 90 18 135/68 (90) 95 08/21/17 08:58 97 Nasal Cannula 4.00 I/O 08/21/17 08/21/17 08/21/17 08/22/17 08/22/17 08/22/17 07:00 15:00 23:00 07:00 15:00 23:00 Output Total 300 ml 400 ml Balance -300 ml -400 ml Output Urine Total 300 ml 400 ml # Voids 3 6 # Bowel Movements 1 Result Diagram: 08/20/17 0820 08/20/17 0820 Imaging Last Impressions Chest X-Ray 08/22/17 0000 Signed Impressions: Service Date/Time: Tuesday, August 22, 2017 07:27 - CONCLUSION: No significant change has occurred. Bill Foote MD Objective Remarks General: No acute distress. Heart: Regular rate and rhythm. No murmur. Lungs: Poor air entry. No wheezes, rales, or rhonchi. Breathing is nonlabored. Abdomen: Soft, mild tenderness in the upper abdomen without rebound or guarding , nondistended. Extremities: Trace bilateral lower extremity edema. Psych: Alert and oriented. Procedures None Urinary Catheter: No Vascular Central Line Catheter: No A/P Assessment and Plan 1. Acute on chronic respiratory failure with hypoxemia and hypercapnia: Secondary to COPD exacerbation. Patient presented with an oxygen saturation of 63% on admission. Now on 4 L per nasal cannula, which is her baseline at home. Still with poor tolerance of any activity, becoming significantly dyspneic. Appreciate pulmonology recommendations. 2. COPD exacerbation: Continue Solu-Medrol, bronchodilators, supplemental oxygen. Appreciate pulmonology recommendations. 3. Hypothyroidism: Continue Synthroid. 4. Pneumonia: Continue Rocephin and azithromycin. Blood cultures are negative so far. Sputum culture ordered. Pneumococcal and Legionella urinary antigen pending. 5. Hypokalemia: Improved. 6. Insomnia: Benadryl as needed. 7. Abdominal pain: Likely muscle pain secondary to coughing. Monitor symptoms. 8. DVT prophylaxis: Lovenox. Discharge Planning Possible discharge home next 1-2 days, pending further clinical improvement. Alex De La Rosa MD Aug 22, 2017 08:40
[2017-08-22] MEDS: ENOXAPARIN SODIUM 40 MG/0.4 ML SYRINGE SQ SCH (16:08)
[2017-08-22] MEDS: AZITHROMYCIN INJ 500 MG in SODIUM CHLOR 0.9% 250 ML INJ 250 ML IV SCH (16:08)
--- NOTE | 2017-08-22 17:44 | HHI.PR ---
Subjective Remarks 66 YO WF with COPD exac, Pn,Pl eff Still has wheezing has cough with sp No fever No new complaint Objective Vital Signs Vital Signs Date Time Temp Pulse Resp B/P (MAP) Pulse Ox O2 Delivery O2 Flow Rate FiO2 08/22/17 16:15 97.8 99 18 164/79 (107) 94 08/22/17 12:04 97.9 103 17 154/72 (99) 94 08/22/17 12:00 110 08/22/17 08:35 117 08/22/17 08:10 97.7 94 16 137/63 (87) 97 08/22/17 07:58 95 Nasal Cannula 4.00 08/22/17 07:00 97 Nasal Cannula 4.00 Humidified 08/22/17 04:33 121 08/22/17 04:00 97.7 104 20 110/79 (89) 96 08/21/17 21:00 95 Nasal Cannula 4.00 Humidified 08/21/17 20:45 94 Nasal Cannula 4.00 08/21/17 20:00 113 08/21/17 20:00 98.6 122 20 188/94 (125) 91 I/O 08/21/17 08/21/17 08/21/17 08/22/17 08/22/17 08/22/17 07:00 15:00 23:00 07:00 15:00 23:00 Intake Total 100 ml 480 ml Output Total 300 ml 400 ml Balance -300 ml -300 ml 480 ml Intake Oral 480 ml IV Total 100 ml Output Urine Total 300 ml 400 ml # Voids 3 10 2 # Bowel Movements 1 Result Diagram: 08/20/1781908/20/17819 Objective Remarks GENERAL: MBMN WF mild sob SKIN: Warm and dry. HEAD: Normocephalic. EYES: No scleral icterus. No injection or drainage. NECK: Supple, trachea midline. No JVD or lymphadenopathy. CARDIOVASCULAR: Regular rate and rhythm without murmurs, gallops, or rubs. RESPIRATORY: Breath sounds equal bilaterally. No accessory muscle use. GASTROINTESTINAL: Abdomen soft, non-tender, nondistended. MUSCULOSKELETAL: No cyanosis, or edema. BACK: Nontender without obvious deformity. No CVA tenderness. A/P Assessment and Plan IMPRESSION: 1. Chronic obstructive pulmonary disease with exacerbation. 2. Pneumonia. 3. Small pleural effusion. 4. Hypercarbia and partially compensated respiratory acidosis. PLAN: aerosol nebs Cont Solumedrol cont Abx Supplement 02 to keep sat >90% OOB and ambulate. Randell Lopez MD Aug 22, 2017 17:44
[2017-08-22] MEDS: ACETAMINOPHEN 325 MG TAB PO PRN (20:42)
[2017-08-22] MEDS: MONTELUKAST SODIUM 10 MG TAB PO SCH (20:42)
[2017-08-22] MEDS: cefTRIAXone INJ 1,000 MG in SODIUM CHLORIDE 0.9% INJ 100 ML IV SCH (23:47)
[2017-08-22] MEDS: diphenhydrAMINE HCL 25 MG CAP PO PRN (23:54)
[2017-08-23] VITALS (11 sets, daily range): BP systolic 125–171; BP diastolic 70–86; PULSE 94–109; RESP 17–18; TEMP 97.1–98.5; O2SAT 94–100
[2017-08-23] MEDS: RESP: ALBUTEROL 2.5 MG/IPRATROPIUM 0.5 MG NEB (SCH) NEB ×5 (04:02→21:34)
[2017-08-23] MEDS: methylPREDNISolone SOD SUCC 40 MG/1 ML VIAL IV PUSH SCH ×4 (05:58→23:24)
[2017-08-23] MEDS: LEVOTHYROXINE SODIUM 88 MCG TAB PO SCH (05:58)
[2017-08-23 07:38] LABS: AUTOMATED NEUTROPHIL # 4.7 TH/MM3 (1.8-7.7); BASOPHIL % 0.1 % (0.0-2.0); HEMATOCRIT 36.8 % (35.0-46.0); HEMOGLOBIN 12.2 GM/DL (11.6-15.3); LYMPH % 5.7 % (9.0-44.0); LYMPHOCYTE # 0.3 TH/MM3 (1.0-4.8); MEAN CELL VOLUME 92.2 FL (80.0-100.0); MEAN CORPUSCULAR HEMOGLOBIN 30.6 PG (27.0-34.0); MEAN CORPUSCULAR HGB CONC 33.1 % (32.0-36.0); MEAN PLATELET VOLUME 9.7 FL (7.0-11.0); MONO % 5.7 % (0.0-8.0); MONOCYTE # 0.3 TH/MM3 (0-0.9); NEUT % 88.5 % (16.0-70.0); PLATELET COUNT 146 TH/MM3 (150-450); RED BLOOD COUNT 3.99 MIL/MM3 (4.00-5.30); RED CELL DISTRIBUTION WIDTH 13.6 % (11.6-17.2); WHITE BLOOD COUNT 5.4 TH/MM3 (4.0-11.0)
[2017-08-23] MEDS: SODIUM CHLORIDE 0.9% FLUSH 10 ML FLUSH IV FLUSH SCH ×2 (07:51→21:09)
[2017-08-23] MEDS: guaiFENesin E.R. 600 MG TAB PO SCH ×2 (07:52→21:09)
[2017-08-23] MEDS: PANTOPRAZOLE SOD 40 MG DELAYED RELEASE TAB PO SCH (07:52)
[2017-08-23] MEDS: BUDESONIDE-FORMOTEROL 160/4.5 MCG INHALER INH SCH ×2 (07:53→21:08)
[2017-08-23 08:05] LABS: BICARBONATE 37.3 MEQ/L (21.0-32.0); CREATININE 0.53 MG/DL (0.50-1.00)
--- NOTE | 2017-08-23 10:13 | HHI.PR ---
Subjective Remarks Follow-up COPD exacerbation. Patient states that she feels slightly better today. She becomes short of breath even with getting up from the bed to the bedside commode. No chest pain. Still having upper abdominal pain at times. Objective Vitals Vital Signs Date Time Temp Pulse Resp B/P (MAP) Pulse Ox O2 Delivery O2 Flow Rate FiO2 08/23/17 08:21 100 Nasal Cannula 4.00 08/23/17 08:17 97.7 97 17 160/80 (106) 98 08/23/17 08:00 100 08/23/17 07:00 97 Nasal Cannula 4.00 Humidified 08/23/17 04:00 95 08/23/17 04:00 97.8 99 18 152/72 (98) 96 08/23/17 00:00 98.5 94 18 125/73 (90) 96 08/23/17 00:00 98 08/23/17 00:00 101 08/22/17 22:05 93 Nasal Cannula 4.00 08/22/17 20:45 Nasal Cannula 4.00 Humidified 08/22/17 20:00 97.8 103 19 154/71 (98) 97 08/22/17 20:00 101 08/22/17 16:15 97.8 99 18 164/79 (107) 94 08/22/17 16:00 112 08/22/17 12:04 97.9 103 17 154/72 (99) 94 08/22/17 12:00 110 I/O 08/22/17 08/22/17 08/22/17 08/23/17 08/23/17 08/23/17 07:00 15:00 23:00 07:00 15:00 23:00 Intake Total 100 ml 480 ml 1160 ml Output Total 400 ml 1 ml Balance -300 ml 480 ml 1159 ml Intake Oral 480 ml 60 ml IV Total 100 ml 1100 ml Output Urine Total 400 ml Stool Total 1 ml # Voids 10 2 2 1 # Bowel Movements 0 1 Result Diagram: 08/23/17 0558 08/23/17 0558 Imaging Last Impressions Chest X-Ray 08/22/17 0000 Signed Impressions: Service Date/Time: Tuesday, August 22, 2017 07:27 - CONCLUSION: No significant change has occurred. Bill Foote MD Objective Remarks General: No acute distress. Heart: Regular rate and rhythm. No murmur. Lungs: Poor air entry. No wheezes, rales, or rhonchi. Breathing is nonlabored. Abdomen: Soft, mild tenderness in the upper abdomen without rebound or guarding , nondistended. Extremities: Trace bilateral lower extremity edema. Psych: Alert and oriented. Procedures None Urinary Catheter: No Vascular Central Line Catheter: No A/P Assessment and Plan 1. Acute on chronic respiratory failure with hypoxemia and hypercapnia: Secondary to COPD exacerbation. Patient presented with an oxygen saturation of 63% on admission. Now on 4 L per nasal cannula, which is her baseline at home. Still with poor tolerance of any activity, becoming significantly dyspneic. Appreciate pulmonology recommendations. Physical therapy eval. 2. COPD exacerbation: Continue Solu-Medrol, bronchodilators, supplemental oxygen. Appreciate pulmonology recommendations. 3. Hypothyroidism: Continue Synthroid. 4. Pneumonia: Continue Rocephin and azithromycin. Blood cultures are negative so far. Sputum culture ordered, but not obtained. Pneumococcal and Legionella urinary antigen ordered, but not obtained. 5. Hypokalemia: Improved. 6. Insomnia: Benadryl as needed. 7. Abdominal pain: Likely muscle pain secondary to coughing. Monitor symptoms. 8. DVT prophylaxis: Lovenox. Discharge Planning Possible discharge home next 1-2 days, pending further clinical improvement. Alex De La Rosa MD Aug 23, 2017 10:12
[2017-08-23] MEDS: AZITHROMYCIN INJ 500 MG in SODIUM CHLOR 0.9% 250 ML INJ 250 ML IV SCH (16:22)
[2017-08-23] MEDS: ENOXAPARIN SODIUM 40 MG/0.4 ML SYRINGE SQ SCH (16:23)
[2017-08-23] MEDS: SODIUM CHLOR 0.9% 1000 ML INJ 1,000 ML IV SCH (16:32)
--- NOTE | 2017-08-23 20:33 | HHI.PR ---
Subjective Remarks 66 YO WF with COPD exac, Pn,Pl eff has cough with sp No fever No new complaint Feels little better SOB with any activity Objective Vital Signs Vital Signs Date Time Temp Pulse Resp B/P (MAP) Pulse Ox O2 Delivery O2 Flow Rate FiO2 08/23/17 16:35 98.0 96 17 171/86 (114) 94 08/23/17 16:00 105 08/23/17 12:00 100 08/23/17 11:59 97.1 109 17 152/70 (97) 94 08/23/17 08:21 100 Nasal Cannula 4.00 08/23/17 08:17 97.7 97 17 160/80 (106) 98 08/23/17 08:00 100 08/23/17 07:00 97 Nasal Cannula 4.00 Humidified 08/23/17 04:00 95 08/23/17 04:00 97.8 99 18 152/72 (98) 96 08/23/17 00:00 98.5 94 18 125/73 (90) 96 08/23/17 00:00 98 08/23/17 00:00 101 08/22/17 22:05 93 Nasal Cannula 4.00 08/22/17 20:45 Nasal Cannula 4.00 Humidified I/O 08/22/17 08/22/17 08/22/17 08/23/17 08/23/17 08/23/17 07:00 15:00 23:00 07:00 15:00 23:00 Intake Total 100 ml 480 ml 1160 ml Output Total 400 ml 1 ml Balance -300 ml 480 ml 1159 ml Intake Oral 480 ml 60 ml IV Total 100 ml 1100 ml Output Urine Total 400 ml Stool Total 1 ml # Voids 10 2 2 1 # Bowel Movements 0 1 Result Diagram: 08/23/1758 08/23/17 0558 Objective Remarks GENERAL: MBMN WF mild sob SKIN: Warm and dry. HEAD: Normocephalic. EYES: No scleral icterus. No injection or drainage. NECK: Supple, trachea midline. No JVD or lymphadenopathy. CARDIOVASCULAR: Regular rate and rhythm without murmurs, gallops, or rubs. RESPIRATORY: Breath sounds equal bilaterally. No accessory muscle use. GASTROINTESTINAL: Abdomen soft, non-tender, nondistended. MUSCULOSKELETAL: No cyanosis, or edema. BACK: Nontender without obvious deformity. No CVA tenderness. A/P Assessment and Plan IMPRESSION: 1. Chronic obstructive pulmonary disease with exacerbation. 2. Pneumonia. 3. Small pleural effusion. 4. Hypercarbia and partially compensated respiratory acidosis. PLAN: aerosol nebs Cont Solumedrol cont Abx Supplement 02 to keep sat >90% OOB and ambulate. Randell Lopez MD Aug 23, 2017 20:33
[2017-08-23] MEDS: MONTELUKAST SODIUM 10 MG TAB PO SCH (21:09)
[2017-08-23] MEDS: diphenhydrAMINE HCL 25 MG CAP PO PRN (23:24)
[2017-08-23] MEDS: cefTRIAXone INJ 1,000 MG in SODIUM CHLORIDE 0.9% INJ 100 ML IV SCH (23:24)
[2017-08-24] VITALS (13 sets, daily range): BP systolic 130–168; BP diastolic 61–80; PULSE 84–105; RESP 18–20; TEMP 97.2–98.5; O2SAT 93–99
[2017-08-24] MEDS: RESP: ALBUTEROL 2.5 MG/IPRATROPIUM 0.5 MG NEB (SCH) NEB ×4 (04:15→21:56)
[2017-08-24] MEDS: LEVOTHYROXINE SODIUM 88 MCG TAB PO SCH (06:26)
[2017-08-24] MEDS: methylPREDNISolone SOD SUCC 40 MG/1 ML VIAL IV PUSH SCH (06:26)
[2017-08-24] MEDS: SODIUM CHLOR 0.9% 1000 ML INJ 1,000 ML IV SCH ×2 (06:27→17:33)
[2017-08-24] MEDS: BUDESONIDE-FORMOTEROL 160/4.5 MCG INHALER INH SCH ×2 (08:24→20:50)
[2017-08-24] MEDS: guaiFENesin E.R. 600 MG TAB PO SCH ×2 (08:24→20:51)
[2017-08-24] MEDS: PANTOPRAZOLE SOD 40 MG DELAYED RELEASE TAB PO SCH (08:24)
[2017-08-24] MEDS: SODIUM CHLORIDE 0.9% FLUSH 10 ML FLUSH IV FLUSH SCH ×2 (08:26→20:51)
--- NOTE | 2017-08-24 10:36 | HHI.PR ---
Subjective Remarks Patient says that shortness of breath continues. She appears comfortable. Daughter and grandson are sleeping in the room. She says that they do not have an apartment at this time, daughter is getting a job may be up in [place]. Patient says that hotel would be beneficial at this time, does not have placed to plug in her oxygen machine. Objective Vital Signs Date Time Temp Pulse Resp B/P (MAP) Pulse Ox O2 Delivery O2 Flow Rate FiO2 08/24/17 10:30 Nasal Cannula 4.00 100 08/24/17 10:10 92 08/24/17 09:20 98.1 101 20 145/66 (92) 93 08/24/17 04:17 95 Nasal Cannula 4.00 08/24/17 04:00 97.2 98 18 155/72 (99) 99 08/24/17 00:14 98.0 95 18 156/68 (97) 94 08/24/17 00:13 99 08/23/17 21:38 95 Nasal Cannula 4.00 08/23/17 20:00 98.0 106 18 150/76 (100) 94 08/23/17 19:55 95 Nasal Cannula 4.00 08/23/17 16:35 98.0 96 17 171/86 (114) 94 08/23/17 16:00 105 08/23/17 12:00 100 08/23/17 11:59 97.1 109 17 152/70 (97) 94 I/O 08/23/17 08/23/17 08/23/17 08/24/17 08/24/17 08/24/17 07:00 15:00 23:00 07:00 15:00 23:00 Intake Total 1160 ml 350 ml Output Total 1 ml Balance 1159 ml 350 ml Intake Oral 60 ml IV Total 1100 ml 350 ml Stool Total 1 ml # Voids 2 1 2 3 # Bowel Movements 0 1 0 Result Diagram: 08/23/17 0558 08/23/17 0558 Objective Remarks GENERAL: Patient sitting up in bed. Appears comfortable. Alert and oriented 3. SKIN: Warm and dry. HEAD: Normocephalic. EYES: No scleral icterus. No injection or drainage. NECK: Supple, trachea midline. No JVD. CARDIOVASCULAR: Regular rate and rhythm without murmurs, gallops, or rubs. RESPIRATORY: Breath sounds equal bilaterally. No accessory muscle use. GASTROINTESTINAL: Abdomen soft, non-tender, nondistended. MUSCULOSKELETAL: No cyanosis, or edema. BACK: Nontender without obvious deformity. No CVA tenderness. A/P Assessment and Plan //Acute on chronic respiratory failure with hypoxemia and hypercapnia: Secondary to COPD exacerbation. Patient presented with an oxygen saturation of 63% on admission. Now on 4 L per nasal cannula, which is her baseline at home. Still with poor tolerance of any activity, becoming significantly dyspneic. Appreciate pulmonology recommendations. Physical therapy eval. = Patient appears to be breathing comfortably, however does not have placed a plug in her oxygen concentrator. Tapered to prednisone. Assess response. Repeat ABGs today. //COPD exacerbation: Continue Solu-Medrol, bronchodilators, supplemental oxygen. Appreciate pulmonology recommendations. //Hypothyroidism: Continue Synthroid. // Pneumonia: Continue Rocephin and azithromycin. Blood cultures are negative so far. Sputum culture ordered, but not obtained. Pneumococcal and Legionella urinary antigen ordered, but not obtained. // Hypokalemia: Improved. //Insomnia: Benadryl as needed. // Abdominal pain: Likely muscle pain secondary to coughing. Monitor symptoms. //DVT prophylaxis: Lovenox. Discharge Planning Continue treatment for COPD exacerbation. Assess response to prednisone taper Difficult discharge. Patient currently homeless with daughter and grandson. No place to plug in oxygen concentrator. Appreciate case management assistance. Patient may be able to discharge tomorrow if doing okay on p.o. prednisone. Callum Rodriguez MD Aug 24, 2017 10:36
[2017-08-24] MEDS: AZITHROMYCIN INJ 500 MG in SODIUM CHLOR 0.9% 250 ML INJ 250 ML IV SCH (17:16)
[2017-08-24] MEDS: ENOXAPARIN SODIUM 40 MG/0.4 ML SYRINGE SQ SCH (17:33)
--- NOTE | 2017-08-24 20:44 | HHI.PR ---
Subjective Remarks 66 YO WF with COPD exac, Pn,Pl eff has cough with sp No fever Feels little better SOB with any activity Objective Vital Signs Vital Signs Date Time Temp Pulse Resp B/P (MAP) Pulse Ox O2 Delivery O2 Flow Rate FiO2 08/24/17 18:16 84 08/24/17 15:34 98.1 89 20 168/80 (109) 94 08/24/17 12:09 98.5 103 20 157/70 (99) 94 08/24/17 11:05 94 Nasal Cannula 4.00 08/24/17 10:30 Nasal Cannula 4.00 100 08/24/17 10:10 92 08/24/17 09:20 98.1 101 20 145/66 (92) 93 08/24/17 04:17 95 Nasal Cannula 4.00 08/24/17 04:00 97.2 98 18 155/72 (99) 99 08/24/17 00:14 98.0 95 18 156/68 (97) 94 08/24/17 00:13 99 08/23/17 21:38 95 Nasal Cannula 4.00 I/O 08/23/17 08/23/17 08/23/17 08/24/17 08/24/17 08/24/17 07:00 15:00 23:00 07:00 15:00 23:00 Intake Total 1160 ml 350 ml 720 ml Output Total 1 ml Balance 1159 ml 350 ml 720 ml Intake Oral 60 ml 720 ml IV Total 1100 ml 350 ml Stool Total 1 ml # Voids 2 1 2 3 5 # Bowel Movements 0 1 0 3 Result Diagram: 08/23/17 0558 08/23/17 0558 Objective Remarks GENERAL: MBMN WF mild sob SKIN: Warm and dry. HEAD: Normocephalic. EYES: No scleral icterus. No injection or drainage. NECK: Supple, trachea midline. No JVD or lymphadenopathy. CARDIOVASCULAR: Regular rate and rhythm without murmurs, gallops, or rubs. RESPIRATORY: Breath sounds equal bilaterally. No accessory muscle use. GASTROINTESTINAL: Abdomen soft, non-tender, nondistended. MUSCULOSKELETAL: No cyanosis, or edema. BACK: Nontender without obvious deformity. No CVA tenderness. A/P Assessment and Plan IMPRESSION: 1. Chronic obstructive pulmonary disease with exacerbation. 2. Pneumonia. 3. Small pleural effusion. 4. Hypercarbia and partially compensated respiratory acidosis. PLAN: aerosol nebs DC Solumedrol PO steroids cont Abx Supplement 02 to keep sat >90% OOB and ambulate. DC plans underway Randell Lopez MD Aug 24, 2017 20:44
[2017-08-24] MEDS: predniSONE 20 MG TAB PO SCH (20:51)
[2017-08-24] MEDS: MONTELUKAST SODIUM 10 MG TAB PO SCH (20:51)
[2017-08-24] MEDS: cefTRIAXone INJ 1,000 MG in SODIUM CHLORIDE 0.9% INJ 100 ML IV SCH (22:47)
[2017-08-24] MEDS: diphenhydrAMINE HCL 25 MG CAP PO PRN (22:47)
[2017-08-25] VITALS (8 sets, daily range): BP systolic 128–170; BP diastolic 65–76; PULSE 88–99; RESP 17–20; TEMP 97.6–98.8; O2SAT 90–98
[2017-08-25] MEDS: RESP: ALBUTEROL 2.5 MG/IPRATROPIUM 0.5 MG NEB (SCH) NEB ×4 (03:05→21:39)
[2017-08-25] MEDS: LEVOTHYROXINE SODIUM 88 MCG TAB PO SCH (06:38)
[2017-08-25] MEDS: SODIUM CHLOR 0.9% 1000 ML INJ 1,000 ML IV SCH ×2 (06:38→17:18)
[2017-08-25] MEDS: predniSONE 20 MG TAB PO SCH ×2 (08:12→20:49)
[2017-08-25] MEDS: guaiFENesin E.R. 600 MG TAB PO SCH ×2 (08:12→20:49)
[2017-08-25] MEDS: SODIUM CHLORIDE 0.9% FLUSH 10 ML FLUSH IV FLUSH SCH ×2 (08:12→21:00)
[2017-08-25] MEDS: BUDESONIDE-FORMOTEROL 160/4.5 MCG INHALER INH SCH ×2 (08:12→20:51)
[2017-08-25] MEDS: PANTOPRAZOLE SOD 40 MG DELAYED RELEASE TAB PO SCH (08:12)
[2017-08-25] MEDS ORDERED: OXYGENDME NAS.CANULA (11:03)
--- NOTE | 2017-08-25 14:30 | HHI.PR ---
Subjective Remarks Patient says that shortness of breath is improving. Does not feel like she can go home today. Feels like she may be able to go home tomorrow. Objective Vital Signs Date Time Temp Pulse Resp B/P (MAP) Pulse Ox O2 Delivery O2 Flow Rate FiO2 08/25/17 11:35 98.4 99 20 147/66 (93) 96 08/25/17 09:38 90 Nasal Cannula 4.00 08/25/17 08:03 98.8 88 20 170/76 (107) 97 153/65 (94) 08/25/17 07:02 96 Nasal Cannula 4.00 08/25/17 04:30 98.2 92 18 140/74 (96) 98 08/25/17 00:00 97.6 98 17 128/68 (88) 95 08/24/17 23:51 104 08/24/17 21:59 Nasal Cannula 4.00 08/24/17 20:15 105 08/24/17 20:10 98.1 104 18 130/61 (84) 96 08/24/17 19:35 96 Nasal Cannula 4.00 08/24/17 18:16 84 08/24/17 15:34 98.1 89 20 168/80 (109) 94 I/O 08/24/17 08/24/17 08/24/17 08/25/17 08/25/17 08/25/17 07:00 15:00 23:00 07:00 15:00 23:00 Intake Total 350 ml 1220 ml 1250 ml Balance 350 ml 1220 ml 1250 ml Intake Oral 1220 ml 1250 ml IV Total 350 ml # Voids 3 5 4 2 # Bowel Movements 0 3 0 1 Result Diagram: 08/23/17 0558 08/23/17 0558 Objective Remarks GENERAL: Patient sitting up in bed. Appears comfortable. Alert and oriented 3. no change SKIN: Warm and dry. HEAD: Normocephalic. EYES: No scleral icterus. No injection or drainage. NECK: Supple, trachea midline. No JVD. CARDIOVASCULAR: Regular rate and rhythm without murmurs, gallops, or rubs. RESPIRATORY: Breath sounds equal bilaterally. No accessory muscle use. GASTROINTESTINAL: Abdomen soft, non-tender, nondistended. MUSCULOSKELETAL: No cyanosis, or edema. BACK: Nontender without obvious deformity. No CVA tenderness. A/P Assessment and Plan //Acute on chronic respiratory failure with hypoxemia and hypercapnia: Secondary to COPD exacerbation. Patient presented with an oxygen saturation of 63% on admission. Now on 4 L per nasal cannula, which is her baseline at home. Still with poor tolerance of any activity, becoming significantly dyspneic. Appreciate pulmonology recommendations. Physical therapy eval. = Patient appears to be breathing comfortably, however does not have placed a plug in her oxygen concentrator. Tapered to prednisone. Assess response. Repeat ABGs today. = 08/25. Repeat ABG from 08/24 with CO2 of 62, improved. Continue prednisone, duo nebs. Appreciate pulmonology's assistance. //COPD exacerbation: Continue Solu-Medrol, bronchodilators, supplemental oxygen. Appreciate pulmonology recommendations. //Hypothyroidism: Continue Synthroid. // Pneumonia: Continue Rocephin and azithromycin. Blood cultures are negative so far. Sputum culture ordered, but not obtained. Pneumococcal and Legionella urinary antigen ordered, but not obtained. // Hypokalemia: Improved. //Insomnia: Benadryl as needed. // Abdominal pain: Likely muscle pain secondary to coughing. Monitor symptoms. //DVT prophylaxis: Lovenox. Discharge Planning Continue treatment for COPD exacerbation. Assess response to prednisone taper Difficult discharge. Patient currently homeless with daughter and grandson. No place to plug in oxygen concentrator. Appreciate case management assistance. Patient may be able to discharge tomorrow if doing okay on p.o. prednisone. Callum Rodriguez MD Aug 25, 2017 14:30
[2017-08-25] MEDS: AZITHROMYCIN INJ 500 MG in SODIUM CHLOR 0.9% 250 ML INJ 250 ML IV SCH (17:14)
[2017-08-25] MEDS: ENOXAPARIN SODIUM 40 MG/0.4 ML SYRINGE SQ SCH (17:14)
--- NOTE | 2017-08-25 19:52 | HHI.PR ---
Subjective Remarks 66 YO WF with COPD exac, Pn,Pl eff has cough with sp No fever Feels little better SOB with any activity Objective Vital Signs Vital Signs Date Time Temp Pulse Resp B/P (MAP) Pulse Ox O2 Delivery O2 Flow Rate FiO2 08/25/17 14:59 98.3 90 20 150/68 (95) 97 08/25/17 11:35 98.4 99 20 147/66 (93) 96 08/25/17 09:38 90 Nasal Cannula 4.00 08/25/17 08:03 98.8 88 20 170/76 (107) 97 153/65 (94) 08/25/17 07:02 96 Nasal Cannula 4.00 08/25/17 04:30 98.2 92 18 140/74 (96) 98 08/25/17 00:00 97.6 98 17 128/68 (88) 95 08/24/17 23:51 104 08/24/17 21:59 Nasal Cannula 4.00 08/24/17 20:15 105 08/24/17 20:10 98.1 104 18 130/61 (84) 96 I/O 08/24/17 08/24/17 08/24/17 08/25/17 08/25/17 08/25/17 07:00 15:00 23:00 07:00 15:00 23:00 Intake Total 350 ml 1220 ml 1250 ml 720 ml Balance 350 ml 1220 ml 1250 ml 720 ml Intake Oral 1220 ml 1250 ml 720 ml IV Total 350 ml # Voids 3 5 4 7 # Bowel Movements 0 3 0 3 Result Diagram: 08/23/17 0558 08/23/17 0558 Objective Remarks GENERAL: MBMN WF mild sob SKIN: Warm and dry. HEAD: Normocephalic. EYES: No scleral icterus. No injection or drainage. NECK: Supple, trachea midline. No JVD or lymphadenopathy. CARDIOVASCULAR: Regular rate and rhythm without murmurs, gallops, or rubs. RESPIRATORY: Breath sounds equal bilaterally. No accessory muscle use. GASTROINTESTINAL: Abdomen soft, non-tender, nondistended. MUSCULOSKELETAL: No cyanosis, or edema. BACK: Nontender without obvious deformity. No CVA tenderness. A/P Assessment and Plan IMPRESSION: 1. Chronic obstructive pulmonary disease with exacerbation. 2. Pneumonia. 3. Small pleural effusion. 4. Hypercarbia and partially compensated respiratory acidosis. PLAN: aerosol nebs DC Solumedrol PO steroids cont Abx Supplement 02 to keep sat >90% OOB and ambulate. DC plans underway Will need nebuliser machine and re qualification for home 02 Randell Lopez MD Aug 25, 2017 19:52
[2017-08-25] MEDS: MONTELUKAST SODIUM 10 MG TAB PO SCH (20:49)
[2017-08-25] MEDS: cefTRIAXone INJ 1,000 MG in SODIUM CHLORIDE 0.9% INJ 100 ML IV SCH (22:40)
[2017-08-25] MEDS: diphenhydrAMINE HCL 25 MG CAP PO PRN (22:40)
[2017-08-26] VITALS: BP 138/93; PULSE 104; RESP 18; TEMP 98.2; O2SAT 92
[2017-08-26 04:00] VITALS: BP 156/72; PULSE 83; PULSE 90; RESP 18; TEMP 97.8; O2SAT 95
[2017-08-26] MEDS: RESP: ALBUTEROL 2.5 MG/IPRATROPIUM 0.5 MG NEB (SCH) NEB ×2 (04:17→09:23)
[2017-08-26] MEDS: LEVOTHYROXINE SODIUM 88 MCG TAB PO SCH (06:12)
[2017-08-26] MEDS: SODIUM CHLOR 0.9% 1000 ML INJ 1,000 ML IV SCH (06:12)
[2017-08-26 08:00] VITALS: BP 157/74; PULSE 89; RESP 18; TEMP 97.8; O2SAT 98
[2017-08-26] MEDS: PANTOPRAZOLE SOD 40 MG DELAYED RELEASE TAB PO SCH (08:15)
[2017-08-26] MEDS: BUDESONIDE-FORMOTEROL 160/4.5 MCG INHALER INH SCH (08:15)
[2017-08-26] MEDS: guaiFENesin E.R. 600 MG TAB PO SCH (08:15)
[2017-08-26] MEDS: SODIUM CHLORIDE 0.9% FLUSH 10 ML FLUSH IV FLUSH SCH (08:15)
[2017-08-26] MEDS: predniSONE 20 MG TAB PO SCH (08:15)
[2017-08-26] MEDS ORDERED: CLAR10CA3 PO (09:33)
[2017-08-26] MEDS ORDERED: Albuterol-Ipratropium Neb NEB (09:33)
[2017-08-26] MEDS ORDERED: PRED20 PO (09:33)
[2017-08-26] MEDS ORDERED: guaiFENesin ER PO (09:33)
[2017-08-26] MEDS ORDERED: MONT10TA4 PO (09:33)
[2017-08-26] MEDS ORDERED: SYMB160A INH (09:33)
[2017-08-26 10:04] VITALS: PULSE 85
--- NOTE | 2017-08-26 11:50 | HHI.PR ---
Subjective Remarks 66 YO WF with COPD exac, Pn,Pl eff has cough with sp No fever Feels little better Feels better Objective Vital Signs Vital Signs Date Time Temp Pulse Resp B/P (MAP) Pulse Ox O2 Delivery O2 Flow Rate FiO2 08/26/17 10:04 85 08/26/17 09:24 Nasal Cannula 4.00 08/26/17 08:00 97.8 89 18 157/74 (101) 98 08/26/17 07:50 Nasal Cannula 4.00 Humidified 08/26/17 04:00 83 08/26/17 04:00 97.8 90 18 156/72 (100) 95 08/26/17 00:00 104 08/26/17 00:00 98.2 104 18 138/93 (108) 92 08/25/17 21:40 97 Nasal Cannula 4.00 08/25/17 21:05 Nasal Cannula 4.00 08/25/17 20:00 94 08/25/17 20:00 97.8 90 18 148/68 (94) 94 08/25/17 14:59 98.3 90 20 150/68 (95) 97 I/O 08/25/17 08/25/17 08/25/17 08/26/17 08/26/17 08/26/17 07:00 15:00 23:00 07:00 15:00 23:00 Intake Total 1250 ml 720 ml 1290 ml Output Total 500 ml Balance 1250 ml 720 ml -500 ml 1290 ml Intake Oral 1250 ml 720 ml IV Total 1290 ml Output Urine Total 500 ml # Voids 4 7 # Bowel Movements 0 3 Result Diagram: 08/23/17 0558 08/23/17 0558 Objective Remarks GENERAL: MBMN WF mild sob SKIN: Warm and dry. HEAD: Normocephalic. EYES: No scleral icterus. No injection or drainage. NECK: Supple, trachea midline. No JVD or lymphadenopathy. CARDIOVASCULAR: Regular rate and rhythm without murmurs, gallops, or rubs. RESPIRATORY: Breath sounds equal bilaterally. No accessory muscle use. GASTROINTESTINAL: Abdomen soft, non-tender, nondistended. MUSCULOSKELETAL: No cyanosis, or edema. BACK: Nontender without obvious deformity. No CVA tenderness. A/P Assessment and Plan IMPRESSION: 1. Chronic obstructive pulmonary disease with exacerbation. 2. Pneumonia. 3. Small pleural effusion. 4. Hypercarbia and partially compensated respiratory acidosis. PLAN: aerosol nebs PO steroids cont Abx Supplement 02 to keep sat >90% OOB and ambulate. DC plans underway Will need nebuliser machine and re qualification for home 02 DC plans underway Randell Lopez MD Aug 26, 2017 11:49
[2017-08-26 12:00] VITALS: BP 149/63; PULSE 94; RESP 18; TEMP 97.9; O2SAT 94
[2017-08-26 12:30] VITALS: PULSE 89
[2017-08-26] MEDS ORDERED: LEVO500T8 PO (14:05)
--- NOTE | 2017-08-26 14:06 | HHI.PR ---
Subjective Remarks Says she is feeling better. Says she feels like going home today. Denies any chest pain. Reports shortness of breath continues improving. Objective Vital Signs Date Time Temp Pulse Resp B/P (MAP) Pulse Ox O2 Delivery O2 Flow Rate FiO2 08/26/17 12:00 97.9 94 18 149/63 (91) 94 08/26/17 10:04 85 08/26/17 09:24 Nasal Cannula 4.00 08/26/17 08:00 97.8 89 18 157/74 (101) 98 08/26/17 07:50 Nasal Cannula 4.00 Humidified 08/26/17 04:00 83 08/26/17 04:00 97.8 90 18 156/72 (100) 95 08/26/17 00:00 104 08/26/17 00:00 98.2 104 18 138/93 (108) 92 08/25/17 21:40 97 Nasal Cannula 4.00 08/25/17 21:05 Nasal Cannula 4.00 08/25/17 20:00 94 08/25/17 20:00 97.8 90 18 148/68 (94) 94 08/25/17 14:59 98.3 90 20 150/68 (95) 97 I/O 08/25/17 08/25/17 08/25/17 08/26/17 08/26/17 08/26/17 07:00 15:00 23:00 07:00 15:00 23:00 Intake Total 1250 ml 720 ml 1290 ml Output Total 500 ml Balance 1250 ml 720 ml -500 ml 1290 ml Intake Oral 1250 ml 720 ml IV Total 1290 ml Output Urine Total 500 ml # Voids 4 7 # Bowel Movements 0 3 Result Diagram: 08/23/17 0558 08/23/17 0558 Objective Remarks GENERAL: Patient sitting up in bed. Appears comfortable. Alert and oriented 3. Patient appears to be breathing more comfortably today. SKIN: Warm and dry. HEAD: Normocephalic. EYES: No scleral icterus. No injection or drainage. NECK: Supple, trachea midline. No JVD. CARDIOVASCULAR: Regular rate and rhythm without murmurs, gallops, or rubs. RESPIRATORY: Breath sounds equal bilaterally. No accessory muscle use. GASTROINTESTINAL: Abdomen soft, non-tender, nondistended. MUSCULOSKELETAL: No cyanosis, or edema. BACK: Nontender without obvious deformity. No CVA tenderness. A/P Assessment and Plan //Acute on chronic respiratory failure with hypoxemia and hypercapnia: Secondary to COPD exacerbation. Patient presented with an oxygen saturation of 63% on admission. Now on 4 L per nasal cannula, which is her baseline at home. Still with poor tolerance of any activity, becoming significantly dyspneic. Appreciate pulmonology recommendations. Physical therapy eval. = Patient appears to be breathing comfortably, however does not have placed a plug in her oxygen concentrator. Tapered to prednisone. Assess response. Repeat ABGs today. = 08/25. Repeat ABG from 08/24 with CO2 of 62, improved. Continue prednisone, duo nebs. Appreciate pulmonology's assistance. = 08/26. Shortness of breath improving. Patient feels like going home. Continue oxygen 4 L via nasal cannula at home. Steroid taper, nebs. Appreciate pulmonology assistance. //COPD exacerbation: Continue Solu-Medrol, bronchodilators, supplemental oxygen. Appreciate pulmonology recommendations. //Hypothyroidism: Continue Synthroid. // Pneumonia: Continue Rocephin and azithromycin. Blood cultures are negative so far. Sputum culture ordered, but not obtained. Pneumococcal and Legionella urinary antigen ordered, but not obtained. = Continue antibiotics complete treatment course. // Hypokalemia: Improved. //Insomnia: Benadryl as needed. // Abdominal pain: Likely muscle pain secondary to coughing. Monitor symptoms. //DVT prophylaxis: Lovenox. Discharge Planning Continue treatment for COPD exacerbation. Assess response to prednisone taper Difficult discharge. Patient currently homeless with daughter and grandson. No place to plug in oxygen concentrator. Appreciate case management assistance. Patient may be able to discharge tomorrow if doing okay on p.o. prednisone. Callum Rodriguez MD Aug 26, 2017 14:06
--- NOTE | 2017-08-26 14:07 | HHI.DS ---
Discharge Summary Admission Date Aug 19, 2017 at 17:50 Discharge Date: Aug 26, 2017 Admitting Diagnosis COPD exacerbation. (1) Pleural effusion ICD Code: J90 - Pleural effusion, not elsewhere classified Status: Acute (2) COPD exacerbation ICD Code: J44.1 - Chronic obstructive pulmonary disease with (acute) exacerbation Status: Resolved (3) Pneumonia ICD Code: J18.9 - Pneumonia, unspecified organism Status: Acute (4) HCAP (healthcare-associated pneumonia) ICD Code: J18.9 - Pneumonia, unspecified organism Status: Resolved Procedures None Brief History - From Admission This is a pleasant 66 y/o with COPD Emphysema who came to Emergency department from Home with Shortness of breath, approximately for the last three weeks, According to triage, she was at SaO2 63% on room air in the waiting room and slumped over, minimally responsive. patient states that she has felt a "chest cold" and feels "tightness" in her chest in combination with nasal congestion. States she has been using her home oxygen which she says is on approximately 4 L/min but she continues to feel short of breath. Patient does say that she has been exposed to more tobacco smoke than normal which may be the cause of these symptoms. Patient says he has a history of hypothyroidism. Denies history of hypertension, hyperlipidemia. Denies any cardiac issues. Denies any other chronic medical issues. States that she is to follow Dr. Robyn victoria for her primary care however, she has been discharged from practice. States that she was discharged in November 2016 but does have medication for her thyroid and albuterol nebulizer medication. Says she has been previously prescribed Symbicort but says she has been unable to take it because of cost. She denies fever, chills, chest pain, abdominal pain, back pain, leg pain. Seen in her bedroom in Emergency room, improved oxygen saturation. no expiratory wheezing at this time, severe decreased breath sounds. CBC/BMP: 08/23/17 0558 08/23/17 0558 Significant Findings Laboratory Tests Test 08/24/17 11:20 Blood Gas HCO3 36 mmol/L (22-26) Blood Gas Base Excess 10.9 mmol/L (-2-2) Arterial Blood Partial Pressure CO2 62 mmHg (38-42) Imaging Last Impressions Chest X-Ray 08/22/17 0000 Signed Impressions: Service Date/Time: Tuesday, August 22, 2017 07:27 - CONCLUSION: No significant change has occurred. Bill Foote MD PE at Discharge General: No acute distress. Heart: Regular rate and rhythm. No murmur. Lungs: Poor air entry. No wheezes, rales, or rhonchi. Breathing is nonlabored. Abdomen: Soft, mild tenderness in the upper abdomen without rebound or guarding , nondistended. Extremities: Trace bilateral lower extremity edema. Psych: Alert and oriented. Hospital Course Chest x-ray on admission with no acute findings. ABG with marketed hypercapnia. Patient was treated with IV steroids, DuoNeb's, antibiotics with slow improvement. Repeat ABG on 08/24 showed CO2 of 62. Patient had improvement of shortness of breath, felt comfortable going home on 08/26. Discharge home with steroid taper. Follow-up with primary care and pulmonology as outpatient. For problem-based summary from most recent progress note, please see below. //Acute on chronic respiratory failure with hypoxemia and hypercapnia: Secondary to COPD exacerbation. Patient presented with an oxygen saturation of 63% on admission. Now on 4 L per nasal cannula, which is her baseline at home. Still with poor tolerance of any activity, becoming significantly dyspneic. Appreciate pulmonology recommendations. Physical therapy eval. = Patient appears to be breathing comfortably, however does not have placed a plug in her oxygen concentrator. Tapered to prednisone. Assess response. Repeat ABGs today. = 08/25. Repeat ABG from 08/24 with CO2 of 62, improved. Continue prednisone, duo nebs. Appreciate pulmonology's assistance. = 08/26. Shortness of breath improving. Patient feels like going home. Continue oxygen 4 L via nasal cannula at home. Steroid taper, nebs. Appreciate pulmonology assistance. //COPD exacerbation: Continue Solu-Medrol, bronchodilators, supplemental oxygen. Appreciate pulmonology recommendations. //Hypothyroidism: Continue Synthroid. // Pneumonia: Continue Rocephin and azithromycin. Blood cultures are negative so far. Sputum culture ordered, but not obtained. Pneumococcal and Legionella urinary antigen ordered, but not obtained. = Continue antibiotics complete treatment course. // Hypokalemia: Improved. //Insomnia: Benadryl as needed. // Abdominal pain: Likely muscle pain secondary to coughing. Monitor symptoms. //DVT prophylaxis: Lovenox. Discharge Planning Continue treatment for COPD exacerbation. Assess response to prednisone taper Difficult discharge. Patient currently homeless with daughter and grandson. No place to plug in oxygen concentrator. Appreciate case management assistance. Patient may be able to discharge tomorrow if doing okay on p.o. prednisone. Pt Condition on Discharge: Good Discharge Disposition: Discharge Home Discharge Time: > 30 minutes Discharge Instructions DIET: Follow Instructions for: Heart Healthy Diet Activities you can perform: Regular-No Restrictions Follow up Referrals: PCP Follow-up - 1 Week with Matteo Hogan MD PCP Follow-up Pulmonology - 1 Week with Randell Lopez MD Pulmonology New Medications: Levofloxacin (Levofloxacin) 500 Mg Tablet 500 MG PO DAILY for Infection, #5 TAB 0 Refills Loratadine (Claritin) 10 Mg Cap 10 MG PO DAILY for Allergy Management for 30 Days, #30 CAP 0 Refills Oxygen (O2) (Oxygen (O2)) Device LITER HOMER.CANULA CONTINUOUS for Prevent Hypoxemia, #4 Oxygen Concentrator Portable Gaseous 2 L/min via Nasal Canula Continuous For 99 months [Albuterol-Ipratropium Neb] () 1 AMPULE NEBU 1 AMPULE NEB Q6HR NEB for COPD for 30 Days [guaiFENesin ER] () 600 MG TABCR 600 MG PO BID for 7 Days Continued Medications: Albuterol 18 GM Inh (Ventolin Hfa 18 GM Inh) 90 Mcg/Act Aer 2 PUFF INH Q4-6H PRN for SHORTNESS OF BREATH, #1 INHALER 0 Refills Budesonide-Formoterol Inh (Symbicort Inh) 160-4.5 Mcg/Act Aero 2 PUFF INH Q12HR for Shortness of Breath for 30 Days, #60 INHALER (This prescription has been renewed) Levothyroxine (Synthroid) 88 Mcg Tab 88 MCG PO DAILY for Thyroid, #30 TAB 0 Refills Montelukast (Montelukast) 10 Mg Tab 10 MG PO HS for Shortness of Breath for 30 Days, #30 TAB 0 Refills (This prescription has been renewed) Pantoprazole (Pantoprazole) 40 Mg Tab 40 MG PO DAILY for GERD, #31 TAB Prednisone (Prednisone) 20 Mg Tab 10 MG PO DAILY for Shortness of Breath, #23 TAB 0 Refills (This prescription has been renewed) Take 40mg daily for 3 days, 20mg daily for 3 days, 10mg daily for 3 days, 5 mg daily for 3 days, then stop. Discontinued Medications: Albuterol Neb (Albuterol Neb) 2.5 Mg/3 Ml Neb 2.5 MG NEB Q4HR NEB for Breathing Treatment, #60 NEBULE 0 Refills While awake Levothyroxine (Synthroid) 88 Mcg Tab 88 MCG PO DAILY for Thyroid, #14 TAB 0 Refills Callum Rodriguez MD Aug 26, 2017 14:07
== END 2017-08-26 15:05 | disposition home or self-care (01) | DRG 189 ==
LOC: NEPC 15:30 → NEDA 17:50 → N05A 20:02
PROVIDERS: ADMIT Internal Medicine; ATTEND Internal Medicine
DX: J96.21 Acute and chronic respiratory failure with hypoxia (principal); E87.4 Mixed disorder of acid-base balance; J18.9 Pneumonia, unspecified organism; Z99.81 Dependence on supplemental oxygen; J90 Pleural effusion, not elsewhere classified; J96.22 Acute and chronic respiratory failure with hypercapnia; J43.9 Emphysema, unspecified; E89.0 Postprocedural hypothyroidism; E87.6 Hypokalemia; E83.42 Hypomagnesemia; G47.00 Insomnia, unspecified; M19.90 Unspecified osteoarthritis, unspecified site; F41.9 Anxiety disorder, unspecified; Z59.0 Homelessness; Z87.891 Personal history of nicotine dependence
CPT/HCPCS: 36600; 71045; 80048; 80053; 82550; 82805; 82948; 83605; 83735; 83880; 84443; 84484; 85025; 85610; 85730; 87040; 93005; 94150; 94618; 94640; 94664; 96365; 96375; J0456; J0696; J1650; J2920; J2930; J3475; J7030; J7050; J7512; J7613